=== PATIENT | male | born 1935 | race Caucasian/White ===

== ENCOUNTER → 2018-03-31 16:04 | Outpatient (CLI) | payer MEDICARE, SELFPAY ==
[2018-03-31 16:35] LABS: Appearance Urine UA CLEAR; Bilirubin Urine UA NEGATIVE (NEGATIVE); Color Urine UA YELLOW; Glucose Urine UA NEGATIVE (Normal); Ketones Urine UA NEGATIVE (NEGATIVE); Leukocyte Esterase Urine UA NEGATIVE (NEGATIVE); Nitrite Urine UA Negative (Negative); Occult Blood Urine UA NEGATIVE (Negative); Protein Urine UA NEGATIVE (Negative); Urobilinogen Urine UA 0.2 E.U./dL (0.2)
[2018-03-31 17:42] LABS: Add Manual Diff / Slide Review NO; Basophils Percent Auto 0.9 % (0-2); Hematocrit 40.9 % (41-53); Hemoglobin 14.3 g/dL (13.5-17.5); Lymphocytes Percent Auto 18.9 % (25-40); Mean Corpuscular Hemoglobin 32.4 PG (26-34); Mean Corpuscular Volume 92.6 fL (80-100); Monocytes Percent Auto 10.6 % (3-14); Neutrophils Absolute Auto 4000 /uL (3000-5900); Neutrophils Percent Auto 66.6 % (50-75); Platelet Count 234 X10^3/uL (150-400); Red Blood Cell Count 4.42 X10^6/uL (4.5-5.9); Red Cell Distribution Width 13.6 % (11.6-14.8)
[2018-03-31 18:37] LABS: Alanine Aminotransferase 27 IU/L (21-72); Albumin 3.8 g/dL (3.5-5.0); Albumin Globulin Ratio 1.3 (1.0-2.8); Alkaline Phosphatase 97 U/L (38-126); Aspartate Aminotransferase 26 IU/L (17-59); Bilirubin Total 0.7 mg/dL (0.2-1.3); Blood Urea Nitrogen 22 mg/dL (9-20); Calcium 9.3 mg/dL (8.4-10.2); Carbon Dioxide 29 mmol/L (22-32); Chloride 97 mmol/L (98-107); Estimated Glomerular Filt Rate > 60.0 mL/min (>60); Globulin 2.9 g/dL (1.7-4.1); Glucose 77 mg/dL (80-110); HEMOLYSIS < 15 (0-50); Potassium 4.1 mmol/L (3.4-5.1); Sodium 137 mmol/L (137-145); Total Protein 6.7 g/dL (6.3-8.2)
[2018-03-31 19:08] LABS: TSH w/ Reflex to FT4 1.71 uIU/mL (0.47-4.68)
== END ==
PROVIDERS: Family Provider Internal Medicine; PCP Internal Medicine; Visit Provider Internal Medicine
DX: I49.9 Cardiac arrhythmia, unspecified (principal); R35.8 Other polyuria; Z79.899 Other long term (current) drug therapy; I10 Essential (primary) hypertension
CPT/HCPCS: 36415; 80053; 81003; 83735; 84443; 85025

== ENCOUNTER → 2018-04-04 12:26 | Outpatient (CLI) | payer MEDICARE, SELFPAY ==
--- NOTE | 2018-04-17 15:48 | PM.CARDMON.1 ---
Project Structural Engineer Report Referral & Results Date Patient Seen: 04/04/18 Requesting provider: Ten Fleming Indication: Paroxysmal atrial fibrillation Duration of monitoring (days): 6 Diary information: No diary entries, 1 patient triggered event that was associated with sinus rhythm Data: Minimum heart rate identified was 57 beats per minute at 05:12 on 04/07/2018 Maximum heart rate was 169 beats per minute at 07:47 on 04/07/2018 this was associated with an 8 beat run of SVT Maximum sinus heart rate was 125 beats per minute at 07:32 on 04/08/2018 About 5.1% of patients identified beats were supraventricular ectopic in origin and less than 1% of identified beats were ventricular ectopic beats in origin Patient did have several runs of supraventricular tachycardia longest was 8 beats which was also the fastest heart rate Impression: No evidence of atrial fibrillation. Somewhat frequent PACs without other significant dysrhythmia
== END ==
PROVIDERS: Family Provider Internal Medicine; PCP Internal Medicine; Visit Provider Internal Medicine
DX: I49.9 Cardiac arrhythmia, unspecified (principal)
CPT/HCPCS: 0296T; 0298T

== ENCOUNTER 2018-04-30 08:31 | Emergency (ER) | payer MEDICARE, SELFPAY ==
[2018-04-30 08:37] VITALS: BP 142/81; PULSE 105; RESP 18; TEMP 36.3; O2SAT 99
--- NOTE | 2018-04-30 09:31 | PC.NURSE ---
pt reports, treated for 10 days antibiotic, last dose saturday, pt feeling fine for 3-4 days, this morning,noted left 4th digit with swelling and redness, denies other sxs at this time. pt able to ambulate with steady gait. left 4th digit with redness and swelling.
--- NOTE | 2018-04-30 09:49 | ED.SKABFB ---
HPI - Skin/Abscess/Foreign Bdy General Chief complaint: Skin/Abscess/Foreign Body Stated complaint: LEFT LEG/FOOT/ANKLE CELLULITIS Time Seen by Provider: 04/30/18 09:47 Source: patient Mode of arrival: ambulatory Limitations: no limitations History of Present Illness HPI narrative: The patient was recently seen in clinic with a left lower extremity cellulitis. He responded well to Bactrim DS. He has had significant resolution. The focus seems to be the left 4th toe, there was a large callus in place and he has tinea pedis. He has been soaking the foot in hot water with Epsom salt. A large portion of the callus Came off. He noted erythema and swelling to the left 4th toe again today, after what seemed total resolution. He had tachycardia and fever when he was 1st treated. He only notices left toe swelling without additional symptoms today. Related Data Home Medications Medication Instructions Recorded Confirmed ascorbic acid (vitamin C) 500 mg PO BID #0 03/21/17 04/17/18 cholecalciferol (vitamin D3) #0 03/21/17 04/17/18 multivitamin [Multiple Vitamins] 1 tab PO QDAY #0 03/21/17 04/17/18 naproxen sodium 220 mg PO BIDCC #0 06/27/17 04/17/18 aspirin 325 mg tablet 325 mg PO BID 03/31/18 04/17/18 vitamins A,C,R-upbd-mkneqk 7,160 2 tab PO BID 03/31/18 04/17/18 unit-113 mg-100 unit tablet Previous Rx's Medication Instructions Recorded oxycodone-acetaminophen 1 - 2 tab PO Q4HP PRN #20 tab 06/27/17 fluticasone [Flovent HFA] 2 puff INH BID #1 inh 12/03/17 lisinopril 40 mg PO BID #180 tab 12/03/17 hydrochlorothiazide 25 mg PO QDAY #90 tab 03/31/18 simvastatin [Zocor] 40 mg PO Q DAY #90 tab 03/31/18 clindamycin HCl [Cleocin HCl] 300 mg PO TID #30 cap 04/30/18 Allergies Allergy/AdvReac Type Severity Reaction Status Date / Time Horse/Equine Containing AdvReac Severe CONVULSION Verified 04/17/18 15:13 Products Review of Systems Constitutional Denies chills, Denies fever(s) and Denies lethargy Musculoskeletal Denies back pain, Denies atrophy, Denies deformity, Denies muscle weakness, Denies numbness and Denies tingling Integumentary/Breasts Reports erythema and Reports wounds Comments: Left toe ulcer with swelling Neurologic Denies numbness and Denies tingling [facility] Medical History Essential hypertension (Chronic 05/17/11) Mixed hyperlipidemia (Chronic 05/17/11) 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) Essential tremor (Chronic 12/28/14) Paroxysmal atrial fibrillation (Chronic 03/16/16) Chronic obstructive pulmonary disease (Chronic 01/27/18) Surgical History Status post cholecystectomy (Resolved 09/2015) Social History marital status: number of children: 3 household members: spouse lives independently: Yes caregiver/support person: No housing: house pets and animals: Yes education level: other (Graduate [employer] engineering.) 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) current occupational exposures/hazards: No magali/orthodox: Caodaism leisure activities: sports, exercise, music, games, hunting and fishing Smoking Status: Former smoker Tobacco: How many years used: 15 Smokeless tobacco user: other (Pipe, Cigars,Cigarettes on and off.) quit status: quit date established (1975) alcohol intake: current (6-8 oz of Aston) substance use type: does not use Exam Initial Vital Signs Initial Vital Signs: Vital Signs Temperature 97.4 F L 04/30/18 08:37 Pulse Rate 105 H 04/30/18 08:37 Respiratory Rate 18 04/30/18 08:37 Blood Pressure 142/81 H 04/30/18 08:37 Pulse Oximetry 99 04/30/18 08:37 Const General: cooperative, healthy appearing, well developed and well groomed Nutritional Appearance: well nourished Orientation: alert, awake, oriented x3 and not confused Skin General: no rashes or lesions noted ( Other than the left Lower extremity.) Neuro General: alert, oriented x3, no focal motor deficits and other ( No sensory deficits in the lower extremities.) Speech: speech normal Extrem General: other ( The patient has a 4 mm ulcer at the tip of the left 4th toe. There is a degree of callus formation around the ulcer. The left 4th toe is edematous, erythematous and tender. There is no purulent discharge from the ulcer. There is no erythema streaking up the dorsal foot or leg. ) Course Hospital Course: The patient will be started on Cleocin, with close follow up with his physician encouraged. Vital Signs - 8 hr 04/30/18 08:37 Temperature 97.4 F L Pulse Rate 105 H Respiratory Rate 18 Blood Pressure 142/81 H Pulse Oximetry 99 Discharge Plan Departure Patient Disposition: Home, Self-Care Clinical Impression: Cellulitis of fourth toe of left foot Instructions: Cellulitis Activity Restrictions/Additional Instructions: Take Cleocin 3 times daily as prescribed. Soak the foot in warm water with Epsom salts as you have been doing. Have your doctor recheck the wound later this week. Return here if he developed increased redness or pain in the left foot or leg. Prescriptions: New clindamycin HCl [Cleocin HCl] 300 mg capsule 300 mg PO TID Qty: 30 RF: 0 No Action multivitamin [Multiple Vitamins] 1 EACH tablet 1 tab PO QDAY Qty: 0 RF: 0 ascorbic acid (vitamin C) 500 MG tablet 500 mg PO BID Qty: 0 RF: 0 cholecalciferol (vitamin D3) 30 ML spray,suspension Qty: 0 RF: 0 naproxen sodium 220 MG tablet 220 mg PO BIDCC Qty: 0 RF: 0 oxycodone-acetaminophen 5 MG/325 MG tablet 1 - 2 tab PO Q4HP PRNQty: 20 RF: 0 fluticasone [Flovent HFA] 12 GM HFA aerosol inhaler 2 puff INH BID Qty: 1 RF: 6 lisinopril 40 MG tablet 40 mg PO BID Qty: 180 RF: 3 simvastatin [Zocor] 40 mg tablet 40 mg PO Q DAY Qty: 90 RF: 3 hydrochlorothiazide 25 mg tablet 25 mg PO QDAY Qty: 90 RF: 3 aspirin 325 mg tablet 325 mg PO BID RF: 0 vitamins A,C,Q-pgqw-dwkrcr [PreserVision AREDS] 7,160-113-100 gtnv-or-bkse tablet 2 tab PO BID RF: 0
[2018-04-30 10:02] VITALS: BP 164/78; PULSE 101; RESP 14; O2SAT 98
--- NOTE | 2018-04-30 10:06 | ED_ITS ---
HPI - Skin/Abscess/Foreign Bdy General Chief complaint: Skin/Abscess/Foreign Body Stated complaint: LEFT LEG/FOOT/ANKLE CELLULITIS Time Seen by Provider: 04/30/18 09:47 Source: patient Mode of arrival: ambulatory Limitations: no limitations History of Present Illness HPI narrative: The patient was recently seen in clinic with a left lower extremity cellulitis. He responded well to Bactrim DS. He has had significant resolution. The focus seems to be the left 4th toe, there was a large callus in place and he has tinea pedis. He has been soaking the foot in hot water with Epsom salt. A large portion of the callus Came off. He noted erythema and swelling to the left 4th toe again today, after what seemed total resolution. He had tachycardia and fever when he was 1st treated. He only notices left toe swelling without additional symptoms today. Related Data Home Medications Medication Instructions Recorded Confirmed ascorbic acid (vitamin C) 500 mg PO BID #0 03/21/17 04/17/18 cholecalciferol (vitamin D3) #0 03/21/17 04/17/18 multivitamin [Multiple Vitamins] 1 tab PO QDAY #0 03/21/17 04/17/18 naproxen sodium 220 mg PO BIDCC #0 06/27/17 04/17/18 aspirin 325 mg tablet 325 mg PO BID 03/31/18 04/17/18 vitamins A,C,M-vwlo-eahchs 7,160 2 tab PO BID 03/31/18 04/17/18 unit-113 mg-100 unit tablet Previous Rx's Medication Instructions Recorded oxycodone-acetaminophen 1 - 2 tab PO Q4HP PRN #20 tab 06/27/17 fluticasone [Flovent HFA] 2 puff INH BID #1 inh 12/03/17 lisinopril 40 mg PO BID #180 tab 12/03/17 hydrochlorothiazide 25 mg PO QDAY #90 tab 03/31/18 simvastatin [Zocor] 40 mg PO Q DAY #90 tab 03/31/18 clindamycin HCl [Cleocin HCl] 300 mg PO TID #30 cap 04/30/18 Allergies Allergy/AdvReac Type Severity Reaction Status Date / Time Horse/Equine Containing AdvReac Severe CONVULSION Verified 04/17/18 15:13 Products Review of Systems Constitutional Denies chills, Denies fever(s) and Denies lethargy Musculoskeletal Denies back pain, Denies atrophy, Denies deformity, Denies muscle weakness, Denies numbness and Denies tingling Integumentary/Breasts Reports erythema and Reports wounds Comments: Left toe ulcer with swelling Neurologic Denies numbness and Denies tingling [facility] Medical History Essential hypertension (Chronic 05/17/11) Mixed hyperlipidemia (Chronic 05/17/11) 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) Essential tremor (Chronic 12/28/14) Paroxysmal atrial fibrillation (Chronic 03/16/16) Chronic obstructive pulmonary disease (Chronic 01/27/18) Surgical History Status post cholecystectomy (Resolved 09/2015) Social History marital status: number of children: 3 household members: spouse lives independently: Yes caregiver/support person: No housing: house pets and animals: Yes education level: other (Graduate [employer] engineering.) 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) current occupational exposures/hazards: No magali/gnosticism: Judaism leisure activities: sports, exercise, music, games, hunting and fishing Smoking Status: Former smoker Tobacco: How many years used: 15 Smokeless tobacco user: other (Pipe, Cigars,Cigarettes on and off.) quit status: quit date established (1975) alcohol intake: current (6-8 oz of Aston) substance use type: does not use Exam Initial Vital Signs Initial Vital Signs: Vital Signs Temperature 97.4 F L 04/30/18 08:37 Pulse Rate 105 H 04/30/18 08:37 Respiratory Rate 18 04/30/18 08:37 Blood Pressure 142/81 H 04/30/18 08:37 Pulse Oximetry 99 04/30/18 08:37 Const General: cooperative, healthy appearing, well developed and well groomed Nutritional Appearance: well nourished Orientation: alert, awake, oriented x3 and not confused Skin General: no rashes or lesions noted ( Other than the left Lower extremity.) Neuro General: alert, oriented x3, no focal motor deficits and other ( No sensory deficits in the lower extremities.) Speech: speech normal Extrem General: other ( The patient has a 4 mm ulcer at the tip of the left 4th toe. There is a degree of callus formation around the ulcer. The left 4th toe is edematous, erythematous and tender. There is no purulent discharge from the ulcer. There is no erythema streaking up the dorsal foot or leg. ) Course Hospital Course: The patient will be started on Cleocin, with close follow up with his physician encouraged. Vital Signs - 8 hr 04/30/18 08:37 Temperature 97.4 F L Pulse Rate 105 H Respiratory Rate 18 Blood Pressure 142/81 H Pulse Oximetry 99 Discharge Plan Departure Patient Disposition: Home, Self-Care Clinical Impression: Cellulitis of fourth toe of left foot Instructions: Cellulitis Activity Restrictions/Additional Instructions: Take Cleocin 3 times daily as prescribed. Soak the foot in warm water with Epsom salts as you have been doing. Have your doctor recheck the wound later this week. Return here if he developed increased redness or pain in the left foot or leg. Prescriptions: New clindamycin HCl [Cleocin HCl] 300 mg capsule 300 mg PO TID Qty: 30 RF: 0 No Action multivitamin [Multiple Vitamins] 1 EACH tablet 1 tab PO QDAY Qty: 0 RF: 0 ascorbic acid (vitamin C) 500 MG tablet 500 mg PO BID Qty: 0 RF: 0 cholecalciferol (vitamin D3) 30 ML spray,suspension Qty: 0 RF: 0 naproxen sodium 220 MG tablet 220 mg PO BIDCC Qty: 0 RF: 0 oxycodone-acetaminophen 5 MG/325 MG tablet 1 - 2 tab PO Q4HP PRNQty: 20 RF: 0 fluticasone [Flovent HFA] 12 GM HFA aerosol inhaler 2 puff INH BID Qty: 1 RF: 6 lisinopril 40 MG tablet 40 mg PO BID Qty: 180 RF: 3 simvastatin [Zocor] 40 mg tablet 40 mg PO Q DAY Qty: 90 RF: 3 hydrochlorothiazide 25 mg tablet 25 mg PO QDAY Qty: 90 RF: 3 aspirin 325 mg tablet 325 mg PO BID RF: 0 vitamins A,C,W-iyro-ckowtw [PreserVision AREDS] 7,160-113-100 tdvl-hi-rtgn tablet 2 tab PO BID RF: 0
[2018-04-30] MEDS: CLINDAMYCIN 150 MG CAPSULE 300 MG PO (10:14)
== END 2018-04-30 10:19 | disposition home or self-care (01) ==
PROVIDERS: Emergency Provider Emergency Medicine; Family Provider Internal Medicine; PCP Internal Medicine
DX: L03.032 Cellulitis of left toe (principal)
CPT/HCPCS: 99282

== ENCOUNTER → 2018-06-03 13:21 | Outpatient (CLI) | payer MEDICARE, SELFPAY | PROVIDERS: Family Provider Internal Medicine; PCP Internal Medicine; Visit Provider Registered Nurse | DX: L97.529 Non-pressure chronic ulcer of other part of left foot with unspecified severity (principal) | CPT/HCPCS: 87070; 87075; 87077; 87186; 87205 ==

== ENCOUNTER 2018-06-05 09:31 | Emergency (ER) | payer MEDICARE, SELFPAY ==
[2018-06-05 09:39] VITALS: BP 125/76; PULSE 96; RESP 15; TEMP 36.9; O2SAT 100; BMI 27.9
[2018-06-05 10:55] VITALS: BP 104/66; PULSE 92; RESP 16; O2SAT 97
--- NOTE | 2018-06-05 10:56 | ED.LOWEXIN ---
HPI - Extremity Injury (Lower) General Chief Complaint: Extremity Injury, Lower Stated Complaint: RAPID SPREADING CELLULITIS Time Seen by Provider: 06/05/18 10:55 Source: patient and family Mode of arrival: ambulatory Limitations: no limitations History of Present Illness HPI Narrative: Patient states he has been on Bactrim for the last 3 days for a cellulitis is left lower extremity. Patient states that today he noticed ?spots? all over his body. states they were concerned that the cellulitis might be spreading. Patient denies fevers for the last 3 days. The day before the cellulitis broke out, however, the patient did have fever for 1 day. Patient states that he has felt more tired than usual, but otherwise has been without further complaints. MD complaint: other (Cellulitis, rash.) Onset (ago): day(s) (1) Associated symptoms: ambulatory Other symptoms: none Treatments prior to arrival: other (Antibiotics) Related Data Home Medications Medication Instructions Recorded Confirmed ascorbic acid (vitamin C) 500 mg PO BID #0 03/21/17 06/05/18 multivitamin [Multiple Vitamins] 1 tab PO QDAY #0 03/21/17 06/05/18 naproxen sodium 220 mg PO BIDCC #0 06/27/17 06/05/18 aspirin 325 mg tablet 325 mg PO DAILY 03/31/18 06/05/18 vitamins A,C,U-yfin-ldfnra 7,160 2 tab PO BID 03/31/18 06/05/18 unit-113 mg-100 unit tablet Vitamin D3 1 cap PO DAILY 06/05/18 06/05/18 Previous Rx's Medication Instructions Recorded oxycodone-acetaminophen 1 - 2 tab PO Q4HP PRN #20 tab 06/27/17 lisinopril 40 mg PO BID #180 tab 12/03/17 hydrochlorothiazide 25 mg PO QDAY #90 tab 06/02/18 simvastatin [Zocor] 40 mg PO Q DAY #90 tab 06/02/18 clindamycin HCl 300 mg PO QID 7 Days #28 cap 06/05/18 metoprolol tartrate 12.5 mg PO BID #14 tab 06/05/18 Allergies Allergy/AdvReac Type Severity Reaction Status Date / Time Sulfa (Sulfonamide Allergy Mild rash Verified 06/05/18 15:57 Antibiotics) Horse/Equine Containing AdvReac Severe CONVULSION Verified 06/05/18 15:57 Products Review of Systems Review of Systems All systems reviewed & are unremarkable except as noted in HPI and below Constitutional Denies chills, Denies fever(s), Denies lethargy and Denies weakness Eyes Denies change in vision, Denies eye discharge, Denies irritation and Denies loss of vision ENT Ears, Nose, Mouth, and Throat: Denies change in voice, Denies neck pain and Denies sore throat Cardiovascular Denies chest pain, Denies irregular heart rhythm, Denies lightheadedness, Denies palpitations, Denies dyspnea, Denies dyspnea on exertion and Denies orthopnea Respiratory Denies cough, Denies dyspnea, Denies dyspnea on exertion and Denies wheezing Gastrointestinal Gastrointestinal: Denies abdominal pain, Denies change in bowel habits, Denies diarrhea, Denies nausea and Denies vomiting Genitourinary Denies hematuria, Denies flank pain, Denies urinary incontinence and Denies urinary urgency Musculoskeletal Denies neck pain Integumentary/Breasts Denies pruritus, Reports erythema, Reports rash and Denies wounds Neurologic Denies confusion, Denies loss of vision and Denies weakness Psychiatric Denies anxiety, Denies confusion, Denies depression, Denies homicidal ideation and Denies suicidal ideation Endocrine Denies palpitations Hematologic/Lymphatic Denies easy bruising Allergic/Immunologic Denies wheezing PFSH Social History marital status: number of children: 3 household members: spouse lives independently: Yes caregiver/support person: No housing: house pets and animals: Yes education level: other (Graduate [employer] and aer[employer] engineering.) 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) current occupational exposures/hazards: No magali/islam: Mormonism leisure activities: sports, exercise, music, games, hunting and fishing Smoking Status: Former smoker Tobacco: How many years used: 15 Smokeless tobacco user: other (Pipe, Cigars,Cigarettes on and off.) quit status: quit date established (1975) alcohol intake: current (6-8 oz of Aston) substance use type: does not use Exam Initial Vital Signs Initial Vital Signs: Vital Signs Temperature 98.5 F 06/05/18 09:39 Pulse Rate 96 H 06/05/18 09:39 Respiratory Rate 15 06/05/18 09:39 Blood Pressure 125/76 H 06/05/18 09:39 Pulse Oximetry 100 06/05/18 09:39 Const General: cooperative and well developed Nutritional Appearance: well nourished Orientation: alert, awake, oriented x3 and not confused [facility] Head: normocephalic and atraumatic Ears: external ears normal and TM's normal bilaterally Nose: external nose normal and No nasal discharge Face and sinus: sinuses nontender, face symmetric, no sinus tenderness and No dry mucous membranes Mouth: oral mucosae normal and moist mucous membranes Teeth and gingiva: dentition normal Throat: tonsils normal and uvula midline Eyes General: appearance normal, both eyes and all related structures Eyelids: eyelids normal Conjunctivae: conjunctivae normal Sclera: sclerae normal Pupils: PERRL EOM: EOM intact bilaterally Neck Neck: normal visual inspection, trachea midline, No lymphadenopathy, No midline deformity and No JVD Lymphatic: No lymphedema Chest Chest: normal inspection of the chest Resp Effort & Inspection: normal respiratory effort, able to speak in complete sentences, no respiratory distress and no use of accessory muscles Auscultation: clear to auscultation bilaterally, no rales, no rhonchi and no wheezes Cardio Rhythm: abnormal rhythm (Patient has a normal rate, but it is irregular.) irregularly irregular Heart Sounds: no click, no gallops, no murmurs and no rubs Pulses: normal peripheral pulses GI Inspection: non-distended Palpation: soft, no hepatosplenomegaly, No guarding, No pulsatile mass and No tender Auscultation: normal bowel sounds Back/Spine/Pelvis Back: No CVA tenderness Cervical Spine: cervical ROM normal and No pain with cervical ROM Thoracic/Lumbar Spine: thoracic and lumbar spine normal to inspection Skin General: no rashes or lesions noted, No jaundice and No petechiae Other: Patient has solid erythema his left lower extremity, extending from the ankle to the mid anterior tibial area. The erythema is circumferential. He also has a full body rash consisting of 2 cm circular lesions without central clearing. No skin edema or elevation for fluctuance is noted with these lesions. Neuro General: alert, oriented x3, gait normal and no focal motor deficits Speech: speech normal Extrem General: full ROM, no clubbing, cyanosis or edema, no pedal edema and no calf tenderness Psych Appearance: well kempt Mental Status: mental status grossly normal Attitude: cooperative Thought Content: normal and suicidality Judgment: judgment good Course Hospital Course: I addressed the concern on the part of the patient and his that the rash represents a cellulitis spreading all over his body. We have discussed in detail and at length why I do not feel this presentation is consistent with spread of the patient's cellulitis. The patient is not displaying any signs of sepsis. He is very well-appearing. I do feel that the most likely explanation for the rash is a drug eruption, and as such, I have advised the patient to stop the Bactrim and start clindamycin which he has used with success in the past for cellulitis. Patient and were agreeable to this plan. Orders Ordered: Discontinued Medications Clindamycin HCl (Cleocin) 300 mg PO NOW ONE Stop: 06/05/18 11:22 Last Admin: 06/05/18 11:53 Dose: 300 mg Vital Signs - 8 hr 06/05/18 09:39 06/05/18 10:55 Temperature 98.5 F Pulse Rate 96 H 92 H Respiratory Rate 15 16 Blood Pressure 125/76 H Blood Pressure [Right Arm] 104/66 Pulse Oximetry 100 97 MDM - Extremity Injury (Lower) Medical Records Attestation: I reviewed the patient's medical records. Discharge Plan Departure Patient Disposition: Home, Self-Care Clinical Impression: Drug exanthem, Cellulitis Discharge Date/Time: 06/05/18 11:50 Interventions: ED Discharge Assessment Last Done: 06/05/18 11:50 Instructions: DI for Adverse Drug Reaction -- Allergic, DI for Adverse Drug Reaction -- Other Activity Restrictions/Additional Instructions: Your rash is not consistent with a spread of infection throughout your body. Your symptoms are more consistent with a reaction to the medication that you are on. As such, the best plan is to switch to a different antibiotic. You should stop taking the sulfa antibiotic and start taking the clindamycin, as will be prescribed. You may also take the Benadryl and prednisone, as we have discussed, for the next 3 days to help with the symptoms. Please do not take more than 60 mg of prednisone in 1 day. Please do not take the prednisone for more than 3 days. Prescriptions: New clindamycin HCl 300 mg capsule 300 mg PO QID 7 Days Qty: 28 RF: 0 No Action multivitamin [Multiple Vitamins] 1 EACH tablet 1 tab PO QDAY Qty: 0 RF: 0 ascorbic acid (vitamin C) 500 MG tablet 500 mg PO BID Qty: 0 RF: 0 naproxen sodium 220 MG tablet 220 mg PO BIDCC Qty: 0 RF: 0 oxycodone-acetaminophen 5 MG/325 MG tablet 1 - 2 tab PO Q4HP PRNQty: 20 RF: 0 lisinopril 40 MG tablet 40 mg PO BID Qty: 180 RF: 3 hydrochlorothiazide 25 mg tablet 25 mg PO QDAY Qty: 90 RF: 3 simvastatin [Zocor] 40 mg tablet 40 mg PO Q DAY Qty: 90 RF: 3 aspirin 325 mg tablet 325 mg PO DAILY RF: 0 vitamins A,C,Z-bicy-zxlpkr [PreserVision AREDS] 7,160-113-100 lzom-dv-gxug tablet 2 tab PO BID RF: 0 metoprolol tartrate 25 mg tablet 12.5 mg PO BID Qty: 14 RF: 0 Vitamin D3 1 cap PO DAILY RF: 0 Referrals: Ten Fleming MD [Primary Care Provider] - (Please call to make an appointment for early next week for re-evaluation.)
--- NOTE | 2018-06-05 11:21 | ED_ITS ---
HPI - Extremity Injury (Lower) General Chief Complaint: Extremity Injury, Lower Stated Complaint: RAPID SPREADING CELLULITIS Time Seen by Provider: 06/05/18 10:55 Source: patient and family Mode of arrival: ambulatory Limitations: no limitations History of Present Illness HPI Narrative: Patient states he has been on Bactrim for the last 3 days for a cellulitis is left lower extremity. Patient states that today he noticed ?spots ? all over his body. states they were concerned that the cellulitis might be spreading. Patient denies fevers for the last 3 days. The day before the cellulitis broke out, however, the patient did have fever for 1 day. Patient states that he has felt more tired than usual, but otherwise has been without further complaints. MD complaint: other (Cellulitis, rash.) Onset (ago): day(s) (1) Associated symptoms: ambulatory Other symptoms: none Treatments prior to arrival: other (Antibiotics) Related Data Home Medications Medication Instructions Recorded Confirmed ascorbic acid (vitamin C) 500 mg PO BID #0 03/21/17 06/05/18 multivitamin [Multiple Vitamins] 1 tab PO QDAY #0 03/21/17 06/05/18 naproxen sodium 220 mg PO BIDCC #0 06/27/17 06/05/18 aspirin 325 mg tablet 325 mg PO DAILY 03/31/18 06/05/18 vitamins A,C,S-oezb-ncirtk 7,160 2 tab PO BID 03/31/18 06/05/18 unit-113 mg-100 unit tablet Vitamin D3 1 cap PO DAILY 06/05/18 06/05/18 Previous Rx's Medication Instructions Recorded oxycodone-acetaminophen 1 - 2 tab PO Q4HP PRN #20 tab 06/27/17 lisinopril 40 mg PO BID #180 tab 12/03/17 hydrochlorothiazide 25 mg PO QDAY #90 tab 06/02/18 simvastatin [Zocor] 40 mg PO Q DAY #90 tab 06/02/18 clindamycin HCl 300 mg PO QID 7 Days #28 cap 06/05/18 metoprolol tartrate 12.5 mg PO BID #14 tab 06/05/18 Allergies Allergy/AdvReac Type Severity Reaction Status Date / Time Sulfa (Sulfonamide Allergy Mild rash Verified 06/05/18 15:57 Antibiotics) Horse/Equine Containing AdvReac Severe CONVULSION Verified 06/05/18 15:57 Products Review of Systems Review of Systems All systems reviewed & are unremarkable except as noted in HPI and below Constitutional Denies chills, Denies fever(s), Denies lethargy and Denies weakness Eyes Denies change in vision, Denies eye discharge, Denies irritation and Denies loss of vision ENT Ears, Nose, Mouth, and Throat: Denies change in voice, Denies neck pain and Denies sore throat Cardiovascular Denies chest pain, Denies irregular heart rhythm, Denies lightheadedness, Denies palpitations, Denies dyspnea, Denies dyspnea on exertion and Denies orthopnea Respiratory Denies cough, Denies dyspnea, Denies dyspnea on exertion and Denies wheezing Gastrointestinal Gastrointestinal: Denies abdominal pain, Denies change in bowel habits, Denies diarrhea, Denies nausea and Denies vomiting Genitourinary Denies hematuria, Denies flank pain, Denies urinary incontinence and Denies urinary urgency Musculoskeletal Denies neck pain Integumentary/Breasts Denies pruritus, Reports erythema, Reports rash and Denies wounds Neurologic Denies confusion, Denies loss of vision and Denies weakness Psychiatric Denies anxiety, Denies confusion, Denies depression, Denies homicidal ideation and Denies suicidal ideation Endocrine Denies palpitations Hematologic/Lymphatic Denies easy bruising Allergic/Immunologic Denies wheezing PFSH Social History marital status: number of children: 3 household members: spouse lives independently: Yes caregiver/support person: No housing: house pets and animals: Yes education level: other (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) current occupational exposures/hazards: No magali/rastafari: Jew leisure activities: sports, exercise, music, games, hunting and fishing Smoking Status: Former smoker Tobacco: How many years used: 15 Smokeless tobacco user: other (Pipe, Cigars,Cigarettes on and off.) quit status: quit date established (1975) alcohol intake: current (6-8 oz of Aston) substance use type: does not use Exam Initial Vital Signs Initial Vital Signs: Vital Signs Temperature 98.5 F 06/05/18 09:39 Pulse Rate 96 H 06/05/18 09:39 Respiratory Rate 15 06/05/18 09:39 Blood Pressure 125/76 H 06/05/18 09:39 Pulse Oximetry 100 06/05/18 09:39 Const General: cooperative and well developed Nutritional Appearance: well nourished Orientation: alert, awake, oriented x3 and not confused [facility] Head: normocephalic and atraumatic Ears: external ears normal and TM's normal bilaterally Nose: external nose normal and No nasal discharge Face and sinus: sinuses nontender, face symmetric, no sinus tenderness and No dry mucous membranes Mouth: oral mucosae normal and moist mucous membranes Teeth and gingiva: dentition normal Throat: tonsils normal and uvula midline Eyes General: appearance normal, both eyes and all related structures Eyelids: eyelids normal Conjunctivae: conjunctivae normal Sclera: sclerae normal Pupils: PERRL EOM: EOM intact bilaterally Neck Neck: normal visual inspection, trachea midline, No lymphadenopathy, No midline deformity and No JVD Lymphatic: No lymphedema Chest Chest: normal inspection of the chest Resp Effort & Inspection: normal respiratory effort, able to speak in complete sentences, no respiratory distress and no use of accessory muscles Auscultation: clear to auscultation bilaterally, no rales, no rhonchi and no wheezes Cardio Rhythm: abnormal rhythm (Patient has a normal rate, but it is irregular.) irregularly irregular Heart Sounds: no click, no gallops, no murmurs and no rubs Pulses: normal peripheral pulses GI Inspection: non-distended Palpation: soft, no hepatosplenomegaly, No guarding, No pulsatile mass and No tender Auscultation: normal bowel sounds Back/Spine/Pelvis Back: No CVA tenderness Cervical Spine: cervical ROM normal and No pain with cervical ROM Thoracic/Lumbar Spine: thoracic and lumbar spine normal to inspection Skin General: no rashes or lesions noted, No jaundice and No petechiae Other: Patient has solid erythema his left lower extremity, extending from the ankle to the mid anterior tibial area. The erythema is circumferential. He also has a full body rash consisting of 2 cm circular lesions without central clearing. No skin edema or elevation for fluctuance is noted with these lesions. Neuro General: alert, oriented x3, gait normal and no focal motor deficits Speech: speech normal Extrem General: full ROM, no clubbing, cyanosis or edema, no pedal edema and no calf tenderness Psych Appearance: well kempt Mental Status: mental status grossly normal Attitude: cooperative Thought Content: normal and suicidality Judgment: judgment good Course Hospital Course: I addressed the concern on the part of the patient and his that the rash represents a cellulitis spreading all over his body. We have discussed in detail and at length why I do not feel this presentation is consistent with spread of the patient's cellulitis. The patient is not displaying any signs of sepsis. He is very well-appearing. I do feel that the most likely explanation for the rash is a drug eruption, and as such, I have advised the patient to stop the Bactrim and start clindamycin which he has used with success in the past for cellulitis. Patient and were agreeable to this plan. Orders Ordered: Discontinued Medications Clindamycin HCl (Cleocin) 300 mg PO NOW ONE Stop: 06/05/18 11:22 Last Admin: 06/05/18 11:53 Dose: 300 mg Vital Signs - 8 hr 06/05/18 09:39 06/05/18 10:55 Temperature 98.5 F Pulse Rate 96 H 92 H Respiratory Rate 15 16 Blood Pressure 125/76 H Blood Pressure [Right Arm] 104/66 Pulse Oximetry 100 97 MDM - Extremity Injury (Lower) Medical Records Attestation: I reviewed the patient's medical records. Discharge Plan Departure Patient Disposition: Home, Self-Care Clinical Impression: Drug exanthem, Cellulitis Discharge Date/Time: 06/05/18 11:50 Interventions: ED Discharge Assessment Last Done: 06/05/18 11:50 Instructions: DI for Adverse Drug Reaction -- Allergic, DI for Adverse Drug Reaction -- Other Activity Restrictions/Additional Instructions: Your rash is not consistent with a spread of infection throughout your body. Your symptoms are more consistent with a reaction to the medication that you are on. As such, the best plan is to switch to a different antibiotic. You should stop taking the sulfa antibiotic and start taking the clindamycin, as will be prescribed. You may also take the Benadryl and prednisone, as we have discussed, for the next 3 days to help with the symptoms. Please do not take more than 60 mg of prednisone in 1 day. Please do not take the prednisone for more than 3 days. Prescriptions: New clindamycin HCl 300 mg capsule 300 mg PO QID 7 Days Qty: 28 RF: 0 No Action multivitamin [Multiple Vitamins] 1 EACH tablet 1 tab PO QDAY Qty: 0 RF: 0 ascorbic acid (vitamin C) 500 MG tablet 500 mg PO BID Qty: 0 RF: 0 naproxen sodium 220 MG tablet 220 mg PO BIDCC Qty: 0 RF: 0 oxycodone-acetaminophen 5 MG/325 MG tablet 1 - 2 tab PO Q4HP PRNQty: 20 RF: 0 lisinopril 40 MG tablet 40 mg PO BID Qty: 180 RF: 3 hydrochlorothiazide 25 mg tablet 25 mg PO QDAY Qty: 90 RF: 3 simvastatin [Zocor] 40 mg tablet 40 mg PO Q DAY Qty: 90 RF: 3 aspirin 325 mg tablet 325 mg PO DAILY RF: 0 vitamins A,C,L-cyni-mtnahb [PreserVision AREDS] 7,160-113-100 sigy-hj-alga tablet 2 tab PO BID RF: 0 metoprolol tartrate 25 mg tablet 12.5 mg PO BID Qty: 14 RF: 0 Vitamin D3 1 cap PO DAILY RF: 0 Referrals: Ten Fleming MD [Primary Care Provider] - (Please call to make an appointment for early next week for re-evaluation.)
[2018-06-05 11:45] VITALS: BP 120/77; PULSE 68; RESP 16; O2SAT 98
[2018-06-05] MEDS: CLINDAMYCIN 150 MG CAPSULE 300 MG PO (11:53)
== END 2018-06-05 11:50 | disposition home or self-care (01) ==
PROVIDERS: Emergency Provider Emergency Medicine; Family Provider Internal Medicine; PCP Internal Medicine
DX: L03.116 Cellulitis of left lower limb (principal)
CPT/HCPCS: 93005

== ENCOUNTER 2018-06-05 15:44 | Emergency (ER) | payer MEDICARE, SELFPAY ==
[2018-06-05 15:58] VITALS: BP 130/91; PULSE 98; RESP 15; TEMP 37.3; O2SAT 96; BMI 27.9
[2018-06-05 16:00] VITALS: BP 130/91; PULSE 109
[2018-06-05] MEDS: dilTIAZem 25 MG/5 ML SDV 10 MG IV (16:00)
--- NOTE | 2018-06-05 16:11 | ED.ARRPALP ---
HPI - Arrhythmia/Palpitations General Chief Complaint: Arrhythmia/Palpitations Stated Complaint: WEAK AND TIRED Time Seen by Provider: 06/05/18 16:02 Source: patient Mode of arrival: ambulatory Limitations: no limitations Related Data Home Medications Medication Instructions Recorded Confirmed ascorbic acid (vitamin C) 500 mg PO BID #0 03/21/17 06/05/18 multivitamin [Multiple Vitamins] 1 tab PO QDAY #0 03/21/17 06/05/18 naproxen sodium 220 mg PO BIDCC #0 06/27/17 06/05/18 aspirin 325 mg tablet 325 mg PO DAILY 03/31/18 06/05/18 vitamins A,C,X-vrat-dhsldk 7,160 2 tab PO BID 03/31/18 06/05/18 unit-113 mg-100 unit tablet Vitamin D3 1 cap PO DAILY 06/05/18 06/05/18 Previous Rx's Medication Instructions Recorded oxycodone-acetaminophen 1 - 2 tab PO Q4HP PRN #20 tab 06/27/17 lisinopril 40 mg PO BID #180 tab 12/03/17 hydrochlorothiazide 25 mg PO QDAY #90 tab 06/02/18 simvastatin [Zocor] 40 mg PO Q DAY #90 tab 06/02/18 clindamycin HCl 300 mg PO QID 7 Days #28 cap 06/05/18 Allergies Allergy/AdvReac Type Severity Reaction Status Date / Time Sulfa (Sulfonamide Allergy Mild rash Verified 06/05/18 15:57 Antibiotics) Horse/Equine Containing AdvReac Severe CONVULSION Verified 06/05/18 15:57 Products PFSH Social History marital status: number of children: 3 household members: spouse lives independently: Yes caregiver/support person: No housing: house pets and animals: Yes education level: other (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) current occupational exposures/hazards: No magali/baptist: Nondenominational leisure activities: sports, exercise, music, games, hunting and fishing Smoking Status: Former smoker Tobacco: How many years used: 15 Smokeless tobacco user: other (Pipe, Cigars,Cigarettes on and off.) quit status: quit date established (1975) alcohol intake: current (6-8 oz of Aston) substance use type: does not use Exam Initial Vital Signs Initial Vital Signs: Vital Signs Temperature 99.2 F 06/05/18 15:58 Pulse Rate 98 H 06/05/18 15:58 Respiratory Rate 15 06/05/18 15:58 Blood Pressure 130/91 H 06/05/18 15:58 Pulse Oximetry 96 06/05/18 15:58 Course Orders Ordered: Discontinued Medications Diltiazem HCl (Cardizem) 10 mg IV NOW ONE Stop: 06/05/18 16:03 Vital Signs - 8 hr 06/05/18 15:58 Temperature 99.2 F Pulse Rate 98 H Respiratory Rate 15 Blood Pressure 130/91 H Pulse Oximetry 96 Discharge Plan Departure Prescriptions: No Action multivitamin [Multiple Vitamins] 1 EACH tablet 1 tab PO QDAY Qty: 0 RF: 0 ascorbic acid (vitamin C) 500 MG tablet 500 mg PO BID Qty: 0 RF: 0 naproxen sodium 220 MG tablet 220 mg PO BIDCC Qty: 0 RF: 0 oxycodone-acetaminophen 5 MG/325 MG tablet 1 - 2 tab PO Q4HP PRNQty: 20 RF: 0 lisinopril 40 MG tablet 40 mg PO BID Qty: 180 RF: 3 hydrochlorothiazide 25 mg tablet 25 mg PO QDAY Qty: 90 RF: 3 simvastatin [Zocor] 40 mg tablet 40 mg PO Q DAY Qty: 90 RF: 3 aspirin 325 mg tablet 325 mg PO DAILY RF: 0 vitamins A,C,U-dwrk-adpetb [PreserVision AREDS] 7,160-113-100 vhko-ql-prjx tablet 2 tab PO BID RF: 0 Vitamin D3 1 cap PO DAILY RF: 0 clindamycin HCl 300 mg capsule 300 mg PO QID 7 Days Qty: 28 RF: 0
[2018-06-05 16:24] VITALS: BP 103/76; PULSE 95; RESP 15; O2SAT 97
[2018-06-05 16:48] VITALS: BP 121/84; PULSE 94; RESP 18; O2SAT 98
[2018-06-05 17:05] VITALS: BP 138/82; PULSE 92; RESP 19; O2SAT 95
[2018-06-05 17:45] VITALS: BP 139/92; PULSE 106; RESP 12; O2SAT 100
== END 2018-06-05 18:27 | disposition home or self-care (01) ==
PROVIDERS: Emergency Provider Emergency Medicine; Family Provider Internal Medicine; PCP Internal Medicine
DX: I48.0 Paroxysmal atrial fibrillation (principal)
CPT/HCPCS: 36591; 93005; 93010; 93041; 96374; 99282; 99283

== ENCOUNTER → 2018-06-13 14:01 | Outpatient (CLI) | payer MEDICARE, SELFPAY ==
--- NOTE | 2018-06-13 14:03 | DI.ECHO.S_ITS ---
[facility] +---------+ : : [address] : : : : [address] : : : : [place], : : : : [place] [id number] : : : : Phone: [phone] + [id number] Echocardiogram Report + + :Name: MELANY LEMOS Study Date: 06/13/2018 Height: 70 in : :[facility] Weight: 190 lb : : Gender: Male BSA: 2.0 m2 : :: 1935 Age: 82 yrs BP: 150/85 mmHg: :Reason For Study: Atrial fibrillation - paroxysmal : :Ordering Physician: Dr. Caal : :Bernadette Performed By: Lizbeth Page : + + Interpretation Summary There is borderline concentric left ventricular hypertrophy. The ejection fraction is estimated to be 60-65%. Both atria are mildly dilated. The aortic valve is moderately calcified. There is mild aortic stenosis. The ascending aorta is mildly enlarged. Procedure: A two-dimensional transthoracic echocardiogram with color flow and Doppler was performed. The study quality was technically adequate. Comparison is made with the echocardiogram of 10/02/2013. The patient was in atrial fibrillation with heart rates between 75-140 bpm during the exam. Left Ventricle: The left ventricular cavity is small. There is borderline concentric left ventricular hypertrophy. The ejection fraction is estimated to be 60-65%. Left ventricular wall motion is normal. Diastolic function could not be accurately assessed due to atrial fibrillation. Right Ventricle: The right ventricle is normal in size and function. Atria: Both atria are mildly dilated. There is no Doppler evidence for an interatrial shunt. Mitral Valve: There is a flat closure plane of the the mitral valve leaflets. There is trace mitral regurgitation. Aortic Valve: The aortic valve is trileaflet. The aortic valve is moderately calcified. Leaflet mobility is mildly reduced. The peak aortic velocity is 1.7 m/sec. The peak aortic velocity on the previous exam was 1.2 m/sec. The calculated aortic valve area is 1.5 cm2. The aortic valve mean gradient is 6.5 mmHg. There is mild aortic stenosis. Compared to the prior echo study, there has been an increase in the severity of aortic stenosis. No aortic regurgitation is present. Tricuspid Valve: The tricuspid valve is normal in structure and function. There is trace tricuspid regurgitation. Pulmonic Valve: The pulmonic valve is not well visualized. There is trace pulmonic regurgitation. Great Vessels: The aortic root is mildly dilated. The ascending aorta is mildly enlarged. The aortic arch could not be visualized. The pulmonary is not well visualized. The IVC is of normal diameter and collapses greater than 50% with a sniff. This suggests a low right atrial pressure of 3 mm Hg. Pericardium/ Pleura There is no pericardial effusion. There is no pleural effusion. MMode/2D Measurements & Calculations LVIDd: 3.5 cm LVOT diam: 2.1 cm LVIDs: 2.5 cm Ao root diam: 4.1 cm IVSd: 1.1 cm asc Aorta Diam: 3.5 cm LVPWd: 0.92 cm LV jennings. diameter/BSA (cm/m^2): 1.7 LV sys. diameter/BSA (cm/m^2): 1.2 FS: 29.0 % EPSS: 0.05 cm LA A2 area: 26.4 cm2 RA long axis: 6.1 cm LA A4 area: 21.6 cm2 RA area: 24.7 cm2 LA length (vol): 6.2 cm RA vol: 85.0 ml LA vol: 78.1 ml RA : 41.6 ml/m2 LA vol index: 38.2 ml/m2 RVD1 (basal): 3.9 cm TAPSE: 2.1 cm Doppler Measurements & Calculations Ao V2 max: 170.4 cm/sec LVOT Max Homar: 73.6 cm/sec Ao V2 mean: 122.6 cm/sec LV V1 max P.2 mmHg Ao V2 VTI: 29.9 cm LV V1 VTI: 12.6 cm Ao max P.6 mmHg Ao mean P.5 mmHg MARY(I,D): 1.5 cm2 MV E max homar: 96.0 cm/sec MARY(V,D): 1.5 cm2 Med Peak E' Homar: 7.4 cm/sec MARY indexed to BSA (cm^2/m^2): 0.71 E/E' med: 13.0 sev ratio: 0.42 Lat Peak E' Homar: 10.6 cm/sec E/E' lat: 9.0 E/e' average: 11.0 MV P1/2t: 58.7 msec TR max homar: 222.8 cm/sec MVA(P1/2t): 3.8 cm2 TR max P.9 mmHg PA V2 max: 74.0 cm/sec PA V2 mean: 46.9 cm/sec PA mean P.0 mmHg PA Accel Time: 0.09 sec Reading Physician:03:55 PM
== END ==
PROVIDERS: Family Provider Internal Medicine; PCP Internal Medicine; Visit Provider Internal Medicine
DX: I48.0 Paroxysmal atrial fibrillation (principal); I35.0 Nonrheumatic aortic (valve) stenosis
CPT/HCPCS: 93306

== ENCOUNTER 2018-08-24 08:33 | Emergency (ER) | payer MEDICARE, SELFPAY ==
[2018-08-24 08:48] VITALS: BP 210/103; PULSE 98; RESP 12; TEMP 36.8; O2SAT 98; BMI 27.8
--- NOTE | 2018-08-24 09:07 | ED_ITS ---
HPI - Skin/Abscess/Foreign Bdy General Chief complaint: Skin/Abscess/Foreign Body Stated complaint: INJURED RIGHT ELBOW/ FELL LAST WEEK Time Seen by Provider: 08/24/18 08:51 Source: patient Mode of arrival: ambulatory Limitations: no limitations History of Present Illness HPI narrative: This is an 82-year-old male who comes to the emergency department with complaint of infection over the right elbow. Patient states that on Saturday he slipped and fell onto his right elbow. He states that he had laceration to the elbow itself. States he has been washing it regularly, keeping it clean and dry but overnight there was new redness and swelling that began. Patient is able to fully move the elbow, he does not have any bony tenderness. He states the arm feels a little bit weaker. He is not having any numbness or tingling. Patient states that some he did notice a little bit of purulent drainage from the laceration early this morning. He denies any fevers. He felt chilled yesterday. Patient is requesting an antibiotic. He has had history of cellulitis on his foot and was on antibiotics for prolonged. Secondary to this. That has healed completely. He denies any head neck or back pain. He denies any other injuries. Related Data Home Medications Medication Instructions Recorded Confirmed ascorbic acid (vitamin C) 500 mg PO BID #0 03/21/17 08/07/18 multivitamin [Multiple Vitamins] 1 tab PO QDAY #0 03/21/17 08/07/18 naproxen sodium 220 mg PO BIDCC #0 06/27/17 08/07/18 vitamins A,C,Q-pzwa-usaajh 7,160 2 tab PO BID 03/31/18 08/07/18 unit-113 mg-100 unit tablet Vitamin D3 1 cap PO DAILY 06/05/18 08/07/18 Previous Rx's Medication Instructions Recorded oxycodone-acetaminophen 1 - 2 tab PO Q4HP PRN #20 tab 06/27/17 hydrochlorothiazide 25 mg PO QDAY #90 tab 06/02/18 simvastatin [Zocor] 40 mg PO Q DAY #90 tab 06/02/18 apixaban 5 mg tablet 5 mg PO Q12H #180 tab 06/10/18 fluticasone 50 mcg/actuation nasal 2 spray NASAL BEDTIME #16 gram 08/07/18 spray,suspension metoprolol succinate ER 25 mg 25 mg PO BID #180 tab 08/07/18 tablet,extended release 24 hr clindamycin HCl 300 mg PO QID #40 cap 08/24/18 Allergies Allergy/AdvReac Type Severity Reaction Status Date / Time Sulfa (Sulfonamide Allergy Mild rash Verified 08/07/18 10:12 Antibiotics) Horse/Equine Containing AdvReac Severe CONVULSION Verified 08/07/18 10:12 Products Review of Systems Review of Systems All systems reviewed & are unremarkable except as noted in HPI and below Constitutional Reports chills, Denies fever(s) and Denies malaise Musculoskeletal Reports as per HPI, Reports joint swelling, Denies limited range of motion, Reports muscle weakness, Denies numbness and Denies tingling Integumentary/Breasts Reports new lesions (Laceration right elbow), Reports rash, Reports skin swelling, Denies unusual bruising and Reports wounds Neurologic Denies numbness and Denies tingling PFSH Medical History Essential hypertension (Chronic 05/17/11) Mixed hyperlipidemia (Chronic 05/17/11) Alcohol abuse (Chronic) 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) Essential tremor (Chronic 12/28/14) Paroxysmal atrial fibrillation (Chronic 03/16/16) Chronic obstructive pulmonary disease (Chronic 01/27/18) Surgical History Status post cholecystectomy (Resolved 09/2015) Social History marital status: number of children: 3 household members: spouse lives independently: Yes caregiver/support person: No housing: house pets and animals: Yes education level: other (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 HEENT: Head normocephalic, atraumatic, EOMI, pupils reactive, face symmetric, moist mucous membranes NECK: Supple, full range of motion CARDIOVASCULAR: Regular rate and rhythm without murmurs, rubs or gallops. RESPIRATORY: Breath sounds equal bilaterally, no wheezes rales or rhonchi. ABDOMEN: Soft, nontender. Normoactive bowel sounds all 4 quadrants. No guarding or rebound, rigidity, no mass EXTREMITIES: Normal range of motion, no clubbing. Patient has a 1/2 cm irregular laceration over the elbow, appears to be into subcutaneous, there is a tiny amount of purulent drainage. The surrounding area is erythematous, there is slight warmth. There is no swelling appreciated of the bursa or distal end of the elbow but the entire area and running about 2 cm up the arm Um has swelling. Patient has no bony tenderness to palpation. He has full range of motion of the elbow without any pain. He has a 2+ radial pulse, he has equal weighing station operator bilaterally with 5/5 muscle strength in the upper extremities and push and pull. He has normal sensation throughout. Neurovascularly intact NEUROLOGICAL: Cranial nerves II through XII grossly intact. Moving all extremities SKIN: Warm, dry, no petechiae, see above Initial Vital Signs Initial Vital Signs: Vital Signs Temperature 98.2 F 08/24/18 08:48 Pulse Rate 98 H 08/24/18 08:48 Respiratory Rate 12 08/24/18 08:48 Blood Pressure 210/103 H 08/24/18 08:48 Pulse Oximetry 98 08/24/18 08:48 Course Orders Ordered: ED Orders 08/24/18 09:10 Basic Metabolic Panel Stat Complete Blood Count AUTO DIFF Stat Discontinued Medications Diphtheria/Tetanus/Acell Pertussis (Adacel) 0.5 ml IM .ONCE ONE Stop: 08/24/18 10:20 Last Admin: 08/24/18 10:30 Dose: 0.5 ml Clindamycin Phosphate (Cleocin) 600 mg in 50 mls @ 50 mls/hr IV NOW ONE Stop: 08/24/18 10:07 Last Infusion: 08/24/18 10:21 Dose: 0 mls/hr Admin: 08/24/18 09:23 Dose: 50 mls/hr Vital Signs - 8 hr 08/24/18 08:48 08/24/18 10:47 Temperature 98.2 F Pulse Rate 98 H 76 Respiratory Rate 12 12 Blood Pressure 210/103 H Blood Pressure [Left Arm] 175/99 H Pulse Oximetry 98 99 MDM - Skin/Abscess/Foreign Bdy Lab Data Attestation: I reviewed the patient's lab results. Result diagrams: 08/24/18 09:10 08/24/18 09:10 Lab Results 08/24/18 08/24/18 Range/Units 09:10 09:10 WBC 5.8 (4.5-11.0) X10^3/uL RBC 4.57 (4.5-5.9) X10^6/uL Hgb 14.4 (13.5-17.5) g/dL Hct 42.4 (41-53) % MCV 92.6 (80-100) fL MCH 31.6 (26-34) PG MCHC 34.1 (30-36) % RDW 13.0 (11.6-14.8) % Plt Count 245 (150-400) X10^3/uL Neut % (Auto) 61.9 (50-75) % Lymph % (Auto) 23.2 L (25-40) % Sterling % (Auto) 10.6 (3-14) % Eos % (Auto) 3.3 (2-4) % Baso % (Auto) 1.0 (0-2) % Neut # (Auto) 3600 (1924-0142) /uL Sodium 143 (137-145) mmol/L Potassium 4.1 (3.4-5.1) mmol/L Chloride 103 (98-107) mmol/L Carbon Dioxide 27 (22-32) mmol/L BUN 23 H (9-20) mg/dL Creatinine 1.10 (0.66-1.25) mg/dL Estimated GFR > 60.0 (>60) mL/min BUN/Creatinine Ratio 20.9 (6-22) Glucose 93 (80-110) mg/dL Calcium 9.2 (8.4-10.2) mg/dL MDM Narrative Medical decision making narrative: X-ray is deferred as patient has no bony tenderness and has full range of motion of the elbow. He does appear to have a cellulitis likely secondary to infection from his wound. Patient was initially reluctant but blood work and a dose of IV antibiotics were started. Plan to start oral antibiotics and have patient return for recheck in the next 24-48 hours either with ourselves or with primary care physician. Laceration is infected and inappropriate for wound closure. Patient had wound culture sent. Discharge Plan Departure Patient Disposition: Home Clinical Impression: Cellulitis of right elbow, Laceration of elbow, right Discharge Date/Time: 08/24/18 10:49 Interventions: ED Discharge Assessment Last Done: 08/24/18 10:48 Instructions: DI for Cellulitis -- Adult, DI for Open Laceration Activity Restrictions/Additional Instructions: Follow-up in next 24 hr for recheck. Follow-up with your primary care physician or return to the emergency department for re-evaluation. If you're having fevers greater than 100.4, rapidly increasing swelling, rapidly increasing pain, new numbness or weakness, chest pain, shortness of breath or other new or concerning symptoms returned to the emergency department. Start antibiotics this afternoon and take them until they are completely gone. Prescriptions: New clindamycin HCl 300 mg capsule 300 mg PO QID Qty: 40 RF: 0 No Action multivitamin [Multiple Vitamins] 1 EACH tablet 1 tab PO QDAY Qty: 0 RF: 0 ascorbic acid (vitamin C) 500 MG tablet 500 mg PO BID Qty: 0 RF: 0 naproxen sodium 220 MG tablet 220 mg PO BIDCC Qty: 0 RF: 0 oxycodone-acetaminophen 5 MG/325 MG tablet 1 - 2 tab PO Q4HP PRNQty: 20 RF: 0 hydrochlorothiazide 25 mg tablet 25 mg PO QDAY Qty: 90 RF: 3 simvastatin [Zocor] 40 mg tablet 40 mg PO Q DAY Qty: 90 RF: 3 apixaban [Eliquis] 5 mg tablet 5 mg PO Q12H Qty: 180 RF: 3 vitamins A,C,L-btib-xyvhbw [PreserVision AREDS] 7,160-113-100 mkez-iw-tvjd tablet 2 tab PO BID RF: 0 metoprolol succinate 25 mg tablet extended release 24 hr 25 mg PO BID Qty: 180 RF: 3 fluticasone 50 mcg/actuation spray,suspension 2 spray NASAL BEDTIME Qty: 16 RF: 0 Vitamin D3 1 cap PO DAILY RF: 0 Referrals: Ten Fleming MD [Primary Care Provider] -
[2018-08-24 09:20] LABS: Add Manual Diff / Slide Review NO; Eosinophils Percent Auto 3.3 % (2-4); Hematocrit 42.4 % (41-53); Hemoglobin 14.4 g/dL (13.5-17.5); Lymphocytes Percent Auto 23.2 % (25-40); Mean Corpuscular HGB Conc 34.1 % (30-36); Mean Corpuscular Hemoglobin 31.6 PG (26-34); Mean Corpuscular Volume 92.6 fL (80-100); Monocytes Percent Auto 10.6 % (3-14); Neutrophils Absolute Auto 3600 /uL (3000-5900); Neutrophils Percent Auto 61.9 % (50-75); Platelet Count 245 X10^3/uL (150-400); Red Blood Cell Count 4.57 X10^6/uL (4.5-5.9); White Blood Cell Count 5.8 X10^3/uL (4.5-11.0)
[2018-08-24] MEDS: CLINDAMYCIN 600 MG/50 ML PIGGYBACK 50 MG IV (09:23)
[2018-08-24 09:32] LABS: BUN Creatinine Ratio 20.9 (6-22); Blood Urea Nitrogen 23 mg/dL (9-20); Calcium 9.2 mg/dL (8.4-10.2); Carbon Dioxide 27 mmol/L (22-32); Chloride 103 mmol/L (98-107); Estimated Glomerular Filt Rate > 60.0 mL/min (>60); Glucose 93 mg/dL (80-110); HEMOLYSIS < 15 (0-50); Potassium 4.1 mmol/L (3.4-5.1); Sodium 143 mmol/L (137-145)
[2018-08-24] MEDS: TET,DIPH,PERTUSS(ACELL),VAC/PF 0.5 ML SYRINGE IM (10:30)
[2018-08-24 10:47] VITALS: BP 175/99; PULSE 76; RESP 12; O2SAT 99
== END 2018-08-24 10:49 | disposition home or self-care (01) ==
PROVIDERS: Emergency Provider Emergency Medicine; Family Provider Internal Medicine; PCP Internal Medicine
DX: S51.011A Laceration without foreign body of right elbow, initial encounter (principal); L03.113 Cellulitis of right upper limb; W01.0XXA Fall on same level from slipping, tripping and stumbling without subsequent striking against object, initial encounter
CPT/HCPCS: 36591; 80048; 85025; 87070; 87077; 87205; 90471; 96365; 99283; 99284; 90715

== ENCOUNTER → 2019-03-25 07:40 | Outpatient (CLI) | payer MEDICARE, SELFPAY ==
[2019-03-25 09:42] LABS: Add Manual Diff / Slide Review NO; Basophils Absolute Auto 100 /uL (0-100); Basophils Percent Auto 1.2 % (0-2); Eosinophils Absolute Auto 500 /uL (0-450); Eosinophils Percent Auto 6.5 % (2-4); Hematocrit 47.6 % (41-53); Hemoglobin 16.3 g/dL (13.5-17.5); Lymphocytes Absolute Auto 1400 /uL (1100-4500); Lymphocytes Percent Auto 19.4 % (25-40); Mean Corpuscular HGB Conc 34.2 % (30-36); Mean Corpuscular Hemoglobin 32.1 PG (26-34); Monocytes Absolute Auto 800 /uL (0-900); Monocytes Percent Auto 11.9 % (3-14); Neutrophils Absolute Auto 4300 /uL (1500-7000); Platelet Count 209 X10^3/uL (150-400); Red Blood Cell Count 5.06 X10^6/uL (4.5-5.9); Red Cell Distribution Width 12.8 % (11.6-14.8); White Blood Cell Count 7.1 X10^3/uL (4.5-11.0)
[2019-03-25 09:55] LABS: Alanine Aminotransferase 21 IU/L (21-72); Albumin 4.2 g/dL (3.5-5.0); Albumin Globulin Ratio 1.4 (1.0-2.8); Alkaline Phosphatase 78 U/L (38-126); Aspartate Aminotransferase 37 IU/L (17-59); BUN Creatinine Ratio 17.7 (6-22); Bilirubin Total 0.7 mg/dL (0.2-1.3); Blood Urea Nitrogen 23 mg/dL (9-20); C-Reactive Protein Quant 0.7 mg/dL (<1.0); Calcium 8.9 mg/dL (8.4-10.2); Carbon Dioxide 30 mmol/L (22-32); Chloride 102 mmol/L (98-107); Cholesterol 196 mg/dL (140-199); Estimated Glomerular Filt Rate 52.9 mL/min (>60); Globulin 2.9 g/dL (1.7-4.1); Glucose 79 mg/dL (80-110); HDL Cholesterol 45 mg/dL (40-60); HEMOLYSIS 18 (0-50); LDL Cholesterol Calculated 111 mg/dL (<100); Potassium 3.7 mmol/L (3.4-5.1); Sodium 140 mmol/L (137-145); Total Protein 7.1 g/dL (6.3-8.2); Triglycerides 201 mg/dL (35-150)
[2019-03-25 10:27] LABS: Erythrocyte Sedimentation Rate 2 MM/HR (0-15)
[2019-03-25 10:37] LABS: TSH w/ Reflex to FT4 1.75 uIU/mL (0.47-4.68)
== END ==
PROVIDERS: Family Provider Internal Medicine; PCP Internal Medicine; Visit Provider Internal Medicine
DX: E78.2 Mixed hyperlipidemia (principal); G25.0 Essential tremor; I10 Essential (primary) hypertension; I48.0 Paroxysmal atrial fibrillation; J44.9 Chronic obstructive pulmonary disease, unspecified
CPT/HCPCS: 36415; 80053; 80061; 84443; 85025; 85651; 86140

== ENCOUNTER → 2019-05-14 11:15 | Outpatient (CLI) | payer MEDICARE, SELFPAY ==
--- NOTE | 2019-05-14 12:11 | PM.TREADMILL ---
Cardiac Stress Test Report Referral & Results Date Patient Seen: 05/14/19 Requesting provider: Ten Fleming Indication: Atrial fibrillation, dyspnea with exertion Rest ECG: Atrial fibrillation with controlled ventricular response Procedure Note: Today following both written and verbal informed consent the patient was exercised according to a standard Bernardo protocol patient went for a total of 2 minutes 32 seconds achieving a maximum heart rate of 119 maximum systolic blood pressure of 210. This is approximately 4.6 METS. Exercise was terminated at this point because of 4+ dyspnea, 4+ fatigue, 1+ dizziness. Patient was also given Cardiolite through a previously started Hep-Lock IV by the diagnostic imaging staff approximately 1 minute prior to the cessation of exercise. Patient had a normal if not somewhat blunted heart rate response to exercise Patient had a hypertensive blood pressure response to exercise Oxygen saturation remained about 91% throughout. There are no ST-T segment changes identified Functional aerobic impairment estimated at 40% on the sedentary scale (off scale due to age) Rare PVCs identified No evidence of pure respiratory disease with exercise, patient was not really tachypneic or wheezing but more globally fatigued with complaints of dyspnea and dizziness Impression: No clear evidence of ischemia Limited exercise capacity as above and as expected No evidence of excessive ventricular response to exercise with the chronic atrial fibrillation as was suspected as a possible etiology for patient's symptoms Perfusion imaging will be reported separately Please note: Actual ECG tracings can be found in the PACS system.
--- NOTE | 2019-05-19 10:25 | DI.NM.S_ITS ---
DATE OF SERVICE: 05/14/19 STUDY TYPE: Two-day treadmill nuclear stress test. INDICATION FOR STUDY: Fatigue, paroxysmal atrial fibrillation. RADIOISOTOPES: Stress dose is 20.9 mCi Tc-99m and Stress dose is 25.9 mCi Tc- 99m. CLINICAL SYMPTOMS: The patient exercised only for 2 minutes and 32 seconds and developed significant shortness of breath and fatigue and some degree of lightheadedness. The patient's METs achieved was 4.6 with JENNY of +4% on sedentary scale and +55% on active scale. Target heartrate was achieved. Hypertension at rest (BP 160/90 mmHg) with hypertensive response to exercise (210/100 mmHg). ECG: Resting ECG shows sinus rhythm with frequent PACs. There were no ischemic changes with exercise. PACs noted throughout the study. PERFUSION IMAGES: No perfusion evidence of ischemia or infarction on stress supine, stress prone, and resting supine studies. GATED IMAGES: Normal left ventricular size, wall motion, and systolic function (post-stress EF 70%). TID ratio is 1.03, normal. Krae-yd-cejks ratio is normal at 0.33. CONCLUSIONS: Low-risk, normal treadmill nuclear stress test from an ischemia standpoint. Hypertension and borderline hypertensive response to exercise. Severely reduced exercise capacity. 1. No perfusion evidence of ischemia or infarction. 2. Normal left ventricular size, wall motion, and systolic function (post- stress EF 70%). 3. No ECG evidence of ischemia during the study. 4. No angina during the study. The patient did have significant dyspnea and fatigue and mild dizziness with exercise. 5. Severely reduced exercise tolerance (4.6 METs, JENNY +55% on active scale and JENNY +4% on sedentary scale). Target heartrate achieved. 6. Hypertension at rest (BP 160/90) and borderline hypertensive response to exercise (210/100 mmHg). 7. Frequent premature atrial contractions (PACs) during the entire study. 8. Compared to the nuclear stress test done on 11/26/2013, no significant change. Gaudencio Dennis - PB/fn/ts doc#: [id number]/job#: [id number] dd: 05/15/2019 14:51:00 dt: 05/16/2019 07:40:00 DICTATING MD/COPIES TO: Elmo Jacobsen MD COPIES MNE: ZULMA
== END ==
PROVIDERS: Family Provider Internal Medicine; PCP Internal Medicine; Visit Provider Internal Medicine
DX: I48.0 Paroxysmal atrial fibrillation (principal); I49.1 Atrial premature depolarization; I10 Essential (primary) hypertension; R53.83 Other fatigue; R06.00 Dyspnea, unspecified; R42 Dizziness and giddiness
CPT/HCPCS: 78452; 93016; 93017; 93018; A9502

== ENCOUNTER → 2019-08-22 13:24 | Outpatient (CLI) | payer MEDICARE, SELFPAY ==
--- NOTE | 2019-08-22 | DI.MRI.S_ITS ---
PROCEDURE: MR LUMBAR SPINE WO CON INDICATIONS: Low back pain TECHNIQUE: Noncontrast sagittal T1 spin echo and T2 fast echo, sagittal STIR, axial T1 and T2 fast spin echo through the lumbar spine. In cases with scoliosis, additional coronal T2 fast spin echo may be performed. COMPARISON: [facility], MR, L-SPINE WITHOUT CONTRAST, 05/08/2016, 12:53. [facility], CR, XR LUMBAR SPINE 2 OR 3 VIEWS, 10/14/2017, 13:31. FINDINGS: Image quality: Excellent. Alignment and Curvature: There is L2-L3 and L3-L4 retrolisthesis. Bone Marrow: Reactive endplate changes adjacent to the L2-L3, through L4 and L4-L5 discs. No acute vertebral body compression fractures. Spinal Cord: Conus medullaris terminates at the L1 level. Visualized cord demonstrates normal signal and size. Paraspinous Soft Tissues: No paravertebral masses. L1-L2: Loss of disc signal. Mild, diffuse disc bulge. Mild narrowing of the central canal. No neural foraminal narrowing. No neural compression. L2-L3: Near complete loss of the substance. Endplate disc osteophytosis. Mild bilateral facet hypertrophy. Moderate narrowing of the central canal. Moderate bilateral neural foraminal narrowing. No neural compression. L3-L4: Loss of disc signal and height. Moderate, diffuse disc bulge. Moderate facet and severe ligamentum flavum hypertrophy. Severe narrowing of the central canal with compression of the nerve roots of the cauda equina. Severe bilateral neural foraminal narrowing with compression of the exiting L3 nerve roots. L4-L5: Loss of disc signal. Moderate, diffuse disc bulge. Moderate facet and severe ligamentum flavum hypertrophy. Severe narrowing of the central canal with compression of the nerve roots of the cauda equina. Moderate bilateral neural foraminal narrowing. L5-S1: Loss of disc signal. Mild, diffuse disc bulge. Mild right and moderate left facet hypertrophy. No central stenosis. Mild bilateral neural foraminal narrowing. No neural compression. IMPRESSION: 1. Grade I L2 on L3 and L3-L4 degenerative spondylolisthesis. 2. Multilevel degenerative disc disease. 3. Multilevel facet arthropathy. 4. Severe L3-L4 and L4-L5 central canal narrowing. Moderate L2-L3 central canal narrowing. Mild L1-L2 Central canal narrowing. 5. Severe bilateral L3-L4 neural foraminal narrowing. Moderate bilateral L2-L3 and L4-L5 neural foraminal narrowing. Mild bilateral L5-S1 neural foraminal narrowing. Dictated by: Danika Kraft MD, PhD on 08/24/2019 at 13:58 Approved by: Danika Kraft MD, PhD on 08/24/2019 at 14:11
== END ==
PROVIDERS: Family Provider Internal Medicine; PCP Internal Medicine; Visit Provider Orthopaedic Surgery
DX: M54.5 Low back pain (principal); M43.16 Spondylolisthesis, lumbar region; M51.36 Other intervertebral disc degeneration, lumbar region; M47.816 Spondylosis without myelopathy or radiculopathy, lumbar region; M47.817 Spondylosis without myelopathy or radiculopathy, lumbosacral region; M48.061 Spinal stenosis, lumbar region without neurogenic claudication; M48.07 Spinal stenosis, lumbosacral region
CPT/HCPCS: 72148

== ENCOUNTER 2020-04-19 11:05 | Emergency (ER) | payer MEDICARE, SELFPAY ==
[2020-04-19 11:15] VITALS: BP 169/72; PULSE 88; RESP 18; TEMP 36.6; O2SAT 99
[2020-04-19 11:25] VITALS: BP 179/88; PULSE 95; TEMP 36.8; O2SAT 96
[2020-04-19 12:15] VITALS: BP 147/80; PULSE 84; RESP 18; O2SAT 96
--- NOTE | 2020-04-19 12:27 | DI.RAD.S_ITS ---
PROCEDURE: XR CHEST 1V INDICATIONS: chest pain TECHNIQUE: One view of the chest was acquired. COMPARISON: [facility], , CHEST 2 VIEW, 12/26/2017, 14:06. FINDINGS: Surgical changes and devices: None. Lungs and pleura: Lungs are clear. No pleural effusions or pneumothorax. Mediastinum: Mediastinal contours appear normal. Heart size is normal. There is mild aortic atherosclerosis. Bones and chest wall: No suspicious bony lesions. Degenerative changes of the spine and shoulders are not well-characterized, but appear similar to the prior study. Overlying soft tissues appear unremarkable. IMPRESSION: Stable chest. No acute cardiopulmonary process is evident. Dictated by: Last Sexton M.D. on 04/19/2020 at 12:10 Approved by: Last Sexton M.D. on 04/19/2020 at 12:10
--- NOTE | 2020-04-19 13:04 | ED_ITS ---
HPI - Extremity Problem <Joanna MuñozBARBP-BC - Last Filed: 04/19/20 16:47> General Chief complaint: Extremity Problem,Nontraumatic Stated complaint: cellulitis with injury on r leg Time Seen by Provider: 04/19/20 12:10 Source: patient Mode of arrival: Ambulatory Limitations: no limitations History of Present Illness HPI Narrative: The patient is an 84-year-old male former smoker with history of cellulitis who presents with a chief complaint of presents with a chief complaint of cellulitis of his right leg. He states he has been working outside a lot, had some wounds on his right pulido notice redness extending up and down from the wounds. He denies any fevers nausea vomiting diarrhea. He does state that he had some blurry vision bilateral eyes yesterday with concordant swelling of bilateral lower legs. He took double his dose of hydrochlorothiazide and felt improved. He states that he noticed a scratch last week, extending redness started over the past few days. He is on a blood thinner apixaban due to history of atrial fibrillation. Related Data Home Medications Medication Instructions Recorded Confirmed multivitamin [Multiple Vitamins] 1 tab PO QDAY #0 03/21/17 08/25/19 vitamins A,C,E-mzmc-vfjiza 7,160 2 tab PO BID 03/31/18 08/25/19 unit-113 mg-100 unit tablet Vitamin D3 1 cap PO DAILY 06/05/18 08/25/19 ascorbic acid (vitamin C) 500 mg 500 mg PO DAILY #0 tab 04/23/19 08/25/19 tablet naproxen sodium 220 mg tablet 220 mg PO BIDCC PRN #0 04/23/19 08/25/19 Previous Rx's Medication Instructions Recorded oxycodone-acetaminophen 1 - 2 tab PO Q4HP PRN #20 tab 06/27/17 apixaban 5 mg tablet 5 mg PO Q12H #180 tab 05/26/19 diltiazem HCl 240 mg capsule,24 240 mg PO DAILY #30 cap 05/26/19 hr,extended release hydrochlorothiazide 25 mg tablet 25 mg PO QDAY #90 tab 12/14/19 atorvastatin 20 mg tablet 20 mg PO DAILY #90 tab 02/24/20 clindamycin HCl 300 mg PO TID 7 Days #21 cap 04/19/20 Allergies Allergy/AdvReac Type Severity Reaction Status Date / Time Sulfa (Sulfonamide Allergy Mild rash Verified 08/25/19 10:48 Antibiotics) Horse/Equine Containing AdvReac Severe CONVULSION Verified 08/25/19 10:48 Products doxycycline AdvReac Unknown high blood Verified 08/25/19 10:48 pressure Review of Systems <UMU Tavares - Last Filed: 04/19/20 16:47> Review of Systems Narrative: GENERAL: Denies chills, fatigue, malaise, fever, sweats. HEENT: Denies sinus pain, ear pain, sore throat, difficulty swallowing, dizziness. RESPIRATORY: Denies dyspnea, cough, wheezing, hemoptysis, sputum. CARDIOVASCULAR: Denies chest pain, palpitations, orthopnea, edema, GASTROINTESTINAL: Denies nausea, vomiting, abdominal pain, diarrhea, constipation, melena. : Denies dysuria, frequency, incontinence, hematuria, urinary retention. MUSCULOSKELETAL: denies weakness, joint pain, or bony pain SKIN: See HPI NEUROLOGIC: See HPI PSYCHIATRIC: No concerning psychosocial issues. 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) Surgical History Status post cholecystectomy (Resolved 09/2015) Social History marital status: number of children: 3 household members: spouse lives independently: Yes caregiver/support person: No housing: house pets and animals: Yes education level: other occupational status: other current occupational exposures/hazards: No magali/catholic: Hoahaoism leisure activities: sports, exercise, music, games, hunting and fishing Smoking Status: Former smoker Tobacco: How many years used: 15 Smokeless tobacco user: other quit status: quit date established alcohol intake: current substance use type: does not use Smoking Status: Former smoker alcohol intake frequency: 0-2 drinks per day Substance Use Type: does not use Exam <UMU Tavares - Last Filed: 04/19/20 16:47> Narrative Exam Narrative: GENERAL: This is a well-nourished, well-developed patient, in no acute distress HEAD: Atraumatic. Normocephalic. No temporal or scalp tenderness. EYES: Pupils equal round and reactive. Extraocular motions intact. No scleral icterus. No injection or drainage. ENT: Nose without bleeding, purulent drainage or septal hematoma. Throat without erythema, tonsillar hypertrophy or exudate. Uvula midline. Airway patent. NECK: Trachea midline. No JVD or lymphadenopathy. Supple, nontender, no meningeal signs. CARDIOVASCULAR: Regular rate and rhythm RESPIRATORY: Clear to auscultation. Breath sounds equal bilaterally. No wheezes, rales, or rhonchi. No cough. No increased respiratory effort. No accessory muscle use. GASTROINTESTINAL: Abdomen soft, non-tender, nondistended. No hepato- splenomegaly, or palpable masses. No guarding. EXTREMITIES: 3 mm scratch noted on anterior aspect of right lower leg, 8 cm surrounding erythema and pain to palpation. Very slight edema noted right ankle. Positive pedal pulses bilaterally. BACK: Nontender without deformity or crepitance. No flank tenderness. NEURO: AOx3. SKIN: No rash or erythema. Initial Vital Signs Initial Vital Signs: Vital Signs Temperature 97.8 F 04/19/20 11:15 Pulse Rate 88 04/19/20 11:15 Respiratory Rate 18 04/19/20 11:15 Blood Pressure 169/72 H 04/19/20 11:15 Pulse Oximetry 99 04/19/20 11:15 <Justina Francis DO - Last Filed: 04/19/20 19:30> Initial Vital Signs Initial Vital Signs: Vital Signs Temperature 97.8 F 04/19/20 11:15 Pulse Rate 88 04/19/20 11:15 Respiratory Rate 18 04/19/20 11:15 Blood Pressure 169/72 H 04/19/20 11:15 Pulse Oximetry 99 04/19/20 11:15 Course <UMU Tavares - Last Filed: 04/19/20 16:47> Orders Ordered: ED Orders 04/19/20 12:27 XR chest 1V Stat EKG-12 Lead Stat 04/19/20 12:57 BNP [NT-proBNP (BNP-Adult 18+)] Stat Complete Blood Count AUTO DIFF Stat Comprehensive Metabolic Panel Stat Lipase Stat Partial Thromboplastin Time Stat Prothrombin Time INR Stat Troponin & CK Cardiac Panel Stat Vital Signs Vital signs: Vital Signs - 8 hr 04/19/20 12:15 04/19/20 13:13 04/19/20 13:53 Pulse Rate 84 80 Pulse Rate [Right Dorsalis Pedis] 62 Respiratory Rate 18 16 Blood Pressure [Left Arm] 147/80 H 198/98 H Pulse Oximetry 96 98 <Justina Francis DO - Last Filed: 04/19/20 19:30> Orders Ordered: ED Orders 04/19/20 12:27 XR chest 1V Stat EKG-12 Lead Stat 04/19/20 12:57 BNP [NT-proBNP (BNP-Adult 18+)] Stat Complete Blood Count AUTO DIFF Stat Comprehensive Metabolic Panel Stat Lipase Stat Partial Thromboplastin Time Stat Prothrombin Time INR Stat Troponin & CK Cardiac Panel Stat Vital Signs Vital signs: Vital Signs - 8 hr 04/19/20 12:15 04/19/20 13:13 04/19/20 13:53 Pulse Rate 84 80 Pulse Rate [Right Dorsalis Pedis] 62 Respiratory Rate 18 16 Blood Pressure [Left Arm] 147/80 H 198/98 H Pulse Oximetry 96 98 MDM - Extremity (Nontraumatic) <RAFAEL Tavares-BC - Last Filed: 04/19/20 16:47> Lab Data Result diagrams: 04/19/20 12:57 04/19/20 12:57 Labs: Lab Results 04/19/20 04/19/20 04/19/20 Range/Units 12:57 12:57 12:57 WBC 6.8 (4.5-11.0) X10^3/uL RBC 4.73 (4.5-5.9) X10^6/uL Hgb 15.3 (13.5-17.5) g/dL Hct 44.4 (41-53) % MCV 94.0 (80-100) fL MCH 32.3 (26-34) PG MCHC 34.4 (30-36) % RDW 13.2 (11.6-14.8) % Plt Count 203 (150-400) X10^3/uL Neut % (Auto) 72.2 (50-75) % Lymph % (Auto) 16.1 L (25-40) % Stanly % (Auto) 9.6 (3-14) % Eos % (Auto) 1.2 L (2-4) % Baso % (Auto) 0.9 (0-2) % Neut # (Auto) 4900 (3442-6439) /uL Lymph # (Auto) 1100 (2369-6049) /uL Stanly # (Auto) 700 (0-900) /uL Eos # (Auto) 100 (0-450) /uL Baso # (Auto) 100 (0-100) /uL PT 15.7 H (10.1-12.7) SECONDS INR 1.4 H (0.9-1.3) APTT 37 H (26.4-36.2) SECONDS Sodium 136 L (137-145) mmol/L Potassium 3.4 (3.4-5.1) mmol/L Chloride 102 (98-107) mmol/L Carbon Dioxide 28 (22-32) mmol/L BUN 20 (9-20) mg/dL Creatinine 1.28 H (0.66-1.25) mg/dL Estimated GFR 53.7 L (>60) mL/min BUN/Creatinine Ratio 15.6 (6-22) Glucose 121 H (80-110) mg/dL Calcium 9.4 (8.4-10.2) mg/dL Total Bilirubin 0.9 (0.2-1.3) mg/dL AST 37 (17-59) IU/L ALT 26 (<50) IU/L Alkaline Phosphatase 109 (38-126) U/L Total Creatine Kinase 157 (55-170) U/L CK-MB (CK-2) 3.15 H (<2.37) ng/mL CK-MB (CK-2) Rel Index 2.0 (1.5-5.0) % Troponin I < 0.012 (0.01-0.034) ng/mL NT-Pro-B Natriuret Pep 127 (<450) pg/mL Total Protein 6.7 (6.3-8.2) g/dL Albumin 4.0 (3.5-5.0) g/dL Globulin 2.7 (1.7-4.1) g/dL Albumin/Globulin Ratio 1.5 (1.0-2.8) Lipase 79 (23-300) U/L Imaging Data Chest x-ray: Radiologist's Impression: [address] [place] [id number] XRay Report Signed Patient: Gaudencio Dennis DMR#: [id number] : 6Acct:[id number] Age/Sex: 84 / MDate of Service: 04/19/20 Loc: ED Accession Number: [id number] Procedure: XR chest 1V Ordering Provider: Joanna Muñoz FOOD SAFETY MANAGER-BC PROCEDURE: XR CHEST 1V INDICATIONS: chest pain TECHNIQUE: One view of the chest was acquired. COMPARISON: [facility], CHEST 2 VIEW, 12/26/2017, 14:06. FINDINGS: Surgical changes and devices: None. Lungs and pleura: Lungs are clear. No pleural effusions or pneumothorax. Mediastinum: Mediastinal contours appear normal. Heart size is normal. There is mild aortic atherosclerosis. Bones and chest wall: No suspicious bony lesions. Degenerative changes of the spine and shoulders are not well-characterized, but appear similar to the prior study. Overlying soft tissues appear unremarkable. IMPRESSION: Stable chest. No acute cardiopulmonary process is evident. Dictated by: Last Sexton M.D. on 04/19/2020 at 12:10 Approved by: Last Sexton M.D. on 04/19/2020 at 12:10 ECG Data Attestation EKG: I personally reviewed and interpreted this ECG as follows: Interpretation: Sinus rhythm with first-degree AV block. Ventricular rate 83. P.r. interval 220. QRS 80. viewed by Dr Francis [facility] Narrative Medical decision making narrative: The patient is an 84-year-old male who presents with a chief complaint of cellulitis. He has a wound in the center of his pulido, extending redness. 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 Regarding several hours of subjective bilateral blurry vision combine with edema last night, we did EKG, chest x-ray, cardiac labs which all came back grossly negative. The patient requested to go home and I am okay with this. I discussed at length the importance of following up with primary care provider coming back to the emergency department for any acute concerns. We discussed signs of worsening such as fever, extending redness etcetera. Patient has no questions or concerns upon discharge and states understanding return precautions as well as follow-up care. <Justina Tito, DO - Last Filed: 04/19/20 19:30> Lab Data Labs: Lab Results 04/19/20 04/19/20 04/19/20 Range/Units 12:57 12:57 12:57 WBC 6.8 (4.5-11.0) X10^3/uL RBC 4.73 (4.5-5.9) X10^6/uL Hgb 15.3 (13.5-17.5) g/dL Hct 44.4 (41-53) % MCV 94.0 (80-100) fL MCH 32.3 (26-34) PG MCHC 34.4 (30-36) % RDW 13.2 (11.6-14.8) % Plt Count 203 (150-400) X10^3/uL Neut % (Auto) 72.2 (50-75) % Lymph % (Auto) 16.1 L (25-40) % Stanly % (Auto) 9.6 (3-14) % Eos % (Auto) 1.2 L (2-4) % Baso % (Auto) 0.9 (0-2) % Neut # (Auto) 4900 (7852-6604) /uL Lymph # (Auto) 1100 (7257-1348) /uL Stanly # (Auto) 700 (0-900) /uL Eos # (Auto) 100 (0-450) /uL Baso # (Auto) 100 (0-100) /uL PT 15.7 H (10.1-12.7) SECONDS INR 1.4 H (0.9-1.3) APTT 37 H (26.4-36.2) SECONDS Sodium 136 L (137-145) mmol/L Potassium 3.4 (3.4-5.1) mmol/L Chloride 102 (98-107) mmol/L Carbon Dioxide 28 (22-32) mmol/L BUN 20 (9-20) mg/dL Creatinine 1.28 H (0.66-1.25) mg/dL Estimated GFR 53.7 L (>60) mL/min BUN/Creatinine Ratio 15.6 (6-22) Glucose 121 H (80-110) mg/dL Calcium 9.4 (8.4-10.2) mg/dL Total Bilirubin 0.9 (0.2-1.3) mg/dL AST 37 (17-59) IU/L ALT 26 (<50) IU/L Alkaline Phosphatase 109 (38-126) U/L Total Creatine Kinase 157 (55-170) U/L CK-MB (CK-2) 3.15 H (<2.37) ng/mL CK-MB (CK-2) Rel Index 2.0 (1.5-5.0) % Troponin I < 0.012 (0.01-0.034) ng/mL NT-Pro-B Natriuret Pep 127 (<450) pg/mL Total Protein 6.7 (6.3-8.2) g/dL Albumin 4.0 (3.5-5.0) g/dL Globulin 2.7 (1.7-4.1) g/dL Albumin/Globulin Ratio 1.5 (1.0-2.8) Lipase 79 (23-300) U/L Discharge Plan Departure Patient Disposition: Home Clinical Impression: Cellulitis Qualifiers: Site of cellulitis: extremity Site of cellulitis of extremity: lower extremity Laterality: right Qualified Code(s): L03.115 - Cellulitis of right lower limb Discharge Date/Time: 04/19/20 14:12 Instructions: DI for Cellulitis -- Adult, DI for Wound Infection Activity Restrictions/Additional Instructions: Thank you for trusting us with your care today. I sent a prescription of an antibiotic to [facility]. Please take this with a yogurt or probiotic such as Align Please follow-up with primary care provider in the next few days. Please monitor for any fever, extending redness etcetera Please come back to the emergency department for any acute concerns such as concern of heart attack or stroke Prescriptions: New clindamycin HCl 300 mg capsule 300 mg PO TID 7 Days Qty: 21 RF: 0 No Action multivitamin [Multiple Vitamins] 1 EACH tablet 1 tab PO QDAY Qty: 0 RF: 0 oxycodone-acetaminophen 5 MG/325 MG tablet 1 - 2 tab PO Q4HP PRNQty: 20 RF: 0 ascorbic acid (vitamin C) 500 mg tablet 500 mg PO DAILY Qty: 0 RF: 0 naproxen sodium 220 mg tablet 220 mg PO BIDCC PRNQty: 0 RF: 0 Eliquis 5 mg tablet 5 mg PO Q12H Qty: 180 RF: 3 diltiazem HCl 240 mg capsule,extended release 24 hr 240 mg PO DAILY Qty: 30 RF: 3 hydrochlorothiazide 25 mg tablet 25 mg PO QDAY Qty: 90 RF: 3 atorvastatin 20 mg tablet 20 mg PO DAILY Qty: 90 RF: 3 vitamins A,C,P-azfd-yhwlnd [PreserVision AREDS] 7,160-113-100 gmlv-[id number] tablet 2 tab PO BID RF: 0 Vitamin D3 1 cap PO DAILY RF: 0 Referrals: Ten Fleming MD [Primary Care Provider] - <Justina Francis DO - Last Filed: 04/19/20 19:30> Cosign ED Attending Yessiacature Attestation: I was immediately available in the department for consultation. Documentation has been reviewed. I agree with assessment and plan.
[2020-04-19 13:10] LABS: Add Manual Diff / Slide Review NO; Basophils Absolute Auto 100 /uL (0-100); Basophils Percent Auto 0.9 % (0-2); Eosinophils Absolute Auto 100 /uL (0-450); Eosinophils Percent Auto 1.2 % (2-4); Hematocrit 44.4 % (41-53); Hemoglobin 15.3 g/dL (13.5-17.5); Lymphocytes Absolute Auto 1100 /uL (1100-4500); Lymphocytes Percent Auto 16.1 % (25-40); Mean Corpuscular HGB Conc 34.4 % (30-36); Mean Corpuscular Hemoglobin 32.3 PG (26-34); Monocytes Absolute Auto 700 /uL (0-900); Monocytes Percent Auto 9.6 % (3-14); Neutrophils Absolute Auto 4900 /uL (1500-7000); Neutrophils Percent Auto 72.2 % (50-75); Platelet Count 203 X10^3/uL (150-400); Red Blood Cell Count 4.73 X10^6/uL (4.5-5.9); Red Cell Distribution Width 13.2 % (11.6-14.8); White Blood Cell Count 6.8 X10^3/uL (4.5-11.0)
[2020-04-19 13:13] VITALS: PULSE 62
[2020-04-19 13:17] LABS: INR 1.4 (0.9-1.3); Prothrombin Time 15.7 SECONDS (10.1-12.7)
[2020-04-19 13:20] LABS: PTT Partial Thromboplastin Tim 37 SECONDS (26.4-36.2)
[2020-04-19 13:22] LABS: Alanine Aminotransferase 26 IU/L (<50); Albumin Globulin Ratio 1.5 (1.0-2.8); Alkaline Phosphatase 109 U/L (38-126); Aspartate Aminotransferase 37 IU/L (17-59); BUN Creatinine Ratio 15.6 (6-22); Bilirubin Total 0.9 mg/dL (0.2-1.3); Blood Urea Nitrogen 20 mg/dL (9-20); Calcium 9.4 mg/dL (8.4-10.2); Carbon Dioxide 28 mmol/L (22-32); Chloride 102 mmol/L (98-107); Creatine Kinase 157 U/L (55-170); Estimated Glomerular Filt Rate 53.7 mL/min (>60); Globulin 2.7 g/dL (1.7-4.1); Glucose 121 mg/dL (80-110); Lipase 79 U/L (23-300); Potassium 3.4 mmol/L (3.4-5.1); Sodium 136 mmol/L (137-145); Total Protein 6.7 g/dL (6.3-8.2)
[2020-04-19 13:34] LABS: NT-proBNP (BNP-Adult 18+) 127 pg/mL (<450); Troponin I < 0.012 ng/mL (0.01-0.034)
[2020-04-19 13:37] LABS: Creatine Kinase MB 3.15 ng/mL (<2.37); HEMOLYSIS 20 (0-50)
[2020-04-19 13:53] VITALS: BP 198/98; PULSE 80; RESP 16; O2SAT 98
== END 2020-04-19 14:12 | disposition home or self-care (01) ==
PROVIDERS: Emergency Provider Nurse Practitioner Family; Family Provider Internal Medicine; PCP Internal Medicine
DX: L03.115 Cellulitis of right lower limb (principal); R07.9 Chest pain, unspecified; I48.91 Unspecified atrial fibrillation; Z79.01 Long term (current) use of anticoagulants
CPT/HCPCS: 36415; 71045; 80053; 82550; 82553; 83690; 83880; 84484; 85025; 85610; 85730; 93005; 99284

== ENCOUNTER 2020-08-20 06:52 | Emergency (ER) | payer MEDICARE, SELFPAY ==
[2020-08-20 07:04] VITALS: BP 178/83; PULSE 95; RESP 20; TEMP 36.6; O2SAT 96; BMI 27.6
--- NOTE | 2020-08-20 07:06 | DI.RAD.S_ITS ---
PROCEDURE: XR RIBS RT MIN 3V W CXR 1V INDICATIONS: fall pain TECHNIQUE: 2 views of the right ribs were acquired, along with a single view chest. COMPARISON: [facility], CT, CHEST/ABDOMEN WITH CONTRAST, 09/26/2017, 11:27. [facility], CR, CHEST 2 VIEW, 12/26/2017, 14:06. [facility], CR, XR CHEST 1V, 04/19/2020, 12:45. FINDINGS: Surgical changes and devices: None. Bones and chest wall: No displaced right-sided rib fractures or dislocations. No suspicious bony lesions. Overlying soft tissues appear unremarkable. Lungs and pleura: No pleural effusions or pneumothorax. Airspace opacity in the right upper/right middle lobes. Mediastinum: Mediastinal contours appear normal. Heart size is within normal limits. IMPRESSION: 1. No displaced right-sided rib fractures identified. 2. Right upper/middle lobe opacity. Suspect pneumonia. Contusion, atelectasis, or aspiration could have a similar appearance. Dictated by: Owen Moncada M.D. on 08/20/2020 at 7:48 Approved by: Owen Moncada M.D. on 08/20/2020 at 7:52
--- NOTE | 2020-08-20 07:47 | ED_ITS ---
HPI - Back Pain/Injury General Chief Complaint: Back Pain/Injury Stated Complaint: Right side injury to ribs, fell Wed night Time Seen by Provider: 08/20/20 07:00 Source: patient Limitations: no limitations History of Present Illness HPI Narrative: Patient is an 84-year-old male presents with right-sided rib pain ongoing for the last 2 nights. He said he was getting up from his recliner he does not have his good balance as he used to he stumbled and fell against his pent[employer] desk hitting his ribs. It hurts every time he moves or breathes. He denies hitting his head or losing consciousness. He is on Eliquis for atrial fibrillation. He is noted to have periorbital contusion on the left when I asked him about that he said that happened number of days ago. In fact the dog was sitting on the sheets he was trying to pull the sheets up when the dog got up and he actually hit himself in the eye. Overall he says that is getting better. However his ribs are what hurt now. She took it old oxycodone which she said helped briefly but is still in quite a bit of pain. He is taking naproxen as well. Complaint: fall Onset (ago): day(s) Duration: constant Location: right upper back (Ribs) Severity: moderate Quality: sharp Radiation: none Related Data Home Medications Medication Instructions Recorded Confirmed multivitamin [Multiple Vitamins] 1 tab PO QDAY #0 03/21/17 08/16/20 vitamins A,C,V-rgps-fljovh 7,160 2 tab PO BID 03/31/18 08/16/20 unit-113 mg-100 unit tablet Vitamin D3 1 cap PO DAILY 06/05/18 08/16/20 ascorbic acid (vitamin C) 500 mg 500 mg PO DAILY #0 tab 04/23/19 08/16/20 tablet naproxen sodium 220 mg tablet 220 mg PO BIDCC PRN #0 04/23/19 08/16/20 Previous Rx's Medication Instructions Recorded hydrochlorothiazide 25 mg tablet 25 mg PO QDAY #90 tab 12/14/19 atorvastatin 20 mg tablet 20 mg PO DAILY #90 tab 02/24/20 diltiazem HCl 240 mg capsule,24 240 mg PO DAILY #90 cap 05/09/20 hr,extended release apixaban 5 mg tablet 5 mg PO Q12H #180 tab 06/08/20 hydrocodone-acetaminophen [[place]] 1 tab PO Q4-6H PRN #10 tab 08/20/20 Allergies Allergy/AdvReac Type Severity Reaction Status Date / Time Sulfa (Sulfonamide Allergy Mild rash Verified 08/16/20 11:24 Antibiotics) Horse/Equine Containing AdvReac Severe CONVULSION Verified 08/16/20 11:24 Products tamsulosin AdvReac Mild Lower Verified 08/16/20 11:24 extremity edema doxycycline AdvReac Unknown high blood Verified 08/16/20 11:24 pressure Review of Systems Review of Systems Narrative: GENERAL: Denies chills, fatigue, malaise, fever, sweats, travel HEENT: Denies sinus pain, ear pain, sore throat, difficulty swallowing, neck pain RESPIRATORY: Denies dyspnea, cough, wheezing, hemoptysis, sputum. CARDIOVASCULAR: Denies chest pain, palpitations, orthopnea, edema GASTROINTESTINAL: Denies nausea, vomiting, abdominal pain, diarrhea, constipation, melena. : Denies dysuria, frequency, incontinence, hematuria, urinary retention, flank pain. MUSCULOSKELETAL: See HPI SKIN: No rash, no erythema, no pruritus NEUROLOGIC: Denies weakness, dizziness, headache, numbness, change in speech, confusion PSYCHIATRIC: No concerning psychosocial issues. 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) Surgical History Status post cholecystectomy (Resolved 09/2015) Social History marital status: number of children: 3 household members: spouse lives independently: Yes caregiver/support person: No housing: house pets and animals: Yes education level: other occupational status: other current occupational exposures/hazards: No magali/pentecostal: [employer] leisure activities: sports, exercise, music, games, hunting and fishing Smoking Status: Former smoker Tobacco: How many years used: 15 Smokeless tobacco user: other quit status: quit date established alcohol intake: current substance use type: does not use Smoking Status: Former smoker alcohol intake frequency: 0-2 drinks per day Substance Use Type: does not use Exam Initial Vital Signs Initial Vital Signs: Vital Signs Temperature 98 F 08/20/20 07:04 Pulse Rate 95 H 08/20/20 07:04 Respiratory Rate 20 08/20/20 07:04 Blood Pressure 178/83 H 08/20/20 07:04 Pulse Oximetry 96 08/20/20 07:04 GENERAL: Alert well-appearing pleasant elderly male HEENT: Head atraumatic,EOMI, pupils reactive, face symmetric, moist mucous membranes CARDIOVASCULAR: Regular rate and rhythm without murmurs, rubs or gallops. RESPIRATORY: Breath sounds equal bilaterally, no wheezes rales or rhonchi. Tender right lateral ribs no paradoxical movement no sign of trauma EXTREMITIES: Normal range of motion, no clubbing or edema. Neurovascularly intact NEUROLOGICAL: Alert and oriented x4.Normal gait and speech. SKIN: Left periorbital contusion mostly inferior. No other contusions noted non on the thoracic area. Warm, dry, no laceration, no petechiae, no rashes or lesions. Course Orders Ordered: ED Orders 08/20/20 07:06 XR ribs RT min 3V w CXR1V Stat Discontinued Medications Hydrocodone Bitart/Acetaminophen ([place] 5/325) 1 tab PO NOW ONE Stop: 08/20/20 07:41 Last Admin: 08/20/20 07:49 Dose: 1 tab Documented by: MARTÍNEZ Vital Signs Vital signs: Vital Signs - 8 hr 08/20/20 07:04 08/20/20 08:34 08/20/20 08:43 Temperature 98 F Pulse Rate 95 H 92 H Respiratory Rate 20 18 Blood Pressure 178/83 H 139/71 Pulse Oximetry 96 98 99 MDM - Back Pain/Injury Imaging Data Chest x-ray: Radiologist's Impression: PROCEDURE: XR RIBS RT MIN 3V W CXR 1V INDICATIONS: fall pain TECHNIQUE: 2 views of the right ribs were acquired, along with a single view chest. COMPARISON: [facility], CT, CHEST/ABDOMEN WITH CONTRAST, 09/26/2017, 11:27. [facility], CR, CHEST 2 VIEW, 12/26/2017, 14:06. [facility], CR, XR CHEST 1V, 04/19/2020, 12:45. FINDINGS: Surgical changes and devices: None. Bones and chest wall: No displaced right-sided rib fractures or dislocations. No suspicious bony lesions. Overlying soft tissues appear unremarkable. Lungs and pleura: No pleural effusions or pneumothorax. Airspace opacity in the right upper/right middle lobes. Mediastinum: Mediastinal contours appear normal. Heart size is within normal limits. IMPRESSION: 1. No displaced right-sided rib fractures identified. 2. Right upper/middle lobe opacity. Suspect pneumonia. Contusion, atelectasis, or aspiration could have a similar appearance. Dictated by: Owen Moncada M.D. on 08/20/2020 at 7:48 MDM Narrative Medical decision making narrative: Patient has no productive cough or fever, unlikely to be pneumonia more likely contusion. He is taught how to use incentive spirometer to help prevent pneumonia. He is given pain control. Discharge Plan Departure Patient Disposition: Home Clinical Impression: Contusion of rib on right side Qualifiers: Encounter type: initial encounter Qualified Code(s): S20.211A - Contusion of right front wall of thorax, initial encounter Right pulmonary contusion Qualifiers: Encounter type: initial encounter Qualified Code(s): S27.321A - Contusion of lung, unilateral, initial encounter Discharge Date/Time: 08/20/20 08:43 Instructions: DI for Rib Contusion Activity Restrictions/Additional Instructions: *You have been diagnosed with rib contusion pulmonary contusion *What to do: At this time use incentive spirometer approximately 10 times an hour to help prevent pneumonia. Recommend using pillow or splinting ribs if possible to help with pain *Continue to take medications as directed [place] 1 tablet every 4 hours or 2 tablets every 6 hours if needed for severe pain Naproxen 500 mg every 12 hours if needed for [id number] pain for 1 week only. This can cause increased bleeding with Eliquis so please try to limit use *Follow up with your primary care provider in 2-3 days *Return to ER if you should have increased difficulty breathing, worsening pain or any new, worsening or concerning symptoms CONTROLLED SUBSTANCE DISCHARGE (Narcotoic/benzodiazepine/Flexeril/Phenergan) 1. You have been prescribed narcotic medications, it does have acetaminophen/Tylenol/paracetamol in it so do not take extra Tylenol or Tylenol containing products TRAMADOL DOES NOT CONTAIN TYLENOL 2. Please understand that we cannot provide further refills of narcotics, benzodiazepines or controlled substances through the ED and her pain management will need to be through your provider. 3. While on these medications you cannot drive or operate heavy machinery. 4. You cannot sign legal documents or perform any duties such as this. 5. As long as you're taking opiate pain medications he should also be taking a stool softener such as Colace, Dulcolax, MiraLAX or prune juice, to help avoid constipation. Prescriptions: New hydrocodone-acetaminophen [[place]] 5-325 mg tablet 1 tab PO Q4-6H PRN (Reason: pain) Qty: 10 RF: 0 No Action multivitamin [Multiple Vitamins] 1 EACH tablet 1 tab PO QDAY Qty: 0 RF: 0 ascorbic acid (vitamin C) 500 mg tablet 500 mg PO DAILY Qty: 0 RF: 0 naproxen sodium 220 mg tablet 220 mg PO BIDCC PRNQty: 0 RF: 0 hydrochlorothiazide 25 mg tablet 25 mg PO QDAY Qty: 90 RF: 3 atorvastatin 20 mg tablet 20 mg PO DAILY Qty: 90 RF: 3 diltiazem HCl 240 mg capsule,extended release 24 hr 240 mg PO DAILY Qty: 90 RF: 1 Eliquis 5 mg tablet 5 mg PO Q12H Qty: 180 RF: 3 vitamins A,C,C-bqpd-trvcoo [PreserVision AREDS] 7,160-113-100 umjw-ko-bbes tablet 2 tab PO BID RF: 0 Vitamin D3 1 cap PO DAILY RF: 0 Referrals: Ten Fleming MD [Primary Care Provider] -
[2020-08-20] MEDS: HYDROCODONE/ACET 5/325 TABLET 1 TAB PO (07:49)
[2020-08-20 08:34] VITALS: O2SAT 98
[2020-08-20 08:43] VITALS: BP 139/71; PULSE 92; RESP 18; O2SAT 99
== END 2020-08-20 08:43 | disposition home or self-care (01) ==
PROVIDERS: Emergency Provider Emergency Medicine; Family Provider Internal Medicine; PCP Internal Medicine
DX: S20.211A Contusion of right front wall of thorax, initial encounter (principal); S27.321A Contusion of lung, unilateral, initial encounter; W19.XXXA Unspecified fall, initial encounter
CPT/HCPCS: 71101; 99283

== ENCOUNTER → 2021-03-09 15:18 | Outpatient (CLI) | payer MEDICARE, SELFPAY ==
--- NOTE | 2021-03-09 | DI.MRI.S_ITS ---
PROCEDURE: MR LUMBAR SPINE WO CON INDICATIONS: Spinal stenosis, lumbar region with neurogenic cla TECHNIQUE: Noncontrast sagittal T1 spin echo and T2 fast echo, sagittal STIR, axial T1 and T2 fast spin echo through the lumbar spine. In cases with scoliosis, additional coronal T2 fast spin echo may be performed. COMPARISON: [facility], MR, MR LUMBAR SPINE WO CON, 08/22/2019, 13:30. FINDINGS: Image quality: Excellent. Alignment and Curvature: Unchanged grade 1 retrolisthesis of L2 on L3. There is also grade 1 retrolisthesis of L3 on L4. Bone Marrow: No acute fracture identified. Chronic osseous fusion of the L2 and L3 vertebral bodies. Spinal Cord: Conus medullaris terminates at the L1 level. Visualized cord demonstrates normal signal and size. Paraspinous Soft Tissues: No paravertebral masses. T12-L1: Normal appearance. L1-L2: Normal appearance. L2-L3: Mild canal narrowing. Partial effacement of both lateral recesses with bilaterally symmetric appearance. Mild to moderate bilateral foraminal narrowing, with no definite interval change since the prior study. L3-L4: Dorsal epidural lipomatosis is present. There is severe canal stenosis. Complete effacement of both lateral recesses however this is grossly unchanged since the prior study. Severe right foraminal stenosis with slight nerve root compression. Moderate to severe left foraminal stenosis. No interval change L4-L5: Severe canal stenosis and near complete effacement of both lateral recesses, with unchanged appearance since the prior study. Moderate left and [id number] right foraminal narrowing, no definite interval change L5-S1: No canal stenosis. Mild to moderate left foraminal narrowing. Moderate to severe right foraminal stenosis with slight nerve root compression although unchanged appearance. IMPRESSION: Overall, no definite interval change since 08/22/19. Severe canal stenosis at L3-L4 and L4-L5 as before. Diffuse bilateral foraminal stenoses as detailed above by spinal level without definite interval progression. Multilevel spondylolisthesis as above. Dictated by: Adelso Blancas M.D. on 03/09/2021 at 16:57 Approved by: Adelso Blancas M.D. on 03/09/2021 at 17:03
== END ==
PROVIDERS: Family Provider Internal Medicine; PCP Internal Medicine; Referring Provider Physical Medicine & Rehabilitation Pain Medicine; Visit Provider Physical Medicine & Rehabilitation Pain Medicine
DX: M48.062 Spinal stenosis, lumbar region with neurogenic claudication (principal); M43.16 Spondylolisthesis, lumbar region
CPT/HCPCS: 72148

== ENCOUNTER 2021-05-29 16:18 | Emergency (ER) | payer MEDICARE, SELFPAY ==
[2021-05-29] VITALS (35 sets, daily range): BP systolic 91–158; BP diastolic 50–105; PULSE 75–139; RESP 13–34; TEMP 37.7–38.7; O2SAT 87–99; BMI 27.9
--- NOTE | 2021-05-29 16:23 | DI.RAD.S_ITS ---
PROCEDURE: XR CHEST 1V INDICATIONS: suspected sepsis TECHNIQUE: One view of the chest was acquired. COMPARISON: [facility], PEE, XR CHEST 1V, 04/19/2020, 12:45. [facility], PEE, CHEST 2 VIEW, 12/26/2017, 14:06. FINDINGS: Surgical changes and devices: None. Lungs and pleura: Lungs are clear. No pleural effusions or pneumothorax. Mediastinum: Mediastinal contours appear normal. Heart size is normal. Bones and chest wall: No suspicious bony lesions. Overlying soft tissues appear unremarkable. IMPRESSION: No acute cardiopulmonary abnormality. Dictated by: Owen Moncada M.D. on 05/29/2021 at 16:50 Approved by: Owen Moncada M.D. on 05/29/2021 at 16:51
[2021-05-29 16:43] LABS: Add Manual Diff / Slide Review NO; Basophils Absolute Auto 100 /uL (0-100); Basophils Percent Auto 0.7 % (0-2); Eosinophils Absolute Auto 100 /uL (0-450); Hematocrit 36.5 % (41-53); Hemoglobin 12.2 g/dL (13.5-17.5); Lymphocytes Absolute Auto 800 /uL (1100-4500); Lymphocytes Percent Auto 9.4 % (25-40); Mean Corpuscular HGB Conc 33.4 % (30-36); Mean Corpuscular Hemoglobin 30.8 PG (26-34); Mean Corpuscular Volume 92.3 fL (80-100); Monocytes Absolute Auto 1000 /uL (0-900); Monocytes Percent Auto 11.2 % (3-14); Neutrophils Absolute Auto 6900 /uL (1500-7000); Neutrophils Percent Auto 77.7 % (50-75); Platelet Count 273 X10^3/uL (150-400); Red Blood Cell Count 3.95 X10^6/uL (4.5-5.9); Red Cell Distribution Width 14.2 % (11.6-14.8); White Blood Cell Count 8.8 X10^3/uL (4.5-11.0)
[2021-05-29] MEDS: SODIUM CHLORIDE 0.9% 1,000 ML 1000 ML IV (16:57)
[2021-05-29 17:00] LABS: Bacteria Urine None Seen; WBC Urine None Seen (0-5/HPF)
[2021-05-29 17:02] LABS: Appearance Urine UA CLEAR; Bilirubin Urine UA NEGATIVE (NEGATIVE); Color Urine UA YELLOW; Glucose Urine UA NEGATIVE (Negative); Ketones Urine UA NEGATIVE (NEGATIVE); Leukocyte Esterase Urine UA NEGATIVE (NEGATIVE); Nitrite Urine UA NEGATIVE (Negative); Occult Blood Urine UA 3+ (Negative); Protein Urine UA TRACE (Negative); Urobilinogen Urine UA 0.2 E.U./dL (0.2); pH Urine UA 5.5 (4.5-8.0)
--- NOTE | 2021-05-29 17:08 | PC.NURSE ---
c/o generalized weakness, unknown last void, feeling hot, chills and shaking at times. Pt last etoh (heavy drinker) was 24 hours ago. Pt is arousable to voice but appears confused to situation and w/ instructions though able to follow simple commands. Catheter placed w/ 1400 cc output of dark urine. 02 sat 84% on room air, placed on 2 L nc then increased to 4L NC.
[2021-05-29 17:27] LABS: Culture Indicated Urine Cult Not Indicated; RBC Urine 30-100/HPF (0-5/HPF)
[2021-05-29 17:41] LABS: Alanine Aminotransferase 65 IU/L (<50); Albumin 3.8 g/dL (3.5-5.0); Albumin Globulin Ratio 1.1 (1.0-2.8); Alkaline Phosphatase 256 U/L (38-126); Aspartate Aminotransferase 98 IU/L (17-59); BUN Creatinine Ratio 15.5 (6-22); Bilirubin Total 1.1 mg/dL (0.2-1.3); Blood Urea Nitrogen 31 mg/dL (9-20); Calcium 9.1 mg/dL (8.4-10.2); Carbon Dioxide 29 mmol/L (22-32); Chloride 91 mmol/L (98-107); Globulin 3.5 g/dL (1.7-4.1); Glucose 99 mg/dL (80-110); HEMOLYSIS < 15 (0-50); Lactate (Lactic Acid) 2.1 mmol/L (0.7-2.1); Lipase 36 U/L (23-300); Potassium 3.9 mmol/L (3.4-5.1); Sodium 129 mmol/L (137-145); Total Protein 7.3 g/dL (6.3-8.2)
[2021-05-29 17:55] LABS: COVID19 - ADMIT (NP swab/PCR) Negative (Negative)
[2021-05-29 17:55] LABS: NT-proBNP (BNP-Adult 18+) 228 pg/mL (<450); Troponin I < 0.012 ng/mL (0.01-0.034)
[2021-05-29 17:57] LABS: Procalcitonin 0.88 ng/mL (<0.5)
[2021-05-29] MEDS: SODIUM CHLORIDE 0.9% 1,000 ML 125 ML IV (17:59)
[2021-05-29] MEDS: CIPROFLOXACIN 400 MG/200 ML PIGGYBACK 200 MG IV (18:00)
[2021-05-29 18:12] LABS: Fractionated Inspired Oxygen 21; HCO3 ABG 27 mmol/L (22-26); Oxygen Saturation ABG 89 % (95-100); PCO2 ABG 39.1 mmHg (35-45); PO2 ABG 55 mmHg (80-100); TCO2 ABG 28 mmol/L (21-31); pH ABG 7.44 (7.35-7.45)
--- NOTE | 2021-05-29 18:13 | ED.FEVER ---
HPI - Fever General Chief Complaint: Fever Stated Complaint: Surgery , Pain, Shaking, Swollen Feet/Legs Time Seen by Provider: 05/29/21 17:13 Mode of arrival: Family Vehicle History of Present Illness HPI Narrative: 85-year-old male former smoker with history of AFib on apixaban, hyperlipidemia and hypertension presents with altered mental status, overall pain, shaking, shortness of breath, fever redness of his back, abdomen and left lower extremity. He had a surgery on his lumbar region at [facility] on . Given his mental status he is a poor historian and contributes little useful information. He has had nausea but denies any vomiting. He has had little to eat or drink. He denies any urinary complaints. He denies any new numbness, tingling or weakness of his lower extremities. He denies loss of control of bowel or bladder Related Data Home Medications Medication Instructions Recorded Confirmed multivitamin (Multiple Vitamins) 1 tab PO QDAY #0 03/21/17 04/20/21 vitamins A,C,T-pcat-uziokc 7,160 2 tab PO BID 03/31/18 04/20/21 unit-113 mg-100 unit tablet (PreserVision AREDS) Vitamin D3 1 cap PO DAILY 06/05/18 04/20/21 ascorbic acid (vitamin C) 500 mg 500 mg PO DAILY #0 tab 04/23/19 04/20/21 tablet naproxen sodium 220 mg tablet 220 mg PO BIDCC PRN #0 04/23/19 04/20/21 docusate sodium 100 mg capsule 100 mg PO BID 05/29/21 05/29/21 (Stool Softener) hydrocodone 5 mg-acetaminophen 325 1 tab PO Q4HR PRN 05/29/21 05/29/21 mg tablet hydroxyzine pamoate 25 mg capsule 25 mg PO TID PRN 05/29/21 05/29/21 Previous Rx's Medication Instructions Recorded apixaban 5 mg tablet (Eliquis) 5 mg PO Q12H #180 tab 06/08/20 diltiazem HCl 240 mg capsule,24 240 mg PO DAILY #90 cap 09/12/20 hr,extended release hydrochlorothiazide 25 mg tablet 25 mg PO QDAY #90 tab 09/12/20 atorvastatin 20 mg tablet 20 mg PO DAILY #90 tab 06/07/21 Allergies Allergy/AdvReac Type Severity Reaction Status Date / Time Sulfa (Sulfonamide Allergy Mild rash Verified 05/29/21 17:06 Antibiotics) Horse/Equine Containing AdvReac Severe CONVULSION Verified 05/29/21 17:06 Products tamsulosin AdvReac Mild Lower Verified 05/29/21 17:06 extremity edema doxycycline AdvReac Unknown high blood Verified 05/29/21 17:06 pressure Review of Systems Review of Systems Narrative: GENERAL: See HPI. HEENT: Denies sinus pain, ear pain, sore throat, difficulty swallowing, dizziness. RESPIRATORY: See HPI. CARDIOVASCULAR: Denies chest pain, palpitations, orthopnea, edema, GASTROINTESTINAL: Denies nausea, vomiting, abdominal pain, diarrhea, constipation, melena. : Denies dysuria, frequency, incontinence, hematuria, urinary retention. MUSCULOSKELETAL: See HPI SKIN: See HPI NEUROLOGIC: Denies weakness, headache, numbness, change in speech, confusion, seizures, incoordination. PSYCHIATRIC: No concerning psychosocial issues. 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) Surgical History History of radiofrequency ablation (RFA) procedure for cardiac arrhythmia (~2018) Status post cholecystectomy (09/2015) Social History marital status: number of children: 3 household members: spouse lives independently: Yes caregiver/support person: No housing: house pets and animals: Yes education level: other occupational status: other current occupational exposures/hazards: No magali/zoroastrianism: Jain leisure activities: sports, exercise, music, games, hunting and fishing Smoking Status: Former smoker Tobacco: How many years used: 15 Smokeless tobacco user: other quit status: quit date established alcohol intake: current substance use type: does not use Smoking Status: Former smoker alcohol intake frequency: 0-2 drinks per day Substance Use Type: does not use Exam Narrative Exam Narrative: GENERAL: [85] year old patient appears stated age. Shaking and chills, confused. GCS 14 HEAD: Atraumatic. Normocephalic. EYES: Pupils equal round and reactive. Extraocular motions intact. No scleral icterus. No injection or drainage. ENT: Nose without bleeding, purulent drainage. Throat without erythema, tonsillar hypertrophy or exudate. Airway patent. NECK: Trachea midline. Non tender CARDIOVASCULAR: Regular rate and rhythm without murmurs, gallops, or rubs. RESPIRATORY: Tachypnea, crackles in B/L bases GASTROINTESTINAL: Abdomen soft, non-tender, nondistended. EXTREMITIES: Left lower extremity 1+ pitting edema with erythema and warmth BACK: Lumbar incision clean, dry and intact with surrounding erythema, no drainage or dehiscence NEURO: AOx3. SKIN: On arrival patient is reported to have been mottled, erythema as reported Initial Vital Signs Initial Vital Signs: Vital Signs Temperature 100.8 F H 05/29/21 16:18 Pulse Rate 99 H 05/29/21 16:18 Respiratory Rate 24 05/29/21 16:18 Blood Pressure 158/88 H 05/29/21 16:18 Pulse Oximetry 93 05/29/21 16:18 Course Orders Ordered: ED Orders 05/29/21 16:23 XR chest 1V Stat RT Consult Eval and Treat Now 05/29/21 16:30 BNP [NT-proBNP (BNP-Adult 18+)] Stat Complete Blood Count AUTO DIFF Stat Comprehensive Metabolic Panel Stat Lactate (Lactic Acid) Stat Lipase Stat PTT [Partial Thromboplastin Time] Stat Procalcitonin Stat Prothrombin Time INR Stat Troponin I Stat 05/29/21 16:35 Blood Culture Stat 05/29/21 16:41 EKG-12 Lead Stat 05/29/21 16:50 COVID19 - ADMIT ([facility] swab/PCR) Stat Urinalysis and Microscopic Stat 05/29/21 18:00 ABG [Arterial Blood Gas] Stat 05/29/21 18:17 CT angio chest PE protocol Stat 05/29/21 18:19 CT abdomen pelvis w con Stat 05/29/21 21:28 XR chest 1V Stat 05/29/21 21:45 Partial Thromboplastin Time Stat 05/30/21 03:30 PTT [Partial Thromboplastin Time] Q6H 08/03/21 05:00 Hemoglobin and Hematocrit DAILY 05/30/21 09:30 PTT [Partial Thromboplastin Time] Q6H 05/30/21 15:30 PTT [Partial Thromboplastin Time] Q6H Sodium Chloride (Normal Saline 0.9%) 1,000 mls @ 125 mls/hr IV BOLUS ONE Stop: 05/30/21 01:45 Last Admin: 05/29/21 17:59 Dose: 125 mls/hr Documented by: GEO Heparin Sodium/Dextrose (Heparin Drip) 25,000 unit in 500 mls @ 20 mls/hr IV CONT SARAI; Protocol Last Admin: 05/29/21 22:46 Dose: 1,000 units/hr, 20 mls/hr Documented by: EMILIA Discontinued Medications Epinephrine HCl (Epinephrine 1 Mg/10 Ml Syringe) 1 mg IV NOW ONE Stop: 05/30/21 00:30 Last Admin: 05/30/21 00:44 Dose: 1 mg Documented by: EMILIA Heparin Sodium (Porcine) (Heparin 5,000 Unit/Ml Vial) 7,100 unit 80 unit/kg (7100 unit) IV NOW ONE Stop: 05/29/21 22:09 Last Admin: 05/29/21 22:47 Dose: 7,100 unit Documented by: EMILIA Sodium Chloride (Normal Saline 0.9%) 1,000 mls @ 1,000 mls/hr IV BOLUS ONE Stop: 05/29/21 17:22 Last Infusion: 05/29/21 17:59 Dose: 0 mls/hr Documented by: Admin: 05/29/21 16:57 Dose: 1,000 mls/hr Documented by: GEO Vancomycin HCl/Dextrose (Vancomycin) 2,000 mg in 400 mls @ 200 mls/hr IV NOW ONE Stop: 05/29/21 19:43 Last Infusion: 05/29/21 22:02 Dose: 0 mls/hr Documented by: Admin: 05/29/21 19:21 Dose: 200 mls/hr Documented by: GEO Ciprofloxacin (Cipro) 400 mg in 200 mls @ 200 mls/hr IV NOW ONE Stop: 05/29/21 18:43 Last Infusion: 05/29/21 19:21 Dose: 0 mls/hr Documented by: GEO Love: 05/29/21 18:00 Dose: 200 mls/hr Documented by: GEO Lactated Ringer's (Lactated Ringers) 2,653.53 mls @ 884.51 mls/hr 30 ml/kg infuse over 3 hr (2653.53 ml) IV NOW ONE Stop: 05/29/21 21:04 Last Infusion: 05/29/21 20:59 Dose: 0 mls/hr Documented by: Admin: 05/29/21 18:40 Dose: 884.51 mls/hr Documented by: GEO Acetaminophen (Ofirmev) 1,000 mg in 100 mls @ 400 mls/hr IV NOW ONE Stop: 05/29/21 21:28 Last Infusion: 05/29/21 22:29 Dose: 0 mls/hr Documented by: Admin: 05/29/21 21:39 Dose: 400 mls/hr Documented by: GEO Lorazepam (Lorazepam 2 Mg/Ml Inj) 0.5 mg IV NOW ONE Stop: 05/29/21 21:05 Last Admin: 05/29/21 21:15 Dose: 0.5 mg Documented by: GEO Reevaluation(s) Reevaluation #1: Patient becoming increasingly tachycardic, agitated and developing hypoxia, at times dropping into the 80s though he does not report any obvious difficulty in breathing and has unchanged lung sounds. Given the report of alcohol abuse and potential of early withdrawal type symptoms patient given Ativan 0.5 mg which rather impressively improves his agitation, ?rigors ?, and respiratory distress. He does have a bit of a drop in his blood pressure in the aftermath of Ativan and is largely in the upper 90s and low 100s. Patient's presentation is multifactorial and includes concern for postoperative infection given the erythema, warmth, fever, and pain of his back and leg. Imaging demonstrates no obvious infiltrate in the lung, only a small PE without evidence of heart strain. Imaging and physical exam was suggest against any deep space infection, abscess. Though his low-grade fever may be associated with the pulmonary embolism elements of his physical exam and the elevated procalcitonin with support the diagnosis of an infectious etiology. I have discussed the case with his surgeon (Dr. Castro) who will follow his course, also he states there is no contraindication to the use of heparin for his pulmonary embolism. We have contacted [facility] and no beds are available. We placed a call with the [facility] admission center and helped us find an available bed at [place]. I have spoken with Dr. Arriaza (hospitalist at [place]) and we've discussed the case at length. We did send records from [facility] along with ambulance crew. Patient has been contacted and is aware of and in agreement with the transfer. PE is small and subsegmental. There is no suggestion of strain by EKG, biochemically or on imaging. No indication for catheter directed lysis Vital Signs Vital signs: Vital Signs - 8 hr 05/29/21 16:57 05/29/21 17:00 05/29/21 17:14 Temperature 100.4 F H 100.2 F H Pulse Rate 94 H 94 H Respiratory Rate 14 14 Blood Pressure 151/77 H Pulse Oximetry 94 91 88 L 05/29/21 17:15 05/29/21 17:30 05/29/21 17:45 Temperature 100.0 F H 99.9 F H 100.0 F H Pulse Rate 96 H 139 H 104 H Respiratory Rate 15 23 16 Blood Pressure 154/74 H 133/73 Pulse Oximetry 93 99 93 05/29/21 18:00 05/29/21 18:16 05/29/21 18:30 Temperature 100.4 F H 100.6 F H Pulse Rate 101 H 99 H Respiratory Rate 19 21 Blood Pressure Pulse Oximetry 92 98 95 05/29/21 18:50 05/29/21 19:00 05/29/21 19:04 Temperature 100.9 F H 101.1 F H 101.1 F H Pulse Rate 104 H 101 H 99 H Respiratory Rate 26 H 13 16 Blood Pressure 147/72 H 128/60 Pulse Oximetry 99 94 94 05/29/21 19:15 05/29/21 19:16 05/29/21 19:30 Temperature 100.9 F H 100.9 F H 100.8 F H Pulse Rate 102 H 102 H 102 H Respiratory Rate 17 16 17 Blood Pressure 147/75 H 148/73 H Pulse Oximetry 98 97 95 05/29/21 19:45 05/29/21 20:00 08/02/21 20:15 Temperature 100.8 F H 100.8 F H 100.9 F H Pulse Rate 101 H 101 H 103 H Respiratory Rate 24 19 Blood Pressure 140/62 Pulse Oximetry 89 L 94 95 05/29/21 20:16 05/29/21 20:30 05/29/21 20:45 Temperature 100.9 F H 101.1 F H 101.3 F H Pulse Rate 106 H 107 H 104 H Respiratory Rate 26 H 34 H 19 Blood Pressure 127/105 H 133/76 Pulse Oximetry 95 87 L 87 L 05/29/21 21:00 05/29/21 21:15 05/29/21 21:25 Temperature 101.3 F H 101.7 F H Pulse Rate 109 H 103 H Respiratory Rate 26 H 34 H Blood Pressure 142/67 H 111/75 Pulse Oximetry 95 87 L 97 05/29/21 21:30 05/29/21 21:31 05/29/21 21:45 Temperature 101.7 F H 101.7 F H 101.7 F H Pulse Rate 95 H 93 H 93 H Respiratory Rate 22 18 19 Blood Pressure 107/79 Pulse Oximetry 97 97 99 05/29/21 21:46 05/29/21 21:47 05/29/21 22:00 Temperature 101.7 F H 101.7 F H Pulse Rate 93 H 93 H 85 Respiratory Rate 21 20 17 Blood Pressure 91/56 L 116/59 L 97/53 L Pulse Oximetry 99 99 98 05/29/21 22:15 05/29/21 22:30 05/29/21 22:45 Temperature 100.9 F H Pulse Rate 82 78 76 Respiratory Rate 18 18 19 Blood Pressure 98/54 L 93/50 L 94/50 L Pulse Oximetry 99 98 97 05/29/21 23:00 Temperature 100.4 F H Pulse Rate 75 Respiratory Rate 18 Blood Pressure 92/51 L Pulse Oximetry 98 MDM - Fever Lab Data Result diagrams: 05/29/21 16:30 05/29/21 16:30 Labs: Lab Results 05/29/21 05/29/21 05/29/21 Range/Units 16:30 16:30 16:30 WBC 8.8 (4.5-11.0) X10^3/uL RBC 3.95 L (4.5-5.9) X10^6/uL Hgb 12.2 L (13.5-17.5) g/dL Hct 36.5 L (41-53) % MCV 92.3 (80-100) fL MCH 30.8 (26-34) PG MCHC 33.4 (30-36) % RDW 14.2 (11.6-14.8) % Plt Count 273 (150-400) X10^3/uL Neut % (Auto) 77.7 H (50-75) % Lymph % (Auto) 9.4 L (25-40) % [place] % (Auto) 11.2 (3-14) % Eos % (Auto) 1.0 L (2-4) % Baso % (Auto) 0.7 (0-2) % Neut # (Auto) 6900 (3788-5268) /uL Lymph # (Auto) 800 L (2028-2817) /uL [place] # (Auto) 1000 H (0-900) /uL Eos # (Auto) 100 (0-450) /uL Baso # (Auto) 100 (0-100) /uL PT (10.1-12.7) SECONDS INR (0.9-1.3) APTT (26.4-36.2) SECONDS ABG pH (7.35-7.45) ABG pCO2 (35-45) mmHg ABG pO2 (80-100) mmHg ABG HCO3 (22-26) mmol/L ABG Total CO2 (21-31) mmol/L ABG O2 Saturation (95-100) % ABG Base Excess (-2-2) mmol/L FiO2 Sodium 129 L (137-145) mmol/L Potassium 3.9 (3.4-5.1) mmol/L Chloride 91 L (98-107) mmol/L Carbon Dioxide 29 (22-32) mmol/L BUN 31 H (9-20) mg/dL Creatinine 2.00 H (0.66-1.25) mg/dL Estimated GFR 32.0 L (>60) mL/min BUN/Creatinine Ratio 15.5 (6-22) Glucose 99 (80-110) mg/dL Lactate 2.1 (0.7-2.1) mmol/L Calcium 9.1 (8.4-10.2) mg/dL Total Bilirubin 1.1 (0.2-1.3) mg/dL AST 98 H (17-59) IU/L ALT 65 H (<50) IU/L Alkaline Phosphatase 256 H (38-126) U/L Troponin I (0.01-0.034) ng/mL NT-Pro-B Natriuret Pep (<450) pg/mL Total Protein 7.3 (6.3-8.2) g/dL Albumin 3.8 (3.5-5.0) g/dL Globulin 3.5 (1.7-4.1) g/dL Albumin/Globulin Ratio 1.1 (1.0-2.8) Lipase 36 (23-300) U/L Procalcitonin 0.88 H (<0.5) ng/mL Urine Color Urine Appearance Urine pH (4.5-8.0) Ur Specific St[place] (1.000-1.035) Urine Protein (Negative) Urine Glucose (UA) (Negative) g/dL Urine Ketones (NEGATIVE) Urine Occult Blood (Negative) Urine Nitrate (Negative) Urine Bilirubin (NEGATIVE) Urine Urobilinogen (0.2) E.U./dL Ur Leukocyte Esterase (NEGATIVE) Urine RBC (0-5/HPF) Urine WBC (0-5/HPF) Urine Bacteria (None) Ur Culture Indicated? SARS-CoV-2 (PCR) (Negative) 05/29/21 05/29/21 05/29/21 Range/Units 16:30 16:30 16:50 WBC (4.5-11.0) X10^3/uL RBC (4.5-5.9) X10^6/uL Hgb (13.5-17.5) g/dL Hct (41-53) % MCV (80-100) fL MCH (26-34) PG MCHC (30-36) % RDW (11.6-14.8) % Plt Count (150-400) X10^3/uL Neut % (Auto) (50-75) % Lymph % (Auto) (25-40) % [place] % (Auto) (3-14) % Eos % (Auto) (2-4) % Baso % (Auto) (0-2) % Neut # (Auto) (6392-9763) /uL Lymph # (Auto) (5274-4271) /uL [place] # (Auto) (0-900) /uL Eos # (Auto) (0-450) /uL Baso # (Auto) (0-100) /uL PT 13.2 H (10.1-12.7) SECONDS INR 1.2 (0.9-1.3) APTT 30 D (26.4-36.2) SECONDS ABG pH (7.35-7.45) ABG pCO2 (35-45) mmHg ABG pO2 (80-100) mmHg ABG HCO3 (22-26) mmol/L ABG Total CO2 (21-31) mmol/L ABG O2 Saturation (95-100) % ABG Base Excess (-2-2) mmol/L FiO2 Sodium (137-145) mmol/L Potassium (3.4-5.1) mmol/L Chloride (98-107) mmol/L Carbon Dioxide (22-32) mmol/L BUN (9-20) mg/dL Creatinine (0.66-1.25) mg/dL Estimated GFR (>60) mL/min BUN/Creatinine Ratio (6-22) Glucose (80-110) mg/dL Lactate (0.7-2.1) mmol/L Calcium (8.4-10.2) mg/dL Total Bilirubin (0.2-1.3) mg/dL AST (17-59) IU/L ALT (<50) IU/L Alkaline Phosphatase (38-126) U/L Troponin I < 0.012 (0.01-0.034) ng/mL NT-Pro-B Natriuret Pep 228 (<450) pg/mL Total Protein (6.3-8.2) g/dL Albumin (3.5-5.0) g/dL Globulin (1.7-4.1) g/dL Albumin/Globulin Ratio (1.0-2.8) Lipase (23-300) U/L Procalcitonin (<0.5) ng/mL Urine Color Yellow Urine Appearance Clear Urine pH 5.5 (4.5-8.0) Ur Specific [place] 1.010 (1.000-1.035) Urine Protein Trace H (Negative) Urine Glucose (UA) Negative (Negative) g/dL Urine Ketones Negative (NEGATIVE) Urine Occult Blood 3+ H (Negative) Urine Nitrate Negative (Negative) Urine Bilirubin Negative (NEGATIVE) Urine Urobilinogen 0.2 (0.2) E.U./dL Ur Leukocyte Esterase Negative (NEGATIVE) Urine RBC 30-100/hpf H (0-5/HPF) Urine WBC None seen (0-5/HPF) Urine Bacteria None seen (None) Ur Culture Indicated? Cult not indicated SARS-CoV-2 (PCR) (Negative) 05/29/21 05/29/21 05/29/21 Range/Units 16:50 18:00 19:15 WBC (4.5-11.0) X10^3/uL RBC (4.5-5.9) X10^6/uL Hgb (13.5-17.5) g/dL Hct (41-53) % MCV (80-100) fL MCH (26-34) PG MCHC (30-36) % RDW (11.6-14.8) % Plt Count (150-400) X10^3/uL Neut % (Auto) (50-75) % Lymph % (Auto) (25-40) % [place] % (Auto) (3-14) % Eos % (Auto) (2-4) % Baso % (Auto) (0-2) % Neut # (Auto) (3275-0178) /uL Lymph # (Auto) (0019-4023) /uL [place] # (Auto) (0-900) /uL Eos # (Auto) (0-450) /uL Baso # (Auto) (0-100) /uL PT (10.1-12.7) SECONDS INR (0.9-1.3) APTT (26.4-36.2) SECONDS ABG pH 7.44 (7.35-7.45) ABG pCO2 39.1 (35-45) mmHg ABG pO2 55 L (80-100) mmHg ABG HCO3 27 H (22-26) mmol/L ABG Total CO2 28 (21-31) mmol/L ABG O2 Saturation 89 L (95-100) % ABG Base Excess 2.0 (-2-2) mmol/L FiO2 21 Sodium (137-145) mmol/L Potassium (3.4-5.1) mmol/L Chloride (98-107) mmol/L Carbon Dioxide (22-32) mmol/L BUN (9-20) mg/dL Creatinine (0.66-1.25) mg/dL Estimated GFR (>60) mL/min BUN/Creatinine Ratio (6-22) Glucose (80-110) mg/dL Lactate 2.0 (0.7-2.1) mmol/L Calcium (8.4-10.2) mg/dL Total Bilirubin (0.2-1.3) mg/dL AST (17-59) IU/L ALT (<50) IU/L Alkaline Phosphatase (38-126) U/L Troponin I (0.01-0.034) ng/mL NT-Pro-B Natriuret Pep (<450) pg/mL Total Protein (6.3-8.2) g/dL Albumin (3.5-5.0) g/dL Globulin (1.7-4.1) g/dL Albumin/Globulin Ratio (1.0-2.8) Lipase (23-300) U/L Procalcitonin (<0.5) ng/mL Urine Color Urine Appearance Urine pH (4.5-8.0) Ur Specific [place] (1.000-1.035) Urine Protein (Negative) Urine Glucose (UA) (Negative) g/dL Urine Ketones (NEGATIVE) Urine Occult Blood (Negative) Urine Nitrate (Negative) Urine Bilirubin (NEGATIVE) Urine Urobilinogen (0.2) E.U./dL Ur Leukocyte Esterase (NEGATIVE) Urine RBC (0-5/HPF) Urine WBC (0-5/HPF) Urine Bacteria (None) Ur Culture Indicated? SARS-CoV-2 (PCR) Negative (Negative) 05/29/21 Range/Units 21:45 WBC (4.5-11.0) X10^3/uL RBC (4.5-5.9) X10^6/uL Hgb (13.5-17.5) g/dL Hct (41-53) % MCV (80-100) fL MCH (26-34) PG MCHC (30-36) % RDW (11.6-14.8) % Plt Count (150-400) X10^3/uL Neut % (Auto) (50-75) % Lymph % (Auto) (25-40) % [place] % (Auto) (3-14) % Eos % (Auto) (2-4) % Baso % (Auto) (0-2) % Neut # (Auto) (6634-2019) /uL Lymph # (Auto) (7811-3343) /uL [place] # (Auto) (0-900) /uL Eos # (Auto) (0-450) /uL Baso # (Auto) (0-100) /uL PT (10.1-12.7) SECONDS INR (0.9-1.3) APTT 30 (26.4-36.2) SECONDS ABG pH (7.35-7.45) ABG pCO2 (35-45) mmHg ABG pO2 (80-100) mmHg ABG HCO3 (22-26) mmol/L ABG Total CO2 (21-31) mmol/L ABG O2 Saturation (95-100) % ABG Base Excess (-2-2) mmol/L FiO2 Sodium (137-145) mmol/L Potassium (3.4-5.1) mmol/L Chloride (98-107) mmol/L Carbon Dioxide (22-32) mmol/L BUN (9-20) mg/dL Creatinine (0.66-1.25) mg/dL Estimated GFR (>60) mL/min BUN/Creatinine Ratio (6-22) Glucose (80-110) mg/dL Lactate (0.7-2.1) mmol/L Calcium (8.4-10.2) mg/dL Total Bilirubin (0.2-1.3) mg/dL AST (17-59) IU/L ALT (<50) IU/L Alkaline Phosphatase (38-126) U/L Troponin I (0.01-0.034) ng/mL NT-Pro-B Natriuret Pep (<450) pg/mL Total Protein (6.3-8.2) g/dL Albumin (3.5-5.0) g/dL Globulin (1.7-4.1) g/dL Albumin/Globulin Ratio (1.0-2.8) Lipase (23-300) U/L Procalcitonin (<0.5) ng/mL Urine Color Urine Appearance Urine pH (4.5-8.0) Ur Specific [place] (1.000-1.035) Urine Protein (Negative) Urine Glucose (UA) (Negative) g/dL Urine Ketones (NEGATIVE) Urine Occult Blood (Negative) Urine Nitrate (Negative) Urine Bilirubin (NEGATIVE) Urine Urobilinogen (0.2) E.U./dL Ur Leukocyte Esterase (NEGATIVE) Urine RBC (0-5/HPF) Urine WBC (0-5/HPF) Urine Bacteria (None) Ur Culture Indicated? SARS-CoV-2 (PCR) (Negative) Imaging Data Chest x-ray: Radiologist's Impression: Chart Viewer Diagnostics DATE TYPE STATUS REF RANGE/AUTHOR Hx 05/29/21 21:28 Oscar Barcenas 05/29/21 18:19 Aiken,Soy 05/29/21 18:17 Aiken,Soy 05/29/21 16:23 Call,Owen 03/09/21 00:00 Adelso Blancas 08/20/20 07:06 Call,Owen 04/19/20 12:27 CarlieChenteLast 08/22/19 00:00 Danika Kraft 05/15/19 14:51 Ann-MarieElmo 05/14/19 11:16 Ann-Marie,rigu 06/13/18 14:03 Og Chappell 12/13/16 08:58 12/13/16 08:58 12/13/16 08:58 12/13/16 08:58 12/13/16 08:58 03/16/16 10:32 85, M1 REG ER, Main ED R01 177.8cm 88.451kg BMI: 28.0kg/m? Fever Search Chart No Data to Display Total Incomplete rash CONVULSION Lower extremity edema high blood pressure ONSET 05/17/11 05/17/11 07/30/14 12/28/14 03/16/16 01/27/18 05/29/21 23:00 Gaudencio Dennis 85 M [address] [id number] ReportSigned Patient: Gaudencio Dennis DMR#: [id number]: 1935cct:[id number]/Sex: 85 / MDate of Service: 05/29/21Loc: EDAccession Number: [id number] Procedure: XR chest 1V Ordering Provider: Joanna Moralez D.O. PROCEDURE: XR CHEST 1V INDICATIONS: suspected sepsis TECHNIQUE: One view of the chest was acquired. COMPARISON: [facility], CR, XR CHEST 1V, 04/19/2020, 12:45. [facility], CR, CHEST 2 VIEW, 12/26/2017, 14:06. FINDINGS: Surgical changes and devices: None. Lungs and pleura: Lungs are clear. No pleural effusions or pneumothorax. Mediastinum: Mediastinal contours appear normal. Heart size is normal. Bones and chest wall: No suspicious bony lesions. Overlying soft tissues appear unremarkable. IMPRESSION: No acute cardiopulmonary abnormality. Dictated by: Owen Moncada M.D. on 05/29/2021 at 16:50 Approved by: Owen Moncada M.D. on 05/29/2021 at 16:[address] [id number] ReportSigned Patient: Gaudencio Dennis DMR#: [id number]: 6Acct:[id number]/Sex: 85 / MDate of Service: 05/29/21Loc: EDAccession Number: [id number] Procedure: XR chest 1V Ordering Provider: Herminio Henriquez D.O. PROCEDURE: XR CHEST 1V INDICATIONS: SOB TECHNIQUE: One view of the chest was acquired. COMPARISON: [facility], CR, XR CHEST 1V, 05/29/2021, 16:30. FINDINGS: Surgical changes and devices: None. Lungs and pleura: Lungs are clear. Bilateral peribronchovascular airspace opacities are increased compared to the prior study consistent with mild CHF. No pleural effusions or pneumothorax. Mediastinum: Mediastinal contours appear normal. Heart size is normal. Bones and chest wall: No suspicious bony lesions. Overlying soft tissues appear unremarkable. IMPRESSION: Pulmonary vascular congestion consistent with mild CHF. Dictated by: Oscar Barcenas M.D. on 05/29/2021 at 21:37 Approved by: Oscar Barcenas M.D. on 05/29/2021 at 21:38 CT scan - chest: Radiologist's Impression: Chart Viewer Diagnostics DATE TYPE STATUS REF RANGE/AUTHOR Hx 05/29/21 21:28 Oscar Barcenas 05/29/21 18:19 Aiken,Soy 05/29/21 18:17 Aiken,Soy 05/29/21 16:23 Owen Moncada 03/09/21 00:00 Adelso Blancas 08/20/20 07:06 Owen Moncada 04/19/20 12:27 Last Sexton 08/22/19 00:00 Danika Kraft 05/15/19 14:51 Elmo Jacobsen 05/14/19 11:16 Ann-Marie,Jonathonu 06/13/18 14:03 Og Chappell 12/13/16 08:58 12/13/16 08:58 12/13/16 08:58 12/13/16 08:58 12/13/16 08:58 03/16/16 10:32 85, REG ER, Main ED R01 177.8cm 88.451kg BMI: 28.0kg/m? Fever Search Chart No Data to Display Total Incomplete rash CONVULSION Lower extremity edema high blood pressure ONSET 05/17/11 05/17/11 07/30/14 12/28/14 03/16/16 01/27/18 05/29/21 23:00 Gaudencio Dennis 85 M [address] [id number] Scan ReportSigned Patient: Gaudencio Dennis DMR#: [id number]: [id number]:[id number]/Sex: 85 / MDate of Service: 05/29/21Loc: EDAccession Number: [id number] Procedure: CT angio chest PE protocol Ordering Provider: Herminio Henriquez D.O. PROCEDURE: CT ANGIO CHEST PE PROTOCOL INDICATIONS: recent surgery, hypoxia, septic, tachycardia TECHNIQUE: After the administration of intravenous contrast, 2 mm thick sections acquired from the pulmonary apices to the posterior costophrenic angles. 3-dimensional maximum intensity projection (MIP) coronal and sagittal reformats were then acquired through the thorax. For radiation dose reduction, the following was used: automated exposure control, adjustment of mA and/or kV according to patient size. COMPARISON: None. FINDINGS: Image quality: Study is limited by bolus timing. Evaluation of the distal pulmonary vasculature is limited. Pulmonary arteries: There is a focal filling defect in the subsegmental left upper lobe pulmonary artery in the lingular segment. Remainder of the visualized vasculature unremarkable. No evidence of right heart strain. Lungs and pleura: Lungs are clear. No pleural effusions or pneumothorax. Central and peripheral airways are patent. Mild emphysematous changes noted in both lung apex is. Bibasilar dependent atelectasis noted as well. Mediastinum: Heart size is enlarged, without pericardial effusion. No mediastinal or hilar adenopathy. Thoracic aorta is normal in caliber and enhancement. Esophagus is normal in caliber, without hiatal hernia. Bones and chest wall: No suspicious bony lesions. Ribs and thoracic spine appear intact throughout. Thyroid gland unremarkable. No axillary or supraclavicular adenopathy. Abdomen: Visualized upper abdominal solid organs appear normal in the early arterial phase of enhancement. IMPRESSION: 1. Small left upper lobe subsegmental pulmonary embolism. 2. Mild cardiomegaly without evidence of right heart strain. Next 3. Mild pulmonary emphysema. Note: Critical results were discussed with Dr. Henriquez at 06:11 PM [place] time on 05/29/21 Dictated by: Soy Aiken M.D. on 05/29/2021 at 18:04 Approved by: Soy Aiken M.D. on 05/29/2021 at 18:12 Chart Viewer Diagnostics DATE TYPE STATUS REF RANGE/AUTHOR Hx 05/29/21 21:28 Oscar Barcenas 05/29/21 18:19 Soy Aiken 05/29/21 18:17 Soy Aiken 05/29/21 16:23 CallOwen 03/09/21 00:00 Adelso Blancas 08/20/20 07:06 Call,Owen 04/19/20 12:27 Last Sexton 08/22/19 00:00 Danika Kraft 05/15/19 14:51 Ann-Marie,Elmo 05/14/19 11:16 Ann-Marie,rigu 06/13/18 14:03 Og Chappell 12/13/16 08:58 12/13/16 08:58 12/13/16 08:58 12/13/16 08:58 12/13/16 08:58 03/16/16 10:32 85, M1 REG ER, Main ED R01 177.8cm 88.451kg BMI: 28.0kg/m? Fever Search Chart No Data to Display Total Incomplete rash CONVULSION Lower extremity edema high blood pressure ONSET 05/17/11 05/17/11 07/30/14 12/28/14 03/16/16 01/27/18 05/29/21 23:00 Gaudencio Dennis 85 M [address] [id number] Scan ReportSigned Patient: Gaudencio Dennis DMR#: [id number]: 1935cct:[id number]/Sex: 85 / MDate of Service: 05/29/21Loc: EDAccession Number: [id number] Procedure: CT abdomen pelvis w con Ordering Provider: Herminio Henriquez D.O. PROCEDURE: CT ABDOMEN PELVIS W CON INDICATIONS: septic, mottled, hypoxic, altered TECHNIQUE: After the administration of IV contrast, axial sections were acquired from the lung bases to the pubic symphysis. Coronal and sagittal reformats were performed. For radiation dose reduction, the following was used: automated exposure control, adjustment of mA and/or kV according to patient size. COMPARISON: [facility], CT, ABDOMEN/PELVIS WITH CONTRAST, 10/03/2015, 15:43. FINDINGS: Lower thorax: The lung bases are clear. Heart size normal. No hiatal hernia. Liver: Normal in size and attenuation. No contour deformity present. Biliary system: Cholecystectomy. No intra or extrahepatic bile duct dilatation. Pancreas: Unremarkable without mass or inflammation evident. Spleen: Normal in size and density. Adrenals: Normal morphology and density. Reproductive system: Prostate is enlarged measuring 5.3 x 4.7 cm. Urinary system: Normal renal size and attenuation. No renal calculi, hydronephrosis, or solid mass present. There is a Coffman catheter in the bladder, however, the balloon is not inflated. Small amount of air in the bladder related to recent instrumentation. Gastrointestinal system: The bowel appears unremarkable with no evidence of bowel obstruction or inflammation. The stomach appears unremarkable. Appendix: No findings to suggest acute appendicitis. Peritoneal spaces: No mesenteric or retroperitoneal adenopathy. No free air. No free fluid. Vasculature: Aortic atherosclerotic vascular calcification noted without evidence of aneurysm. Musculoskeletal: Normal bone mineralization. Degenerative disc disease and arthropathy noted in lower lumbar spine. No acute fractures. There is L2-3 interbody fusion without instrumentation. L4-L5 right hemilaminectomy defects noted. Bilateral inguinal hernias noted, left greater than right contain fat without bowel involvement. IMPRESSION: 1. No acute CT abdomen and pelvis findings. 2. Straight cath in the bladder without balloon 3. Chronic findings include cholecystectomy, hypertrophic prostate, atherosclerotic aorta bilateral inguinal hernias containing fat, and degenerative lumbar spine Dictated by: Soy Aiken M.D. on 05/29/2021 at 18:29 Approved by: Soy Aiken M.D. on 05/29/2021 at 18:40 Critical Care Time Critical Care Time Critical Care Time: Yes Total Critical Care Time: 45 Attestation: The high probability of a clinically significant, sudden or life threatening deterioration of the [CV] system(s) required my full and direct attention, intervention and personal management. The aggregate critical care time was [45] minutes. This time is in addition to time spent performing reported procedures but includes the following: [x] Data Review and interpretation [x] Patient assessment and monitoring of vital signs [x] Documentation [x] Medication orders and management Discharge Plan Departure Patient Disposition: [facility] Clinical Impression: Pulmonary embolism, Cellulitis, Sepsis, Acute kidney injury Prescriptions: No Action multivitamin [Multiple Vitamins] 1 EACH tablet 1 tab PO QDAY Qty: 0 RF: 0 ascorbic acid (vitamin C) 500 mg tablet 500 mg PO DAILY Qty: 0 RF: 0 naproxen sodium 220 mg tablet 220 mg PO BIDCC PRNQty: 0 RF: 0 Eliquis 5 mg tablet 5 mg PO Q12H Qty: 180 RF: 3 hydrochlorothiazide 25 mg tablet 25 mg PO QDAY Qty: 90 RF: 3 diltiazem HCl 240 mg capsule,extended release 24 hr 240 mg PO DAILY Qty: 90 RF: 3 atorvastatin 20 mg tablet 20 mg PO DAILY Qty: 90 RF: 1 vitamins A,C,U-aqup-bbqjcc [PreserVision AREDS] 7,160-113-100 dwkx-so-eyfz tablet 2 tab PO BID RF: 0 Vitamin D3 1 cap PO DAILY RF: 0 hydrocodone-acetaminophen 5-325 mg tablet 1 tab PO Q4HR PRN (Reason: Pain (Scale Score 4-6)) RF: 0 docusate sodium [Stool Softener] 100 mg capsule 100 mg PO BID RF: 0 hydroxyzine pamoate 25 mg capsule 25 mg PO TID PRN (Reason: Itching &/or anxiety) RF: 0 Referrals: Ten Fleming MD [Primary Care Provider] -
--- NOTE | 2021-05-29 18:17 | DI.CT.S_ITS ---
PROCEDURE: CT ANGIO CHEST PE PROTOCOL INDICATIONS: recent surgery, hypoxia, septic, tachycardia TECHNIQUE: After the administration of intravenous contrast, 2 mm thick sections acquired from the pulmonary apices to the posterior costophrenic angles. 3-dimensional maximum intensity projection (MIP) coronal and sagittal reformats were then acquired through the thorax. For radiation dose reduction, the following was used: automated exposure control, adjustment of mA and/or kV according to patient size. COMPARISON: None. FINDINGS: Image quality: Study is limited by bolus timing. Evaluation of the distal pulmonary vasculature is limited. Pulmonary arteries: There is a focal filling defect in the subsegmental left upper lobe pulmonary artery in the lingular segment. Remainder of the visualized vasculature unremarkable. No evidence of right heart strain. Lungs and pleura: Lungs are clear. No pleural effusions or pneumothorax. Central and peripheral airways are patent. Mild emphysematous changes noted in both lung apex is. Bibasilar dependent atelectasis noted as well. Mediastinum: Heart size is enlarged, without pericardial effusion. No mediastinal or hilar adenopathy. Thoracic aorta is normal in caliber and enhancement. Esophagus is normal in caliber, without hiatal hernia. Bones and chest wall: No suspicious bony lesions. Ribs and thoracic spine appear intact throughout. Thyroid gland unremarkable. No axillary or supraclavicular adenopathy. Abdomen: Visualized upper abdominal solid organs appear normal in the early arterial phase of enhancement. IMPRESSION: 1. Small left upper lobe subsegmental pulmonary embolism. 2. Mild cardiomegaly without evidence of right heart strain. Next 3. Mild pulmonary emphysema. Note: Critical results were discussed with Dr. Henriquez at 06:11 PM [place] time on 05/29/21 Dictated by: Soy Aiken M.D. on 05/29/2021 at 18:04 Approved by: Soy Aiken M.D. on 05/29/2021 at 18:12
--- NOTE | 2021-05-29 18:19 | DI.CT.S_ITS ---
PROCEDURE: CT ABDOMEN PELVIS W CON INDICATIONS: septic, mottled, hypoxic, altered TECHNIQUE: After the administration of IV contrast, axial sections were acquired from the lung bases to the pubic symphysis. Coronal and sagittal reformats were performed. For radiation dose reduction, the following was used: automated exposure control, adjustment of mA and/or kV according to patient size. COMPARISON: [facility], CT, ABDOMEN/PELVIS WITH CONTRAST, 10/03/2015, 15:43. FINDINGS: Lower thorax: The lung bases are clear. Heart size normal. No hiatal hernia. Liver: Normal in size and attenuation. No contour deformity present. Biliary system: Cholecystectomy. No intra or extrahepatic bile duct dilatation. Pancreas: Unremarkable without mass or inflammation evident. Spleen: Normal in size and density. Adrenals: Normal morphology and density. Reproductive system: Prostate is enlarged measuring 5.3 x 4.7 cm. Urinary system: Normal renal size and attenuation. No renal calculi, hydronephrosis, or solid mass present. There is a Coffman catheter in the bladder, however, the balloon is not inflated. Small amount of air in the bladder related to recent instrumentation. Gastrointestinal system: The bowel appears unremarkable with no evidence of bowel obstruction or inflammation. The stomach appears unremarkable. Appendix: No findings to suggest acute appendicitis. Peritoneal spaces: No mesenteric or retroperitoneal adenopathy. No free air. No free fluid. Vasculature: Aortic atherosclerotic vascular calcification noted without evidence of aneurysm. Musculoskeletal: Normal bone mineralization. Degenerative disc disease and arthropathy noted in lower lumbar spine. No acute fractures. There is L2-3 interbody fusion without instrumentation. L4-L5 right hemilaminectomy defects noted. Bilateral inguinal hernias noted, left greater than right contain fat without bowel involvement. IMPRESSION: 1. No acute CT abdomen and pelvis findings. 2. Straight cath in the bladder without balloon 3. Chronic findings include cholecystectomy, hypertrophic prostate, atherosclerotic aorta bilateral inguinal hernias containing fat, and degenerative lumbar spine Dictated by: Soy Aiken M.D. on 05/29/2021 at 18:29 Approved by: Soy Aiken M.D. on 05/29/2021 at 18:40
[2021-05-29 18:36] LABS: Reflexed Lactate in 2 Hours Y
[2021-05-29] MEDS: LACTATED RINGERS 2,653.53 ML 884.51 ML IV (18:40)
[2021-05-29] MEDS: VANCOMYCIN 2,000 MG/400 ML PIGGYBACK 200 MG IV (19:21)
[2021-05-29 19:29] LABS: INR 1.2 (0.9-1.3); Prothrombin Time 13.2 SECONDS (10.1-12.7)
[2021-05-29 19:31] LABS: PTT Partial Thromboplastin Tim 30 SECONDS (26.4-36.2)
[2021-05-29] MEDS: LORazepam 2 MG/ML INJ 0.5 MG IV (21:15)
--- NOTE | 2021-05-29 21:28 | DI.RAD.S_ITS ---
PROCEDURE: XR CHEST 1V INDICATIONS: SOB TECHNIQUE: One view of the chest was acquired. COMPARISON: [facility], CR, XR CHEST 1V, 05/29/2021, 16:30. FINDINGS: Surgical changes and devices: None. Lungs and pleura: Lungs are clear. Bilateral peribronchovascular airspace opacities are increased compared to the prior study consistent with mild CHF. No pleural effusions or pneumothorax. Mediastinum: Mediastinal contours appear normal. Heart size is normal. Bones and chest wall: No suspicious bony lesions. Overlying soft tissues appear unremarkable. IMPRESSION: Pulmonary vascular congestion consistent with mild CHF. Dictated by: Oscar Barcenas M.D. on 05/29/2021 at 21:37 Approved by: Oscar Barcenas M.D. on 05/29/2021 at 21:38
[2021-05-29] MEDS: ACETAMINOPHEN IV 1,000 MG/100 ML VIAL 400 MG IV (21:39)
[2021-05-29 21:57] LABS: PTT Partial Thromboplastin Tim 30 SECONDS (26.4-36.2)
--- NOTE | 2021-05-29 22:39 | RT ---
At 2124, called down by RN to assess pt for HHFNC. Pt is spontaneously breathing, RR 20s. Pt is alert and responds to commands, however is shaky. RN placed pt on 15 LPM NRB and pt is tolerating. Tried pt on HFNC at 15 LPM and pt desat to 87%, switched pt back to [address] Henriquez aware.
[2021-05-29] MEDS: HEPARIN DRIP 25,000 UNIT/500 ML IV.SOLN 20 UNIT IV (22:46)
[2021-05-29] MEDS: HEPARIN 5,000 UNIT/ML VIAL 7100 UNIT IV (22:47)
--- NOTE | 2021-05-29 23:12 | PC.NURSE ---
Pt is resting comfortably at this time on 15L NRB with SpO2 98% and RR 19 after ativan. Heparin gtt initiated per order after clarifying dose with Dr Henriquez.
--- NOTE | 2021-05-29 23:53 | PC.NURSE ---
I phoned pt's , Tatyana, to update her to plan of care: Pt to transfer to [facility] in [place].
[2021-05-30] MEDS: EPINEPHrine 1 MG/10 ML SYRINGE IV (00:44)
== END 2021-05-30 01:10 | disposition short-term general hospital (02) ==
PROVIDERS: Emergency Medicine; Emergency Provider Emergency Medicine; Family Provider Internal Medicine; PCP Internal Medicine
DX: I26.99 Other pulmonary embolism without acute cor pulmonale (principal); L03.90 Cellulitis, unspecified; A41.9 Sepsis, unspecified organism; N17.9 Acute kidney failure, unspecified; R00.0 Tachycardia, unspecified; R06.02 Shortness of breath; R50.9 Fever, unspecified; Z20.822 Contact with and (suspected) exposure to COVID-19
CPT/HCPCS: 36415; 36600; 51702; 71045; 71275; 74177; 80053; 81001; 82805; 83605; 83690; 83880; 84145; 84484; 85025; 85610; 85730; 87040; 87635; 93005; 96361; 96365; 96366; 96367; 96375; 99285; 99291; 99292; C9803; J0131; J0171; J0744; J1644; J2060

== ENCOUNTER 2021-06-06 20:42 | Emergency (ER) | payer MEDICARE, SELFPAY ==
[2021-06-06 20:45] VITALS: BP 137/73; PULSE 85; RESP 20; TEMP 36.8; O2SAT 98; BMI 27.9
--- NOTE | 2021-06-06 21:15 | PC.NURSE ---
Patient switched from leg bag to night time bag, states he had clear yellow urine in cath at tip of penis but minimal to no output in bag. Denies sense of retention of abd pain. Patient states he hasn't had much fluids this afternoon.
--- NOTE | 2021-06-06 21:52 | ED.MALEGU ---
HPI - Male Genitourinary General Chief complaint: Urogenital-Male Stated complaint: problem with urinary cath Time Seen by Provider: 06/06/21 21:42 Source: patient Mode of arrival: Ambulatory Limitations: no limitations History of Present Illness HPI Narrative: 85-year-old male former smoker with history of AFib on apixaban, hyperlipidemia and hypertension with recent extended hospitalization due to wound infection, sepsis and acute kidney injury after a recent lumbar surgery presents with concern about the possibility of a malfunctioning Lao catheter. He states that everything has been working fine well until he switched from his leg bag to the overnight bag just prior to arrival and he states it is no longer draining. He denies any other symptoms such as dizziness, weakness or lightheadedness. He denies any abdominal pain, profound fatigue or lower extremity weakness. Related Data Home Medications Medication Instructions Recorded Confirmed vitamins A,C,R-mtic-mmcycw 7,160 2 tab PO BID 03/31/18 06/06/21 unit-113 mg-100 unit tablet (PreserVision AREDS) Vitamin D3 1 cap PO DAILY 06/05/18 06/06/21 ascorbic acid (vitamin C) 500 mg 500 mg PO DAILY #0 tab 04/23/19 06/06/21 tablet Previous Rx's Medication Instructions Recorded diltiazem HCl 240 mg capsule,24 240 mg PO DAILY #90 cap 09/12/20 hr,extended release hydrochlorothiazide 25 mg tablet 25 mg PO QDAY #90 tab 09/12/20 atorvastatin 20 mg tablet 20 mg PO DAILY #90 tab 04/03/21 apixaban 5 mg tablet (Eliquis) 5 mg PO Q12H #180 tab 06/05/21 Allergies Allergy/AdvReac Type Severity Reaction Status Date / Time Sulfa (Sulfonamide Allergy Mild rash Verified 06/06/21 20:45 Antibiotics) Horse/Equine Containing AdvReac Severe CONVULSION Verified 06/06/21 20:45 Products tamsulosin AdvReac Mild Lower Verified 06/06/21 20:45 extremity edema doxycycline AdvReac Unknown high blood Verified 06/06/21 20:45 pressure Review of Systems Review of Systems Narrative: GENERAL: Denies chills, fatigue, malaise, fever, sweats. HEENT: Denies sinus pain, ear pain, sore throat, difficulty swallowing, dizziness. RESPIRATORY: Denies dyspnea, cough, wheezing, hemoptysis, sputum. CARDIOVASCULAR: Denies chest pain, palpitations, orthopnea, edema, GASTROINTESTINAL: Denies nausea, vomiting, abdominal pain, diarrhea, constipation, melena. : See HPI MUSCULOSKELETAL: denies weakness, joint pain, or bony pain SKIN: Denies rash, skin lesions, or other NEUROLOGIC: Denies weakness, headache, numbness, change in speech, confusion, seizures, incoordination. PSYCHIATRIC: No concerning psychosocial issues. 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) Urinary retention Surgical History H/O laminectomy History of radiofrequency ablation (RFA) procedure for cardiac arrhythmia (~2018) Hx of appendectomy S/P hernia repair Status post cholecystectomy (09/2015) Family History Mother CAD (coronary artery disease) Father Hypertension Hearing impaired Social History marital status: number of children: 3 household members: spouse lives independently: Yes caregiver/support person: No housing: house pets and animals: Yes education level: other occupational status: other current occupational exposures/hazards: No 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 Extraoccular muscles are intact bilaterally. There is no subconjunctival hemorrhage or exudate. CHEST: Lungs are clear to auscultation bilaterally and free of wheezes, rales, or rhonchi. Heart rate is regular rhythm, there are no murmurs, clicks, rubs, or gallops. There is no chest wall tenderness. ABD: Abdomen is soft and nontender. There is no guarding or rebound. Bowel sounds are normal in all 4 quadrants. There is no mass or organomegaly. : No suprapubic tenderness or fullness, Lao catheter draining appropriately, no hematuria EXT: Full painless ROM of all extremities with no loss of sensation or strength. SKIN: Warm, pink, and dry. No erythema or rash Initial Vital Signs Initial Vital Signs: Vital Signs Temperature 98.3 F 06/06/21 20:45 Pulse Rate 85 06/06/21 20:45 Respiratory Rate 20 06/06/21 20:45 Blood Pressure 137/73 06/06/21 20:45 Pulse Oximetry 98 06/06/21 20:45 Course Vital Signs Vital signs: Vital Signs - 8 hr 06/06/21 20:45 Temperature 98.3 F Pulse Rate 85 Respiratory Rate 20 Blood Pressure 137/73 Pulse Oximetry 98 MDM - Male Genitourinary MDM Narrative Medical decision making narrative: Patient well-appearing with appropriately functioning Lao catheter in the absence of other symptoms. Reassurance given, return precautions given and questions answered to his apparent satisfaction Discharge Plan Departure Patient Disposition: Home Clinical Impression: Complication of Lao catheter Qualifiers: Encounter type: initial encounter Qualified Code(s): T83.9XXA - Unspecified complication of genitourinary prosthetic device, implant and graft, initial encounter Instructions: How to Care for Your Lao Catheter -- Male Activity Restrictions/Additional Instructions: *You have been diagnosed with [ lao catheter problem] *What to do: *Please continue to take your regular medications as directed. [ ] New medication prescriptions sent to your pharmacy: [ ] [ ] New medication written as a paper prescription [x ] No new medications given *Please follow up with your primary care provider in 2-3 days, call for an appointment. Let them know you were seen in the Emergency Department and that we ask that you be seen in follow up. We will electronically transmit a record of today's note if your PCP is in our system *If you do not have a primary care provider please contact the [facility] Resource line at [phone]. They will ask some questions about your medical history and help get you set up with a doctor in the community. *Return to Emergency Department if you should have any new, worsening or concerning symptoms, such as [fever greater than 101 F, shaking chills, worsening pain, persistent vomiting or other bothersome symptoms] Prescriptions: No Action ascorbic acid (vitamin C) 500 mg tablet 500 mg PO DAILY Qty: 0 RF: 0 hydrochlorothiazide 25 mg tablet 25 mg PO QDAY Qty: 90 RF: 3 diltiazem HCl 240 mg capsule,extended release 24 hr 240 mg PO DAILY Qty: 90 RF: 3 atorvastatin 20 mg tablet 20 mg PO DAILY Qty: 90 RF: 1 Eliquis 5 mg tablet 5 mg PO Q12H Qty: 180 RF: 3 vitamins A,C,Z-svus-dmyrhl [PreserVision AREDS] 7,160-113-100 rdpi-oy-sjsr tablet 2 tab PO BID RF: 0 Vitamin D3 1 cap PO DAILY RF: 0 Referrals: Ten Fleming MD [Primary Care Provider] -
== END 2021-06-06 22:10 | disposition home or self-care (01) ==
PROVIDERS: Emergency Provider Emergency Medicine; Family Provider Internal Medicine; PCP Internal Medicine
DX: T83.9XXA Unspecified complication of genitourinary prosthetic device, implant and graft, initial encounter (principal)
CPT/HCPCS: 51798; 99215; 99282; 99283

== ENCOUNTER → 2021-06-09 07:39 | Outpatient (CLI) | payer MEDICARE, SELFPAY ==
[2021-06-09 09:06] LABS: Appearance Urine UA SL CLOUDY; Bilirubin Urine UA NEGATIVE (NEGATIVE); Color Urine UA YELLOW; Glucose Urine UA NEGATIVE (Negative); Ketones Urine UA NEGATIVE (NEGATIVE); Leukocyte Esterase Urine UA TRACE (NEGATIVE); Nitrite Urine UA NEGATIVE (Negative); Occult Blood Urine UA 3+ (Negative); Protein Urine UA 2+ (Negative); Specific Gravity Urine UA 1.015 (1.000-1.035); Urobilinogen Urine UA 0.2 E.U./dL (0.2); pH Urine UA 5.5 (4.5-8.0)
[2021-06-09 09:17] LABS: Bacteria Urine Many (>30); RBC Urine 30-100/HPF (0-5/HPF); WBC Urine 1-5/HPF (0-5/HPF)
[2021-06-09 09:18] LABS: Culture Indicated Urine Specimen Cultured
== END ==
PROVIDERS: Family Provider Internal Medicine; PCP Internal Medicine; Referring Provider Urology; Visit Provider Urology
DX: R33.9 Retention of urine, unspecified (principal)
CPT/HCPCS: 81001; 87077; 87086; 87186

== ENCOUNTER 2021-06-22 21:34 | Emergency (ER) | payer MEDICARE, SELFPAY ==
[2021-06-22 21:48] VITALS: BP 184/85; PULSE 88; RESP 16; TEMP 36.8; O2SAT 97; BMI 27.9
--- NOTE | 2021-06-22 21:56 | PC.NURSE ---
Irrigated lao with 60 cc of normal saline. urine returned nevarez colored. no blood clots seen
[2021-06-22] MEDS: LIDOCAINE JELLY 2% 5 ML 5 APPLIC TOP (22:25)
--- NOTE | 2021-06-22 22:26 | ED_ITS ---
HPI - Male Genitourinary General Chief complaint: Urogenital-Male Stated complaint: cath plugged, extending bladder, urogen male Time Seen by Provider: 06/22/21 21:36 History of Present Illness HPI Narrative: 85-year-old male former smoker with history of AFib on apixaban, hyperlipidemia and hypertension with recent extended hospitalization due to wound infection, sepsis and acute kidney injury after a recent lumbar surgery presents with concern about the possibility of a malfunctioning Lao catheter. He had his Lao catheter removed earlier today, at the end of the visit stay at the urology office and there was some difficulty putting it in, it drained appropriately initially but over the course of the evening he developed increasing trouble and then it stops draining. He is on Eliquis for AFib and frequently bleeds when the catheters are manipulated. He denies any chest pain or shortness of breath. He denies fever or chills. He denies abdominal pain. Related Data Home Medications Medication Instructions Recorded Confirmed vitamins A,C,S-bmxo-qkbmsx 7,160 2 tab PO BID 03/31/18 06/21/21 unit-113 mg-100 unit tablet (PreserVision AREDS) Vitamin D3 1 cap PO DAILY 06/05/18 06/21/21 ascorbic acid (vitamin C) 500 mg 500 mg PO DAILY #0 tab 04/23/19 06/21/21 tablet gabapentin 600 mg tablet 600 mg PO DAILY 06/09/21 06/21/21 Previous Rx's Medication Instructions Recorded diltiazem HCl 240 mg capsule,24 240 mg PO DAILY #90 cap 09/12/20 hr,extended release hydrochlorothiazide 25 mg tablet 25 mg PO QDAY #90 tab 09/12/20 atorvastatin 20 mg tablet 20 mg PO DAILY #90 tab 04/03/21 apixaban 5 mg tablet (Eliquis) 5 mg PO Q12H #180 tab 06/05/21 ciprofloxacin HCl 500 mg tablet 500 mg PO BID #20 tab 06/13/21 (Cipro) Allergies Allergy/AdvReac Type Severity Reaction Status Date / Time Sulfa (Sulfonamide Allergy Mild rash Verified 06/21/21 13:55 Antibiotics) Horse/Equine Containing AdvReac Severe CONVULSION Verified 06/21/21 13:55 Products tamsulosin AdvReac Mild Lower Verified 06/21/21 13:55 extremity edema doxycycline AdvReac Unknown high blood Verified 06/21/21 13:55 pressure Review of Systems Review of Systems Narrative: GENERAL: Denies chills, fatigue, malaise, fever, sweats. HEENT: Denies sinus pain, ear pain, sore throat, difficulty swallowing, dizziness. RESPIRATORY: Denies dyspnea, cough, wheezing, hemoptysis, sputum. CARDIOVASCULAR: Denies chest pain, palpitations, orthopnea, edema, GASTROINTESTINAL: Denies nausea, vomiting, abdominal pain, diarrhea, constipation, melena. : See HPI MUSCULOSKELETAL: denies weakness, joint pain, or bony pain SKIN: Denies rash, skin lesions, or other NEUROLOGIC: Denies weakness, headache, numbness, change in speech, confusion, seizures, incoordination. PSYCHIATRIC: No concerning psychosocial issues. 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) Urinary retention Urinary tract infection associated with indwelling urethral catheter Surgical History H/O laminectomy History of radiofrequency ablation (RFA) procedure for cardiac arrhythmia (~2018) Hx of appendectomy S/P hernia repair Status post cholecystectomy (09/2015) Family History Mother CAD (coronary artery disease) Father Hypertension Hearing impaired Social History marital status: number of children: 3 household members: spouse lives independently: Yes caregiver/support person: No housing: house pets and animals: Yes education level: other occupational status: other current occupational exposures/hazards: No 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 EYES: Pupils are equal, round, and reactive to light and accommodation. Extraoccular muscles are intact bilaterally. There is no subconjunctival hemorrhage or exudate. CHEST: Lungs are clear to auscultation bilaterally and free of wheezes, rales, or rhonchi. Heart rate is regular rhythm, there are no murmurs, clicks, rubs, or gallops. There is no chest wall tenderness. ABD: Abdomen is soft and nontender. There is no guarding or rebound. Bowel sounds are normal in all 4 quadrants. There is no mass or organomegaly. : Lao flushed, with slow return of bloody urine EXT: Full painless ROM of all extremities with no loss of sensation or strength. SKIN: Warm, pink, and dry. No erythema or rash Initial Vital Signs Initial Vital Signs: Vital Signs Temperature 98.2 F 06/22/21 21:48 Pulse Rate 88 06/22/21 21:48 Respiratory Rate 16 06/22/21 21:48 Blood Pressure 184/85 H 06/22/21 21:48 Pulse Oximetry 97 06/22/21 21:48 Course Reevaluation(s) Reevaluation #1: lao replaced by nursing with a 3 way and irrigated with 3L, significant improvement, light pink now. Flowing well. Sent with irrigation kit. Return precautions discussed and questions answered to his apparent satisfaction Vital Signs Vital signs: Vital Signs - 8 hr 06/22/21 21:48 Temperature 98.2 F Pulse Rate 88 Respiratory Rate 16 Blood Pressure 184/85 H Pulse Oximetry 97 Discharge Plan Departure Patient Disposition: Home Clinical Impression: Problem with Lao catheter Qualifiers: Encounter type: initial encounter Qualified Code(s): T83.9XXA - Unspecified complication of genitourinary prosthetic device, implant and graft, initial encounter Instructions: How to Care for Your Lao Catheter -- Male Activity Restrictions/Additional Instructions: There is no evidence of an emergent or life threatening illness at this time, but follow up with your doctor in 1-2 days is recommended nonetheless to continue to rule out serious underlying causes of your symptoms. Please call the office for an appointment. Please return to the Emergency Department for any worsening or persistent symptoms. Please take medications as directed. Prescriptions: No Action ascorbic acid (vitamin C) 500 mg tablet 500 mg PO DAILY Qty: 0 RF: 0 hydrochlorothiazide 25 mg tablet 25 mg PO QDAY Qty: 90 RF: 3 diltiazem HCl 240 mg capsule,extended release 24 hr 240 mg PO DAILY Qty: 90 RF: 3 atorvastatin 20 mg tablet 20 mg PO DAILY Qty: 90 RF: 1 Eliquis 5 mg tablet 5 mg PO Q12H Qty: 180 RF: 3 ciprofloxacin HCl [Cipro] 500 mg tablet 500 mg PO BID Qty: 20 RF: 0 vitamins A,C,U-kgtf-jqmttt [PreserVision AREDS] 7,160-113-100 xgez-ur-toly tablet 2 tab PO BID RF: 0 gabapentin 600 mg tablet 600 mg PO DAILY RF: 0 Vitamin D3 1 cap PO DAILY RF: 0 Referrals: Ten Fleming MD [Primary Care Provider] -
[2021-06-22 22:30] VITALS: BP 147/85; PULSE 77; O2SAT 97
[2021-06-22 23:00] VITALS: BP 150/78; PULSE 80; O2SAT 96
[2021-06-22 23:30] VITALS: BP 162/82; PULSE 79; O2SAT 98
[2021-06-23] VITALS: BP 178/87; PULSE 84; O2SAT 98
== END 2021-06-23 00:17 | disposition home or self-care (01) ==
PROVIDERS: Emergency Provider Emergency Medicine; Family Provider Internal Medicine; PCP Internal Medicine
DX: T83.9XXA Unspecified complication of genitourinary prosthetic device, implant and graft, initial encounter (principal); Z79.01 Long term (current) use of anticoagulants
CPT/HCPCS: 99282

== ENCOUNTER 2021-06-23 20:22 | Emergency (ER) | payer MEDICARE, SELFPAY ==
[2021-06-23 20:36] VITALS: BP 186/103; PULSE 96; RESP 20; TEMP 36.6; O2SAT 98
[2021-06-23 21:30] LABS: Add Manual Diff / Slide Review NO; Basophils Absolute Auto 100 /uL (0-100); Eosinophils Absolute Auto 200 /uL (0-450); Eosinophils Percent Auto 3.1 % (2-4); Hematocrit 39.9 % (41-53); Hemoglobin 12.9 g/dL (13.5-17.5); Lymphocytes Absolute Auto 1400 /uL (1100-4500); Lymphocytes Percent Auto 19.1 % (25-40); Mean Corpuscular HGB Conc 32.3 % (30-36); Mean Corpuscular Hemoglobin 29.4 PG (26-34); Mean Corpuscular Volume 91.2 fL (80-100); Monocytes Absolute Auto 700 /uL (0-900); Monocytes Percent Auto 9.7 % (3-14); Neutrophils Absolute Auto 5100 /uL (1500-7000); Neutrophils Percent Auto 67.1 % (50-75); Platelet Count 211 X10^3/uL (150-400); Red Blood Cell Count 4.38 X10^6/uL (4.5-5.9); Red Cell Distribution Width 14.4 % (11.6-14.8); White Blood Cell Count 7.5 X10^3/uL (4.5-11.0)
[2021-06-23 21:36] LABS: INR 1.6 (0.9-1.3); Prothrombin Time 18.3 SECONDS (10.1-12.7)
[2021-06-23 21:39] LABS: BUN Creatinine Ratio 11.1 (6-22); Blood Urea Nitrogen 15 mg/dL (9-20); Carbon Dioxide 25 mmol/L (22-32); Chloride 103 mmol/L (98-107); Estimated Glomerular Filt Rate 50.4 mL/min (>60); Glucose 98 mg/dL (80-110); HEMOLYSIS < 15 (0-50); Potassium 3.3 mmol/L (3.4-5.1); Sodium 136 mmol/L (137-145)
--- NOTE | 2021-06-23 23:54 | ED_ITS ---
HPI - Male Genitourinary General Chief complaint: Urogenital-Male Stated complaint: BLOOD IN CATH PLUGGED Time Seen by Provider: 06/23/21 20:40 Mode of arrival: Ambulatory Limitations: no limitations History of Present Illness HPI Narrative: 85-year-old male former smoker with history of AFib on apixaban, hyperlipidemia and hypertension with recent extended hospitalization due to wound infection, sepsis and acute kidney injury after a recent lumbar surgery presents with concern about the possibility of a malfunctioning Coffman catheter. He has been here few times recently with chief complaint of a clogged Coffman but is yet to receive appropriate training for flushing at home. He is not dizzy nor weak or lightheaded Related Data Home Medications Medication Instructions Recorded Confirmed vitamins A,C,K-axep-nkutrj 7,160 2 tab PO BID 03/31/18 06/21/21 unit-113 mg-100 unit tablet (PreserVision AREDS) Vitamin D3 1 cap PO DAILY 06/05/18 06/21/21 ascorbic acid (vitamin C) 500 mg 500 mg PO DAILY #0 tab 04/23/19 06/21/21 tablet gabapentin 600 mg tablet 600 mg PO DAILY 06/09/21 06/21/21 Previous Rx's Medication Instructions Recorded diltiazem HCl 240 mg capsule,24 240 mg PO DAILY #90 cap 09/12/20 hr,extended release hydrochlorothiazide 25 mg tablet 25 mg PO QDAY #90 tab 09/12/20 atorvastatin 20 mg tablet 20 mg PO DAILY #90 tab 04/03/21 apixaban 5 mg tablet (Eliquis) 5 mg PO Q12H #180 tab 06/05/21 ciprofloxacin HCl 500 mg tablet 500 mg PO BID #20 tab 06/13/21 (Cipro) Allergies Allergy/AdvReac Type Severity Reaction Status Date / Time Sulfa (Sulfonamide Allergy Mild rash Verified 06/21/21 13:55 Antibiotics) Horse/Equine Containing AdvReac Severe CONVULSION Verified 06/21/21 13:55 Products tamsulosin AdvReac Mild Lower Verified 06/21/21 13:55 extremity edema doxycycline AdvReac Unknown high blood Verified 06/21/21 13:55 pressure Review of Systems Review of Systems Narrative: GENERAL: Denies chills, fatigue, malaise, fever, sweats. HEENT: Denies sinus pain, ear pain, sore throat, difficulty swallowing, dizziness. RESPIRATORY: Denies dyspnea, cough, wheezing, hemoptysis, sputum. CARDIOVASCULAR: Denies chest pain, palpitations, orthopnea, edema, GASTROINTESTINAL: Denies nausea, vomiting, abdominal pain, diarrhea, constipation, melena. : See HPI MUSCULOSKELETAL: denies weakness, joint pain, or bony pain SKIN: Denies rash, skin lesions, or other NEUROLOGIC: Denies weakness, headache, numbness, change in speech, confusion, seizures, incoordination. PSYCHIATRIC: No concerning psychosocial issues. 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) Urinary retention Urinary tract infection associated with indwelling urethral catheter Surgical History H/O laminectomy History of radiofrequency ablation (RFA) procedure for cardiac arrhythmia (~2018) Hx of appendectomy S/P hernia repair Status post cholecystectomy (09/2015) Family History Mother CAD (coronary artery disease) Father Hypertension Hearing impaired Social History marital status: number of children: 3 household members: spouse lives independently: Yes caregiver/support person: No housing: house pets and animals: Yes education level: other occupational status: other current occupational exposures/hazards: No 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 Extraoccular muscles are intact bilaterally. There is no subconjunctival hemorrhage or exudate. CHEST: Lungs are clear to auscultation bilaterally and free of wheezes, rales, or rhonchi. Heart rate is regular rhythm, there are no murmurs, clicks, rubs, or gallops. There is no chest wall tenderness. ABD: Abdomen is soft and nontender. There is no guarding or rebound. Bowel sounds are normal in all 4 quadrants. There is no mass or organomegaly. : Coffman in place, pinkish urine in bag EXT: Full painless ROM of all extremities with no loss of sensation or strength. SKIN: Warm, pink, and dry. No erythema or rash Initial Vital Signs Initial Vital Signs: Vital Signs Temperature 98 F 06/23/21 20:36 Pulse Rate 96 H 06/23/21 20:36 Respiratory Rate 20 06/23/21 20:36 Blood Pressure 186/103 H 06/23/21 20:36 Pulse Oximetry 98 06/23/21 20:36 Course Course Course Narrative: Nursing quick to flush Coffman, dislodging a clot this is f ollowed by irrigation to clear Orders Ordered: ED Orders 06/23/21 21:25 Basic Metabolic Panel Stat Complete Blood Count AUTO DIFF Stat Prothrombin Time INR Stat Type and Screen Stat Vital Signs Vital signs: Vital Signs - 8 hr 06/24/21 00:07 Pulse Rate 90 Respiratory Rate 250 H Blood Pressure 161/92 H Pulse Oximetry 99 MDM - Male Genitourinary Lab Data Result diagrams: 06/23/21 21:25 06/23/21 21:25 Labs: Lab Results 06/23/21 06/23/21 06/23/21 Range/Units 21:25 21:25 21:25 WBC 7.5 (4.5-11.0) X10^3/uL RBC 4.38 L (4.5-5.9) X10^6/uL Hgb 12.9 L (13.5-17.5) g/dL Hct 39.9 L (41-53) % MCV 91.2 (80-100) fL MCH 29.4 (26-34) PG MCHC 32.3 (30-36) % RDW 14.4 (11.6-14.8) % Plt Count 211 (150-400) X10^3/uL Neut % (Auto) 67.1 (50-75) % Lymph % (Auto) 19.1 L (25-40) % [place] % (Auto) 9.7 (3-14) % Eos % (Auto) 3.1 (2-4) % Baso % (Auto) 1.0 (0-2) % Neut # (Auto) 5100 (0107-7483) /uL Lymph # (Auto) 1400 (2289-9840) /uL [place] # (Auto) 700 (0-900) /uL Eos # (Auto) 200 (0-450) /uL Baso # (Auto) 100 (0-100) /uL PT 18.3 H (10.1-12.7) SECONDS INR 1.6 H (0.9-1.3) Sodium 136 L (137-145) mmol/L Potassium 3.3 L (3.4-5.1) mmol/L Chloride 103 (98-107) mmol/L Carbon Dioxide 25 (22-32) mmol/L BUN 15 (9-20) mg/dL Creatinine 1.35 H (0.66-1.25) mg/dL Estimated GFR 50.4 L (>60) mL/min BUN/Creatinine Ratio 11.1 (6-22) Glucose 98 (80-110) mg/dL Calcium 9.0 (8.4-10.2) mg/dL Blood Type Antibody Screen 06/23/21 Range/Units 21:25 WBC (4.5-11.0) X10^3/uL RBC (4.5-5.9) X10^6/uL Hgb (13.5-17.5) g/dL Hct (41-53) % MCV (80-100) fL MCH (26-34) PG MCHC (30-36) % RDW (11.6-14.8) % Plt Count (150-400) X10^3/uL Neut % (Auto) (50-75) % Lymph % (Auto) (25-40) % [place] % (Auto) (3-14) % Eos % (Auto) (2-4) % Baso % (Auto) (0-2) % Neut # (Auto) (3540-4143) /uL Lymph # (Auto) (0829-0048) /uL [place] # (Auto) (0-900) /uL Eos # (Auto) (0-450) /uL Baso # (Auto) (0-100) /uL PT (10.1-12.7) SECONDS INR (0.9-1.3) Sodium (137-145) mmol/L Potassium (3.4-5.1) mmol/L Chloride (98-107) mmol/L Carbon Dioxide (22-32) mmol/L BUN (9-20) mg/dL Creatinine (0.66-1.25) mg/dL Estimated GFR (>60) mL/min BUN/Creatinine Ratio (6-22) Glucose (80-110) mg/dL Calcium (8.4-10.2) mg/dL Blood Type O Negative Antibody Screen Negative MDM Narrative Medical decision making narrative: With Coffman catheter complication. He does easily flushed, a clot is removed and he is irrigated clear. He is given extensive return precautions, questions have been answered to his apparent satisfaction Discharge Plan Departure Patient Disposition: Home Clinical Impression: Complication, blocked Coffman catheter Qualifiers: Encounter type: initial encounter Qualified Code(s): T83.091A - Other mechanical complication of indwelling urethral catheter, initial encounter Instructions: How to Care for Your Coffman Catheter -- Male Activity Restrictions/Additional Instructions: *You have been diagnosed with [Coffman catheter problem due to blood clot] *What to do: *Please continue to take your regular medications as directed. [ ] New medication prescriptions sent to your pharmacy: [ ] [ ] New medication written as a paper prescription [ x] No new medications given *Please follow up with your primary care provider in 2-3 days, call for an appointment. Let them know you were seen in the Emergency Department and that we ask that you be seen in follow up. We will electronically transmit a record of today's note if your PCP is in our system *If you do not have a primary care provider please contact the [facility] Resource line at [phone]. They will ask some questions about your medical history and help get you set up with a doctor in the community. *Return to Emergency Department if you should have any new, worsening or concerning symptoms, such as [fever greater than 101 F, shaking chills, worsening pain, persistent vomiting or other bothersome symptoms] Prescriptions: No Action ascorbic acid (vitamin C) 500 mg tablet 500 mg PO DAILY Qty: 0 RF: 0 hydrochlorothiazide 25 mg tablet 25 mg PO QDAY Qty: 90 RF: 3 diltiazem HCl 240 mg capsule,extended release 24 hr 240 mg PO DAILY Qty: 90 RF: 3 atorvastatin 20 mg tablet 20 mg PO DAILY Qty: 90 RF: 1 Eliquis 5 mg tablet 5 mg PO Q12H Qty: 180 RF: 3 ciprofloxacin HCl [Cipro] 500 mg tablet 500 mg PO BID Qty: 20 RF: 0 vitamins A,C,A-plgy-fmkzoc [PreserVision AREDS] 7,160-113-100 nhpi-iv-ykit tablet 2 tab PO BID RF: 0 gabapentin 600 mg tablet 600 mg PO DAILY RF: 0 Vitamin D3 1 cap PO DAILY RF: 0 Referrals: Kimani Courtney MD [Physician] - Ten Fleming MD [Primary Care Provider] -
[2021-06-24 00:07] VITALS: BP 161/92; PULSE 90; RESP 250; O2SAT 99
== END 2021-06-24 00:09 | disposition home or self-care (01) ==
PROVIDERS: Emergency Provider Emergency Medicine; Family Provider Internal Medicine; PCP Internal Medicine
DX: T83.091A Other mechanical complication of indwelling urethral catheter, initial encounter (principal)
CPT/HCPCS: 36415; 51798; 80048; 85025; 85610; 86850; 86900; 86901; 99283

== ENCOUNTER → 2021-07-13 16:36 | Outpatient (CLI) | payer MEDICARE, SELFPAY ==
[2021-07-13 18:26] LABS: Alanine Aminotransferase 11 IU/L (<50); Albumin 4.2 g/dL (3.5-5.0); Albumin Globulin Ratio 1.4 (1.0-2.8); Alkaline Phosphatase 90 U/L (38-126); Aspartate Aminotransferase 21 IU/L (17-59); BUN Creatinine Ratio 12.7 (6-22); Bilirubin Total 0.4 mg/dL (0.2-1.3); Bilirubin Unconjugated 0.2 mg/dL (0.0-1.1); Blood Urea Nitrogen 16 mg/dL (9-20); Calcium 9.1 mg/dL (8.4-10.2); Carbon Dioxide 30 mmol/L (22-32); Chloride 106 mmol/L (98-107); Estimated Glomerular Filt Rate 54.5 mL/min (>60); Glucose 85 mg/dL (80-110); HEMOLYSIS < 15 (0-50); Potassium 3.8 mmol/L (3.4-5.1); Sodium 142 mmol/L (137-145); Total Protein 7.2 g/dL (6.3-8.2)
== END ==
PROVIDERS: Family Provider Internal Medicine; PCP Internal Medicine; Referring Provider Internal Medicine; Visit Provider Internal Medicine
DX: R74.01 Elevation of levels of liver transaminase levels (principal)
CPT/HCPCS: 36415; 80048; 80076

== ENCOUNTER → 2021-08-01 12:45 | Outpatient (CLI) | payer MEDICARE, SELFPAY | PROVIDERS: Family Provider Internal Medicine; PCP Internal Medicine; Referring Provider Urology; Visit Provider Urology | DX: R30.0 Dysuria (principal); N40.1 Benign prostatic hyperplasia with lower urinary tract symptoms; N13.8 Other obstructive and reflux uropathy; R33.9 Retention of urine, unspecified; R31.0 Gross hematuria; Z79.01 Long term (current) use of anticoagulants; Z68.27 Body mass index [BMI] 27.0-27.9, adult | CPT/HCPCS: 51798; 81002; 87077; 87086; 87186; 99213 ==

== ENCOUNTER → 2021-08-14 12:05 | Outpatient (CLI) | payer MEDICARE, SELFPAY ==
[2021-08-14 13:26] LABS: Appearance Urine UA CLEAR; Bilirubin Urine UA NEGATIVE (NEGATIVE); Color Urine UA YELLOW; Glucose Urine UA NEGATIVE (Negative); Ketones Urine UA NEGATIVE (NEGATIVE); Leukocyte Esterase Urine UA NEGATIVE (NEGATIVE); Nitrite Urine UA NEGATIVE (Negative); Occult Blood Urine UA NEGATIVE (Negative); Protein Urine UA NEGATIVE (Negative); Urobilinogen Urine UA 0.2 E.U./dL (0.2)
[2021-08-14 13:47] LABS: Bacteria Urine None Seen; Culture Indicated Urine Cult Not Indicated; RBC Urine None Seen (0-5/HPF); Urine Comments Microscopic Normal; WBC Urine None Seen (0-5/HPF)
== END ==
PROVIDERS: Family Provider Internal Medicine; PCP Internal Medicine; Referring Provider Urology; Visit Provider Urology
DX: N39.0 Urinary tract infection, site not specified (principal)
CPT/HCPCS: 81001

== ENCOUNTER 2022-02-05 11:52 | Emergency (ER) | payer MEDICARE, SELFPAY ==
[2022-02-05] VITALS (16 sets, daily range): BP systolic 160–207; BP diastolic 82–98; PULSE 67–81; RESP 11–25; TEMP 36.4; O2SAT 94–98; BMI 28.7
--- NOTE | 2022-02-05 12:13 | DI.CT.S_ITS ---
PROCEDURE: CT HEAD/BRAIN WO CON INDICATIONS: right visual field loss, resolved. TECHNIQUE: Noncontrast 4.5 mm thick angled axial sections acquired from the foramen magnum to the vertex, with coronal and sagittal reformats. For radiation dose reduction, the following was used: automated exposure control, adjustment of mA and/or kV according to patient size. COMPARISON: [facility], CT, HEAD WITHOUT CONTRAST, 12/13/2016, 9:00. FINDINGS: Image quality: Excellent. CSF spaces: Basal cisterns are patent. No extra-axial fluid collections. The ventricles are symmetric in size and shape. Brain: No intracranial bleeds or masses. There is cerebral volume loss for age, with resultant ventricular and sulcal prominence. There are periventricular and deep white matter chronic small vessel ischemic changes. There is intracranial internal carotid artery atherosclerosis. Skull and face: Calvarium and visualized facial bones appear intact, without suspicious lesions. Sinuses: Visualized sinuses and mastoids are clear. IMPRESSION: No evidence acute intracranial process. Dictated by: Mehdi Villalobos M.D. on 02/05/2022 at 12:42 Approved by: Mehdi Villalobos M.D. on 02/05/2022 at 12:42
[2022-02-05 13:12] LABS: Add Manual Diff / Slide Review NO; Basophils Absolute Auto 0 /uL (0-100); Basophils Percent Auto 0.6 % (0-2); Eosinophils Absolute Auto 200 /uL (0-450); Eosinophils Percent Auto 2.9 % (2-4); Hematocrit 39.6 % (41-53); Hemoglobin 12.7 g/dL (13.5-17.5); Lymphocytes Absolute Auto 1400 /uL (1100-4500); Lymphocytes Percent Auto 17.7 % (25-40); Mean Corpuscular Hemoglobin 24.6 PG (26-34); Mean Corpuscular Volume 76.7 fL (80-100); Monocytes Absolute Auto 500 /uL (0-900); Monocytes Percent Auto 6.4 % (3-14); Neutrophils Absolute Auto 5600 /uL (1500-7000); Neutrophils Percent Auto 72.4 % (50-75); Platelet Count 320 X10^3/uL (150-400); Red Blood Cell Count 5.16 X10^6/uL (4.5-5.9); Red Cell Distribution Width 17.7 % (11.6-14.8); White Blood Cell Count 7.7 X10^3/uL (4.5-11.0)
[2022-02-05 13:18] LABS: INR 1.6 (0.9-1.3); Prothrombin Time 17.4 SECONDS (10.1-12.7)
[2022-02-05 13:21] LABS: PTT Partial Thromboplastin Tim 38 SECONDS (26.4-36.2)
[2022-02-05 13:23] LABS: Alanine Aminotransferase 14 IU/L (<50); Albumin 4.2 g/dL (3.5-5.0); Albumin Globulin Ratio 1.4 (1.0-2.8); Alkaline Phosphatase 120 U/L (38-126); Aspartate Aminotransferase 21 IU/L (17-59); Bilirubin Total 0.4 mg/dL (0.2-1.3); Blood Urea Nitrogen 13 mg/dL (9-20); Calcium 8.4 mg/dL (8.4-10.2); Carbon Dioxide 25 mmol/L (22-32); Chloride 104 mmol/L (98-107); Estimated Glomerular Filt Rate 58.7 mL/min (>60); Globulin 3.1 g/dL (1.7-4.1); Glucose 95 mg/dL (80-110); HEMOLYSIS < 15 (0-50); Potassium 3.5 mmol/L (3.4-5.1); Sodium 139 mmol/L (137-145); Total Protein 7.3 g/dL (6.3-8.2)
--- NOTE | 2022-02-05 14:16 | DI.CT.S_ITS ---
PROCEDURE: CT ANGIO HEAD AND NECK INDICATIONS: vision field cut, known carotid stenosis TECHNIQUE: After the administration of intravenous contrast, 1 mm thick sections acquired from the aortic arch through the [place]. Post-contrast 4.5 mm thick sections then re-acquired from the foramen magnum to the vertex. 3-dimensional rhlttqm-fbcuqypgy-iicjhihiae (MIP) and/or volume rendering reformats were acquired of the central intracranial vasculature and neck separately. For radiation dose reduction, the following was used: automated exposure control, adjustment of mA and/or kV according to patient size. COMPARISON: None. FINDINGS: Image quality: Excellent. BRAIN: CSF spaces: Ventricles are normal in size and shape. Basal cisterns are patent. No extra-axial fluid collections. Brain: No midline shift. No intracranial bleeds or masses. Vega-white matter interface appears intact. Skull and face: Calvarium and facial bones appear intact, without suspicious lesions. Orbits appear normal. Sinuses: Sinuses and mastoids are clear. HEAD CT ANGIOGRAPHY: Anterior circulation: Intracranial internal carotid arteries are normal in size and flow. The flow within the paired anterior cerebral arteries is normal and symmetric. The flow within the middle cerebral arteries is normal and symmetric. The anterior communicating artery is seen. No aneurysms are seen. Posterior circulation: Visualized portions of the vertebral arteries demonstrate normal caliber, and join to form a normal appearing basilar artery. Flow within the posterior cerebral arteries is normal and symmetric. No aneurysms are seen. NECK CT ANGIOGRAPHY: Carotid system: The great vessels demonstrate a conventional anatomy as they arise from the aortic arch. There is mild non flow-limiting stenosis involving the origins of all 3 great vessels off the arch. The common carotid arteries otherwise demonstrate normal caliber and courses. There is a 95% greater stenosis of the proximal right internal carotid artery which contains mixed calcified and soft plaque. There is a severe proximal right external carotid artery stenosis. There is calcification at the left carotid bifurcation. There is mild proximal left internal carotid artery stenotic disease, not flow limiting. There is a severe proximal left external carotid artery stenosis. Posterior circulation: The origins of the vertebral arteries both appear widely patent. The more superior extracranial portions of both vertebral arteries also demonstrate normal courses and calibers. They join to form a normal appearing basilar artery. Soft tissues: Visualized neck soft tissues demonstrate no suspicious abnormalities. Bones: No suspicious bony lesions. Visualized cervical spine appears normally aligned. IMPRESSION: 1. 95% or greater origin stenosis of the proximal right internal carotid artery, a combination of calcified and soft plaque. 2. Mild, less than 50% stenosis of the proximal left internal carotid artery. 3. Severe bilateral proximal external carotid artery stenoses are incidentally noted. 4. Unremarkable CTA head with no stenosis, aneurysm, occlusion, or filling defect. 5. No evidence acute stroke, hemorrhage, or mass. Any quantitative measurements of stenosis were performed using NASCET criteria. Dictated by: Mehdi Villalobos M.D. on 02/05/2022 at 15:01 Approved by: Mehdi Villalobos M.D. on 02/05/2022 at 15:08
--- NOTE | 2022-02-05 14:29 | ED_ITS ---
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 He had been previously seen with CT angiogram noting 80% carotid stenosis and had been told that with any recurrence of visual change or other stroke-like symptoms to proceed immediately to the emergency department. He has been seen and evaluated [place] by the vascular surgeon Dr. Barnett and had been initially told that he is not a great candidate for carotid endarterectomy and recommendation was maximal medical therapy. Over the past few days he has had 3 episodes of sudden onset right eye visual field change. The episodes last 15-30 seconds and most recent was yesterday. He denies other symptoms such as dizziness or weakness nor lightheadedness. He has no trouble with speech or balance. He denies any upper extremity numbness, tingling or weakness nor any lower extremity complaints. He has had no recent trauma, denies neck pain and has had no fever On Anticoagulants: Yes (eliquis/asa) Related Data Home Medications Medication Instructions Recorded Confirmed vitamins A,C,C-hhvy-qfehlt 7,160 1 tab PO BID 03/31/18 02/05/22 unit-113 mg-100 unit tablet (PreserVision AREDS) ascorbic acid (vitamin C) 500 mg 1 g PO BEDTIME #0 tab 12/26/21 02/05/22 tablet aspirin 81 mg tablet,delayed 81 mg PO QAM 12/26/21 02/05/22 release (Adult Aspirin Regimen) atorvastatin 20 mg tablet 20 mg PO QAM 02/05/22 02/05/22 diltiazem HCl 240 mg capsule,24 240 mg PO QAM 02/05/22 02/05/22 hr,extended release finasteride 5 mg tablet 5 mg PO Q OTHER DAY 02/05/22 02/05/22 hydrochlorothiazide 25 mg tablet 25 mg PO QAM 02/05/22 02/05/22 Previous Rx's Medication Instructions Recorded apixaban 5 mg tablet (Eliquis) 5 mg PO Q12H #180 tab 06/05/21 Allergies Allergy/AdvReac Type Severity Reaction Status Date / Time Sulfa (Sulfonamide Allergy Mild rash Verified 02/05/22 16:45 Antibiotics) Horse/Equine Containing AdvReac Severe CONVULSION Verified 02/05/22 16:45 Products tamsulosin AdvReac Mild Lower Verified 02/05/22 16:45 extremity edema doxycycline AdvReac Unknown high blood Verified 02/05/22 16:45 pressure Review of Systems <Herminio Henriquez DO - Last Filed: 02/06/22 13:12> Review of Systems Narrative: GENERAL: Denies chills, fatigue, malaise, fever, sweats. HEENT: See HPI RESPIRATORY: Denies dyspnea, cough, wheezing, hemoptysis, sputum. CARDIOVASCULAR: Denies chest pain, palpitations, orthopnea, edema, GASTROINTESTINAL: Denies nausea, vomiting, abdominal pain, diarrhea, constipation, melena. : Denies dysuria, frequency, incontinence, hematuria, urinary retention. MUSCULOSKELETAL: denies weakness, joint pain, or bony pain SKIN: Denies rash, skin lesions, or other NEUROLOGIC: See HPI PSYCHIATRIC: No concerning psychosocial issues. 12 point review of systems is negative except for those stated above Hematologic/Lymphatic On Anticoagulants: Yes (eliquis/asa) Patient History <Herminio Henriquez DO - Last Filed: 02/06/22 13:12> Medical History Acute renal failure Alcohol abuse Alcohol dependence Alcohol use with withdrawal Alcoholic hepatitis BPH (benign prostatic hyperplasia) BPH w urinary obs/LUTS Chronic anticoagulation Chronic back pain Chronic obstructive pulmonary disease (01/27/18) Constipation Essential hypertension (05/17/11) Essential tremor (12/28/14) History of gross hematuria History of urinary retention History of urinary tract infection Hypoxia Mixed hyperlipidemia (05/17/11) Paroxysmal atrial fibrillation (03/16/16) Pedal edema 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) Pulmonary embolism (~05/2021) Urinary tract infection associated with indwelling urethral catheter Surgical History H/O laminectomy History of radiofrequency ablation (RFA) procedure for cardiac arrhythmia (~2019) Hx of appendectomy S/P hernia repair Status post cholecystectomy (09/2015) Family History Mother CAD (coronary artery disease) Father Hypertension Hearing impaired Social History marital status: number of children: 3 household members: spouse lives independently: Yes caregiver/support person: No housing: house pets and animals: Yes education level: other occupational status: other current occupational exposures/hazards: No 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 Well-developed patient, in mild distress. GCS 15 HEAD: Atraumatic. Normocephalic. EYES: Pupils equal round and reactive. Extraocular motions intact. No scleral icterus. No injection or drainage. ENT: Nose without bleeding, purulent drainage. Throat without erythema, tonsillar hypertrophy or exudate. Airway patent. NECK: Trachea midline. Non tender CARDIOVASCULAR: Regular rate and rhythm without murmurs, gallops, or rubs. RESPIRATORY: Clear to auscultation. Breath sounds equal bilaterally. No wheezes, rales, or rhonchi. GASTROINTESTINAL: Abdomen soft, non-tender, nondistended. EXTREMITIES: No edema or joint tenderness. BACK: Nontender without deformity or crepitance. No flank tenderness. NEURO: AOx3. SKIN: No rash or erythema of visible areas NIH Stroke Scale 1a. LOC: Patient is alert and keenly responsive (0) 1b. LOC Questions: Patient answers both LOC questions accurately (0) 1c. LOC Commands: Patient performs both tasks correctly (0) 2. Best Gaze: Normal (0) 3. Visual: No visual loss (0) 4. Facial palsy: Normal symmetrical movements (0) 5. Motor arm: No drift (0) 6. Motor leg: No drift (0) 7. Limb ataxia: Absent (0) 8. Sensory: Normal (0) 9. Best language: No aphasia; normal (0) 10. Dysarthria: Normal (0) 11. Extinction and inattention: No abnormality (0) NIHSS: 0 Initial Vital Signs Initial Vital Signs: Vital Signs Temperature 97.6 F 02/05/22 12:00 Pulse Rate 68 02/05/22 12:00 Respiratory Rate 15 02/05/22 12:00 Blood Pressure 183/88 H 02/05/22 12:00 Pulse Oximetry 97 02/05/22 12:00 Course <Herminio Henriquez, DO - Last Filed: 02/06/22 13:12> Orders Ordered: Discontinued Medications Ascorbic Acid (Ascorbic Acid 500 Mg Tablet) 1,000 mg PO BEDTIME [facility] Last Admin: 02/05/22 20:37 Dose: 1,000 mg Documented by: YOUNG Atorvastatin Calcium (Atorvastatin 20 Mg Tablet) 20 mg PO BEDTIME [facility] Last Admin: 02/05/22 20:37 Dose: 20 mg Documented by: YOUNG Diltiazem HCl (Diltiazem Cd 240 Mg Cap) 240 mg PO DAILY [facility] Last Admin: 02/06/22 08:05 Dose: 240 mg Documented by: CIRILO Finasteride (Finasteride 5 Mg Tablet) 5 mg PO Q48H [facility] Last Admin: 02/06/22 08:05 Dose: 5 mg Documented by: CIRILO Hydrochlorothiazide (Hydrochlorothiazide 25 Mg Tablet) 25 mg PO DAILY [facility] Last Admin: 02/06/22 08:05 Dose: 25 mg Documented by: CIRILO Multivitamins (Multivitamin 1 Tablet) 1 tab PO DAILY [facility] Last Admin: 02/06/22 08:05 Dose: 1 tab Documented by: CIRILO Consultations Consultation #1: upon receipt of CTA, call placed to Vascular at [place] ([facility]). After reviewing Mr. Dennis's presentation and CTA he recommends transfer to [facility] for carotid intervention, holding eliquis until further notice. He will put Mr. Dennis on surgical schedule for saturday. No anticoagulation for now. Consultation #2: Currently no beds in [place], they are reserving one for him tomorrow. Consultation #3: Oscar (hospitalist at [place]) happy to accept. Vital Signs Vital signs: Vital Signs - 8 hr 02/06/22 09:39 02/06/22 09:42 02/06/22 11:21 Temperature 97.9 F Pulse Rate 79 90 80 Respiratory Rate 18 Blood Pressure 166/89 H 166/89 H 140/74 Pulse Oximetry 97 97 98 MDM - Neuro Symptoms/Deficit <Herminio Henriquez DO - Last Filed: 02/06/22 13:12> Lab Data Result diagrams: 02/05/22 13:02 02/05/22 13:02 Labs: Lab Results 02/05/22 02/05/22 02/05/22 Range/Units 13:02 13:02 13:02 WBC 7.7 (4.5-11.0) X10^3/uL RBC 5.16 (4.5-5.9) X10^6/uL Hgb 12.7 L (13.5-17.5) g/dL Hct 39.6 L (41-53) % MCV 76.7 L (80-100) fL MCH 24.6 L (26-34) PG MCHC 32.0 (30-36) % RDW 17.7 H (11.6-14.8) % Plt Count 320 (150-400) X10^3/uL Neut % (Auto) 72.4 (50-75) % Lymph % (Auto) 17.7 L (25-40) % [place] % (Auto) 6.4 (3-14) % Eos % (Auto) 2.9 (2-4) % Baso % (Auto) 0.6 (0-2) % Neut # (Auto) 5600 (3443-5657) /uL Lymph # (Auto) 1400 (9683-7803) /uL [place] # (Auto) 500 (0-900) /uL Eos # (Auto) 200 (0-450) /uL Baso # (Auto) 0 (0-100) /uL PT 17.4 H (10.1-12.7) SECONDS INR 1.6 H (0.9-1.3) APTT 38 H D (26.4-36.2) SECONDS Sodium 139 (137-145) mmol/L Potassium 3.5 (3.4-5.1) mmol/L Chloride 104 (98-107) mmol/L Carbon Dioxide 25 (22-32) mmol/L BUN 13 (9-20) mg/dL Creatinine 1.18 (0.66-1.25) mg/dL Estimated GFR 58.7 L (>60) mL/min BUN/Creatinine Ratio 11.0 (6-22) Glucose 95 (80-110) mg/dL Calcium 8.4 (8.4-10.2) mg/dL Total Bilirubin 0.4 (0.2-1.3) mg/dL AST 21 (17-59) IU/L ALT 14 (<50) IU/L Alkaline Phosphatase 120 (38-126) U/L Total Protein 7.3 (6.3-8.2) g/dL Albumin 4.2 (3.5-5.0) g/dL Globulin 3.1 (1.7-4.1) g/dL Albumin/Globulin Ratio 1.4 (1.0-2.8) SARS-CoV-2 (PCR) (Negative) 02/06/22 Range/Units 04:30 WBC (4.5-11.0) X10^3/uL RBC (4.5-5.9) X10^6/uL Hgb (13.5-17.5) g/dL Hct (41-53) % MCV (80-100) fL MCH (26-34) PG MCHC (30-36) % RDW (11.6-14.8) % Plt Count (150-400) X10^3/uL Neut % (Auto) (50-75) % Lymph % (Auto) (25-40) % [place] % (Auto) (3-14) % Eos % (Auto) (2-4) % Baso % (Auto) (0-2) % Neut # (Auto) (0254-7251) /uL Lymph # (Auto) (2489-6478) /uL [place] # (Auto) (0-900) /uL Eos # (Auto) (0-450) /uL Baso # (Auto) (0-100) /uL PT (10.1-12.7) SECONDS INR (0.9-1.3) APTT (26.4-36.2) SECONDS Sodium (137-145) mmol/L Potassium (3.4-5.1) mmol/L Chloride (98-107) mmol/L Carbon Dioxide (22-32) mmol/L BUN (9-20) mg/dL Creatinine (0.66-1.25) mg/dL Estimated GFR (>60) mL/min BUN/Creatinine Ratio (6-22) Glucose (80-110) mg/dL Calcium (8.4-10.2) mg/dL Total Bilirubin (0.2-1.3) mg/dL AST (17-59) IU/L ALT (<50) IU/L Alkaline Phosphatase (38-126) U/L Total Protein (6.3-8.2) g/dL Albumin (3.5-5.0) g/dL Globulin (1.7-4.1) g/dL Albumin/Globulin Ratio (1.0-2.8) SARS-CoV-2 (PCR) Negative (Negative) Imaging Data CT scan - head: Radiologist's Impression: Chart Viewer Diagnostics Subcategory All Activity ??:?? All Time ??:?? All Subcategories Filter Laboratory Imaging Microbiology Pathology Blood Bank Tests Cardiovascular Other Specialty DATE TYPE STATUS REF RANGE/AUTHOR Hx Today 14:16 Head/Neck CTA Signed Mehdi Villalobos Today 12:[address] Signed Mehdi Villalobos 01/09/22 07:[address] Head & Neck 11/07/21 15:14 DI Result CC Carotid Duplex US 11/03/21 09:15 Outside Echo w/ doppler and color flow 09/29/21 14:16 Outside Echo [facility] 05/29/21 21:28 Chest X-Ray Signed Oscar Barcenas 05/29/21 18:19 Abdomen/Pelvis CT Signed Soy Aiken 05/29/21 18:17 Chest CTA Signed Soy Aiken 05/29/21 16:23 Chest X-Ray Signed Owen Moncada 03/09/21 00:00 Lumbar Spine MRI Signed Adelso Blancas 08/20/20 07:06 Ribs X-Ray Signed Owen Moncada 04/19/20 12:27 Chest X-Ray Signed Last Sexton 08/22/19 00:00 Lumbar Spine MRI Signed Danika Kraft 05/15/19 14:51 Radiology Report Cancelled Elmo Jacobsen 05/14/19 11:16 Myocardial Perfusion Scan Nuc Med Signed Elmo Jacobsen 06/13/18 14:03 Echocardiogram Ultrasound Signed Og Chappell 12/13/16 08:58 Radiology - Historical ? 12/13/16 08:58 Radiology - Historical ? 12/13/16 08:58 Radiology - Historical ? 12/13/16 08:58 Radiology - Historical ? 12/13/16 08:58 Radiology - Historical ? 03/16/16 10:32 Radiology - Historical ? Gaudencio Dennis ED 86, M?1935 MRN#? [id number] REG ER,?Main ED??3A?? 177.8cm 90.718kg BMI: 28.7kg/m? Neuro Symptoms/Deficit Acc#? [id number] Resus Status Not Ordered No Hx Avail Special Indicators No Data to Display Home Meds Not Confirmed Prescription Monitoring Program Total 0 MME/Day Incomplete MEDICATIONS (INSTRUCTIONS) LAST TAKEN Active ??apixaban 5 mg tablet ??5 [id number]#180 tab ??ascorbic acid (vitamin C) 500 mg tablet ??1 gPODAILY#0 tab ??aspirin 81 mg tablet,delayed release ??81 mgPODAILY ??atorvastatin 20 mg tablet ??20 mgPODAILY#90 tab ??diltiazem HCl 240 mg capsule,24 hr,extended release ??240 mgPODAILY#90 cap ??finasteride 5 mg tablet ??5 mgPODAILY#30 tab ??hydrochlorothiazide 25 mg tablet ??25 mgPOQDAY#90 tab ??vitamins A,C,A-lfrf-zlplzd 7,160 unit-113 mg-100 unit tablet ??2 tabPOBID Allergies Sulfa (Sulfonamide Antibiotics) rash Horse/Equine Containing Products CONVULSION tamsulosin Lower extremity edema doxycycline high blood pressure Problems ? ONSET History of gross hematuria History of urinary tract infection History of urinary retention Aortic valve stenosis, moderate Fatigue Pulmonary embolism ~05/2021 Chronic anticoagulation Urinary tract infection associated with indwelling urethral catheter Non-healing skin lesion Constipation Chronic back pain Pedal edema BPH w urinary obs/LUTS Essential hypertension 05/17/11 Mixed hyperlipidemia 05/17/11 Alcohol abuse Primary osteoarthritis involving multiple joints 07/30/14 Essential tremor 12/28/14 Paroxysmal atrial fibrillation 03/16/16 Chronic obstructive pulmonary disease 01/27/18 Vital Signs Today 15:17 BP 207/98?H Pulse 69? Resp 22? O2 Sat 98? Delivery Room Air? Diagnostics Reports Gaudencio Dennis??86??M??1935 ? Allergy/Adv: Sulfa (Sulfonamide Antibiotics), Horse/Equine Containing Products, tamsulosin, doxycycline (More??) Close Head/Neck CTA (Signed) Alexey Villalobosderic - 02/05/[address] (Signed) WilfredoMonticello - 02/05/22 DI Result CC 01/09/22 DI Result CC 11/07/21 Outside Echo 11/03/21 Outside Echo 09/29/21 Chest X-Ray (Signed) Oscar Barcenas - 05/29/21 Abdomen/Pelvis CT (Signed) Soy Aiken - 05/29/21 Chest CTA (Signed) Soy Aiken - 05/29/21 Chest X-Ray (Signed) Call,Owen - 05/29/21 Lumbar Spine MRI (Signed) Adelso Blancas - 03/09/21 Ribs X-Ray (Signed) Call,Owen - 08/20/20 Chest X-Ray (Signed) Last Sexton - 04/19/20 Lumbar Spine MRI (Signed) Danika Kraft - 08/22/19 Radiology Report (Cancelled) Ann-MarieShimalissettreese - 05/15/19 Myocardial Perfusion Scan Nuc Med (Signed) Elmo Jacobsen - 05/14/19 Echocardiogram Ultrasound (Signed) Og Chappell - 06/13/18 Radiology - Historical 12/13/16 Radiology - Historical 12/13/16 Radiology - Historical 12/13/16 Radiology - Historical 12/13/16 Radiology - Historical 12/13/16 Radiology - Historical 03/16/16 Launch?[place] [address] CT Scan Report Signed Patient: Gaudencio Dennis MR#: [id number] : 1935 Acct:[id number] Age/Sex: 86 / M Date of Service: 02/05/22 Loc: ED Accession Number: [id number] ?? Procedure: CT head/brain wo con Ordering Provider: Herminio Henriquez D.O. PROCEDURE:? CT HEAD/BRAIN WO CON ? INDICATIONS:? right visual field loss, resolved. ? TECHNIQUE:? Noncontrast 4.5 mm thick angled axial sections acquired from the foramen magnum to the vertex, with coronal and sagittal reformats.? For radiation dose reduction, the following was used:? automated exposure control, adjustment of mA and/or kV according to patient size.? ? COMPARISON:? [facility], CT, HEAD WITHOUT CONTRAST, 12/13/2016, 9:00. ? FINDINGS:? Image quality:? Excellent.? ? CSF spaces:? Basal cisterns are patent.? No extra-axial fluid collections.? The ventricles are symmetric in size and shape.? ? Brain:? No intracranial bleeds or masses.? There is cerebral volume loss for age, with resultant ventricular and sulcal prominence.? There are periventricular and deep white matter chronic small vessel ischemic changes.? There is intracranial internal carotid artery atherosclerosis.? ? Skull and face:? Calvarium and visualized facial bones appear intact, without suspicious lesions.? ? Sinuses:? Visualized sinuses and mastoids are clear.? ? IMPRESSION:? No evidence acute intracranial process. ? ? Dictated by: Mehdi Villalobos M.D. on 02/05/2022 at 12:42 ? ? Approved by: Mehdi Villalobos M.D. on 02/05/2022 at 12:42 ? CTA Head/Neck: Radiologist's Impression: Launch?[place] [address] CT Scan Report Signed Patient: Gaudencio Dennis MR#: [id number] : 1935 Acct:[id number] Age/Sex: 86 / M Date of Service: 02/05/22 Loc: ED Accession Number: [id number] ?? Procedure: CT angio head and neck Ordering Provider: Herminio Henriquez D.O. PROCEDURE:? CT ANGIO HEAD AND NECK ? INDICATIONS:? vision field cut, known carotid stenosis ? TECHNIQUE:? ? After the administration of intravenous contrast, 1 mm thick sections acquired from the aortic arch through the [place].? Post-contrast 4.5 mm thick sections then re-acquired from the foramen magnum to the vertex.? 3-dimensional odyqcwa-vqznebdal-vkhsuxxlho (MIP) and/or volume rendering reformats were acquired of the central intracranial vasculature and neck separately. For radiation dose reduction, the following was used:? automated exposure control, adjustment of mA and/or kV according to patient size.? ? COMPARISON:? None. ? FINDINGS:? Image quality:? Excellent.? ? BRAIN:? CSF spaces:? Ventricles are normal in size and shape.? Basal cisterns are patent.? No extra-axial fluid collections.? ? Brain:? No midline shift.? No intracranial bleeds or masses.? Vega-white matter interface appears intact.? ? Skull and face:? Calvarium and facial bones appear intact, without suspicious lesions.? Orbits appear normal.? ? Sinuses:? Sinuses and mastoids are clear.? ? HEAD CT ANGIOGRAPHY:? Anterior circulation:? Intracranial internal carotid arteries are normal in size and flow.? The flow within the paired anterior cerebral arteries is normal and symmetric.? The flow within the middle cerebral arteries is normal and symmetric.? The anterior communicating artery is seen.? No aneurysms are seen.? ? Posterior circulation:? Visualized portions of the vertebral arteries demonstrate normal caliber, and join to form a normal appearing basilar artery.? Flow within the posterior cerebral arteries is normal and symmetric.? No aneurysms are seen.? ? NECK CT ANGIOGRAPHY:? Carotid system:? The great vessels demonstrate a conventional anatomy as they arise from the aortic arch.? There is mild non flow-limiting stenosis involving the origins of all 3 great vessels off the arch.? The common carotid arteries otherwise demonstrate normal caliber and courses.? There is a 95% greater stenosis of the proximal right in ternal carotid artery which contains mixed calcified and soft plaque.? There is a severe proximal right external carotid artery stenosis.? There is calcification at the left carotid bifurcation.? There is mild proximal left internal carotid artery stenotic disease, not flow limiting.? There is a severe proximal left external carotid artery stenosis. ? Posterior circulation:? The origins of the vertebral arteries both appear widely patent.? The more superior extracranial portions of both vertebral arteries also demonstrate normal courses and calibers.? They join to form a normal appearing basilar artery.? ? Soft tissues:? Visualized neck soft tissues demonstrate no suspicious abnormalities.? ? Bones:? No suspicious bony lesions.? Visualized cervical spine appears normally aligned.? IMPRESSION:? ? 1. 95% or greater origin stenosis of the proximal right internal carotid artery, a combination of calcified and soft plaque. ? 2. Mild, less than 50% stenosis of the proximal left internal carotid artery. ? 3. Severe bilateral proximal external carotid artery stenoses are incidentally n oted. ? 4. Unremarkable CTA head with no stenosis, aneurysm, occlusion, or filling defect. ? 5. No evidence acute stroke, hemorrhage, or mass.? ? Any quantitative measurements of stenosis were performed using NASCET criteria.? ? ? Dictated by: Mehdi Villalobos M.D. on 02/05/2022 at 15:01 ? ? Approved by: Mehdi Villalobos M.D. on 02/05/2022 at 15:08 ? MDM Narrative Medical decision making narrative: Patient with known carotid stenosis presents with his after having 3 episodes of brief visual field cuts over the past week or so. His last was yesterday which again lasted about 30 seconds. These episodes are in the ab sence of other neurologic symptoms. He has no established relationship with vascular surgery in [place] (Dr. Barnett). Patient has been asymptomatic for the duration of his visit but given increasing symptoms and evolution of carotid stenosis Dr. Marbin bryan has put Mr. Oden he on his surgical schedule for Saturday and asked that we transport to [place] as soon as possible. Currently they are reserving a bed for him tomorrow but there is no likelihood of a bed tonight. 1900 - signed out to Dr. Manjarrez for management overnight. Critical Care Time <Herminio Henriquez DO - Last Filed: 02/06/22 13:12> Critical Care Time Critical Care Time: Yes Total Critical Care Time: 45 Attestation: The high probability of a clinically significant, sudden or life threatening deterioration of the [CV] system(s) required my full and direct attention, intervention and personal management. The aggregate critical care time was [45] minutes. This time is in addition to time spent performing reported procedures but includes the following: [x] Data Review and interpretation [x] Patient assessment and monitoring of vital signs [x] Documentation [x] Medication orders and management Discharge Plan Departure Patient Disposition: [facility] Clinical Impression: Brain TIA Prescriptions: No Action Eliquis 5 mg tablet 5 mg PO Q12H Qty: 180 3RF Label Comments: held r/t surgery. Due to restart 05/30/21 ascorbic acid (vitamin C) 500 mg tablet 1 g PO BEDTIME Qty: 0 0RF vitamins A,C,Q-qynd-weolft [PreserVision AREDS] 7,160-113-100 tila-wd-eekw tablet 1 tab PO BID 0RF atorvastatin 20 mg tablet 20 mg PO QAM 0RF diltiazem HCl 240 mg capsule,extended release 24 hr 240 mg PO QAM 0RF hydrochlorothiazide 25 mg tablet 25 mg PO QAM 0RF finasteride 5 mg tablet 5 mg PO Q OTHER DAY 0RF aspirin [Adult Aspirin Regimen] 81 mg tablet,delayed release (DR/EC) 81 mg PO QAM 0RF Referrals: Ten Fleming MD [Primary Care Provider] -
--- NOTE | 2022-02-05 15:23 | PC.NURSE ---
pt reports that he feels fine and no changes in vision at all. denies any neurological issues.
--- NOTE | 2022-02-05 19:17 | PC.NURSE ---
Sitting up in bed eating meal.
[2022-02-05] MEDS: ATORVASTATIN 20 MG TABLET PO (20:37)
[2022-02-05] MEDS: ASCORBIC ACID 500 MG TABLET 1000 MG PO (20:37)
[2022-02-06] VITALS (15 sets, daily range): BP systolic 122–194; BP diastolic 68–89; PULSE 69–90; RESP 14–24; TEMP 36.6; O2SAT 91–98
[2022-02-06 04:56] LABS: COVID19 -Nasal RAPID Negative (Negative)
[2022-02-06] MEDS: FINASTERIDE 5 MG TABLET PO (08:05)
[2022-02-06] MEDS: hydroCHLOROthiazide 25 MG TABLET PO (08:05)
[2022-02-06] MEDS: MULTIVITAMIN 1 TABLET 1 TAB PO (08:05)
[2022-02-06] MEDS: dilTIAZem CD 240 MG CAP PO (08:05)
--- NOTE | 2022-02-06 09:30 | PC.NURSE ---
pt continues to come out of room about every 30min to ask when he is leaving.
--- NOTE | 2022-02-06 09:33 | PC.NURSE ---
late note, 0715 pt ambulated to nursing desk asking about when he might leave, states i'm not used to sitting around, 0800 pt out to nursing station, steady gait. pt breakfast served. pt sitting in chair.
--- NOTE | 2022-02-06 13:38 | PC.NURSE ---
Pt accepted to [facility] / [place]. Dr. Moore accepting. [facility]/ Room 308 (3rd surgical) Amanda RN [phone] NWA ALS ETA 1335 EMTALA completed w/ verbalized understanding. All questions answered. Pt states he will update his . All belongings sent w/ pt.
== END 2022-02-06 13:45 | disposition short-term general hospital (02) ==
PROVIDERS: Emergency Provider Emergency Medicine; Family Provider Internal Medicine; PCP Internal Medicine; Referring Provider Surgery Vascular Surgery
DX: G45.9 Transient cerebral ischemic attack, unspecified (principal); Z79.01 Long term (current) use of anticoagulants; Z87.891 Personal history of nicotine dependence; Z20.822 Contact with and (suspected) exposure to COVID-19; Z86.79 Personal history of other diseases of the circulatory system; I10 Essential (primary) hypertension
CPT/HCPCS: 36415; 70450; 70496; 70498; 80053; 85025; 85610; 85730; 87635; 93005; 93010; 99285; 99291; C9803

== ENCOUNTER → 2022-03-13 10:22 | Outpatient (CLI) | payer MEDICARE, SELFPAY ==
[2022-03-13 12:28] LABS: Cholesterol 157 mg/dL (140-199); HDL Cholesterol 47 mg/dL (40-60); LDL Cholesterol Calculated 66 mg/dL (<100); Triglycerides 218 mg/dL (35-150)
== END ==
PROVIDERS: Family Provider Internal Medicine; PCP Internal Medicine; Referring Provider Internal Medicine Cardiovascular Disease; Visit Provider Internal Medicine Cardiovascular Disease
DX: E78.1 Pure hyperglyceridemia (principal); I48.0 Paroxysmal atrial fibrillation; I65.21 Occlusion and stenosis of right carotid artery
CPT/HCPCS: 36415; 80061

== ENCOUNTER → 2022-04-17 09:47 | Outpatient (CLI) | payer MEDICARE, SELFPAY ==
[2022-04-17 13:19] LABS: Vitamin B12 > 1000 pg/mL (239-931)
[2022-04-19 11:19] LABS: Methylmalonic Acid,Serum 402 nmol/L (0-378)
== END ==
PROVIDERS: Family Provider Internal Medicine; PCP Internal Medicine; Referring Provider Neuromusculoskeletal Medicine, Sports Medicine; Visit Provider Neuromusculoskeletal Medicine, Sports Medicine
DX: E53.8 Deficiency of other specified B group vitamins (principal); R41.3 Other amnesia
CPT/HCPCS: 36415; 82607; 83921

== ENCOUNTER → 2022-06-29 08:34 | Outpatient (CLI) | payer MEDICARE, SELFPAY ==
[2022-06-29 09:24] LABS: COVID19 -Nasal RAPID Negative (Negative)
== END ==
PROVIDERS: Family Provider Internal Medicine; PCP Internal Medicine; Referring Provider Internal Medicine; Visit Provider Internal Medicine
DX: Z20.822 Contact with and (suspected) exposure to COVID-19 (principal)
CPT/HCPCS: 87635; C9803

== ENCOUNTER → 2022-06-29 08:35 | Outpatient (CLI) | payer MEDICARE, SELFPAY ==
--- NOTE | 2022-07-04 09:18 | PM.PFT.1 ---
Pulmonary Function Test Referral & Results Date Patient Seen: 06/29/22 Requesting provider: Ten Fleming Results: The spirometry demonstrates an FVC of 3.02 L which is 79% of predicted. The FEV1 was measured at 2.09 L which is 79% of predicted. The FEV1/FVC ratio was 69 which is 98% of predicted. Following the administration of bronchodilator there was 39% improvement in FEF 25-75%. Lung volumes show an SVC of 2.98 L which is 69% of predicted. The diffusing capacity was measured at 13.64 which is 42% of predicted. No hemoglobin value was provided, so no correction for potential anemia could be made, if appropriate. The maximum voluntary ventilation was normal Interpretation: This study demonstrates possibly mild obstructive lung disease based on reduction FEV1. There is limited evidence of benefit in small airway flow following bronchodilator as above Lung volumes are reduced suggesting moderate restrictive lung disease is present and this probably does explain the abnormality in the FEV1 above Diffusing capacity is also moderately to severely affected suggesting significant disease at the capillary alveolar level as well Compared to PFTs performed in December 2017, current spirometry is essentially unchanged however diffusing capacity is approximately 1/2 of what it was previously Clinical correlation suggested
== END ==
PROVIDERS: Family Provider Internal Medicine; PCP Internal Medicine; Referring Provider Internal Medicine; Visit Provider Internal Medicine
DX: R06.09 Other forms of dyspnea (principal); Z87.891 Personal history of nicotine dependence; Z20.822 Contact with and (suspected) exposure to COVID-19; J98.8 Other specified respiratory disorders
CPT/HCPCS: 87635; 94060; 94726; 94729; C9803

== ENCOUNTER → 2022-07-11 13:12 | Outpatient (CLI) | payer MEDICARE, SELFPAY ==
--- NOTE | 2022-07-11 13:13 | DI.CT.S_ITS ---
PROCEDURE: CT CHEST HIGH RESOLUTION INDICATIONS: Interstitial Lung Disease TECHNIQUE: Noncontrast 1.0 and 5.0 mm thick contiguous axial sections from the pulmonary apex to the posterior costophrenic angles, with 7 mm thick coronal and sagittal MIP reformats. 1 mm thick dynamic expiratory images acquired through the upper, mid, and lower lungs. 1.0 mm thick axial sections acquired from the helen to the posterior costophrenic angles in the prone end-inspiration position. For radiation dose reduction, the following was used: automated exposure control, adjustment of mA and/or kV according to patient size. COMPARISON: CT, CHEST/ABDOMEN WITH CONTRAST, 09/26/2017, 11:27. CT, CT ANGIO CHEST PE PROTOCOL, 05/29/2021, 18:30. CR, XR CHEST 1V, 05/29/2021, 21:30. FINDINGS: Image quality: Excellent. Lungs: Central and peripheral airways are caliber. No bronchial wall thickening, endobronchial lesion, or bronchiectasis. Occasional thin-walled parenchymal cysts posteromedial left lower lobe and occasionally in the right lower lobe. Trace subpleural bibasilar reticulation and minor subpleural ground-glass opacity posteromedial right lower lobe. Very mild central ground-glass opacity seen in the right upper lobe and again seen is superior segment left lower lobe. 4 mm nodule posteromedial right lower lobe, 4/80, adjacent to the subpleural ground-glass opacity. No dense consolidations. Dynamic images are negative for significant air trapping. Pleura: No pleural effusions or pneumothorax. Mediastinum: Heart size is normal. Heavy coronary artery and aortic valvular calcification. Small anterior pericardial effusion or pericardial thickening. Thoracic aorta and central pulmonary arteries are normal in size. Mild aortic arch calcification. Esophagus is normal in caliber. Bones and chest wall: No compression fractures. Dense anterior osteophytosis throughout the thoracic spine with preservation of disc spaces. No rib fractures. Soft tissues are normal. Abdomen: Visualized upper abdominal solid organs and bowel loops appear normal. IMPRESSION: 1. There are small areas mild central and subpleural ground-glass opacities, trace bibasilar subpleural reticulation, occasional parenchymal cysts, and a single 4 mm nodule. Findings are nonspecific, statistically most likely due to infection or inflammation. There is no consistent pattern to suggest chronic interstitial pneumonitis at this point. 2. Heavy coronary artery and aortic valve calcification. 3. Dense vertebral body anterior osteophytosis, DISH or ankylosing spondylitis. Dictated by: Kalani Valdovinos M.D. on 07/12/2022 at 0:05 Approved by: Kalani Valdovinos M.D. on 07/12/2022 at 0:20
== END ==
PROVIDERS: Family Provider Internal Medicine; PCP Internal Medicine; Referring Provider Internal Medicine; Visit Provider Internal Medicine
DX: J84.9 Interstitial pulmonary disease, unspecified (principal); I70.0 Atherosclerosis of aorta; I25.10 Atherosclerotic heart disease of native coronary artery without angina pectoris
CPT/HCPCS: 71250

== ENCOUNTER 2022-09-11 13:35 | Emergency (ER) | payer MEDICARE, SELFPAY ==
[2022-09-11 13:48] VITALS: BP 120/58; PULSE 79; RESP 20; TEMP 36.9; O2SAT 96; BMI 27.9
--- NOTE | 2022-09-11 13:51 | DI.RAD.S_ITS ---
PROCEDURE: XR CHEST 2V INDICATIONS: shortness of breath TECHNIQUE: 2 views of the chest were acquired. COMPARISON: [facility], CR, XR CHEST 1V, 05/29/2021, 21:30. FINDINGS: Surgical changes and devices: None. Lungs and pleura: Right upper lobe infiltrate. Increased interstitial markings in both lungs with a central/perihilar distribution. Cephalization of pulmonary vessels. No pleural effusions or pneumothorax. Mediastinum: Mediastinal contours are normal. Heart size is mildly enlarged. Bones and chest wall: No suspicious bony abnormalities. Soft tissues appear unremarkable. IMPRESSION: Mild cardiomegaly with findings of mild to moderate interstitial edema. Superimposed right upper lobe airspace infiltrate may represent alveolar edema or infectious airspace disease. Correlate for leukocytosis, fever, or other evidence of infection. Dictated by: Baldomero Evans M.D. on 09/11/2022 at 15:09 Approved by: Baldomero Evans M.D. on 09/11/2022 at 15:10
[2022-09-11 14:26] LABS: Add Manual Diff / Slide Review NO; Basophils Absolute Auto 0 /uL (0-100); Basophils Percent Auto 0.2 % (0-2); Eosinophils Absolute Auto 0 /uL (0-450); Eosinophils Percent Auto 0.1 % (2-4); Hematocrit 36.4 % (41-53); Hemoglobin 11.3 g/dL (13.5-17.5); Lymphocytes Absolute Auto 600 /uL (1100-4500); Lymphocytes Percent Auto 4.2 % (25-40); Mean Corpuscular HGB Conc 30.9 % (30-36); Mean Corpuscular Hemoglobin 22.6 PG (26-34); Mean Corpuscular Volume 72.9 fL (80-100); Monocytes Absolute Auto 800 /uL (0-900); Monocytes Percent Auto 5.4 % (3-14); Neutrophils Absolute Auto 12700 /uL (1500-7000); Neutrophils Percent Auto 90.1 % (50-75); Platelet Count 272 X10^3/uL (150-400); Red Blood Cell Count 4.99 X10^6/uL (4.5-5.9); Red Cell Distribution Width 17.9 % (11.6-14.8); White Blood Cell Count 14.1 X10^3/uL (4.5-11.0)
[2022-09-11 14:35] LABS: INR 2.1 (0.9-1.3); Prothrombin Time 24.1 SECONDS (10.1-12.7)
[2022-09-11 14:38] LABS: Lactate (Lactic Acid) 2.9 mmol/L (0.7-2.1)
[2022-09-11 14:39] LABS: Alanine Aminotransferase 17 IU/L (<50); Albumin 3.9 g/dL (3.5-5.0); Albumin Globulin Ratio 1.4 (1.0-2.8); Alkaline Phosphatase 87 U/L (38-126); Aspartate Aminotransferase 24 IU/L (17-59); BUN Creatinine Ratio 13.7 (6-22); Bilirubin Total 0.7 mg/dL (0.2-1.3); Blood Urea Nitrogen 17 mg/dL (9-20); Calcium 7.9 mg/dL (8.4-10.2); Carbon Dioxide 24 mmol/L (22-32); Chloride 92 mmol/L (98-107); Estimated Glomerular Filt Rate 57 mL/min (>60); Globulin 2.8 g/dL (1.7-4.1); Glucose 122 mg/dL (80-110); HEMOLYSIS < 15 (0-50); Potassium 3.3 mmol/L (3.4-5.1); Sodium 129 mmol/L (137-145); Total Protein 6.7 g/dL (6.3-8.2)
[2022-09-11 14:48] LABS: NT-proBNP (BNP-Adult 18+) 444 pg/mL (<450)
[2022-09-11 16:20] LABS: Reflexed Lactate in 2 Hours Y
[2022-09-11 20:42] LABS: Influenza A - CEPHEID Flu A NEGATIVE (NEGATIVE); Influenza B - CEPHEID Flu B NEGATIVE (NEGATIVE); Respiratory Syncytial Virus Negative (Negative)
[2022-09-11 20:43] LABS: COVID-19 CEPHEID 4-PLEX PCR Negative (Negative)
--- NOTE | 2022-09-11 21:17 | ED_ITS ---
HPI - SOB/Dyspnea General Chief Complaint: Shortness of Breath/Dyspnea Stated Complaint: trouble breathing ,D, chills, fever Time Seen by Provider: 09/11/22 21:13 Source: patient Mode of arrival: Wheelchair Limitations: no limitations History of Present Illness HPI Narrative: Mr. Hollingsworth is an 87-year-old gentleman with some short-term memory loss who comes to the ED today with breathlessness. reports that he is had explosive diarrhea over the past 48 hours but that is quite a down now that she gave him some Imodium. She says that he was complaining of some abdominal pain but Mr. Dennis himself does not recall that. He also denies cough but his says that he has been coughing over the past couple of days. In the past year he has had back surgery and carotid surgery but the carotid surgery was over 6 months ago. Fever to 102 today. The patient really does not report any symptoms now other than the breathlessness with exertion. Past history remarkable for pulmonary embolism on anticoagulation. Hypertension, atrial fibrillation. Also remarkable for COPD. Related Data Home Medications Medication Instructions Recorded Confirmed vitamins A,C,X-hrsd-ljmmnm 2,148 1 tab PO BID 03/31/18 07/30/22 mcg-113 mg-45 mg-17.4 mg tablet (PreserVision AREDS) ascorbic acid (vitamin C) 500 mg 1 g PO BEDTIME #0 tabs 12/26/21 07/30/22 tablet aspirin 81 mg tablet,delayed 81 mg PO QAM 12/26/21 07/30/22 release (Adult Aspirin Regimen) atorvastatin 20 mg tablet 20 mg PO QAM 02/05/22 07/30/22 finasteride 5 mg tablet 5 mg PO Q OTHER DAY 02/05/22 07/30/22 potassium 99 mg tablet 99 mg PO DAILY 06/18/22 07/30/22 vitamin E (dl, acetate) 180 mg PO DAILY 06/18/22 07/30/22 fluticasone propionate 230 2 puff inhalation BID Improve 07/30/22 07/30/22 mcg-salmeterol 21 mcg/actuation breathing HFA inhaler (Advair HFA) Previous Rx's Medication Instructions Recorded Disabled Parking #1 ea 02/26/22 diltiazem HCl 240 mg capsule,24 240 mg PO QAM #90 caps 05/01/22 hr,extended release citalopram 20 mg tablet 20 mg PO DAILY #90 tabs 07/30/22 apixaban 5 mg tablet (Eliquis) 5 mg PO Q12H #180 tabs 08/13/22 hydrochlorothiazide 25 mg tablet 25 mg PO QAM #90 tabs 09/03/22 doxycycline hyclate 100 mg capsule 100 mg PO BID #20 caps 09/11/22 Allergies Allergy/AdvReac Type Severity Reaction Status Date / Time Sulfa (Sulfonamide Allergy Mild rash Verified 09/11/22 13:48 Antibiotics) Horse/Equine Containing AdvReac Severe CONVULSION Verified 09/11/22 13:48 Products tamsulosin AdvReac Mild Lower Verified 09/11/22 13:48 extremity edema doxycycline AdvReac Unknown high blood Verified 09/11/22 13:48 pressure Review of Systems Review of Systems Narrative: Complete review of systems is negative other than as noted above. 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) Pulmonary embolism (~05/2021) Urinary tract infection associated with indwelling urethral catheter Surgical History (Updated 02/26/22 @ 14:16 by Ten Fleming MD) H/O laminectomy History of radiofrequency ablation (RFA) procedure for cardiac arrhythmia (~2018) Hx of appendectomy S/P carotid endarterectomy (02/06/22) S/P hernia repair Status post cholecystectomy (09/2015) Family History Mother CAD (coronary artery disease) Father Hypertension Hearing impaired Social History marital status: number of children: 3 household members: spouse lives independently: Yes caregiver/support person: No housing: house pets and animals: Yes education level: other occupational status: other current occupational exposures/hazards: No 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 HEAD: Atraumatic. Normocephalic. EYES: Sclera are clear without icterus. Extraocular movements are full. ENT: No rhinorrhea. NECK: Supple. Full range of motion. CARDIOVASCULAR: Normal rate and rhythm without murmur gallop or rub. RESPIRATORY: Clear to auscultation. Breath sounds equal bilaterally. No wheezes, rales, or rhonchi. GASTROINTESTINAL: Abdomen soft, non-tender, nondistended. EXTREMITIES: No edema, full range of motion. No obvious trauma. BACK: Normal inspection, no CVA tenderness. NEURO: Nonfocal examination, normal speech SKIN: No rash or erythema of visible areas PSYCH: Normally oriented. Normal range of affect. Appropriate behavior Initial Vital Signs Initial Vital Signs: Vital Signs Temperature 98.4 F 09/11/22 13:48 Pulse Rate 79 09/11/22 13:48 Respiratory Rate 20 09/11/22 13:48 Blood Pressure 120/58 L 09/11/22 13:48 Pulse Oximetry 96 09/11/22 13:48 Oxygen Delivery Method 09/11/22 13:48 Course Orders Ordered: ED Orders 09/11/22 13:51 XR chest 2V Stat Measure peak expiratory flow ONCE RT Consult Eval and Treat Now 09/11/22 14:08 EKG-12 Lead Stat 09/11/22 14:13 Complete Blood Count AUTO DIFF Stat Comprehensive Metabolic Panel Stat Lactate (Lactic Acid) Stat NT-proBNP (BNP-Adult 18+) Stat Prothrombin Time INR Stat 09/11/22 20:02 Covid-19 + FLU A/B + RSV - PCR Stat Discontinued Medications Doxycycline Hyclate (Doxycycline Hyclate 100 Mg Tablet) 100 mg PO NOW ONE Stop: 09/11/22 21:30 Vital Signs Vital signs: Vital Signs - 8 hr 09/11/22 13:48 Temperature 98.4 F Pulse Rate 79 Respiratory Rate 20 Blood Pressure 120/58 L Pulse Oximetry 96 Oxygen Delivery Method Room Air MDM - SOB/Dyspnea Lab Data Result diagrams: 09/11/22 14:13 09/11/22 14:13 Labs: Lab Results 09/11/22 09/11/22 09/11/22 Range/Units 14:13 14:13 14:13 WBC 14.1 H (4.5-11.0) X10^3/uL RBC 4.99 (4.5-5.9) X10^6/uL Hgb 11.3 L (13.5-17.5) g/dL Hct 36.4 L (41-53) % MCV 72.9 L (80-100) fL MCH 22.6 L (26-34) PG MCHC 30.9 (30-36) % RDW 17.9 H (11.6-14.8) % Plt Count 272 (150-400) X10^3/uL Neut % (Auto) 90.1 H (50-75) % Lymph % (Auto) 4.2 L (25-40) % [place] % (Auto) 5.4 (3-14) % Eos % (Auto) 0.1 L (2-4) % Baso % (Auto) 0.2 (0-2) % Neut # (Auto) 03644 H (1302-2050) /uL Lymph # (Auto) 600 L (6558-6984) /uL [place] # (Auto) 800 (0-900) /uL Eos # (Auto) 0 (0-450) /uL Baso # (Auto) 0 (0-100) /uL PT 24.1 H (10.1-12.7) SECONDS INR 2.1 H (0.9-1.3) Sodium 129 L (137-145) mmol/L Potassium 3.3 L (3.4-5.1) mmol/L Chloride 92 L (98-107) mmol/L Carbon Dioxide 24 (22-32) mmol/L BUN 17 (9-20) mg/dL Creatinine 1.24 (0.66-1.25) mg/dL Estimated GFR 57 L (>60) mL/min BUN/Creatinine Ratio 13.7 (6-22) Glucose 122 H (80-110) mg/dL Lactate (0.7-2.1) mmol/L Calcium 7.9 L (8.4-10.2) mg/dL Total Bilirubin 0.7 (0.2-1.3) mg/dL AST 24 (17-59) IU/L ALT 17 (<50) IU/L Alkaline Phosphatase 87 (38-126) U/L NT-Pro-B Natriuret Pep 444 (<450) pg/mL Total Protein 6.7 (6.3-8.2) g/dL Albumin 3.9 (3.5-5.0) g/dL Globulin 2.8 (1.7-4.1) g/dL Albumin/Globulin Ratio 1.4 (1.0-2.8) SARS-CoV-2 (PCR) (Negative) Influenza A (RT-PCR) (NEGATIVE) Influenza B (RT-PCR) (NEGATIVE) RSV (PCR) (Negative) 09/11/22 09/11/22 09/11/22 Range/Units 14:13 18:15 20:02 WBC (4.5-11.0) X10^3/uL RBC (4.5-5.9) X10^6/uL Hgb (13.5-17.5) g/dL Hct (41-53) % MCV (80-100) fL MCH (26-34) PG MCHC (30-36) % RDW (11.6-14.8) % Plt Count (150-400) X10^3/uL Neut % (Auto) (50-75) % Lymph % (Auto) (25-40) % [place] % (Auto) (3-14) % Eos % (Auto) (2-4) % Baso % (Auto) (0-2) % Neut # (Auto) (2597-0351) /uL Lymph # (Auto) (8092-5529) /uL [place] # (Auto) (0-900) /uL Eos # (Auto) (0-450) /uL Baso # (Auto) (0-100) /uL PT (10.1-12.7) SECONDS INR (0.9-1.3) Sodium (137-145) mmol/L Potassium (3.4-5.1) mmol/L Chloride (98-107) mmol/L Carbon Dioxide (22-32) mmol/L BUN (9-20) mg/dL Creatinine (0.66-1.25) mg/dL Estimated GFR (>60) mL/min BUN/Creatinine Ratio (6-22) Glucose (80-110) mg/dL Lactate 2.9 H 2.0 (0.7-2.1) mmol/L Calcium (8.4-10.2) mg/dL Total Bilirubin (0.2-1.3) mg/dL AST (17-59) IU/L ALT (<50) IU/L Alkaline Phosphatase (38-126) U/L NT-Pro-B Natriuret Pep (<450) pg/mL Total Protein (6.3-8.2) g/dL Albumin (3.5-5.0) g/dL Globulin (1.7-4.1) g/dL Albumin/Globulin Ratio (1.0-2.8) SARS-CoV-2 (PCR) Negative (Negative) Influenza A (RT-PCR) Flu a negative (NEGATIVE) Influenza B (RT-PCR) Flu b negative (NEGATIVE) RSV (PCR) Negative (Negative) Imaging Data Chest x-ray: Radiologist's Impression: IMPRESSION: ? Mild cardiomegaly with findings of mild to moderate interstitial edema. ? Superimposed right upper lobe airspace infiltrate may represent alveolar edema or infectious airspace disease.? Correlate for leukocytosis, fever, or other evidence of infection.? ? Dictated by: Baldomero Evans M.D. on 09/11/2022 at 15:09 ? ? Approved by: Baldomero Evans M.D. on 09/11/2022 at 15:10? MDM Narrative Medical decision making narrative: Vital signs are reassuring. Lobar pneumonia is diagnosed. Doxycycline prescribed. Very comfortable at rest. Not vomiting diarrhea has quite a down. I think home management of pneumonia is appropriate. I considered hospitalization but do not think it is indicated even though this gentleman is quite old. Discharge Plan Departure Patient Disposition: Home Clinical Impression: Pneumonia Instructions: Pneumonia-Adult Activity Restrictions/Additional Instructions: You have pneumonia. No evidence of serious congestive heart failure or COPD exacerbation. I recommend doxycycline twice daily for 10 days. You should expect to feel quite a bit better over the next few days. Keep herself very well hydrated. Follow up at the clinic early next week for re-evaluation. Please return to the ER for worsening shortness of breath especially if you have shortness of breath at rest. Continue Imodium. Continue Tylenol or ibuprofen to help keep the fever down. Prescriptions: New doxycycline hyclate 100 mg capsule 100 mg PO BID Qty: 20 0RF No Action ascorbic acid (vitamin C) 500 mg tablet 1 g PO BEDTIME Qty: 0 diltiazem HCl 240 mg capsule,extended release 24 hr 240 mg PO QAM Qty: 90 1RF Eliquis 5 mg tablet 5 mg PO Q12H Qty: 180 3RF Label Comments: held r/t surgery. Due to restart 05/30/21 hydrochlorothiazide 25 mg tablet 25 mg PO QAM Qty: 90 3RF vitamins A,C,W-zwnd-wxoimz [PreserVision AREDS] 7,160-113-100 eswm-wr-rxcv tablet 1 tab PO BID (DME) Disabled Parking See Rx Instructions .ROUTE .MEDSUPPLY Qty: 1 0RF Rx Instructions: Patient qualifies for disabled parking as per the attached form. potassium 99 mg tablet 99 mg PO DAILY vitamin E (dl, acetate) 180 mg PO DAILY Advair HFA 230-21 mcg/actuation HFA aerosol inhaler 2 puff inhalation BID Label Comments: Lungs are basically okay so trying this to see if it helps breathing and perhaps stamina. citalopram 20 mg tablet 20 mg PO DAILY Qty: 90 3RF atorvastatin 20 mg tablet 20 mg PO QAM finasteride 5 mg tablet 5 mg PO Q OTHER DAY aspirin [Adult Aspirin Regimen] 81 mg tablet,delayed release (DR/EC) 81 mg PO QAM Referrals: Ten Fleming MD [Primary Care Provider] -
== END 2022-09-11 22:12 | disposition home or self-care (01) ==
PROVIDERS: Emergency Medicine; Emergency Provider Family Medicine Addiction Medicine; Family Provider Internal Medicine; PCP Internal Medicine
DX: J18.9 Pneumonia, unspecified organism (principal); R19.7 Diarrhea, unspecified; R50.9 Fever, unspecified; Z20.822 Contact with and (suspected) exposure to COVID-19
CPT/HCPCS: 0241U; 71046; 80053; 83605; 83880; 85025; 85610; 93005; 99281; 99284

== ENCOUNTER → 2022-10-24 08:47 | Outpatient (CLI) | payer MEDICARE, SELFPAY ==
[2022-10-24 10:39] LABS: COVID19 -Nasal RAPID Negative (Negative)
== END ==
PROVIDERS: Family Provider Internal Medicine; PCP Internal Medicine; Referring Provider Internal Medicine; Visit Provider Internal Medicine
DX: Z20.822 Contact with and (suspected) exposure to COVID-19 (principal)
CPT/HCPCS: 87635

== ENCOUNTER → 2022-10-24 08:49 | Outpatient (CLI) | payer MEDICARE, SELFPAY ==
[2022-09-28 08:53] LABS: COVID19 -Nasal RAPID Negative (Negative)
--- NOTE | 2022-10-26 07:50 | P.PFT.S_ITS ---
Pulmonary Function Test Referral & Results Date Patient Seen: 10/24/22 Requesting provider: Ten Fleming Results: The spirometry demonstrates an FVC of 3.14 L which is 83% of predicted. The FEV1 was measured at 2.29 L which is 87% of predicted. The FEV1/FVC ratio was 73 which is 103% of predicted. Following the administration of bronchodilator there was a 12% improvement in FEF 25-75%. Lung volumes show an SVC of 3.50 L which is 81% of predicted. The diffusing capacity was measured at 15.09 which is 46% of predicted. No hemoglobin value was provided, so no correction for potential anemia could be made, if appropriate. The maximum voluntary ventilation was normal Interpretation: This study demonstrates possibly very mild obstructive lung disease based on minimal reduction FEV1 although FEV1/FVC ratio is preserved and there really is no evidence of significant benefit following bronchodilator. Shape a flow volume loop however does support the possibility of obstructive lung disease being present There is a mild reduction in lung volumes suggesting the presence of very mild restrictive lung disease There is a more notable moderately severe reduction diffusing capacity duke ggesting significant disease at the capillary alveolar level. Compared to PFTs performed in June 2022, current study shows improvement in FEV1, and post bronchodilator improvement seen previously is not present on current study. Lung volumes are also improved. Diffusing capacity is essentially unchanged from previous Clinical correlation suggested
== END ==
PROVIDERS: Family Provider Internal Medicine; PCP Internal Medicine; Referring Provider Internal Medicine; Visit Provider Internal Medicine
DX: J84.89 Other specified interstitial pulmonary diseases (principal); Z20.822 Contact with and (suspected) exposure to COVID-19; Z87.891 Personal history of nicotine dependence; J98.8 Other specified respiratory disorders
CPT/HCPCS: 87635; 94060; 94726; 94729; C9803

== ENCOUNTER → 2023-02-21 08:23 | Outpatient (CLI) | payer MEDICARE, SELFPAY ==
--- NOTE | 2023-03-05 08:05 | PM.PFT.1 ---
Pulmonary Function Test Referral & Results Date Patient Seen: 02/21/23 Results: This is a 6 minute walk test/rest and exercise oximetry with O2 titration At rest patient's room air saturation was 97% wit pulse of 76 That 1 minute patient was at 100 ft with room air saturation 97% pulse 103 At 2 minutes patient was 180 ft with room air saturation 94% pulse of 106 At 3 minutes patient was 280 ft room air saturation 93% pulse of 99 At 4 minutes patient was at 360 ft room air saturation 94% with pulse of 113 At 5 minutes patient was 430 ft with room air saturation 94% pulse of 119 At 6 minutes patient was 510 ft room air saturation 94% with pulse at 118 3 minutes post exercise room air saturation 96% with pulse of 101
== END ==
PROVIDERS: Family Provider Internal Medicine; PCP Internal Medicine; Referring Provider Internal Medicine Pulmonary Disease; Visit Provider Internal Medicine Pulmonary Disease
DX: J84.89 Other specified interstitial pulmonary diseases (principal)
CPT/HCPCS: 94010; 94618

== ENCOUNTER → 2023-04-11 14:30 | Outpatient (CLI) | payer MEDICARE, SELFPAY ==
--- NOTE | 2023-04-17 10:26 | PM.PFT.1 ---
Pulmonary Function Test Referral & Results Date Patient Seen: 04/11/23 Results: The spirometry demonstrates an FVC of 2.87 L which is 76% of predicted. The FEV1 was measured at 1.98 L which is 76% of predicted. The FEV1/FVC ratio was 69 which is 98% of predicted. Following the administration of bronchodilator there was to 44% improvement in FEF 25-75%. Lung volumes show an SVC of 3.03 L which is 70% of predicted. The diffusing capacity was measured at 13.37 which is 41% of predicted. No hemoglobin value was provided, so no correction for potential anemia could be made, if appropriate. The maximum voluntary ventilation was minimally reduced Interpretation: This study demonstrates mild obstructive lung disease based on reduction FEV1 although FEV1/FVC ratio is relatively preserved. There is evidence of benefit in small airway flow after bronchodilator administration as above based on improvement in FEF 25-75% There is a [id number] reduction in lung volumes suggesting the presence of [id number] restrictive lung disease There is a moderate to moderately severe reduction diffusing capacity suggesting the presence of significant disease at the capillary alveolar level Compared to PFTs performed in September 2022, current study shows decline in FEV1 lung volumes and diffusing capacity. Clinical correlation suggested
== END ==
PROVIDERS: Family Provider Internal Medicine; PCP Internal Medicine; Referring Provider Internal Medicine Pulmonary Disease; Visit Provider Internal Medicine Pulmonary Disease
DX: J84.9 Interstitial pulmonary disease, unspecified (principal); J98.4 Other disorders of lung
CPT/HCPCS: 94060; 94726; 94729

== ENCOUNTER → 2023-06-28 09:41 | Outpatient (CLI) | payer MEDICARE, SELFPAY ==
[2023-06-28 11:19] LABS: Basophils Absolute Auto 100 /uL (0-100); Basophils Percent Auto 0.6 % (0-2); Eosinophils Absolute Auto 0 /uL (0-450); Eosinophils Percent Auto 0.3 % (2-4); Hematocrit 32.7 % (41-53); Hemoglobin 9.9 g/dL (13.5-17.5); Lymphocytes Absolute Auto 500 /uL (1100-4500); Lymphocytes Percent Auto 6.4 % (25-40); Mean Corpuscular HGB Conc 30.3 % (30-36); Mean Corpuscular Hemoglobin 20.4 PG (26-34); Mean Corpuscular Volume 67.3 fL (80-100); Monocytes Absolute Auto 600 /uL (0-900); Monocytes Percent Auto 6.9 % (3-14); Neutrophils Absolute Auto 7100 /uL (1500-7000); Neutrophils Percent Auto 85.8 % (50-75); Platelet Count 310 X10^3/uL (150-400); Red Blood Cell Count 4.85 X10^6/uL (4.5-5.9); Red Cell Distribution Width 19.6 % (11.6-14.8); White Blood Cell Count 8.3 X10^3/uL (4.5-11.0)
[2023-06-28 11:20] LABS: Add Manual Diff / Slide Review SLIDE REVIEW
[2023-06-28 11:35] LABS: Alanine Aminotransferase 13 IU/L (<50); Albumin 3.7 g/dL (3.5-5.0); Albumin Globulin Ratio 1.4 (1.0-2.8); Alkaline Phosphatase 76 U/L (38-126); Aspartate Aminotransferase 18 IU/L (17-59); BUN Creatinine Ratio 14.8 (6-22); Bilirubin Total 0.5 mg/dL (0.2-1.3); Blood Urea Nitrogen 18 mg/dL (9-20); Carbon Dioxide 28 mmol/L (22-32); Chloride 100 mmol/L (98-107); Estimated Glomerular Filt Rate 58 mL/min (>60); Globulin 2.7 g/dL (1.7-4.1); Glucose 86 mg/dL (80-110); HEMOLYSIS < 15 (0-50); Potassium 3.8 mmol/L (3.4-5.1); Sodium 135 mmol/L (137-145); Total Protein 6.4 g/dL (6.3-8.2)
[2023-06-28 11:47] LABS: Anisocytosis 2+; Hypochromasia 2+; Microcytosis 2+
[2023-06-28 11:48] LABS: Ovalocytes 1+
== END ==
PROVIDERS: Family Provider Internal Medicine; PCP Internal Medicine; Referring Provider Internal Medicine Cardiovascular Disease; Visit Provider Internal Medicine Cardiovascular Disease
DX: I48.0 Paroxysmal atrial fibrillation (principal); R06.09 Other forms of dyspnea; I35.0 Nonrheumatic aortic (valve) stenosis; I65.21 Occlusion and stenosis of right carotid artery
CPT/HCPCS: 36415; 80053; 84443; 85025

== ENCOUNTER → 2023-07-02 08:12 | Outpatient (CLI) | payer MEDICARE, SELFPAY ==
--- NOTE | 2023-07-02 | DI.US.S_ITS ---
PROCEDURE: US CAROTID DOPPLER BI INDICATIONS: Occlusion and stenosis of right carotid artery TECHNIQUE: Color and pulse Doppler interrogation was performed of both carotid systems, with image documentation and velocity measurements. COMPARISON: None. FINDINGS: Stenosis calculations are based on SRU (Society of Radiologists in Ultrasound) criteria. Right side: Brachial blood pressure: 131/70 mm Hg. Common carotid artery peak systolic velocity: 106 cm/sec. Internal carotid artery peak systolic velocity: 80 cm/sec. Internal carotid artery end diastolic velocity: 20 cm/sec. External carotid artery peak systolic velocity: 297 cm/sec. ICA/CCA peak systolic ratio: 0.76 . Vega scale imaging description: Atherosclerotic plaque Percent internal carotid artery stenosis: Less than 50 . Vertebral artery: Flow direction is antegrade. Left side: Brachial blood pressure: 131/76 mm Hg. Common carotid artery peak systolic velocity: 89 cm/sec. Internal carotid artery peak systolic velocity: 61 cm/sec. Internal carotid artery end diastolic velocity: 16 cm/sec. External carotid artery peak systolic velocity: 354 cm/sec. ICA/CCA peak systolic ratio: 0.69 . Vega scale imaging description: Atherosclerotic plaque Percent internal carotid artery stenosis: Less than 50 . Vertebral artery: Flow direction is antegrade. IMPRESSION: No evidence of hemodynamically significant stenosis, bilateral proximal ICA. Elevated peak velocities in both proximal ECA suggests stenosis Approved by: Soy Aiken M.D. on 07/02/2023 at 17:23
== END ==
PROVIDERS: Family Provider Internal Medicine; PCP Internal Medicine; Referring Provider Internal Medicine Cardiovascular Disease; Visit Provider Internal Medicine Cardiovascular Disease
DX: I48.0 Paroxysmal atrial fibrillation (principal); R06.09 Other forms of dyspnea; I35.0 Nonrheumatic aortic (valve) stenosis; I65.21 Occlusion and stenosis of right carotid artery
CPT/HCPCS: 93880

== ENCOUNTER 2023-07-07 05:20 | Emergency (ER) | payer MEDICARE, SELFPAY ==
--- NOTE | 2023-07-07 05:22 | DI.RAD.S_ITS ---
PROCEDURE: XR CHEST 1V INDICATIONS: Congestion, eval for pneumonia TECHNIQUE: One view of the chest was acquired. COMPARISON: [facility], CR, XR CHEST 2V, 09/11/2022, 13:54. FINDINGS: Surgical changes and devices: None. Lungs and pleura: Lungs are clear. No pleural effusions or pneumothorax. Mediastinum: Mediastinal contours appear normal. Heart size is normal. Bones and chest wall: No suspicious bony lesions. Overlying soft tissues appear unremarkable. IMPRESSION: No acute cardiopulmonary findings Note: This final report is concordant with the preliminary after-hours interpretation provided by [facility] Approved by: Soy Aiken M.D. on 07/07/2023 at 8:10
[2023-07-07 05:28] VITALS: PULSE 69; O2SAT 100
[2023-07-07 05:30] VITALS: PULSE 68; O2SAT 99
[2023-07-07 05:31] VITALS: BP 165/73; PULSE 82; RESP 20; TEMP 36.9; O2SAT 95; BMI 28.7
--- NOTE | 2023-07-07 05:37 | ED_ITS ---
HPI - General Adult General Chief complaint: Upper Respiratory Symptoms Stated complaint: chest congestion Time Seen by Provider: 07/07/23 05:22 Source: patient and family Mode of arrival: Ambulatory History of Present Illness HPI narrative: 87-year-old male on anticoagulation with a history of interstitial lung disease who is here for evaluation of several weeks of chest congestion. He did start to just have nasal congestion over the past day or so. No fevers. Nonproductive cough. No chest pain. He states that his has become concerned that the amount of time that he is had symptoms which is why he came into the emergency department this morning. Related Data Home Medications Medication Instructions Recorded Confirmed vitamins A,C,V-tgbn-jrrxyc 2,148 1 tab PO BID 03/31/18 05/30/23 mcg-113 mg-45 mg-17.4 mg tablet (PreserVision AREDS) ascorbic acid (vitamin C) 500 mg 1 g PO BEDTIME #0 tabs 12/26/21 05/30/23 tablet aspirin 81 mg tablet,delayed 81 mg PO QAM 12/26/21 05/30/23 release (Adult Aspirin Regimen) potassium 99 mg tablet 99 mg PO DAILY 06/18/22 05/30/23 vitamin E (dl, acetate) 180 mg PO DAILY 06/18/22 05/30/23 fluticasone propionate 230 2 puff inhalation BID Improve 07/30/22 05/30/23 mcg-salmeterol 21 mcg/actuation breathing HFA inhaler (Advair HFA) mecobalamin (vitamin B12) 1,000 1,000 mcg PO DAILY B12 levels were 05/30/23 05/30/23 mcg chewable tablet low in past Previous Rx's Medication Instructions Recorded Disabled Parking #1 ea 02/26/22 apixaban 5 mg tablet (Eliquis) 5 mg PO Q12H #180 tabs 08/13/22 hydrochlorothiazide 25 mg tablet 25 mg PO QAM #90 tabs 09/03/22 diltiazem HCl 240 mg 240 mg PO DAILY #90 caps 11/28/22 capsule,extended release 24 hr finasteride 5 mg tablet 5 mg PO DAILY #90 tabs 01/16/23 atorvastatin 20 mg tablet 20 mg PO QAM #90 tabs 01/29/23 citalopram 20 mg tablet 20 mg PO DAILY #90 tabs 04/29/23 Allergies Allergy/AdvReac Type Severity Reaction Status Date / Time Sulfa (Sulfonamide Allergy Mild rash Verified 05/30/23 14:48 Antibiotics) Horse/Equine Containing AdvReac Severe CONVULSION Verified 05/30/23 14:48 Products tamsulosin AdvReac Mild Lower Verified 05/30/23 14:48 extremity edema doxycycline AdvReac Unknown high blood Verified 05/30/23 14:48 pressure Review of Systems Constitutional Constitutional: Reports system reviewed and no additional complaints, except as documented ENT Ears, Nose, Mouth, and Throat: Reports system reviewed and no additional complaints, except as documented Cardiovascular Cardiovascular: Reports system reviewed and no additional complaints, except as documented Respiratory Respiratory: Reports system reviewed and no additional complaints, except as documented Integumentary/Breasts Skin/Breast: Reports system reviewed and no additional complaints, except as documented Hematologic/Lymphatic On Anticoagulants: Yes Patient History Medical History Acute renal failure Alcohol abuse Alcohol dependence Alcohol use with withdrawal Alcoholic hepatitis BPH (benign prostatic hyperplasia) BPH w urinary obs/LUTS Chronic anticoagulation Chronic back pain Chronic obstructive pulmonary disease (01/27/18) Constipation Essential hypertension (05/17/11) Essential tremor (12/28/14) History of gross hematuria History of urinary retention History of urinary tract infection Hypoxia Memory loss Mixed hyperlipidemia (05/17/11) Paroxysmal atrial fibrillation (03/16/16) 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) Pulmonary embolism (~05/2021) Urinary tract infection associated with indwelling urethral catheter Surgical History (Updated 02/26/22 @ 14:16 by Ten Fleming MD) H/O laminectomy History of radiofrequency ablation (RFA) procedure for cardiac arrhythmia (~2018) Hx of appendectomy S/P carotid endarterectomy (02/06/22) S/P hernia repair Status post cholecystectomy (09/2015) Family History Mother CAD (coronary artery disease) Father Hypertension Hearing impaired Social History marital status: number of children: 3 household members: spouse lives independently: Yes caregiver/support person: No housing: house pets and animals: Yes education level: other occupational status: other current occupational exposures/hazards: No 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: [employer] leisure activities: sports, exercise, music, games, hunting and fishing Smoking Status: Former smoker Tobacco: How many years used: 15 Smokeless tobacco user: other quit status: quit date established alcohol intake: current substance use type: does not use Smoking Status: Former smoker alcohol intake frequency: a few times a month Substance Use Type: does not use Exam Initial Vital Signs Initial Vital Signs: Vital Signs Temperature 98.5 F 07/07/23 05:31 Pulse Rate 82 07/07/23 05:31 Respiratory Rate 20 07/07/23 05:31 Blood Pressure 165/73 H 07/07/23 05:31 Pulse Oximetry 95 07/07/23 05:31 Oxygen Delivery Method Room Air 07/07/23 05:31 HENMT Head: normal to inspection and normocephalic Resp Effort & Inspection: normal respiratory effort, no respiratory distress and not tachypneic Auscultation: clear to auscultation bilaterally Cardio Rate: regular rate Rhythm: regular rhythm Heart Sounds: murmur GI Inspection: normal to inspection Skin General: no rashes or lesions noted Neuro General: patient alert, patient awake and moves all extremities Extrem General: No edema Course Orders Ordered: ED Orders 07/07/23 05:22 XR chest 1V Stat Vital Signs Vital signs: Vital Signs - 8 hr 07/07/23 05:31 Temperature 98.5 F Pulse Rate 82 Respiratory Rate 20 Blood Pressure 165/73 H Pulse Oximetry 95 Oxygen Delivery Method Room Air Medical Decision Making Imaging Data Chest x-ray: Radiologist's Impression: No acute findings [facility] Narrative Medical decision making narrative: Patient has had chest congestion for several weeks. Has a nonproductive cough. Recently had the start of sinus congestion. No fevers. Chest x-ray shows no signs of pneumonia. I have low suspicion for cardiac etiology. I did discuss wbhv-fsi-[id number] treatment options with the patient can try. Discussed return precautions and follow-up. They expressed understanding and agreement. Discharge Plan Departure Patient Disposition: Home Clinical Impression: Chest congestion Activity Restrictions/Additional Instructions: I do recommend that you continue to take all of your medications as directed. You can try a daily ijwt-ecp-nyusfes antihistamines such as Claritin/Susan/Zyrtec. These medications are as needed. The generic version to these medications is appropriate. You can also try other cough medicines such as guaifenesin or Mucinex. Once again these medications can be purchased fvkf-wat-dkfuyyn. I would not expect complete resolution of your symptoms with these medicines but we are looking more for an improvement. I recommend you contact your plating department helper for follow-up. Return to the emergency department for new symptoms. Prescriptions: No Action ascorbic acid (vitamin C) 500 mg tablet 1 g PO BEDTIME Qty: 0 Eliquis 5 mg tablet 5 mg PO Q12H Qty: 180 3RF Patient Comments: held r/t surgery. Due to restart 05/30/21 hydrochlorothiazide 25 mg tablet 25 mg PO QAM Qty: 90 3RF diltiazem HCl 240 mg capsule,extended release 24hr 240 mg PO DAILY Qty: 90 3RF citalopram 20 mg tablet 20 mg PO DAILY Qty: 90 3RF atorvastatin 20 mg tablet 20 mg PO QAM Qty: 90 3RF mecobalamin (vitamin B12) 1,000 mcg tablet,chewable 1,000 mcg PO DAILY vitamins A,C,X-lqgi-dnsemk [PreserVision AREDS] 7,160-113-100 rohd-db-ddmi tablet 1 tab PO BID (DME) Disabled Parking See Rx Instructions .ROUTE .MEDSUPPLY Qty: 1 0RF Rx Instructions: Patient qualifies for disabled parking as per the attached form. potassium 99 mg tablet 99 mg PO DAILY vitamin E (dl, acetate) 180 mg PO DAILY Advair HFA 230-21 mcg/actuation HFA aerosol inhaler 2 puff inhalation BID Patient Comments: Lungs are basically okay so trying this to see if it helps breathing and perhaps stamina. aspirin [Adult Aspirin Regimen] 81 mg tablet,delayed release (DR/EC) 81 mg PO QAM finasteride 5 mg tablet 5 mg PO DAILY Qty: 90 3RF Referrals: Ten Fleming MD [Primary Care Provider] - Stand Alone Forms: Patient Portal/API
[2023-07-07 06:00] VITALS: BP 165/73; PULSE 68; O2SAT 98
[2023-07-07 06:27] VITALS: TEMP 36.5
== END 2023-07-07 06:27 | disposition home or self-care (01) ==
PROVIDERS: Emergency Provider Emergency Medicine; Family Provider Internal Medicine; PCP Internal Medicine
DX: R09.89 Other specified symptoms and signs involving the circulatory and respiratory systems (principal); Z79.899 Other long term (current) drug therapy
CPT/HCPCS: 71045; 99281; 99283

== ENCOUNTER 2023-09-11 14:15 | Outpatient (RCR) | payer MEDICARE, SELFPAY | END 2023-09-11 16:15 | LOC: PUL 14:15 | PROVIDERS: Family Provider Internal Medicine; PCP Internal Medicine; Referring Provider Internal Medicine Pulmonary Disease; Visit Provider Internal Medicine Pulmonary Disease | DX: J44.9 Chronic obstructive pulmonary disease, unspecified (principal) | CPT/HCPCS: 94625; 94626 ==

== ENCOUNTER → 2023-09-30 14:18 | Outpatient (CLI) | payer MEDICARE, SELFPAY ==
[2023-09-30 15:20] LABS: Basophils Absolute Auto 100 /uL (0-100); Basophils Percent Auto 0.7 % (0-2); Eosinophils Absolute Auto 100 /uL (0-450); Hematocrit 30.9 % (41-53); Hemoglobin 9.3 g/dL (13.5-17.5); Lymphocytes Absolute Auto 1100 /uL (1100-4500); Lymphocytes Percent Auto 11.2 % (25-40); Mean Corpuscular Hemoglobin 19.3 PG (26-34); Mean Corpuscular Volume 64.3 fL (80-100); Monocytes Absolute Auto 900 /uL (0-900); Monocytes Percent Auto 8.9 % (3-14); Neutrophils Absolute Auto 7600 /uL (1500-7000); Neutrophils Percent Auto 78.2 % (50-75); Platelet Count 327 X10^3/uL (150-400); Red Cell Distribution Width 19.4 % (11.6-14.8); White Blood Cell Count 9.7 X10^3/uL (4.5-11.0)
[2023-09-30 15:22] LABS: Add Manual Diff / Slide Review SLIDE REVIEW
[2023-09-30 15:36] LABS: Microcytosis 2+
[2023-09-30 15:38] LABS: HEMOLYSIS < 15 (0-50); Iron 23 ug/dL (49-181)
[2023-09-30 15:45] LABS: Alanine Aminotransferase 17 IU/L (<50); Albumin 4.1 g/dL (3.5-5.0); Albumin Globulin Ratio 1.4 (1.0-2.8); Alkaline Phosphatase 87 U/L (38-126); Aspartate Aminotransferase 21 IU/L (17-59); BUN Creatinine Ratio 13.9 (6-22); Bilirubin Total 0.5 mg/dL (0.2-1.3); Blood Urea Nitrogen 16 mg/dL (9-20); Calcium 8.7 mg/dL (8.4-10.2); Carbon Dioxide 21 mmol/L (22-32); Chloride 105 mmol/L (98-107); Estimated Glomerular Filt Rate > 60 mL/min (>60); Globulin 2.9 g/dL (1.7-4.1); Glucose 74 mg/dL (80-110); HEMOLYSIS < 15 (0-50); Potassium 3.9 mmol/L (3.4-5.1); Sodium 137 mmol/L (137-145)
[2023-09-30 15:49] LABS: Percent Iron Saturation 6 % (20-50); Total Iron Binding Capacity 390 ug/dL (261-462); Transferrin 313 mg/dL (206-381)
== END ==
PROVIDERS: PCP Internal Medicine; Referring Provider Internal Medicine; Visit Provider Internal Medicine
DX: D64.9 Anemia, unspecified (principal); I35.0 Nonrheumatic aortic (valve) stenosis; I10 Essential (primary) hypertension; E78.2 Mixed hyperlipidemia
CPT/HCPCS: 36415; 80053; 83540; 83550; 85025

== ENCOUNTER → 2023-11-22 08:50 | Outpatient (CLI) | payer MEDICARE, SELFPAY ==
--- NOTE | 2023-11-23 04:00 | DI.NM.S_ITS ---
DATE OF SERVICE: 11/22/2023 PROCEDURE PERFORMED: Pharmacologic vasodilator stress and rest myocardial perfusion imaging with gating to assess ejection fraction and regional wall motion. ORDERING PROVIDER: Geovany Archer MD INDICATIONS: The patient is an 88-year-old male with moderate aortic stenosis, paroxysmal atrial fibrillation, and known intrinsic lung disease with recent fatigue and exertional dyspnea. CARDIAC STRESS: Per protocol, 0.4 mg of regadenoson was infused with a normal hemodynamic response. He had no chest discomfort but had mild dyspnea and lightheadedness that promptly resolved. His resting ECG shows sinus rhythm with frequent PACs. With stress, there were no significant ST-segment shifts or arrhythmias except frequent PACs. Per protocol, 26.8 millicuries of technetium-99m Myoview was injected and he was imaged 15 minutes later using a gated SPECT acquisition protocol. Earlier in the day while at rest, he had been injected with 11.0 millicuries of technetium-99m Myoview and was imaged 20 minutes later, again using a gated SPECT acquisition protocol. FINDINGS: 1. Raw data: There is fair myocardial tracer uptake. The lung/heart ratio is borderline elevated at 0.42 with a normal TID ratio of 1.00. 2. Quantitated gated SPECT: Post-stress ejection fraction is estimated at 72% without any focal wall motion abnormality. The resting ejection fraction is estimated at 71% with a normal resting end- diastolic volume of 108 mL. 3. Myocardial perfusion imaging: Post-stress supine images show a fairly normal myocardial perfusion pattern without any concerning perfusion defects. The patient was unable to lie prone. The resting images show a similar perfusion pattern without any obvious areas of significant improvement. IMPRESSION: 1. Normal myocardial perfusion study. 2. No evidence for any myocardial ischemia or previous myocardial infarction. 3. Normal left ventricular systolic function without any focal wall motion abnormality. The lung/heart ratio is borderline elevated at 0.42 but is nonspecific. 4. No angina or ECG evidence of ischemia with pharmacologic vasodilator stress. 5. Compared to the previous myocardial perfusion study of 05/14/2019, there has been no significant change. His previous ECG also showed frequent PACs and his ejection fraction was around 70% but the lung/ heart ratio was normal at 0.33 yet there were no concerning perfusion defects. Gaudencio Dennis - RS/ignacia/kt doc#: [id number]/job#: [id number] dd: 11/22/2023 16:49:00 dt: 11/23/2023 03:48:00 DICTATING MD/COPIES TO: Trent Cooper MD; Geovany Archer MD COPIES MNE: JOIE;
== END ==
LOC: NUCM 08:50
PROVIDERS: PCP Internal Medicine; Referring Provider Internal Medicine Cardiovascular Disease; Visit Provider Internal Medicine Cardiovascular Disease
DX: I48.0 Paroxysmal atrial fibrillation (principal); R06.09 Other forms of dyspnea; I65.21 Occlusion and stenosis of right carotid artery; J84.9 Interstitial pulmonary disease, unspecified; R53.83 Other fatigue
CPT/HCPCS: 78452; 93017; A9502; J2785

== ENCOUNTER → 2023-12-04 13:24 | Outpatient (CLI) | payer MEDICARE, SELFPAY ==
[2023-12-04 14:25] LABS: Alanine Aminotransferase 20 IU/L (<50); Albumin 3.9 g/dL (3.5-5.0); Albumin Globulin Ratio 1.4 (1.0-2.8); Alkaline Phosphatase 91 U/L (38-126); Aspartate Aminotransferase 23 IU/L (17-59); BUN Creatinine Ratio 10.9 (6-22); Bilirubin Total 0.4 mg/dL (0.2-1.3); Blood Urea Nitrogen 14 mg/dL (9-20); Calcium 8.7 mg/dL (8.4-10.2); Carbon Dioxide 27 mmol/L (22-32); Chloride 102 mmol/L (98-107); Estimated Glomerular Filt Rate 54 mL/min (>60); Globulin 2.8 g/dL (1.7-4.1); Glucose 83 mg/dL (80-110); HEMOLYSIS < 15 (0-50); Iron 117 ug/dL (49-181); Sodium 137 mmol/L (137-145); Total Protein 6.7 g/dL (6.3-8.2)
[2023-12-04 14:33] LABS: Add Manual Diff / Slide Review NO; Basophils Absolute Auto 100 /uL (0-100); Basophils Percent Auto 0.9 % (0-2); Eosinophils Absolute Auto 100 /uL (0-450); Eosinophils Percent Auto 1.8 % (2-4); Hematocrit 39.6 % (41-53); Hemoglobin 12.5 g/dL (13.5-17.5); Lymphocytes Absolute Auto 1000 /uL (1100-4500); Lymphocytes Percent Auto 12.3 % (25-40); Mean Corpuscular HGB Conc 31.6 % (30-36); Mean Corpuscular Hemoglobin 23.6 PG (26-34); Mean Corpuscular Volume 74.7 fL (80-100); Monocytes Absolute Auto 600 /uL (0-900); Monocytes Percent Auto 7.7 % (3-14); Neutrophils Absolute Auto 6400 /uL (1500-7000); Neutrophils Percent Auto 77.3 % (50-75); Platelet Count 285 X10^3/uL (150-400); Red Cell Distribution Width 24.8 % (11.6-14.8); White Blood Cell Count 8.4 X10^3/uL (4.5-11.0)
[2023-12-04 14:36] LABS: Percent Iron Saturation 34 % (20-50); Total Iron Binding Capacity 345 ug/dL (261-462); Transferrin 296 mg/dL (206-381)
[2023-12-04 15:01] LABS: Anisocytosis 3+
== END ==
PROVIDERS: PCP Internal Medicine; Referring Provider Internal Medicine; Visit Provider Internal Medicine
DX: I35.0 Nonrheumatic aortic (valve) stenosis (principal); D64.9 Anemia, unspecified; E61.1 Iron deficiency
CPT/HCPCS: 36415; 80053; 83540; 83550; 85025

== ENCOUNTER → 2024-03-30 14:16 | Outpatient (CLI) | payer MEDICARE, SELFPAY ==
[2024-03-30 16:00] LABS: Add Manual Diff / Slide Review NO; Basophils Absolute Auto 100 /uL (0-100); Basophils Percent Auto 0.7 % (0-2); Eosinophils Absolute Auto 100 /uL (0-450); Eosinophils Percent Auto 2.1 % (2-4); Hematocrit 47.8 % (41-53); Hemoglobin 15.9 g/dL (13.5-17.5); Lymphocytes Absolute Auto 800 /uL (1100-4500); Lymphocytes Percent Auto 11.9 % (25-40); Mean Corpuscular HGB Conc 33.4 % (30-36); Mean Corpuscular Volume 89.9 fL (80-100); Monocytes Absolute Auto 700 /uL (0-900); Monocytes Percent Auto 9.6 % (3-14); Neutrophils Absolute Auto 5100 /uL (1500-7000); Neutrophils Percent Auto 75.7 % (50-75); Platelet Count 215 X10^3/uL (150-400); Red Blood Cell Count 5.32 X10^6/uL (4.5-5.9); Red Cell Distribution Width 18.1 % (11.6-14.8); White Blood Cell Count 6.8 X10^3/uL (4.5-11.0)
[2024-03-30 16:37] LABS: HEMOLYSIS 20 (0-50); Iron 147 ug/dL (49-181)
[2024-03-30 16:39] LABS: Alanine Aminotransferase 19 IU/L (<50); Albumin 3.9 g/dL (3.5-5.0); Albumin Globulin Ratio 1.6 (1.0-2.8); Alkaline Phosphatase 96 U/L (38-126); Aspartate Aminotransferase 25 IU/L (17-59); BUN Creatinine Ratio 13.6 (6-22); Bilirubin Total 0.5 mg/dL (0.2-1.3); Blood Urea Nitrogen 18 mg/dL (9-20); Calcium 8.7 mg/dL (8.4-10.2); Carbon Dioxide 29 mmol/L (22-32); Chloride 105 mmol/L (98-107); Estimated Glomerular Filt Rate 52 mL/min (>60); Globulin 2.4 g/dL (1.7-4.1); Glucose 101 mg/dL (80-110); HEMOLYSIS 21 (0-50); Potassium 3.7 mmol/L (3.4-5.1); Sodium 139 mmol/L (137-145); Total Protein 6.3 g/dL (6.3-8.2)
[2024-03-30 16:51] LABS: Percent Iron Saturation 48 % (20-50); Total Iron Binding Capacity 309 ug/dL (261-462); Transferrin 242 mg/dL (206-381)
== END ==
PROVIDERS: PCP Internal Medicine; Referring Provider Internal Medicine; Visit Provider Internal Medicine
DX: I10 Essential (primary) hypertension (principal); E78.2 Mixed hyperlipidemia; F03.90 Unspecified dementia, unspecified severity, without behavioral disturbance, psychotic disturbance, mood disturbance, and anxiety; D50.9 Iron deficiency anemia, unspecified
CPT/HCPCS: 36415; 80053; 83540; 83550; 85025

== ENCOUNTER → 2024-06-06 11:55 | Outpatient (CLI) | payer MEDICARE, SELFPAY ==
--- NOTE | 2024-06-06 11:56 | DI.RAD.S_ITS ---
PROCEDURE: XR HAND LT MIN 3V INDICATIONS: Left hand lump TECHNIQUE: 3 views of the hand(s) acquired. COMPARISON: None. FINDINGS: Bones: No fractures or dislocations. Mineralization is diffusely decreased. Mild degenerative changes are seen throughout the MCP and IP joints. Carpal bones are normally aligned. No suspicious bony lesions. Soft tissues: No suspicious soft tissue calcification or mass. IMPRESSION: Now radiographically apparent soft tissue mass or underlying osseous abnormality. Dictated by: Shraddha Barrios M.D. on 06/06/2024 at 11:47 Approved by: Shraddha Barrios M.D. on 06/06/2024 at 11:48
== END ==
PROVIDERS: PCP Internal Medicine; Referring Provider Registered Nurse; Visit Provider Registered Nurse
DX: M79.642 Pain in left hand (principal)
CPT/HCPCS: 73130

== ENCOUNTER 2024-09-26 09:56 | Observation (INO) | payer MEDICARE, SELFPAY ==
[2024-09-26] VITALS (38 sets, daily range): BP systolic 145–185; BP diastolic 65–109; PULSE 34–118; RESP 16–35; TEMP 35.9–36.4; O2SAT 91–98; BMI 30.1
--- NOTE | 2024-09-26 10:05 | DI.RAD.S_ITS ---
PROCEDURE: XR CHEST 1V INDICATIONS: chest pain TECHNIQUE: One view of the chest was acquired. COMPARISON: [facility], CR, XR CHEST 2V, 09/11/2022, 13:54. [facility], CR, XR CHEST 1V, 07/07/2023, 5:26. FINDINGS: Surgical changes and devices: None. Lungs and pleura: An incomplete inspiratory result is noted, causing a crowded appearance to the lung markings. No focal infiltrates are seen. No pneumothorax or significant pleural effusions are seen. Mediastinum: Mediastinal contours appear normal. Heart size is normal. Bones and chest wall: No suspicious bony lesions. Age-appropriate bony degenerative changes are seen. Overlying soft tissues appear unremarkable. IMPRESSION: Low lung volumes, without an acute abnormality seen by plain film. Dictated by: Davian Diez M.D. on 09/26/2024 at 9:42 Approved by: Davian Diez M.D. on 09/26/2024 at 9:42
--- NOTE | 2024-09-26 10:08 | EKG_ITS ---
[address] [address] Test Date: 2024-09-26 Pat Name: Gaudencio Dennis Department: Room: Gender: Male Booking Officer: SUZY : [id number] Requested By: Order Number: [id number] Reading MD: Delmer Ayala Measurements Intervals [employer] Rate: 43 P: 99 CA: 256 QRS: -47 QRSD: 148 T: 47 QT: 582 QTc: 491 Interpretive Statements Marked sinus bradycardia with 1st degree AV block with premature supraventricular complexes Left axis deviation Left bundle branch block Electronically Signed On 09-26-2024 15:35:09 PST by Delmer Ayala
[2024-09-26 10:23] LABS: Add Manual Diff / Slide Review NO; Basophils Absolute Auto 100 /uL (0-100); Basophils Percent Auto 1.1 % (0-2); Eosinophils Absolute Auto 200 /uL (0-450); Eosinophils Percent Auto 1.7 % (2-4); Hematocrit 50.5 % (41-53); Hemoglobin 17.2 g/dL (13.5-17.5); Lymphocytes Absolute Auto 1400 /uL (1100-4500); Lymphocytes Percent Auto 15.7 % (25-40); Mean Corpuscular Volume 94.3 fL (80-100); Monocytes Absolute Auto 700 /uL (0-900); Monocytes Percent Auto 7.7 % (3-14); Neutrophils Absolute Auto 6800 /uL (1500-7000); Neutrophils Percent Auto 73.8 % (50-75); Platelet Count 227 X10^3/uL (150-400); Red Blood Cell Count 5.36 X10^6/uL (4.5-5.9); Red Cell Distribution Width 13.6 % (11.6-14.8); White Blood Cell Count 9.1 X10^3/uL (4.5-11.0)
[2024-09-26 10:28] LABS: INR 1.3 (0.9-1.3); Prothrombin Time 14.4 SECONDS (9.4-12.5)
[2024-09-26 10:32] LABS: Alanine Aminotransferase 22 IU/L (<50); Albumin 4.3 g/dL (3.5-5.0); Albumin Globulin Ratio 1.5 (1.0-2.8); Alkaline Phosphatase 91 U/L (38-126); Aspartate Aminotransferase 29 IU/L (17-59); Blood Urea Nitrogen 26 mg/dL (9-20); Calcium 8.8 mg/dL (8.4-10.2); Carbon Dioxide 28 mmol/L (22-32); Chloride 99 mmol/L (98-107); Creatine Kinase 100 U/L (55-170); Estimated Glomerular Filt Rate 41 mL/min (>60); Globulin 2.9 g/dL (1.7-4.1); Glucose 99 mg/dL (80-110); HEMOLYSIS 19 (0-50); Lipase 55 U/L (23-300); Magnesium 2.1 mg/dL (1.6-2.3); Potassium 3.5 mmol/L (3.4-5.1); Sodium 135 mmol/L (137-145); Total Protein 7.2 g/dL (6.3-8.2)
[2024-09-26 10:36] LABS: PTT Partial Thromboplastin Tim 41 SECONDS (25.1-36.5)
[2024-09-26] MEDS: ATROPINE 1 MG/10 ML SYRINGE IV (10:38)
[2024-09-26 10:44] LABS: NT-proBNP (BNP-Adult 18+) 936 pg/mL (<450); Troponin I 0.027 ng/mL (0.01-0.034)
--- NOTE | 2024-09-26 11:03 | ED_ITS ---
HPI - General Adult General Chief complaint: Dizziness Stated complaint: lw blood pressure//dizzy Time Seen by Provider: 09/26/24 10:11 Source: patient and family Mode of arrival: Ambulatory History of Present Illness HPI narrative: 89-year-old male with history of dementia, chronic Eliquis anticoagulation, lives at home with who is caregiver and historian now at bedside, noted by to have 3 days duration of increased shortness of breath, no chest pain, new inability to tolerate walking short distance flat surfaces due to shortness of breath. No fevers or chills, no cough noted. No change in lower extremity swelling. Low blood pressure readings on home blood pressure monitor, also she had decreased the dose of diltiazem from 240-180 mg with last dose yesterday. No diaphoresis. No nausea or vomiting. No headache. No focal weakness to face arm or leg. No other change in medications, no new medications. No painful urination known, no incontinence to urine or stool recent. No black or red stools or loose stools recent known. Related Data Home Medications Medication Instructions Recorded Confirmed vitamins A,C,I-wzdw-bccqnj 2,148 1 tab PO BID 03/31/18 09/26/24 mcg-113 mg-45 mg-17.4 mg tablet (PreserVision AREDS) ascorbic acid (vitamin C) 500 mg 1 g PO BEDTIME #0 tabs 12/26/21 09/26/24 tablet aspirin 81 mg tablet,delayed 81 mg PO QAM 12/26/21 09/26/24 release (Adult Aspirin Regimen) potassium 99 mg tablet 99 mg PO DAILY 06/18/22 09/26/24 vitamin E (dl, acetate) 180 mg PO DAILY 06/18/22 09/26/24 fluticasone propionate 230 2 puff inhalation BID Improve 07/30/22 09/26/24 mcg-salmeterol 21 mcg/actuation breathing HFA inhaler (Advair HFA) mecobalamin (vitamin B12) 1,000 1,000 mcg PO DAILY B12 levels were 05/30/23 09/26/24 mcg chewable tablet low in past loratadine 10 mg tablet (Claritin) 10 mg PO DAILY 03/30/24 09/26/24 iron,carbonyl 65 mg-vitamin C 125 1 tab PO DAILY Anemia 08/03/24 09/26/24 mg tablet,delayed release Previous Rx's Medication Instructions Recorded Disabled Parking #1 ea 02/26/22 atorvastatin 20 mg tablet 20 mg PO QAM #90 tabs 12/19/23 finasteride 5 mg tablet 5 mg PO DAILY #90 tabs 01/02/24 citalopram 20 mg tablet 20 mg PO DAILY #90 tabs 03/11/24 hydrochlorothiazide 25 mg tablet 25 mg PO QAM #90 tabs 04/27/24 citalopram 10 mg tablet 10 mg PO DAILY #90 tabs 06/11/24 apixaban 5 mg tablet (Eliquis) 5 mg PO Q12H #180 tabs 07/27/24 Allergies Allergy/AdvReac Type Severity Reaction Status Date / Time Sulfa (Sulfonamide Allergy Mild rash Verified 09/26/24 10:25 Antibiotics) Horse/Equine Containing AdvReac Severe CONVULSION Verified 09/26/24 10:25 Products tamsulosin AdvReac Mild Lower Verified 09/26/24 10:25 extremity edema doxycycline AdvReac Unknown high blood Verified 09/26/24 10:25 pressure Review of Systems Review of Systems Narrative: see HPI Patient History Medical History Late onset Alzheimer's dementia without behavioral disturbance History of gross hematuria History of urinary tract infection History of urinary retention B12 deficiency Major neurocognitive disorder Memory loss Pulmonary embolism (~05/2021) Chronic anticoagulation Urinary tract infection associated with indwelling urethral catheter Constipation Alcoholic hepatitis Alcohol dependence Alcohol use with withdrawal BPH (benign prostatic hyperplasia) Acute renal failure Hypoxia Chronic back pain BPH w urinary obs/LUTS Alcohol abuse Chronic obstructive pulmonary disease (01/27/18) Paroxysmal atrial fibrillation (03/16/16) Essential tremor (12/28/14) 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) Mixed hyperlipidemia (05/17/11) Essential hypertension (05/17/11) Surgical History S/P carotid endarterectomy (02/06/22) H/O laminectomy S/P hernia repair Hx of appendectomy History of radiofrequency ablation (RFA) procedure for cardiac arrhythmia (~2018) Status post cholecystectomy (09/2015) Family History Mother CAD (coronary artery disease) Father Hypertension Hearing impaired Social History marital status: number of children: 3 household members: spouse lives independently: Yes caregiver/support person: No housing: house pets and animals: Yes education level: other occupational status: other current occupational exposures/hazards: No 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 HEAD: Atraumatic. Normocephalic. EYES: Pupils equal round and reactive. Extraocular motions intact. No scleral icterus. No injection or drainage. ENT: Nose without bleeding, purulent drainage. Throat without erythema, tonsillar hypertrophy or exudate. Airway patent. NECK: Trachea midline. Non tender CARDIOVASCULAR: Slow rate regular rhythm, without murmurs, gallops, or rubs. RESPIRATORY: Clear to auscultation. Breath sounds equal bilaterally. No wheezes, rales, or rhonchi. GASTROINTESTINAL: Abdomen soft, non-tender, nondistended. EXTREMITIES: No edema or joint tenderness. BACK: Nontender without deformity or crepitance. No flank tenderness. NEURO: AOx3. Motor functions grossly nonfocal SKIN: No rash or erythema of visible areas Initial Vital Signs Initial Vital Signs: Vital Signs Pulse Rate 118 H 09/26/24 10:03 Pulse Oximetry 94 09/26/24 10:03 Oxygen Delivery Method Room Air 09/26/24 10:03 Course Orders Ordered: Acetaminophen (Acetaminophen 325 Mg Tablet) 650 mg PO Q6H PRN PRN Reason: Fever/Mild Pain (1-3) Al Hydrox/Mg Hydrox/Simethicone (Mag Hydrox/Alum/Simeth 30 Ml Udc) 30 ml PO Q6HR PRN PRN Reason: Dyspepsia Magnesium Hydroxide (Magnesium Hydroxide 30 Ml Udc) 30 ml PO DAILY PRN PRN Reason: Constipation Naloxone HCl (Naloxone 0.4 Mg/Ml Vial) 0.2 mg IV Q2MIN PRN PRN Reason: Opiate Reversal Ondansetron HCl (Ondansetron 4 Mg Odt) 4 mg PO Q8HR PRN PRN Reason: Nausea And Vomiting Discontinued Medications Aspirin (Aspirin 81 Mg Chew Tab) 324 mg PO NOW ONE Stop: 09/26/24 10:06 Last Admin: 09/26/24 10:58 Dose: Not Given Documented By: MLM Atropine Sulfate (Atropine 1 Mg/10 Ml Syringe) 1 mg IV NOW ONE Stop: 09/26/24 10:27 Last Admin: 09/26/24 10:38 Dose: 1 mg Documented By: MLM Vital Signs Vital signs: Vital Signs - 8 hr 09/26/24 10:03 09/26/24 10:05 09/26/24 10:05 Temperature Pulse Rate 118 H 44 L Respiratory Rate 20 Blood Pressure 176/75 H Pulse Oximetry 94 96 Oxygen Delivery Method Room Air 09/26/24 10:10 09/26/24 10:30 09/26/24 10:31 Temperature 97.6 F Pulse Rate 41 L 39 L 39 L Respiratory Rate 26 H 22 17 Blood Pressure 176/75 H Pulse Oximetry 94 97 96 Oxygen Delivery Method Room Air 09/26/24 10:31 09/26/24 10:40 09/26/24 10:40 Temperature Pulse Rate 39 L Respiratory Rate 24 Blood Pressure 145/65 H 171/76 H Pulse Oximetry 94 Oxygen Delivery Method 09/26/24 10:47 09/26/24 10:47 09/26/24 10:50 Temperature Pulse Rate 46 L 47 L Respiratory Rate 22 21 Blood Pressure 157/70 H Pulse Oximetry 95 95 Oxygen Delivery Method 09/26/24 10:50 09/26/24 11:00 09/26/24 11:00 Temperature Pulse Rate 45 L Respiratory Rate 19 Blood Pressure 166/74 H 162/72 H Pulse Oximetry 96 Oxygen Delivery Method 09/26/24 11:10 09/26/24 11:10 09/26/24 11:20 Temperature Pulse Rate 42 L 41 L Respiratory Rate 19 21 Blood Pressure 149/70 H Pulse Oximetry 93 95 Oxygen Delivery Method 09/26/24 11:20 09/26/24 11:30 09/26/24 11:30 Temperature Pulse Rate 41 L Respiratory Rate 19 Blood Pressure 158/74 H 173/79 H Pulse Oximetry 95 Oxygen Delivery Method 09/26/24 11:40 09/26/24 11:40 09/26/24 11:51 Temperature Pulse Rate 39 L Respiratory Rate 22 Blood Pressure 171/77 H 185/74 H Pulse Oximetry 91 Oxygen Delivery Method 09/26/24 11:51 09/26/24 12:00 09/26/24 12:00 Temperature Pulse Rate 41 L 39 L Respiratory Rate 22 24 Blood Pressure 169/78 H Pulse Oximetry 91 94 Oxygen Delivery Method 09/26/24 12:10 09/26/24 12:10 09/26/24 12:21 Temperature Pulse Rate 39 L Respiratory Rate 21 Blood Pressure 175/77 H 185/83 H Pulse Oximetry 97 Oxygen Delivery Method 09/26/24 12:21 09/26/24 12:30 09/26/24 12:31 Temperature Pulse Rate 38 L 36 L 37 L Respiratory Rate 18 17 21 Blood Pressure Pulse Oximetry 95 96 96 Oxygen Delivery Method 09/26/24 12:31 09/26/24 12:40 09/26/24 12:40 Temperature Pulse Rate 36 L Respiratory Rate 18 Blood Pressure 178/81 H 175/75 H Pulse Oximetry 94 Oxygen Delivery Method 09/26/24 12:50 09/26/24 12:50 09/26/24 13:00 Temperature Pulse Rate 41 L 37 L Respiratory Rate 18 19 Blood Pressure 171/78 H Pulse Oximetry 94 95 Oxygen Delivery Method 09/26/24 13:01 09/26/24 13:01 09/26/24 13:10 Temperature Pulse Rate 38 L Respiratory Rate 22 Blood Pressure 179/79 H 176/81 H Pulse Oximetry 94 Oxygen Delivery Method 09/26/24 13:10 Temperature Pulse Rate 38 L Respiratory Rate 20 Blood Pressure Pulse Oximetry 97 Oxygen Delivery Method Medical Decision Making Lab Data Lab results reviewed: Yes I reviewed the patient's lab results. Lab results narrative: White blood cell count 9100, hemoglobin 17.2, platelets adequate. Sodium slightly low 135, potassium 3.5 normal, serum CO2 28, BUN 26 with creatinine 1.62 elevated, glucose 99. Troponin 0.27 low measurable. BNP 936 mildly elevated. 09/26/24 10:15 09/27/24 04:51 Labs: Lab Results 09/26/24 09/26/24 Range/Units 10:15 12:30 WBC 9.1 (4.5-11.0) X10^3/uL RBC 5.36 (4.5-5.9) X10^6/uL Hgb 17.2 (13.5-17.5) g/dL Hct 50.5 (41-53) % MCV 94.3 (80-100) fL MCH 32.0 (26-34) PG MCHC 34.0 (30-36) % RDW 13.6 (11.6-14.8) % Plt Count 227 (150-400) X10^3/uL Neut % (Auto) 73.8 (50-75) % Lymph % (Auto) 15.7 L (25-40) % [place] % (Auto) 7.7 (3-14) % Eos % (Auto) 1.7 L (2-4) % Baso % (Auto) 1.1 (0-2) % Neut # (Auto) 6800 (6067-5172) /uL Lymph # (Auto) 1400 (9716-4241) /uL [place] # (Auto) 700 (0-900) /uL Eos # (Auto) 200 (0-450) /uL Baso # (Auto) 100 (0-100) /uL PT 14.4 H (9.4-12.5) SECONDS INR 1.3 (0.9-1.3) APTT 41 H (25.1-36.5) SECONDS Sodium 135 L (137-145) mmol/L Potassium 3.5 (3.4-5.1) mmol/L Chloride 99 (98-107) mmol/L Carbon Dioxide 28 (22-32) mmol/L BUN 26 H (9-20) mg/dL Creatinine 1.62 H (0.66-1.25) mg/dL Estimated GFR 41 L (>60) mL/min BUN/Creatinine Ratio 16.0 (6-22) Glucose 99 (80-110) mg/dL Calcium 8.8 (8.4-10.2) mg/dL Magnesium 2.1 (1.6-2.3) mg/dL Total Bilirubin 1.0 (0.2-1.3) mg/dL AST 29 (17-59) IU/L ALT 22 (<50) IU/L Alkaline Phosphatase 91 (38-126) U/L Total Creatine Kinase 100 (55-170) U/L Troponin I 0.027 0.023 (0.01-0.034) ng/mL NT-Pro-B Natriuret Pep 936 H (<450) pg/mL Total Protein 7.2 (6.3-8.2) g/dL Albumin 4.3 (3.5-5.0) g/dL Globulin 2.9 (1.7-4.1) g/dL Albumin/Globulin Ratio 1.5 (1.0-2.8) Lipase 55 (23-300) U/L ECG Data Attestation: I personally reviewed and interpreted this ECG as follows: Interpretation: Sinus bradycardia with rate of 43, left bundle branch block pattern noted. Marked first-degree AV block with WI 256, QRS 148, QTC 491. Change in rhythm and new left bundle branch since comparison study 08/2022. MDM Narrative Medical decision making narrative: 89-year-old male with history of dementia noted by caregiver at bedside to be having recent days of exertion on dyspnea, unable to tolerate usual household ADLs due to feeling short of breath with minimal exertion. Denies chest pain. Denies nausea or vomiting diaphoresis. Afebrile, sirs screen negative. Low blood pressure readings reported at home, not low on arrival here, however marked sinus bradycardia noted. Patient has been taking diltiazem extended release, last dose yesterday. No pacemaker history. Possible symptomatic bradycardia, IV atropine 1 mg trial. No significant change after atropine dose. Patient on calcium channel maulik hopefully this can be withheld and heart rate will improve, consider admission for monitoring off calcium channel maulik. Left bundle branch block on EKG new from 2 years ago, no chest pain, initial troponin low but measurable, we will repeat interval troponin. If not significantly changed consider calling PCP Bernadette/[place] regarding admission here on telemetry. and patient agreeable to this plan, await repeat troponin Initial troponin 0.027, repeat troponin 0.023, again low range and not increasing. No chest pain. We will consult PCP Dr Fleming/kai morales regarding admission to telemetry, likely holding his Diltiazem XL long acting calcium channel maulik, hoping that bradycardia will resolve. Might require cardiac pacemaker if symptomatic bradycardia persists. Patient/ amenable to this plan 1345, case discussed with Dr. Hinkle who is covering for PCP Dr. Fleming, accepts patient for admission to telemetry. Hold diltiazem. Discharge Plan Departure Patient Disposition: Admitted as Observation Clinical Impression: Sinus bradycardia, Exertional dyspnea, History of dementia Admit Date/Time: 09/26/24 13:53 Admit Provider: Trent Hinkle
[2024-09-26 13:05] LABS: Troponin I 0.023 ng/mL (0.01-0.034)
--- NOTE | 2024-09-26 17:04 | PC.NURSE ---
PATIENT CONFUSED,NOT SURE WHY IS HERE,CONCERNED THAT HIS DOES NOT KNOW HE IS HERE,BED ALARM ON,ASSISTED TO BATHROOM WHEN NEEDED.NO SKIN ISSUES FROM WHAT HE ALLOWS ME TO SEE,WILL NOT ALLOW ME TO CHECK HIS BOTTOM OR LEGS.TELE IN PLACE.CALL LIGHT IN HIS HAND.
--- NOTE | 2024-09-26 18:44 | PM.HP.1 ---
History of Present Illness History of Present Illness Date Patient Seen: 09/26/24 Time Patient Seen: 18:44 Date of Onset of Symptoms: 09/23/24 Chief complaint: low blood pressure//dizzy Narrative: Patient is a severely demented appy elderly male who presents for bradycardia and shortness of breath. Apparently his has been watching for 3 days and he has been increasingly short of breath. Happy without complaint. No chest pain no other complaints. Apparently he has been having lower blood pressures. And pulses into the 40s. Due to the fact he was having more and more trouble going across the room brought him in for evaluation. He otherwise has had no cough headaches visual symptoms numbness tingling abdominal pain change in urine or bowel function. Patient was noted to be in the 30s in the hospital here but with normal blood pressure. [facility] Medical History Late onset Alzheimer's dementia without behavioral disturbance History of gross hematuria History of urinary tract infection History of urinary retention B12 deficiency Major neurocognitive disorder Memory loss Pulmonary embolism (~05/2021) Chronic anticoagulation Urinary tract infection associated with indwelling urethral catheter Constipation Alcoholic hepatitis Alcohol dependence Alcohol use with withdrawal BPH (benign prostatic hyperplasia) Acute renal failure Hypoxia Chronic back pain BPH w urinary obs/LUTS Alcohol abuse Chronic obstructive pulmonary disease (01/27/18) Paroxysmal atrial fibrillation (03/16/16) Essential tremor (12/28/14) 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) Mixed hyperlipidemia (05/17/11) Essential hypertension (05/17/11) Surgical History S/P carotid endarterectomy (02/06/22) H/O laminectomy S/P hernia repair Hx of appendectomy History of radiofrequency ablation (RFA) procedure for cardiac arrhythmia (~2018) Status post cholecystectomy (09/2015) Family History Mother CAD (coronary artery disease) Father Hypertension Hearing impaired Social History marital status: number of children: 3 household members: spouse lives independently: Yes caregiver/support person: No housing: house pets and animals: Yes education level: other occupational status: other current occupational exposures/hazards: No 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 leisure activities: sports, exercise, music, games, hunting and fishing Smoking Status: Former smoker Tobacco: How many years used: 15 Smokeless tobacco user: other quit status: quit date established alcohol intake: current substance use type: does not use Meds Home Medications and Allergies Home Medications Medication Instructions Recorded Confirmed Type vitamins A,C,U-hrhy-ltzoxt 2,148 1 tab PO BID 03/31/18 09/26/24 History mcg-113 mg-45 mg-17.4 mg tablet (PreserVision AREDS) ascorbic acid (vitamin C) 500 mg 1 g PO BEDTIME #0 tabs 12/26/21 09/26/24 History tablet aspirin 81 mg tablet,delayed 81 mg PO QAM 12/26/21 09/26/24 History release (Adult Aspirin Regimen) Disabled Parking #1 ea 02/26/22 09/26/24 Rx potassium 99 mg tablet 99 mg PO DAILY 06/18/22 09/26/24 History vitamin E (dl, acetate) 180 mg PO DAILY 06/18/22 09/26/24 History fluticasone propionate 230 2 puff inhalation BID Improve 07/30/22 09/26/24 History mcg-salmeterol 21 mcg/actuation breathing HFA inhaler (Advair HFA) mecobalamin (vitamin B12) 1,000 1,000 mcg PO DAILY B12 levels were 05/30/23 09/26/24 History mcg chewable tablet low in past atorvastatin 20 mg tablet 20 mg PO QAM #90 tabs 12/19/23 09/26/24 Rx finasteride 5 mg tablet 5 mg PO DAILY #90 tabs 01/02/24 09/26/24 Rx citalopram 20 mg tablet 20 mg PO DAILY #90 tabs 03/11/24 09/26/24 Rx loratadine 10 mg tablet (Claritin) 10 mg PO DAILY 03/30/24 09/26/24 History diltiazem HCl 240 mg capsule,24 240 mg PO DAILY #90 caps 04/03/24 09/26/24 Rx hr,extended release hydrochlorothiazide 25 mg tablet 25 mg PO QAM #90 tabs 04/27/24 09/26/24 Rx citalopram 10 mg tablet 10 mg PO DAILY #90 tabs 06/11/24 09/26/24 Rx apixaban 5 mg tablet (Eliquis) 5 mg PO Q12H #180 tabs 07/27/24 09/26/24 Rx iron,carbonyl 65 mg-vitamin C 125 1 tab PO DAILY Anemia 08/03/24 09/26/24 History mg tablet,delayed release Allergies Allergy/AdvReac Type Severity Reaction Status Date / Time Sulfa (Sulfonamide Allergy Mild rash Verified 09/26/24 10:25 Antibiotics) Horse/Equine Containing AdvReac Severe CONVULSION Verified 09/26/24 10:25 Products tamsulosin AdvReac Mild Lower Verified 09/26/24 10:25 extremity edema doxycycline AdvReac Unknown high blood Verified 09/26/24 10:25 pressure Review of Systems Review of Systems Narrative: Review of systems negative except above Exam Vital Signs (past 8 hours): - 09/26/24 10:47 09/26/24 10:47 09/26/24 10:50 Pulse Rate 46 L 47 L Respiratory Rate 22 21 Blood Pressure 157/70 H Pulse Oximetry 95 95 09/26/24 10:50 09/26/24 11:00 09/26/24 11:00 Pulse Rate 45 L Respiratory Rate 19 Blood Pressure 166/74 H 162/72 H Pulse Oximetry 96 09/26/24 11:10 09/26/24 11:10 09/26/24 11:20 Pulse Rate 42 L 41 L Respiratory Rate 19 21 Blood Pressure 149/70 H Pulse Oximetry 93 95 09/26/24 11:20 09/26/24 11:30 09/26/24 11:30 Pulse Rate 41 L Respiratory Rate 19 Blood Pressure 158/74 H 173/79 H Pulse Oximetry 95 09/26/24 11:40 09/26/24 11:40 09/26/24 11:51 Pulse Rate 39 L Respiratory Rate 22 Blood Pressure 171/77 H 185/74 H Pulse Oximetry 91 09/26/24 11:51 09/26/24 12:00 09/26/24 12:00 Pulse Rate 41 L 39 L Respiratory Rate 22 24 Blood Pressure 169/78 H Pulse Oximetry 91 94 09/26/24 12:10 09/26/24 12:10 09/26/24 12:21 Pulse Rate 39 L Respiratory Rate 21 Blood Pressure 175/77 H 185/83 H Pulse Oximetry 97 09/26/24 12:21 09/26/24 12:30 09/26/24 12:31 Pulse Rate 38 L 36 L 37 L Respiratory Rate 18 17 21 Blood Pressure Pulse Oximetry 95 96 96 09/26/24 12:31 09/26/24 12:40 09/26/24 12:40 Pulse Rate 36 L Respiratory Rate 18 Blood Pressure 178/81 H 175/75 H Pulse Oximetry 94 09/26/24 12:50 09/26/24 12:50 09/26/24 13:00 Pulse Rate 41 L 37 L Respiratory Rate 18 19 Blood Pressure 171/78 H Pulse Oximetry 94 95 09/26/24 13:01 09/26/24 13:01 09/26/24 13:10 Pulse Rate 38 L Respiratory Rate 22 Blood Pressure 179/79 H 176/81 H Pulse Oximetry 94 09/26/24 13:10 09/26/24 13:20 09/26/24 13:20 Pulse Rate 38 L 38 L Respiratory Rate 20 22 Blood Pressure 158/71 H Pulse Oximetry 97 95 09/26/24 13:31 09/26/24 13:31 09/26/24 13:41 Pulse Rate 39 L 40 L Respiratory Rate 28 H 30 H Blood Pressure 170/70 H Pulse Oximetry 96 97 09/26/24 13:41 09/26/24 13:51 09/26/24 14:00 Pulse Rate 42 L Respiratory Rate 25 H Blood Pressure 178/83 H 170/109 H Pulse Oximetry 09/26/24 14:00 09/26/24 14:02 09/26/24 14:02 Pulse Rate 38 L 40 L Respiratory Rate 29 H 25 H Blood Pressure 184/79 H Pulse Oximetry 97 98 09/26/24 14:11 09/26/24 14:11 09/26/24 14:20 Pulse Rate 34 L 38 L Respiratory Rate 29 H 21 Blood Pressure 155/70 H Pulse Oximetry 98 98 09/26/24 14:20 09/26/24 14:30 09/26/24 14:31 Pulse Rate 36 L Respiratory Rate 35 H Blood Pressure 185/79 H 162/71 H Pulse Oximetry 96 09/26/24 14:41 Pulse Rate 38 L Respiratory Rate 24 Blood Pressure Pulse Oximetry 98 Oxygen Delivery Method Room Air Narrative Exam Narrative: Alert elderly male smiling interactive in no acute distress HEENT exam is unremarkable neck supple without adenopathy lungs are clear. Heart is normal normal rhythm with a 2 to 3/6 systolic murmur best heard at the left sternal border although radiating to the right and into the right neck. Bradycardic. No other changes. Obese. No hepatosplenomegaly extremities without cyanosis clubbing edema. Patient is not a oriented to person place or time. Objective Labs 09/26/24 10:15 09/26/24 10:15 Labs: Laboratory Results - last 24 hr 09/26/24 09/26/24 10:15 12:30 WBC 9.1 RBC 5.36 Hgb 17.2 Hct 50.5 MCV 94.3 MCH 32.0 MCHC 34.0 RDW 13.6 Plt Count 227 Neut % (Auto) 73.8 Lymph % (Auto) 15.7 L [place] % (Auto) 7.7 Eos % (Auto) 1.7 L Baso % (Auto) 1.1 Neut # (Auto) 6800 Lymph # (Auto) 1400 [place] # (Auto) 700 Eos # (Auto) 200 Baso # (Auto) 100 PT 14.4 H INR 1.3 APTT 41 H Sodium 135 L Potassium 3.5 Chloride 99 Carbon Dioxide 28 BUN 26 H Creatinine 1.62 H Estimated GFR 41 L BUN/Creatinine Ratio 16.0 Glucose 99 Calcium 8.8 Magnesium 2.1 Total Bilirubin 1.0 AST 29 ALT 22 Alkaline Phosphatase 91 Total Creatine Kinase 100 Troponin I 0.027 0.023 NT-Pro-B Natriuret Pep 936 H Total Protein 7.2 Albumin 4.3 Globulin 2.9 Albumin/Globulin Ratio 1.5 Lipase 55 Assessment & Plan Assessment & Plan narrative: Bradycardia. Patient with history of atrial fibrillation on Cardizem. Currently bradycardic. Over the last 3 days no evidence of ischemia or other changes. Patient comfortable right now. Maybe slightly increase in his pulse into the 40s although still sometimes in the 30s. Blood pressure is stable. Will hold Cardizem and follow. May take 48 hours. Will see how things go. If not improved by Saturday may need to consider pacer. Atrial fibrillation. Will continue anticoagulation and follow from there. BPH. Stable. Will follow. Hypertension. Currently not an issue but will follow. May need to use a known AV effective drug if comes up. But will see how it goes re-evaluate tomorrow. Code status discussed with currently full. DVT prophylaxis on Eliquis GI prophylaxis not needed Disposition. Hopefully pulse will come up blood pressure will be stable and we can discharge tomorrow but unclear at this time. May need 48 hours. Discussed with . Patient. Discussion with patient orders dictation 55 minutes. Time-Based Coding :: [TOTAL MINUTES] spent with patient and on the chart (including review of chart, obtaining history, exam, reviewing outside data, placing orders, documenting exam and treatment plan, and counseling patient) on [DATE]. Quality VTE Deep Vein Thrombosis/Pulmonary Embolism Present on Admission: No
[2024-09-27] VITALS: BP 155/72; PULSE 41; RESP 19; TEMP 36.4; O2SAT 94
[2024-09-27 04:50] VITALS: BP 193/70; PULSE 42; RESP 20; TEMP 36.3; O2SAT 94
[2024-09-27 05:50] LABS: Alanine Aminotransferase 19 IU/L (<50); Albumin 3.9 g/dL (3.5-5.0); Albumin Globulin Ratio 1.5 (1.0-2.8); Alkaline Phosphatase 87 U/L (38-126); Aspartate Aminotransferase 30 IU/L (17-59); Bilirubin Total 0.9 mg/dL (0.2-1.3); Blood Urea Nitrogen 23 mg/dL (9-20); Calcium 8.8 mg/dL (8.4-10.2); Carbon Dioxide 24 mmol/L (22-32); Chloride 102 mmol/L (98-107); Estimated Glomerular Filt Rate 50 mL/min (>60); Globulin 2.6 g/dL (1.7-4.1); Glucose 77 mg/dL (80-110); HEMOLYSIS 26 (0-50); Potassium 3.4 mmol/L (3.4-5.1); Sodium 133 mmol/L (137-145); Total Protein 6.5 g/dL (6.3-8.2)
[2024-09-27 07:40] VITALS: O2SAT 95
[2024-09-27 08:00] VITALS: BP 163/60; PULSE 40; RESP 18; TEMP 36.2; O2SAT 97
[2024-09-27 09:10] VITALS: BP 137/51; BP 147/56; PULSE 39; PULSE 44
--- NOTE | 2024-09-27 10:53 | P.DS_ITS ---
History of Present Illness History of Present Illness Date Patient Seen: 09/27/24 Time Patient Seen: 10:53 Date of Onset of Symptoms: 09/23/24 Chief complaint: low blood pressure//dizzy Narrative: Patient is a severely demented appy elderly male who presents for bradycardia and shortness of breath. Apparently his has been watching for 3 days and he has been increasingly short of breath. Happy without complaint. No chest pain no other complaints. Apparently he has been having lower blood pressures. And pulses into the 40s. Due to the fact he was having more and more trouble going across the room brought him in for evaluation. He otherwise has had no cough headaches visual symptoms numbness tingling abdominal pain change in urine or bowel function. Patient was noted to be in the 30s in the hospital here but with normal blood pressure. Discharge Providers Provider Date of admission: 09/26/24 13:53 Discharge Date: 09/27/24 Primary care physician: Ten Fleming MD Discharge provider: Trent Hinkle MD Summary Hospital Course Discharge Diagnosis: Bradycardia Atrial fibrillation Acute renal failure on chronic BPH Hypertension Hospital Course: Bradycardia. Patient was admitted with pulses in the 30s. With a 3 day history of worsening. Cardizem was discontinued blood pressure actually remained pretty stable over the course of the 1st 24 hours and actually improved. Pulses were increased into the 40s at least but not much higher and patient was not lightheaded dizzy or other change orthostatics were normal. And he was able to walk around the hospital without issues. Discussed with . Still is not at a point where we can say it is out of the [place] but will need to be just followed as an outpatient I think he can go home. Due to his dementia it has been a difficult stay. Would rather go home. I think he is stable and safe to do so. Will need to be followed up early next week if continues to improve will probably need another blood pressure medicine that is not a heavy toxic. He understands his understands questions answered Atrial fibrillation. Rate seems to be clearly stable given the fact that his pulse is in the 30s. He is actually not in AFib at this time. Continue Eliquis. Will have to see. Certainly danger as he goes into AFib and has fast heart rates but at this point not an issue. Will follow as an outpatient with Dr. Fleming. Acute on chronic renal failure. Actually improved after 24 hours of actually probably have an a blood pressure and pulse increased. Will continue to follow Dr. Fleming can follow as an outpatient. Certainly improved. Probably at baseline. BPH. Stable no issue. Hypertension. Actually blood pressure was mildly elevated in the 140s on discharge. May need to consider alternative blood pressure medicine I am not going to add anything given the fact that he was so dizzy. But will have seen early next week and they can decide on further treatment at that time. Certainly risk is small at that time Total time spent 40 minutes with the patient dictation questions and orders Exam Vital Signs (past 8 hours): - 09/27/24 04:50 09/27/24 08:00 Temperature 97.4 F L 97.1 F L Pulse Rate 42 L 40 L Respiratory Rate 20 18 Blood Pressure 193/70 H 163/60 H Pulse Oximetry 94 97 Oxygen Flow Rate 0 0 Oxygen Delivery Method Room Air Oxygen Flow Rate 0 Narrative Exam Narrative: Alert smiling elderly male sitting comfortably in chair. Lungs are clear heart is with unchanged murmur. Bradycardic. Abdomen is soft positive bowel sounds nontender extremities without cyanosis clubbing edema. Continues to be confused. Objective Labs 09/26/24 10:15 09/27/24 04:51 Labs: Laboratory Results - last 24 hr 09/26/24 09/27/24 12:30 04:51 Sodium 133 L Potassium 3.4 Chloride 102 Carbon Dioxide 24 BUN 23 H Creatinine 1.35 H Estimated GFR 50 L BUN/Creatinine Ratio 17.0 Glucose 77 L Calcium 8.8 Total Bilirubin 0.9 AST 30 ALT 19 Alkaline Phosphatase 87 Troponin I 0.023 Total Protein 6.5 Albumin 3.9 Globulin 2.6 Albumin/Globulin Ratio 1.5 [facility] Medical History Late onset Alzheimer's dementia without behavioral disturbance History of gross hematuria History of urinary tract infection History of urinary retention B12 deficiency Major neurocognitive disorder Memory loss Pulmonary embolism (~05/2021) Chronic anticoagulation Urinary tract infection associated with indwelling urethral catheter Constipation Alcoholic hepatitis Alcohol dependence Alcohol use with withdrawal BPH (benign prostatic hyperplasia) Acute renal failure Hypoxia Chronic back pain BPH w urinary obs/LUTS Alcohol abuse Chronic obstructive pulmonary disease (01/27/18) Paroxysmal atrial fibrillation (03/16/16) Essential tremor (12/28/14) 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) Mixed hyperlipidemia (05/17/11) Essential hypertension (05/17/11) Surgical History S/P carotid endarterectomy (02/06/22) H/O laminectomy S/P hernia repair Hx of appendectomy History of radiofrequency ablation (RFA) procedure for cardiac arrhythmia (~2018) Status post cholecystectomy (09/2015) Family History Mother CAD (coronary artery disease) Father Hypertension Hearing impaired Social History marital status: number of children: 3 household members: spouse lives independently: Yes caregiver/support person: No housing: house pets and animals: Yes education level: other occupational status: other current occupational exposures/hazards: No 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/yazidism: [employer] leisure activities: sports, exercise, music, games, hunting and fishing Smoking Status: Former smoker Tobacco: How many years used: 15 Smokeless tobacco user: other quit status: quit date established alcohol intake: current substance use type: does not use Discharge Assessment & Plan Assessment and Plan Assessment: Improved Plan of Treatment: Discharge home with close follow-up Discharge Plan Discharge Plan Patient Disposition: Home Discharge orders & Medications Prescriptions: Continued ascorbic acid (vitamin C) 500 mg tablet 1 g PO BEDTIME Qty: 0 atorvastatin 20 mg tablet 20 mg PO QAM Qty: 90 3RF citalopram 20 mg tablet 20 mg PO DAILY Qty: 90 3RF hydrochlorothiazide 25 mg tablet 25 mg PO QAM Qty: 90 3RF citalopram 10 mg tablet 10 mg PO DAILY Qty: 90 3RF Rx Instructions: take with 20mg tabs to equal 30mg daily total Eliquis 5 mg tablet 5 mg PO Q12H Qty: 180 3RF Patient Comments: held r/t surgery. Due to restart 05/30/21 mecobalamin (vitamin B12) 1,000 mcg tablet,chewable 1,000 mcg PO DAILY iron,carbonyl-vitamin C 65 mg iron- 125 mg tablet,delayed release (DR/EC) 1 tab PO DAILY vitamins A,C,M-hxar-dqdwir [PreserVision AREDS] [id number],160-113-100 bfcm-jy-jwmr tablet 1 tab PO BID (DME) Disabled Parking See Rx Instructions .ROUTE .MEDSUPPLY Qty: 1 0RF Rx Instructions: Patient qualifies for disabled parking as per the attached form. potassium 99 mg tablet 99 mg PO DAILY vitamin E (dl, acetate) 180 mg PO DAILY Advair HFA 230-21 mcg/actuation HFA aerosol inhaler 2 puff inhalation BID Patient Comments: Lungs are basically okay so trying this to see if it helps breathing and perhaps stamina. loratadine [Claritin] 10 mg tablet 10 mg PO DAILY aspirin [Adult Aspirin Regimen] 81 mg tablet,delayed release (DR/EC) 81 mg PO QAM finasteride 5 mg tablet 5 mg PO DAILY Qty: 90 3RF Discontinued diltiazem HCl 240 mg capsule,extended release 24 hr 240 mg PO DAILY Qty: 90 3RF Follow up/Referrals: Ten Fleming MD [Primary Care Provider] - 3-5 Days (Patient's to call on Saturday for appointment this week) Discharge Health Status Multidrug resistant organism: No MDRO Diet/Activity/Treatments Diet: Diet as Tolerated Activity: As tolerated Visit Report/Discharge Packet Stand Alone Forms: Patient Portal/API, Stroke Signs & Symptoms Discharge Data Primary Care Provider: Ten Fleming Attending Provider: Trent Hinkle Admit Date/Time: 09/26/24 13:53 Quality VTE Deep Vein Thrombosis/Pulmonary Embolism Present on Admission: No
[2024-09-27 12:00] VITALS: BP 173/53; PULSE 43; RESP 18; TEMP 36.3; O2SAT 97
--- NOTE | 2024-09-27 12:19 | PC.NURSE ---
Pt wearing his clothes, jacket, shoes;glasses around the pt's neck, and pt's cellphone in pt's hand when taken out to POV in wheelchair accompied by PACKAGE DYEING MACHINE OPERATOR and pt's at time of discharge. VSS. Afebrile. Pt was able to stand and pivot into from hospital chair into wheelchair, stand and pivot into POV from wheelchair without any asssistance from staff. Pt's discharge instructions including when to take meds next, to stop the diltiazem, what sign and symptoms to watch for and when to to call PCP office and when to call 911 or go to the closest ED pt's verbalized understanding and all questions answered. Recommended to the pt and pt's to take the pt's BP and heart rate at home 2-3 times a day, record all vitals and bring the record of vitals to the pt's follow up appt with PCP the pt's verbalized understanding. Informed the and pt to write down any symptoms the pt is having and to take vital signs--HR and BP if and when the pt is having any symptoms such as SOB, chest pain, dizziness, lightheadedness, pt's feeling different than normal-- verbalized understanding the importance of keeping a log book/record of the pt's vitals and if the pt's having symptoms. All questions answered at the time of D/C.
--- NOTE | 2024-09-27 12:58 | CM.DANOTE ---
DCP B Assessment note Pt is an 89yo M here with bradycardia and SOB. PMH of dementia. PCP Bernadette Cunningham Medicare and AARP GLASS NOVELTY MAKER reviewed EMR. 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 Per RN, pt oscillated between pleasantly confused and anxious about where was overnight. no ambulatory concerns. Per paul Hinkle today with close OP f/u recommended. Pt left prior to being seen by this GLASS NOVELTY MAKER. GLASS NOVELTY MAKER updated TCM team. P: pt to dc home with spouse support and close OP f/u recommended. CM team will continue to follow as needed NEGRITO Garcia Discharge Planning/Care Management CM Discharge Assessment Start: 09/27/24 12:53 Freq: Status: Active Protocol: Document 09/27/24 12:53 (Rec: 09/27/24 12:54 [id number]) Discharge Planning Assessment Assigned Hog Slaughterer NEGRITO Gee DPOA/Assigned Designee Name Tatyana, spouse Contact Information [phone] Advance Directives? No History Provided By Patient,Family Member,Medical Record Prior Living Arrangements House Household Members spouse Type of transporation used prior to Relies on Others admit Independent with ADL's No Is patient alert and oriented? No: dementia Needs Assistance With Bathing,Grooming,Meal Prep, Managing Medications,Home Chores / Shopping Discharge Plan Home Transportation Arrangement spouse Referrals Initiated None needed Whiteboard Updated in Patient Room with No name and ext. # of Hog Slaughterer Review Status In Process Please Provide Date Initial DC 09/27/24 Assessment Was Performed Next Review Type Continued Stay Review
== END 2024-09-27 12:20 | disposition home or self-care (01) ==
LOC: ED 13:50 → AC 13:55
PROVIDERS: Admitting Provider Family Medicine; Emergency Provider Emergency Medicine; PCP Internal Medicine; Visit Provider Family Medicine
DX: R42 Dizziness and giddiness (principal); Z79.01 Long term (current) use of anticoagulants; F03.90 Unspecified dementia, unspecified severity, without behavioral disturbance, psychotic disturbance, mood disturbance, and anxiety; R00.1 Bradycardia, unspecified; I10 Essential (primary) hypertension; I48.91 Unspecified atrial fibrillation; I12.9 Hypertensive chronic kidney disease with stage 1 through stage 4 chronic kidney disease, or unspecified chronic kidney disease; N18.9 Chronic kidney disease, unspecified; N40.0 Benign prostatic hyperplasia without lower urinary tract symptoms
CPT/HCPCS: 36415; 71045; 80053; 82550; 83690; 83735; 83880; 84484; 85025; 85610; 85730; 93005; 96374; 99284; G0378; J0461

== ENCOUNTER 2025-02-21 03:11 | Inpatient (IN) | payer MEDICARE, SELFPAY ==
[2024-09-26 15:01] VITALS: BMI 30.1
[2025-02-21] VITALS (25 sets, daily range): BP systolic 128–160; BP diastolic 66–97; PULSE 78–99; RESP 16–43; TEMP 36.1–36.7; O2SAT 91–94; BMI 45.4
--- NOTE | 2025-02-21 03:27 | EKG_ITS ---
[address] [address] Test Date: 2025-02-21 Pat Name: Gaudencio Dennis Department: [facility] Room: Gender: Male Scrapper: : 1935 Requested By: Order Number: [id number] Reading MD: Delmer Ayala Measurements Intervals [place] Rate: 92 P: MS: QRS: -67 QRSD: 142 T: 53 QT: 422 QTc: 521 Interpretive Statements atrial fibrillation Left axis deviation Left bundle branch block Electronically Signed On 02-24-2025 17:37:31 PDT by Delmer Ayala
--- NOTE | 2025-02-21 03:40 | ED_ITS ---
HPI - General Adult General Chief complaint: Shortness of Breath/Dyspnea Stated complaint: 3 days of unable to walk far, SOB Time Seen by Provider: 02/21/25 03:38 History of Present Illness HPI narrative: 89-year-old male with history of dementia, lives at home with his , history of pacemaker placement September 2024, history of interstitial lung disease, history of atrial fibrillation on apixaban chronic anticoagulation, not usually on home oxygen, with 2 days duration of cough and increasing shortness of breath. Feels more shortness of breath, affecting his ability to walk, cannot walk now few stps without feeling shortness of breath. PCP Fleming Related Data Home Medications Medication Instructions Recorded Confirmed vitamins A,C,A-wtul-buerrx 2,148 1 tab PO BID 03/31/18 02/21/25 mcg-113 mg-45 mg-17.4 mg tablet (PreserVision AREDS) ascorbic acid (vitamin C) 500 mg 2 g PO BEDTIME #0 tabs 12/26/21 02/21/25 tablet aspirin 81 mg tablet,delayed 81 mg PO QAM 12/26/21 02/21/25 release (Adult Aspirin Regimen) potassium 99 mg tablet 99 mg PO DAILY 06/18/22 02/21/25 vitamin E (dl, acetate) 180 mg PO DAILY 06/18/22 02/21/25 fluticasone propionate 230 2 puff inhalation BID Improve 07/30/22 02/21/25 mcg-salmeterol 21 mcg/actuation breathing HFA inhaler (Advair HFA) mecobalamin (vitamin B12) 1,000 1,000 mcg PO DAILY B12 levels were 05/30/23 02/21/25 mcg chewable tablet low in past loratadine 10 mg tablet (Claritin) 10 mg PO DAILY 03/30/24 02/21/25 iron,carbonyl 65 mg-vitamin C 125 1 tab PO DAILY Anemia 08/03/24 02/21/25 mg tablet,delayed release guaifenesin 1,200 mg tablet, 1,200 mg PO BID 09/28/24 02/21/25 extended release 12 hr (Mucinex) cholecalciferol (vitamin D3) 50 50 mcg PO DAILY 02/21/25 02/21/25 mcg (2,000 unit) capsule (Vitamin D3) diltiazem HCl 240 mg 240 mg PO QAM 02/21/25 02/21/25 capsule,extended release 24 hr omega 1-jxu-whm-fish oil 900 2,410 cap PO DAILY 02/21/25 02/21/25 mg-1,400 mg capsule,delayed release Previous Rx's Medication Instructions Recorded Disabled Parking #1 ea 02/26/22 hydrochlorothiazide 25 mg tablet 25 mg PO QAM #90 tabs 04/27/24 apixaban 5 mg tablet (Eliquis) 5 mg PO Q12H #180 tabs 07/27/24 finasteride 5 mg tablet 5 mg PO .4x weekly #90 tabs 09/28/24 atorvastatin 20 mg tablet 20 mg PO QAM #90 tabs 10/29/24 citalopram 10 mg tablet 10 mg PO DAILY #90 tabs 11/02/24 citalopram 20 mg tablet 20 mg PO DAILY #90 tabs 11/02/24 finasteride 5 mg tablet 5 mg PO DAILY #90 tabs 01/06/25 Allergies Allergy/AdvReac Type Severity Reaction Status Date / Time Sulfa (Sulfonamide Allergy Mild rash Verified 01/06/25 15:13 Antibiotics) Horse/Equine Containing AdvReac Severe CONVULSION Verified 01/06/25 15:13 Products tamsulosin AdvReac Mild Lower Verified 01/06/25 15:13 extremity edema doxycycline AdvReac Unknown high blood Verified 01/06/25 15:13 pressure Patient History Medical History (Updated 02/21/25 @ 16:22 by Ken Brooks MD) History of gross hematuria History of urinary retention Pacemaker Late onset Alzheimer's dementia without behavioral disturbance History of urinary tract infection B12 deficiency Major neurocognitive disorder Memory loss Pulmonary embolism (~05/2021) Chronic anticoagulation Urinary tract infection associated with indwelling urethral catheter Constipation Alcoholic hepatitis Alcohol dependence Alcohol use with withdrawal BPH (benign prostatic hyperplasia) Acute renal failure Hypoxia Chronic back pain BPH w urinary obs/LUTS Alcohol abuse Chronic obstructive pulmonary disease (01/27/18) Paroxysmal atrial fibrillation (03/16/16) Essential tremor (12/28/14) 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) Mixed hyperlipidemia (05/17/11) Essential hypertension (05/17/11) Surgical History (Updated 10/09/24 @ 11:01 by Ten Fleming MD) Status post cardiac pacemaker procedure S/P carotid endarterectomy (02/06/22) H/O laminectomy S/P hernia repair Hx of appendectomy History of radiofrequency ablation (RFA) procedure for cardiac arrhythmia (~2019) Status post cholecystectomy (09/2015) Family History Mother CAD (coronary artery disease) Father Hypertension Hearing impaired Social History marital status: number of children: 3 household members: spouse lives independently: Yes caregiver/support person: No housing: house pets and animals: Yes education level: other occupational status: other current occupational exposures/hazards: No 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 HEAD: Atraumatic. Normocephalic. EYES: Pupils equal round and reactive. Extraocular motions intact. No scleral icterus. No injection or drainage. ENT: Nose without bleeding, purulent drainage. Throat without erythema, tonsillar hypertrophy or exudate. Airway patent. NECK: Trachea midline. Non tender CARDIOVASCULAR: Regular rate and rhythm without murmurs, gallops, or rubs. RESPIRATORY: Bibasilar crackles without obvious heezing, speak in just short of full sentences. No intercostal or suprasternal retractions obvious. No wheeze obvious. GASTROINTESTINAL: Abdomen soft, non-tender, nondistended. EXTREMITIES: No edema or joint tenderness. BACK: Nontender without deformity or crepitance. No flank tenderness. NEURO: AOx3. Motor functions grossly nonfocal SKIN: No rash or erythema of visible areas Initial Vital Signs Initial Vital Signs: Vital Signs Blood Pressure 144/83 H 02/21/25 03:20 Course Orders Ordered: Acetaminophen (Acetaminophen 325 Mg Tablet) 650 mg PO Q6H PRN PRN Reason: Fever/Mild Pain (1-3) Albuterol (Albuterol 2.5 Mg/3 Ml Neb (Adult)) 2.5 mg INH Q4HRWA SARAI Last Admin: 02/21/25 15:56 Dose: Not Given Documented By: Admin: 02/21/25 10:22 Dose: 2.5 mg Documented By: SAT Albuterol (Albuterol 2.5 Mg/3 Ml Neb (Adult)) 2.5 mg INH Q2H PRN PRN Reason: Shortness Of Breath Apixaban (Apixaban 5 Mg Tablet) 2.5 mg PO Q12H SARAI Last Admin: 02/21/25 09:20 Dose: 2.5 mg Documented By: BS Atorvastatin Calcium (Atorvastatin 20 Mg Tablet) 20 mg PO DAILY [facility] Last Admin: 02/21/25 08:28 Dose: 20 mg Documented By: RB Budesonide (Budesonide 0.5 Mg/2 Ml Neb) 0.5 mg INH RTBID SARAI Citalopram Hydrobromide (Citalopram 10 Mg Tablet) 20 mg PO DAILY [facility] Last Admin: 02/21/25 09:19 Dose: 20 mg Documented By: BS Cyanocobalamin (Cyanocobalamin (Vitamin B-12) 500 Mcg Tablet) 1,000 mcg PO DAILY [facility] Last Admin: 02/21/25 09:19 Dose: 1,000 mcg Documented By: BS Finasteride (Finasteride 5 Mg Tablet) 5 mg PO DAILY [facility] Last Admin: 02/21/25 09:19 Dose: 5 mg Documented By: BS Guaifenesin (Guaifenesin Er 600 Mg Tab) 1,200 mg PO BID PRN PRN Reason: Cough Hydrochlorothiazide (Hydrochlorothiazide 25 Mg Tablet) 25 mg PO DAILY [facility] Last Admin: 02/21/25 09:19 Dose: 25 mg Documented By: BS Sodium Chloride (Normal Saline 0.9%) 1,000 mls @ 45 mls/hr IV CONT SARAI Last Admin: 02/21/25 08:27 Dose: 45 mls/hr Documented By: RB Ceftriaxone Sodium 1,000 mg/ (Sodium Chloride) 100 mls @ 200 mls/hr IV Q24H SARAI Azithromycin 500 mg/ Dextrose 250 mls @ 250 mls/hr IV Q24H [facility] Loratadine (Loratadine 10 Mg Tablet) 10 mg PO DAILY [facility] Last Admin: 02/21/25 09:19 Dose: 10 mg Documented By: BS Methylprednisolone (Methylprednisolone 40 Mg/Ml Vial) 60 mg IV DAILY [facility] Last Admin: 02/21/25 08:27 Dose: 60 mg Documented By: RB Naloxone HCl (Naloxone 0.4 Mg/Ml Vial) 0.2 mg IV Q2MIN PRN PRN Reason: Opiate Reversal Sennosides (Sennosides 8.6 Mg Tablet) 17.2 mg PO BEDTIME SARAI Discontinued Medications Albuterol (Albuterol 2.5 Mg/3 Ml Neb (Adult)) 2.5 mg INH NOW ONE Stop: 02/21/25 07:41 Last Admin: 02/21/25 08:40 Dose: Not Given Documented By: JACK Albuterol/Ipratropium (Albuterol/Ipratropium 3 Ml Ampul) 3 ml INH NOW ONE Stop: 02/21/25 04:06 Last Admin: 02/21/25 04:24 Dose: 3 ml Documented By: Azithromycin (Azithromycin 250 Mg Tablet) 500 mg PO NOW ONE Stop: 02/21/25 04:08 Last Admin: 02/21/25 04:52 Dose: 500 mg Documented By: MR(2) Ceftriaxone Sodium 1,000 mg/ (Sodium Chloride) 100 mls @ 200 mls/hr IV NOW ONE Stop: 02/21/25 04:07 Last Infusion: 02/21/25 05:27 Dose: Infused Documented By: Admin: 02/21/25 04:50 Dose: 200 mls/hr Documented By: MR(2) Methylprednisolone (Methylprednisolone 125 Mg/2 Ml Vial) 125 mg IV NOW ONE Stop: 02/21/25 04:09 Last Admin: 02/21/25 04:53 Dose: 125 mg Documented By: MR(2) Vital Signs Vital signs: Vital Signs - 8 hr 02/21/25 03:35 02/21/25 03:46 Temperature 98.0 F Pulse Rate 83 Respiratory Rate 26 H Blood Pressure 154/86 H Pulse Oximetry 93 94 Oxygen Delivery Method Nasal Cannula Nasal Cannula Oxygen Flow Rate 4.5 2 Medical Decision Making Lab Data Lab results reviewed: Yes I reviewed the patient's lab results. Lab results narrative: White blood cell count 13,200, hemoglobin 16.7, platelets adequate. Glucose 108. BUN 22 with creatinine 1.53. Sodium 133, potassium 4.1, serum CO2 26. T bili 2.3, other liver functions unremarkable. Lactate 1.9 not elevated. 02/21/25 03:32 02/21/25 03:32 Labs: Lab Results 02/21/25 Range/Units 03:32 WBC 13.2 H (4.5-11.0) X10^3/uL RBC 5.24 (4.5-5.9) X10^6/uL Hgb 16.7 (13.5-17.5) g/dL Hct 49.7 (41-53) % MCV 95.0 (80-100) fL MCH 31.8 (26-34) PG MCHC 33.5 (30-36) % RDW 14.5 (11.6-14.8) % Plt Count 212 (150-400) X10^3/uL Neut % (Auto) 84.1 H (50-75) % Lymph % (Auto) 5.7 L (25-40) % [place] % (Auto) 9.8 (3-14) % Eos % (Auto) 0.1 L (2-4) % Baso % (Auto) 0.3 (0-2) % Neut # (Auto) 04205 H (9667-1459) /uL Lymph # (Auto) 700 L (7420-5728) /uL [place] # (Auto) 1300 H (0-900) /uL Eos # (Auto) 0 (0-450) /uL Baso # (Auto) 0 (0-100) /uL PT 17.9 H (9.4-12.5) SECONDS INR 1.6 H (0.9-1.3) Sodium 133 L (137-145) mmol/L Potassium 4.1 (3.4-5.1) mmol/L Chloride 100 (98-107) mmol/L Carbon Dioxide 26 (22-32) mmol/L BUN 22 H (9-20) mg/dL Creatinine 1.53 H (0.66-1.25) mg/dL Estimated GFR 43 L (>60) mL/min BUN/Creatinine Ratio 14.4 (6-22) Glucose 108 H (70-99) mg/dL Lactate 1.9 (0.7-2.1) mmol/L Calcium 8.8 (8.4-10.2) mg/dL Total Bilirubin 2.3 H (0.2-1.3) mg/dL AST 25 (17-59) IU/L ALT 22 (<50) IU/L Alkaline Phosphatase 92 (38-126) U/L Troponin I 0.019 (0.01-0.034) ng/mL NT-Pro-B Natriuret Pep 3750 H (<450) pg/mL Total Protein 6.7 (6.3-8.2) g/dL Albumin 3.9 (3.5-5.0) g/dL Globulin 2.8 (1.7-4.1) g/dL Albumin/Globulin Ratio 1.4 (1.0-2.8) ECG Data Interpretation: Atrial fibrillation with left bundle branch noted, ventricular response rate 92. Prior left bundle branch block also noted in context of bradycardic rhythm on 09/26/2024 prior to his pacemaker placement. Pacemaker spikes this EKG not obvious. QRS 142, QTC 521. MDM Narrative Medical decision making narrative: 89-year-old male with history of interstitial lung disease, pacemaker, Eliquis anticoagulation for atrial fibrillation, aortic valve moderate stenosis, COPD, not usually on oxygen, with recent productive cough and increasing shortness of breath. Bibasilar slight crackles. Nasal cannula in place 2-lpm, after 83% room air sat noted. EKG, chest x-ray, labs pending. EKG shows left bundle branch block pattern, atrial fibrillation, could not see any pacer spikes obvious. Prior left bundle branch law close all noted 09/26/2024 comparison study. Chest x-ray. Impressions: ?Multifocal pulmonary infiltrates within the right lung. Follow up chest x-ray after appropriate treatment to document resolution..? See radiology report Blood cultures requested, COVID/flu/RSV swab still pending, IV ceftriaxone, oral azithromycin. History of doxycycline allergy noted. Patient has been on prednisone in the past per , will add IV Solu-Medrol, will try nebulized Atrovent if he has any reversibility. Consider admission. PCP Bernadette noted, we will contact cross cover provider for admission. 0430, case discussed with cross cover provider Dr. Watters who accepts patient for admission Critical Care Time Critical Care Time Critical Care Time: Yes Total Critical Care Time: 35 Attestation: The high probability of a clinically significant, sudden or life threatening deterioration of the [cardiopulmonary] system(s) required my full and direct attention, intervention and personal management. The aggregate critical care time was [35] minutes. This time is in addition to time spent performing reported procedures but includes the following: [x] Data Review and interpretation [x] Patient assessment and monitoring of vital signs [x] Documentation [x] Medication orders and management Discharge Plan Departure Patient Disposition: Admitted As Inpatient Clinical Impression: Pneumonia, Acute respiratory failure with hypoxia Admit Date/Time: 02/21/25 05:05 Admit Provider: Baldomero Watters
--- NOTE | 2025-02-21 03:43 | DI.RAD.S_ITS ---
PROCEDURE: XR CHEST 1V INDICATIONS: Shortness of breath TECHNIQUE: One view of the chest was acquired. COMPARISON: [facility], CR, XR CHEST 1V, 09/26/2024, 10:23. [facility], CR, XR CHEST 1V, 07/07/2023, 5:26. FINDINGS: Surgical changes and devices: Left chest wall pacemaker. Lungs and pleura: Multifocal infiltrates within the right lung field. No pleural effusions or pneumothorax. Mediastinum: Mediastinal contours appear normal. Heart size is normal. Bones and chest wall: No suspicious bony lesions. Overlying soft tissues appear unremarkable. IMPRESSION: Multifocal pulmonary infiltrates within the right lung field. Recommend follow-up chest radiograph after appropriate treatment to document resolution. Findings are concordant with preliminary interpretation provided by [facility]. Dictated by: Fuad Andres M.D. on 02/21/2025 at 7:02 Approved by: Fuad Andres M.D. on 02/21/2025 at 7:03
--- NOTE | 2025-02-21 03:50 | PC.NURSE ---
Imaging at bedside
[2025-02-21 03:52] LABS: Add Manual Diff / Slide Review NO; Basophils Absolute Auto 0 /uL (0-100); Basophils Percent Auto 0.3 % (0-2); Eosinophils Absolute Auto 0 /uL (0-450); Eosinophils Percent Auto 0.1 % (2-4); Hematocrit 49.7 % (41-53); Hemoglobin 16.7 g/dL (13.5-17.5); Lymphocytes Absolute Auto 700 /uL (1100-4500); Lymphocytes Percent Auto 5.7 % (25-40); Mean Corpuscular HGB Conc 33.5 % (30-36); Mean Corpuscular Hemoglobin 31.8 PG (26-34); Monocytes Absolute Auto 1300 /uL (0-900); Monocytes Percent Auto 9.8 % (3-14); Neutrophils Absolute Auto 11100 /uL (1500-7000); Neutrophils Percent Auto 84.1 % (50-75); Platelet Count 212 X10^3/uL (150-400); Red Blood Cell Count 5.24 X10^6/uL (4.5-5.9); Red Cell Distribution Width 14.5 % (11.6-14.8); White Blood Cell Count 13.2 X10^3/uL (4.5-11.0)
[2025-02-21 03:55] LABS: INR 1.6 (0.9-1.3); Prothrombin Time 17.9 SECONDS (9.4-12.5)
[2025-02-21 03:58] LABS: Alanine Aminotransferase 22 IU/L (<50); Albumin 3.9 g/dL (3.5-5.0); Albumin Globulin Ratio 1.4 (1.0-2.8); Alkaline Phosphatase 92 U/L (38-126); Aspartate Aminotransferase 25 IU/L (17-59); BUN Creatinine Ratio 14.4 (6-22); Bilirubin Total 2.3 mg/dL (0.2-1.3); Blood Urea Nitrogen 22 mg/dL (9-20); Calcium 8.8 mg/dL (8.4-10.2); Carbon Dioxide 26 mmol/L (22-32); Chloride 100 mmol/L (98-107); Estimated Glomerular Filt Rate 43 mL/min (>60); Globulin 2.8 g/dL (1.7-4.1); Glucose 108 mg/dL (70-99); HEMOLYSIS < 15 (0-50); Potassium 4.1 mmol/L (3.4-5.1); Sodium 133 mmol/L (137-145); Total Protein 6.7 g/dL (6.3-8.2)
[2025-02-21 03:59] LABS: Lactate (Lactic Acid) 1.9 mmol/L (0.7-2.1)
[2025-02-21 04:10] LABS: NT-proBNP (BNP-Adult 18+) 3750 pg/mL (<450); Troponin I 0.019 ng/mL (0.01-0.034)
[2025-02-21] MEDS: ALBUTEROL/IPRATROPIUM 3 ML AMPUL INH (04:24)
[2025-02-21] MEDS: cefTRIAXone 1,000 MG in SODIUM CHLORIDE 0.9% 100 ML 200 MG IV (04:50)
[2025-02-21] MEDS: AZITHROMYCIN 250 MG TABLET 500 MG PO (04:52)
[2025-02-21] MEDS: methylPREDNISolone 125 MG/2 ML VIAL IV (04:53)
--- NOTE | 2025-02-21 06:15 | PC.NURSE ---
Pt assisted to restroom via wheel chair. assisted pt in restroom.
--- NOTE | 2025-02-21 07:01 | P.HP_ITS ---
History of Present Illness History of Present Illness Date Patient Seen: 02/21/25 Time Patient Seen: 07:01 Chief complaint: 3 days of unable to walk far, SOB Narrative: 89-year-old male with dementia due to Alzheimer's disease complete heart block status post pacemaker in September aortic stenosis moderate status post ablation paroxysmal atrial fibrillation on anticoagulation pulmonary emboli interstitial lung disease severe obstructive sleep apnea CKD 3 urinary obstruction with BPH. Patient with dementia not a good historian. He is quite forgetful and acid couple of questions during the exam he is very happy and jovial. His provides most of the history. She says she is a chemical production engineer and likes to dogs she has 5 dogs at home. Brought to the hospital by his for increasing shortness of breath cough congestion and weakness. Symptoms have progressed. No associated chest pain urinary bowel incontinence. He ambulates well. Said they bit in the emergency department all morning waiting for a bed upstairs. [facility] Medical History (Updated 02/22/25 @ 07:47 by Ten Fleming MD) Interstitial lung disease History of gross hematuria History of urinary retention Pacemaker Late onset Alzheimer's dementia without behavioral disturbance History of urinary tract infection B12 deficiency Major neurocognitive disorder Memory loss Pulmonary embolism (~05/2021) Chronic anticoagulation Urinary tract infection associated with indwelling urethral catheter Constipation Alcoholic hepatitis Alcohol dependence Alcohol use with withdrawal BPH (benign prostatic hyperplasia) Acute renal failure Hypoxia Chronic back pain BPH w urinary obs/LUTS Alcohol abuse Chronic obstructive pulmonary disease (01/27/18) Paroxysmal atrial fibrillation (03/16/16) Essential tremor (12/28/14) 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) Mixed hyperlipidemia (05/17/11) Essential hypertension (05/17/11) Surgical History (Updated 10/09/24 @ 11:01 by Ten Fleming MD) Status post cardiac pacemaker procedure S/P carotid endarterectomy (02/06/22) H/O laminectomy S/P hernia repair Hx of appendectomy History of radiofrequency ablation (RFA) procedure for cardiac arrhythmia (~2018) Status post cholecystectomy (09/2015) Family History Mother CAD (coronary artery disease) Father Hypertension Hearing impaired Social History marital status: number of children: 3 household members: spouse lives independently: Yes caregiver/support person: No housing: house pets and animals: Yes education level: other occupational status: other current occupational exposures/hazards: No 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: [employer] leisure activities: sports, exercise, music, games, hunting and fishing Smoking Status: Former smoker Tobacco: How many years used: 15 Smokeless tobacco user: other quit status: quit date established alcohol intake: current substance use type: does not use Meds Home Medications and Allergies Home Medications Medication Instructions Recorded Confirmed Type vitamins A,C,N-yypv-qcirgf 2,148 1 tab PO BID 03/31/18 02/21/25 History mcg-113 mg-45 mg-17.4 mg tablet (PreserVision AREDS) ascorbic acid (vitamin C) 500 mg 2 g PO BEDTIME #0 tabs 12/26/21 02/21/25 History tablet aspirin 81 mg tablet,delayed 81 mg PO QAM 12/26/21 02/21/25 History release (Adult Aspirin Regimen) Disabled Parking #1 ea 02/26/22 02/21/25 Rx potassium 99 mg tablet 99 mg PO DAILY 06/18/22 02/21/25 History vitamin E (dl, acetate) 180 mg PO DAILY 06/18/22 02/21/25 History fluticasone propionate 230 2 puff inhalation BID Improve 07/30/22 02/21/25 History mcg-salmeterol 21 mcg/actuation breathing HFA inhaler (Advair HFA) mecobalamin (vitamin B12) 1,000 1,000 mcg PO DAILY B12 levels were 05/30/23 02/21/25 History mcg chewable tablet low in past loratadine 10 mg tablet (Claritin) 10 mg PO DAILY 03/30/24 02/21/25 History hydrochlorothiazide 25 mg tablet 25 mg PO QAM #90 tabs 04/27/24 02/21/25 Rx apixaban 5 mg tablet (Eliquis) 5 mg PO Q12H #180 tabs 07/27/24 02/21/25 Rx iron,carbonyl 65 mg-vitamin C 125 1 tab PO DAILY Anemia 08/03/24 02/21/25 History mg tablet,delayed release finasteride 5 mg tablet 5 mg PO .4x weekly #90 tabs 09/28/24 02/21/25 Rx guaifenesin 1,200 mg tablet, 1,200 mg PO BID 09/28/24 02/21/25 History extended release 12 hr (Mucinex) atorvastatin 20 mg tablet 20 mg PO QAM #90 tabs 10/29/24 02/21/25 Rx citalopram 10 mg tablet 10 mg PO DAILY #90 tabs 11/02/24 02/21/25 Rx citalopram 20 mg tablet 20 mg PO DAILY #90 tabs 11/02/24 02/21/25 Rx finasteride 5 mg tablet 5 mg PO DAILY #90 tabs 01/06/25 02/21/25 Rx cholecalciferol (vitamin D3) 50 50 mcg PO DAILY 02/21/25 02/21/25 History mcg (2,000 unit) capsule (Vitamin D3) diltiazem HCl 240 mg 240 mg PO QAM 02/21/25 02/21/25 History capsule,extended release 24 hr omega 6-xrh-oyk-fish oil 900 2,410 cap PO DAILY 02/21/25 02/21/25 History mg-1,400 mg capsule,delayed release Allergies Allergy/AdvReac Type Severity Reaction Status Date / Time Sulfa (Sulfonamide Allergy Mild rash Verified 01/06/25 15:13 Antibiotics) Horse/Equine Containing AdvReac Severe CONVULSION Verified 01/06/25 15:13 Products tamsulosin AdvReac Mild Lower Verified 01/06/25 15:13 extremity edema doxycycline AdvReac Unknown high blood Verified 01/06/25 15:13 pressure Exam Vital Signs (past 8 hours): - 02/21/25 03:20 02/21/25 03:30 02/21/25 03:30 Temperature Pulse Rate 86 Respiratory Rate 43 H Blood Pressure 144/83 H 154/86 H Pulse Oximetry 93 Oxygen Delivery Method Nasal Cannula Oxygen Flow Rate 2 02/21/25 03:35 02/21/25 03:46 02/21/25 04:00 Temperature 98.0 F Pulse Rate 83 Respiratory Rate 26 H Blood Pressure 154/86 H 138/66 Pulse Oximetry 93 94 Oxygen Delivery Method Nasal Cannula Nasal Cannula Oxygen Flow Rate 4.5 2 02/21/25 04:00 02/21/25 04:30 02/21/25 04:30 Temperature Pulse Rate 83 91 H Respiratory Rate 35 H 23 Blood Pressure 129/89 Pulse Oximetry 93 91 Oxygen Delivery Method Nasal Cannula Nasal Cannula Oxygen Flow Rate 2 2 02/21/25 05:00 02/21/25 05:00 02/21/25 05:30 Temperature Pulse Rate 95 H 98 H Respiratory Rate 32 H 28 H Blood Pressure 132/97 H Pulse Oximetry 92 93 Oxygen Delivery Method Nasal Cannula Nasal Cannula Oxygen Flow Rate 2 2 02/21/25 05:31 02/21/25 05:31 02/21/25 06:02 Temperature Pulse Rate 99 H 98 H Respiratory Rate 31 H Blood Pressure 160/89 H Pulse Oximetry 92 Oxygen Delivery Method Nasal Cannula Oxygen Flow Rate 2 02/21/25 06:04 02/21/25 06:04 02/21/25 06:30 Temperature Pulse Rate 91 H 98 H Respiratory Rate 22 29 H Blood Pressure 128/69 Pulse Oximetry 92 92 Oxygen Delivery Method Nasal Cannula Nasal Cannula Oxygen Flow Rate 2 2 Oxygen Delivery Method Nasal Cannula Oxygen Flow Rate 2 Objective Labs 02/22/25 05:00 02/22/25 05:00 Labs: Laboratory Results - last 24 hr 02/21/25 03:32 WBC 13.2 H RBC 5.24 Hgb 16.7 Hct 49.7 MCV 95.0 MCH 31.8 MCHC 33.5 RDW 14.5 Plt Count 212 Neut % (Auto) 84.1 H Lymph % (Auto) 5.7 L [place] % (Auto) 9.8 Eos % (Auto) 0.1 L Baso % (Auto) 0.3 Neut # (Auto) 80111 H Lymph # (Auto) 700 L [place] # (Auto) 1300 H Eos # (Auto) 0 Baso # (Auto) 0 PT 17.9 H INR 1.6 H Sodium 133 L Potassium 4.1 Chloride 100 Carbon Dioxide 26 BUN 22 H Creatinine 1.53 H Estimated GFR 43 L BUN/Creatinine Ratio 14.4 Glucose 108 H Lactate 1.9 Calcium 8.8 Total Bilirubin 2.3 H AST 25 ALT 22 Alkaline Phosphatase 92 Troponin I 0.019 NT-Pro-B Natriuret Pep 3750 H Total Protein 6.7 Albumin 3.9 Globulin 2.8 Albumin/Globulin Ratio 1.4 Assessment & Plan Assessment and plan (1) Interstitial lung disease: Status: Chronic (2) Acute respiratory failure with hypoxia: Status: Acute Plan Pneumonia x-ray shows infiltrate on the right lower middle lung area multifocal. Background of interstitial lung disease patient has elevated white blood cell count no signs of fever. Vital signs are stable without significant tachycardia. No signs of lactic acidosis. Patient will be started on ceftriaxone and azithromycin for community-acquired pneumonia to cover g positives g negatives and atypicals. Continue oxygen as needed. Monitor white blood cell count. Mucinex for congestion and cough Acute respiratory failure. Patient with respiratory failure requiring oxygenation. He is not typically requiring oxygen this will be stopped started while he is here in the hospital and we will monitor saturations to keep above 90%. Interstitial lung disease history of use of inhalers. His Advair inhaler will be continued we will continue with albuterol as needed. He will be placed on steroids to stay if he responds to this as this may be an exacerbation of his chronic lung disease. Moderate aortic stenosis recent echocardiogram shows no change History of atrial fibrillation on chronic anticoagulation patient has a pacemaker implanted EKG shown this morning shows no atrial fibrillation History of pulmonary emboli on chronic anticoagulation continue with anticoagulation Complete heart block status post pacemaker implantation heart rate looks good Alzheimer's dementia patient with moderate to severe dementia without significant mood disorders. Morbid obesity BMI of 45.5 which certainly complicates his care from the standpoint of mobility. Severe obstructive sleep apnea treatment will be provided. Chronic kidney disease stage IIIB monitor BUN creatinine and electrolytes and fluid and hydration status BPH with urinary obstruction current medication will be continued Code status full code. Disposition and plan patient meets inpatient criteria will be hospitalized greater than 2 midnights. Due to the severity of pneumonia IV antibiotics IV steroids as well as his age obesity and dementia. Time-Based Coding :: [TOTAL MINUTES] spent with patient and on the chart (including review of chart, obtaining history, exam, reviewing outside data, placing orders, documenting exam and treatment plan, and counseling patient) on [DATE]. PROFEE Chief Security And Safety Officer Document charge(s): No Charge Codes Initial inpatient/observation care: 74481
[2025-02-21 07:24] LABS: Influenza A - CEPHEID Flu A NEGATIVE (NEGATIVE); Influenza B - CEPHEID Flu B NEGATIVE (NEGATIVE); Respiratory Syncytial Virus Negative (Negative)
[2025-02-21 07:32] LABS: COVID-19 CEPHEID 4-PLEX PCR Negative (Negative)
[2025-02-21] MEDS: SODIUM CHLORIDE 0.9% 1,000 ML 45 ML IV (08:27)
[2025-02-21] MEDS: ATORVASTATIN 20 MG TABLET PO (08:28)
[2025-02-21] MEDS: CITALOPRAM 10 MG TABLET 20 MG PO (09:19)
[2025-02-21] MEDS: hydroCHLOROthiazide 25 MG TABLET PO (09:19)
[2025-02-21] MEDS: CYANOCOBALAMIN (VITAMIN B-12) 500 MCG TABLET 1000 MCG PO (09:19)
[2025-02-21] MEDS: FINASTERIDE 5 MG TABLET PO (09:19)
[2025-02-21] MEDS: LORATADINE 10 MG TABLET PO (09:19)
[2025-02-21] MEDS: APIXABAN 5 MG TABLET 2.5 MG PO ×2 (09:20→18:28)
[2025-02-21] MEDS: ALBUTEROL 2.5 MG/3 ML NEB (ADULT) INH ×2 (10:22→17:29)
--- NOTE | 2025-02-21 14:04 | PC.NURSE ---
Pt to room 214 via stretcher from ER. Transferred to bed with SBA. O2 93% on 2L via NC. Denies pain or nausea-states he feels short of breath when he is up moving around. Has a very poor memory and immediately forgets why he is here or how he got here. Bed alarm is on for safety. Pt oriented to room, call light, bed controls, and tv controls. Pt denies needs at this time but agrees to call for assistance as needed (however sets off alarm frequently because he cannot remember to call).
--- NOTE | 2025-02-21 15:25 | CM.DANOTE ---
Initial DCP Assessment Note Pt is a 89 yo male, resident of [place], admitted [place] for management of PNA, patient with advanced dementia. PCP: Ten Fleming Payer: KEE/ADRIANNE Reviewed chart, pt discussed in multidisciplinary rounds this morning. Patient lives at home w/sp who cares for patient director multimedia. Patient needs assist with most ADLs related to his cognitive deficit. Spouse Tatyana at home resting at time of this note. Further assessment of need should be with spouse as patient's medical plan of care unfolds. Therapy evals may be helpful closer to patient's DC. Plan: Discharge home w/sp is anticipated. r/o need for HH. Transport via spouse. CM team will plan to follow clinical course closely. NEGRITO Maki Discharge Planning/Care Management Discharge Assessment Start: 02/21/25 15:23 Freq: Status: Active Protocol: Document 02/21/25 15:23 DONELL (Rec: 02/21/25 15:25 DONELL Desktop) Discharge Planning Assessment Assigned Planning Engineer NEGRITO Lloyd DPOA/Assigned Designee Name Tatyana Dennis, spouse Contact Information [phone] Advance Directives? No History Provided By Family Member,Medical Record Has Patient been admitted in last 30 No days? Prior Living Arrangements House Household Members spouse Type of transporation used prior to Relies on Others admit Independent with ADL's No Is patient alert and oriented? No Needs Assistance With Bathing,Grooming,Meal Prep, Toileting,Managing Medications ,Home Chores / Shopping Barriers to Discharge No Discharge Plan Home Transportation Arrangement spouse Referrals Initiated None needed Additional Comment Follow for needs
[2025-02-22] VITALS (9 sets, daily range): BP systolic 145–169; BP diastolic 83–88; PULSE 71–107; RESP 18–20; TEMP 36.1; O2SAT 92–95
[2025-02-22] MEDS: cefTRIAXone 1,000 MG in SODIUM CHLORIDE 0.9% 100 ML 200 MG IV (03:44)
[2025-02-22 05:24] LABS: Add Manual Diff / Slide Review NO; Basophils Absolute Auto 0 /uL (0-100); Basophils Percent Auto 0.1 % (0-2); Eosinophils Absolute Auto 0 /uL (0-450); Hematocrit 47.2 % (41-53); Hemoglobin 15.8 g/dL (13.5-17.5); Lymphocytes Absolute Auto 500 /uL (1100-4500); Lymphocytes Percent Auto 2.9 % (25-40); Mean Corpuscular HGB Conc 33.4 % (30-36); Mean Corpuscular Hemoglobin 31.9 PG (26-34); Mean Corpuscular Volume 95.5 fL (80-100); Monocytes Absolute Auto 800 /uL (0-900); Monocytes Percent Auto 4.9 % (3-14); Neutrophils Absolute Auto 15500 /uL (1500-7000); Neutrophils Percent Auto 92.1 % (50-75); Platelet Count 202 X10^3/uL (150-400); Red Blood Cell Count 4.95 X10^6/uL (4.5-5.9); Red Cell Distribution Width 14.3 % (11.6-14.8); White Blood Cell Count 16.8 X10^3/uL (4.5-11.0)
[2025-02-22] MEDS: AZITHROMYCIN 500 MG in DEXTROSE 5% IN WATER 250 ML 250 MG IV (05:33)
[2025-02-22 05:39] LABS: INR 1.3 (0.9-1.3); Prothrombin Time 14.6 SECONDS (9.4-12.5)
[2025-02-22 05:44] LABS: Alanine Aminotransferase 18 IU/L (<50); Albumin 3.5 g/dL (3.5-5.0); Albumin Globulin Ratio 1.3 (1.0-2.8); Alkaline Phosphatase 75 U/L (38-126); Aspartate Aminotransferase 23 IU/L (17-59); BUN Creatinine Ratio 27.7 (6-22); Bilirubin Total 0.6 mg/dL (0.2-1.3); Blood Urea Nitrogen 39 mg/dL (9-20); Calcium 8.7 mg/dL (8.4-10.2); Carbon Dioxide 23 mmol/L (22-32); Chloride 106 mmol/L (98-107); Estimated Glomerular Filt Rate 48 mL/min (>60); Globulin 2.7 g/dL (1.7-4.1); Glucose 132 mg/dL (70-99); HEMOLYSIS < 15 (0-50); Sodium 136 mmol/L (137-145); Total Protein 6.2 g/dL (6.3-8.2)
[2025-02-22] MEDS: APIXABAN 5 MG TABLET 2.5 MG PO ×2 (06:57→19:50)
--- NOTE | 2025-02-22 07:44 | P.PN_ITS ---
Subjective Subjective Date Patient Seen: 02/22/25 Time Patient Seen: 07:44 Interval history: Patient well known to me, admitted yesterday after presenting with shortness of breath and found to have acute respiratory failure with hypoxia as well as pneumonia based on imaging. Slight elevation in white blood cell count also noted. This morning white count is up higher but he was also been placed on corticosteroids, which is a likely culprit for his leukocytosis Patient with persistent oxygen requirement at 2-2.5 liters/minute continuous Vital signs otherwise have been stable Patient without any real complaints this morning. Easily seems to understand why he is here although I am sure he will not remember that very long Exam Vital Signs (past 8 hours): - 02/22/25 01:00 02/22/25 05:43 Pulse Oximetry 94 94 Oxygen Delivery Method Nasal Cannula Nasal Cannula Oxygen Flow Rate 2.5 2.5 Fraction of Inspired Oxygen 30 SaO2/FiO2 Ratio 313 Oxygen Delivery Method Nasal Cannula Oxygen Flow Rate 2.5 Objective Labs 02/22/25 05:00 02/22/25 05:00 Labs: Laboratory Results - last 24 hr 02/22/25 05:00 WBC 16.8 H RBC 4.95 Hgb 15.8 Hct 47.2 MCV 95.5 MCH 31.9 MCHC 33.4 RDW 14.3 Plt Count 202 Neut % (Auto) 92.1 H Lymph % (Auto) 2.9 L [place] % (Auto) 4.9 Eos % (Auto) 0.0 L Baso % (Auto) 0.1 Neut # (Auto) 69730 H Lymph # (Auto) 500 L [place] # (Auto) 800 Eos # (Auto) 0 Baso # (Auto) 0 PT 14.6 H INR 1.3 Sodium 136 L Potassium 4.0 Chloride 106 Carbon Dioxide 23 BUN 39 H Creatinine 1.41 H Estimated GFR 48 L BUN/Creatinine Ratio 27.7 H Glucose 132 H Calcium 8.7 Total Bilirubin 0.6 AST 23 ALT 18 Alkaline Phosphatase 75 Total Protein 6.2 L Albumin 3.5 Globulin 2.7 Albumin/Globulin Ratio 1.3 [facility] Medical History (Updated 02/22/25 @ 07:47 by Ten Fleming MD) Interstitial lung disease Pacemaker Late onset Alzheimer's dementia without behavioral disturbance B12 deficiency Major neurocognitive disorder Memory loss History of gross hematuria History of urinary tract infection History of urinary retention Pulmonary embolism (~05/2021) Chronic anticoagulation Urinary tract infection associated with indwelling urethral catheter Constipation Alcoholic hepatitis Alcohol dependence Alcohol use with withdrawal BPH (benign prostatic hyperplasia) Acute renal failure Hypoxia Chronic back pain BPH w urinary obs/LUTS Alcohol abuse Chronic obstructive pulmonary disease (01/27/18) Paroxysmal atrial fibrillation (03/16/16) Essential tremor (12/28/14) 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) Mixed hyperlipidemia (05/17/11) Essential hypertension (05/17/11) Surgical History (Updated 10/09/24 @ 11:01 by Ten Fleming MD) Status post cardiac pacemaker procedure S/P carotid endarterectomy (02/06/22) H/O laminectomy S/P hernia repair Hx of appendectomy History of radiofrequency ablation (RFA) procedure for cardiac arrhythmia (~2018) Status post cholecystectomy (09/2015) Family History Mother CAD (coronary artery disease) Father Hypertension Hearing impaired Social History marital status: number of children: 3 household members: spouse lives independently: Yes caregiver/support person: No housing: house pets and animals: Yes education level: other occupational status: other current occupational exposures/hazards: No 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 Acute respiratory failure with hypoxia-continued treatment of his pneumonia and oxygen replacement therapy. Patient may require oxygen upon discharge home given his underlying lung disease 2. Community-acquired pneumonia-continue with azithromycin. No organism identified which he was not unusual. White count probably not useful marker given his corticosteroid therapy 3. Pulmonary-patient carries a diagnose both of COPD as well as probable mild interstitial lung disease. Has been seen previously by Pulmonary Medicine although not since 2022. Has been placed on IV corticosteroids as well as his usual inhalers in the setting of this pneumonia. Continue with current therapies. May indeed require some oxygen at home as I suspect he will be slow to improve in that regard given his underlying lung disease 4. Alzheimer's dementia-not an active issue at this time. Patient is so far easily redirected but continue to monitor for behavioral issues 5. Cardiac-patient both with paroxysmal atrial fibrillation as well as valvular heart disease including aortic valve stenosis. He was chronically anticoagulated. No change in plan or medications at this time. Pacemaker in place and functioning normally. 6. Disposition-patient likely to go home when ready for discharge may or may not require oxygen therapy. Probably another 24-72 hours in the hospital Time-Based Coding :: [TOTAL MINUTES] spent with patient and on the chart (including review of chart, obtaining history, exam, reviewing outside data, placing orders, documenting exam and treatment plan, and counseling patient) on [DATE]. PROFEE Battery Repairer Document charge(s): Yes Charge Codes Subsequent inpatient/observation care: [id number]
[2025-02-22] MEDS: FINASTERIDE 5 MG TABLET PO (08:08)
[2025-02-22] MEDS: ATORVASTATIN 20 MG TABLET PO (08:08)
[2025-02-22] MEDS: CYANOCOBALAMIN (VITAMIN B-12) 500 MCG TABLET 1000 MCG PO (08:08)
[2025-02-22] MEDS: CITALOPRAM 10 MG TABLET 20 MG PO (08:08)
[2025-02-22] MEDS: hydroCHLOROthiazide 25 MG TABLET PO (08:08)
[2025-02-22] MEDS: LORATADINE 10 MG TABLET PO (08:08)
[2025-02-22] MEDS: SODIUM CHLORIDE 0.9% 1,000 ML 45 ML IV (08:09)
[2025-02-22] MEDS: ALBUTEROL 2.5 MG/3 ML NEB (ADULT) INH ×3 (13:50→19:55)
[2025-02-22] MEDS: SENNOSIDES 8.6 MG TABLET 17.2 MG PO (19:50)
[2025-02-22] MEDS: BUDESONIDE 0.5 MG/2 ML NEB INH (19:56)
[2025-02-23] VITALS (12 sets, daily range): BP systolic 142–157; BP diastolic 89–94; PULSE 88–110; RESP 15–20; TEMP 36–36.1; O2SAT 92–97
[2025-02-23] MEDS: cefTRIAXone 1,000 MG in SODIUM CHLORIDE 0.9% 100 ML 200 MG IV (04:15)
[2025-02-23] MEDS: AZITHROMYCIN 500 MG in DEXTROSE 5% IN WATER 250 ML 250 MG IV (05:29)
[2025-02-23] MEDS: BUDESONIDE 0.5 MG/2 ML NEB INH (07:00)
[2025-02-23] MEDS: ALBUTEROL 2.5 MG/3 ML NEB (ADULT) INH ×2 (07:00→17:02)
--- NOTE | 2025-02-23 07:49 | PM.PN.IH.1 ---
Subjective Subjective Date Patient Seen: 02/23/25 Time Patient Seen: 07:50 Interval history: Essentially an unremarkable day yesterday Patient's overall oxygen requirement somewhat diminished come although not really weaning actively Exam Vital Signs (past 8 hours): - 02/23/25 01:41 02/23/25 05:00 02/23/25 07:06 Pulse Rate 88 Respiratory Rate 20 Pulse Oximetry 92 96 96 Oxygen Delivery Method Nasal Cannula Nasal Cannula Nasal Cannula Oxygen Flow Rate 2 2 2 Fraction of Inspired Oxygen 28 Fraction of Inspired Oxygen 28 SaO2/FiO2 Ratio 342 Oxygen Delivery Method Nasal Cannula Oxygen Flow Rate 2 Objective Labs 02/22/25 05:00 02/22/25 05:00 [facility] Medical History (Updated 02/22/25 @ 07:47 by Ten Fleming MD) Interstitial lung disease Pacemaker Late onset Alzheimer's dementia without behavioral disturbance B12 deficiency Major neurocognitive disorder Memory loss History of gross hematuria History of urinary tract infection History of urinary retention Pulmonary embolism (~05/2021) Chronic anticoagulation Urinary tract infection associated with indwelling urethral catheter Constipation Alcoholic hepatitis Alcohol dependence Alcohol use with withdrawal BPH (benign prostatic hyperplasia) Acute renal failure Hypoxia Chronic back pain BPH w urinary obs/LUTS Alcohol abuse Chronic obstructive pulmonary disease (01/27/18) Paroxysmal atrial fibrillation (03/16/16) Essential tremor (12/28/14) 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) Mixed hyperlipidemia (05/17/11) Essential hypertension (05/17/11) Surgical History (Updated 10/09/24 @ 11:01 by Ten Fleming MD) Status post cardiac pacemaker procedure S/P carotid endarterectomy (02/06/22) H/O laminectomy S/P hernia repair Hx of appendectomy History of radiofrequency ablation (RFA) procedure for cardiac arrhythmia (~2018) Status post cholecystectomy (09/2015) Family History Mother CAD (coronary artery disease) Father Hypertension Hearing impaired Social History marital status: number of children: 3 household members: spouse lives independently: Yes caregiver/support person: No housing: house pets and animals: Yes education level: other occupational status: other current occupational exposures/hazards: No 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 Acute respiratory failure with hypoxia-continued treatment of his pneumonia and oxygen replacement therapy. Patient may require oxygen upon discharge home given his underlying lung disease. Will try to be aggressive with weaning of oxygen today 2. Community-acquired pneumonia-continue with azithromycin. 3. Pulmonary-patient carries a diagnose both of COPD as well as probable mild interstitial lung disease. Has been seen previously by Pulmonary Medicine although not since 2022. Has been placed on IV corticosteroids as well as his usual inhalers in the setting of this pneumonia. Continue with current therapies. May indeed require some oxygen at home as I suspect he will be slow to improve in that regard given his underlying lung disease 4. Alzheimer's dementia-not an active issue at this time. Patient is so far easily redirected but continue to monitor for behavioral issues 5. Cardiac-patient both with paroxysmal atrial fibrillation as well as valvular heart disease including aortic valve stenosis. He was chronically anticoagulated. No change in plan or medications at this time. Pacemaker in place and functioning normally. 6. Disposition-patient likely to go home when ready for discharge may or may not require oxygen therapy. Probably another 24-48 hours in the hospital Time-Based Coding :: [TOTAL MINUTES] spent with patient and on the chart (including review of chart, obtaining history, exam, reviewing outside data, placing orders, documenting exam and treatment plan, and counseling patient) on [DATE]. PROFEE Crisis Therapist Document charge(s): Yes Charge Codes Subsequent inpatient/observation care: [id number]
[2025-02-23] MEDS: CITALOPRAM 10 MG TABLET 20 MG PO (09:44)
[2025-02-23] MEDS: ATORVASTATIN 20 MG TABLET PO (09:44)
[2025-02-23] MEDS: FINASTERIDE 5 MG TABLET PO (09:44)
[2025-02-23] MEDS: hydroCHLOROthiazide 25 MG TABLET PO (09:45)
[2025-02-23] MEDS: LORATADINE 10 MG TABLET PO (09:45)
[2025-02-23] MEDS: dilTIAZem CD 120 MG CAP 240 MG PO (10:31)
[2025-02-23] MEDS: APIXABAN 5 MG TABLET 2.5 MG PO (10:32)
[2025-02-23] MEDS: CYANOCOBALAMIN (VITAMIN B-12) 500 MCG TABLET 1000 MCG PO (10:32)
--- NOTE | 2025-02-23 12:37 | CM.DPC ---
DCP Cont. Reviewed EMR and team rounds for status updates. Pt has been weaned off of O2, anticipating home d/c on 02/24. May need home O2 eval prior to d/c, depending on if she stays off successfully. Monitoring.
[2025-02-23] MEDS: APIXABAN 5 MG TABLET PO (21:20)
[2025-02-23] MEDS: SENNOSIDES 8.6 MG TABLET 17.2 MG PO (21:20)
[2025-02-23] MEDS: SODIUM CHLORIDE 0.9% FLUSH 10 ML IV (21:37)
[2025-02-24 01:00] VITALS: O2SAT 92
[2025-02-24] MEDS: ALBUTEROL 2.5 MG/3 ML NEB (ADULT) INH ×2 (01:37→07:54)
[2025-02-24] MEDS: SODIUM CHLORIDE 0.9% FLUSH 10 ML IV (03:37)
[2025-02-24] MEDS: cefTRIAXone 1,000 MG in SODIUM CHLORIDE 0.9% 100 ML 200 MG IV (03:45)
[2025-02-24 05:00] VITALS: O2SAT 91
[2025-02-24] MEDS: AZITHROMYCIN 500 MG in DEXTROSE 5% IN WATER 250 ML 250 MG IV (05:30)
[2025-02-24] MEDS: BUDESONIDE 0.5 MG/2 ML NEB INH (07:54)
[2025-02-24 07:59] VITALS: PULSE 83; RESP 18; O2SAT 95
--- NOTE | 2025-02-24 08:34 | PM.DS.IH.1 ---
History of Present Illness History of Present Illness Date Patient Seen: 02/24/25 Time Patient Seen: 08:35 Chief complaint: 3 days of unable to walk far, SOB Narrative: 89-year-old male with dementia due to Alzheimer's disease complete heart block status post pacemaker in September aortic stenosis moderate status post ablation paroxysmal atrial fibrillation on anticoagulation pulmonary emboli interstitial lung disease severe obstructive sleep apnea CKD 3 urinary obstruction with BPH. Patient with dementia not a good historian. He is quite forgetful and acid couple of questions during the exam he is very happy and jovial. His provides most of the history. She says she is a chemical packager and likes to dogs she has 5 dogs at home. Brought to the hospital by his for increasing shortness of breath cough congestion and weakness. Symptoms have progressed. No associated chest pain urinary bowel incontinence. He ambulates well. Said they bit in the emergency department all morning waiting for a bed upstairs. {from Dr. Watters's H&P 02/21/25} Discharge Providers Provider Date of admission: 02/21/25 05:05 Discharge Date: 02/24/25 Primary care physician: Ten Fleming MD Discharge provider: Ten Fleming MD Summary Hospital Course Discharge Diagnosis: 1. Acute hypoxic respiratory failure 2. Acute community-acquired pneumonia 3. Alzheimer's type dementia 4. Paroxysmal atrial fibrillation 5. Essential hypertension 6. Mixed hyperlipidemia 7. COPD 8. Interstitial lung disease Hospital Course: As above patient was admitted diagnose with pneumonia and hypoxic respiratory failure. He was placed on oxygen as well as broad-spectrum IV antibiotics. Over the first 48 hours patient improved significantly he was able to come off the oxygen 24 hours prior to discharge. He was initially started on IV Solu-Medrol but this was subsequently switched to oral prednisone By the morning of discharge patient was up around walking in his room independently without need for oxygen and he had been off oxygen for approximately 24 hours. Oxygen saturation off oxygen remained about 91% Patient without any other complaints although his dementia of course limits his ability to remember etcetera Vital signs are okay. He had minimally tachycardic that is somewhat hypertensive off his diltiazem which he was initially held but improved when restarted Status at Discharge Cognitive/behavioral status at discharge: at baseline, confused Functional status at discharge: independent ambulation Overall status at discharge: patient is progressing back to baseline Time Spent with Patient Time spent: Less than 30 minutes Exam Vital Signs (past 8 hours): - 02/24/25 01:00 02/24/25 05:00 02/24/25 07:59 Pulse Rate 83 Respiratory Rate 18 Pulse Oximetry 92 91 95 Oxygen Delivery Method Room Air Room Air Room Air Fraction of Inspired Oxygen 21 Fraction of Inspired Oxygen 21 SaO2/FiO2 Ratio 452 Oxygen Delivery Method Room Air Oxygen Flow Rate 0 Objective Labs 02/22/25 05:00 02/22/25 05:00 [facility] Medical History Interstitial lung disease Pacemaker Late onset Alzheimer's dementia without behavioral disturbance B12 deficiency Major neurocognitive disorder Memory loss History of gross hematuria History of urinary tract infection History of urinary retention Pulmonary embolism (~05/2021) Chronic anticoagulation Urinary tract infection associated with indwelling urethral catheter Constipation Alcoholic hepatitis Alcohol dependence Alcohol use with withdrawal BPH (benign prostatic hyperplasia) Acute renal failure Hypoxia Chronic back pain BPH w urinary obs/LUTS Alcohol abuse Chronic obstructive pulmonary disease (01/27/18) Paroxysmal atrial fibrillation (03/16/16) Essential tremor (12/28/14) 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) Mixed hyperlipidemia (05/17/11) Essential hypertension (05/17/11) Surgical History Status post cardiac pacemaker procedure S/P carotid endarterectomy (02/06/22) H/O laminectomy S/P hernia repair Hx of appendectomy History of radiofrequency ablation (RFA) procedure for cardiac arrhythmia (~2018) Status post cholecystectomy (09/2015) Family History Mother CAD (coronary artery disease) Father Hypertension Hearing impaired Social History marital status: number of children: 3 household members: spouse lives independently: Yes caregiver/support person: No housing: house pets and animals: Yes education level: other occupational status: other current occupational exposures/hazards: No 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 Fleming, PCP, in 7-10 days Discharge Plan Discharge Plan Patient Disposition: Home Discharge orders & Medications Prescriptions: New prednisone 20 mg Tablet 40 mg PO DAILY 4 Days Qty: 8 0RF azithromycin 250 mg tablet 250 mg PO DAILY 3 Days Qty: 3 0RF Continued ascorbic acid (vitamin C) 500 mg tablet 2 g PO BEDTIME Qty: 0 hydrochlorothiazide 25 mg tablet 25 mg PO QAM Qty: 90 3RF Hold Instructions: holding on her own Eliquis 5 mg tablet 5 mg PO Q12H Qty: 180 3RF Patient Comments: held r/t surgery. Due to restart 05/30/21 finasteride 5 mg tablet 5 mg PO .4x weekly Qty: 90 3RF guaifenesin [Mucinex] 1,200 mg tablet extended release 12hr 1,200 mg PO BID atorvastatin 20 mg tablet 20 mg PO QAM Qty: 90 3RF citalopram 10 mg tablet 10 mg PO DAILY Qty: 90 3RF Rx Instructions: take with 20mg tabs to equal 30mg daily total citalopram 20 mg tablet 20 mg PO DAILY Qty: 90 3RF mecobalamin (vitamin B12) 1,000 mcg tablet,chewable 1,000 mcg PO DAILY iron,carbonyl-vitamin C 65 mg iron- 125 mg tablet,delayed release (DR/EC) 1 tab PO DAILY vitamins A,C,E-poug-estyfu [PreserVision AREDS] 7,160-113-100 vbhg-zh-bhph tablet 1 tab PO BID (DME) Disabled Parking See Rx Instructions .ROUTE .MEDSUPPLY Qty: 1 0RF Rx Instructions: Patient qualifies for disabled parking as per the attached form. potassium 99 mg tablet 99 mg PO DAILY vitamin E (dl, acetate) 180 mg PO DAILY Advair HFA 230-21 mcg/actuation HFA aerosol inhaler 2 puff inhalation BID Patient Comments: Lungs are basically okay so trying this to see if it helps breathing and perhaps stamina. loratadine [Claritin] 10 mg tablet 10 mg PO DAILY diltiazem HCl 240 mg Capsule,Extended Release 24hr 240 mg PO QAM cholecalciferol (vitamin D3) [Vitamin D3] 50 mcg (2,000 unit) Capsule 50 mcg PO DAILY omega 0-wyz-blm-fish oil 900-1,400 mg Capsule,Delayed Release(Dr/Ec) 2,410 cap PO DAILY finasteride 5 mg tablet 5 mg PO DAILY Qty: 90 3RF aspirin [Adult Aspirin Regimen] 81 mg tablet,delayed release (DR/EC) 81 mg PO QAM Follow up/Referrals: Ten Fleming MD [Primary Care Provider] - 2 Weeks Discharge Health Status Multidrug resistant organism: No MDRO Diet/Activity/Treatments Diet: Diet as Tolerated Skin/Wound/Dressing Care Report to your healthcare provider any signs of infection, such as:: chills, fever Visit Report/Discharge Packet Stand Alone Forms: Patient Portal/API Discharge Data Primary Care Provider: Ten Fleming PROFEE Charge Codes Discharge inpatient/observation: 12088
[2025-02-24 09:00] VITALS: O2SAT 93
[2025-02-24 09:12] VITALS: BP 156/79; PULSE 66; RESP 14; TEMP 36.3; O2SAT 93
[2025-02-24] MEDS: predniSONE 20 MG TABLET 40 MG PO (09:15)
[2025-02-24] MEDS: ATORVASTATIN 20 MG TABLET PO (09:15)
[2025-02-24] MEDS: hydroCHLOROthiazide 25 MG TABLET PO (09:16)
[2025-02-24] MEDS: LORATADINE 10 MG TABLET PO (09:16)
[2025-02-24] MEDS: APIXABAN 5 MG TABLET PO (09:16)
[2025-02-24] MEDS: CYANOCOBALAMIN (VITAMIN B-12) 500 MCG TABLET 1000 MCG PO (09:17)
[2025-02-24] MEDS: CITALOPRAM 10 MG TABLET 30 MG PO (09:17)
[2025-02-24] MEDS: dilTIAZem CD 120 MG CAP 240 MG PO (09:18)
[2025-02-24] MEDS: FINASTERIDE 5 MG TABLET PO (09:18)
--- NOTE | 2025-02-24 10:16 | CM.DPC ---
DCP Cont. Reviewed EMR and team rounds for status updates. Pt has been medically cleared for home d/c, family will be transporting him home. No further CM d/c needs identified at this time.
== END 2025-02-24 10:55 | disposition home or self-care (01) | DRG 193 ==
LOC: ED 03:38 → AC 05:06
PROVIDERS: Admitting Provider Family Medicine; Emergency Provider Emergency Medicine; PCP Internal Medicine; Referring Provider Emergency Medicine; Visit Provider Internal Medicine
DX: J18.9 Pneumonia, unspecified organism (principal); J96.01 Acute respiratory failure with hypoxia; I44.2 Atrioventricular block, complete; N13.8 Other obstructive and reflux uropathy; F02.B3 Dementia in other diseases classified elsewhere, moderate, with mood disturbance; Z68.42 Body mass index [BMI] 45.0-49.9, adult; G30.9 Alzheimer's disease, unspecified; I48.0 Paroxysmal atrial fibrillation; E78.2 Mixed hyperlipidemia; J44.9 Chronic obstructive pulmonary disease, unspecified; Z95.0 Presence of cardiac pacemaker; Z86.711 Personal history of pulmonary embolism; Z87.440 Personal history of urinary (tract) infections; M15.9 Polyosteoarthritis, unspecified; Z82.49 Family history of ischemic heart disease and other diseases of the circulatory system; E66.01 Morbid (severe) obesity due to excess calories; G47.33 Obstructive sleep apnea (adult) (pediatric); N18.32 Chronic kidney disease, stage 3b; I35.0 Nonrheumatic aortic (valve) stenosis; I12.9 Hypertensive chronic kidney disease with stage 1 through stage 4 chronic kidney disease, or unspecified chronic kidney disease; Z87.891 Personal history of nicotine dependence; N40.1 Benign prostatic hyperplasia with lower urinary tract symptoms; Z79.82 Long term (current) use of aspirin; Z79.51 Long term (current) use of inhaled steroids; Z79.01 Long term (current) use of anticoagulants; Z88.1 Allergy status to other antibiotic agents; Z88.2 Allergy status to sulfonamides; Z88.8 Allergy status to other drugs, medicaments and biological substances
CPT/HCPCS: 0241U; 36415; 71045; 80053; 83605; 83880; 84484; 85025; 85610; 87040; 93005; 94640; 94760; 96365; 96375; 99285; 99291; J0696; J2919; J7613

== ENCOUNTER → 2025-03-29 07:32 | Outpatient (CLI) | payer MEDICARE, SELFPAY ==
[2025-02-21 09:47] VITALS: BMI 45.4
== END ==
PROVIDERS: PCP Internal Medicine; Referring Provider Registered Nurse; Visit Provider Registered Nurse
DX: E55.9 Vitamin D deficiency, unspecified (principal)
CPT/HCPCS: 36415; 82306

== ENCOUNTER → 2025-04-28 08:57 | Outpatient (CLI) | payer MEDICARE, SELFPAY ==
[2025-02-21 09:47] VITALS: BMI 45.4
[2025-04-28 10:29] LABS: Blood Urea Nitrogen 16 mg/dL (9-20); Calcium 9.0 mg/dL (8.4-10.2); Carbon Dioxide 25 mmol/L (22-32); Chloride 106 mmol/L (98-107); Estimated Glomerular Filt Rate 47 mL/min (>60); Glucose 95 mg/dL (70-99); HEMOLYSIS < 15 (0-50); Magnesium 2.0 mg/dL (1.6-2.3); Potassium 3.8 mmol/L (3.4-5.1); Sodium 139 mmol/L (137-145)
== END ==
PROVIDERS: PCP Internal Medicine; Referring Provider Internal Medicine Cardiovascular Disease; Visit Provider Internal Medicine Cardiovascular Disease
DX: I48.0 Paroxysmal atrial fibrillation (principal); I35.0 Nonrheumatic aortic (valve) stenosis; R06.09 Other forms of dyspnea; R60.0 Localized edema
CPT/HCPCS: 36415; 80048; 83735

== ENCOUNTER → 2025-08-09 08:30 | Outpatient (CLI) | payer MEDICARE, SELFPAY ==
[2025-02-21 09:47] VITALS: BMI 45.4
[2025-08-09 10:00] LABS: Blood Urea Nitrogen 19 mg/dL (9-20); Calcium 9.2 mg/dL (8.4-10.2); Carbon Dioxide 22 mmol/L (22-32); Chloride 107 mmol/L (98-107); Estimated Glomerular Filt Rate 50 mL/min (>60); Glucose 106 mg/dL (70-99); HEMOLYSIS < 15 (0-50); Sodium 139 mmol/L (137-145)
[2025-08-09 10:01] LABS: Potassium 4.6 mmol/L (3.4-5.1)
== END ==
PROVIDERS: PCP Internal Medicine; Referring Provider Internal Medicine Cardiovascular Disease; Visit Provider Internal Medicine Cardiovascular Disease
DX: I35.0 Nonrheumatic aortic (valve) stenosis (principal); I48.0 Paroxysmal atrial fibrillation; J84.9 Interstitial pulmonary disease, unspecified; Z95.0 Presence of cardiac pacemaker
CPT/HCPCS: 36415; 80048

== ENCOUNTER → 2025-09-24 08:15 | Outpatient (CLI) | payer MEDICARE, SELFPAY ==
[2025-02-21 09:47] VITALS: BMI 45.4
[2025-09-24 09:21] LABS: Blood Urea Nitrogen 27 mg/dL (9-20); Calcium 9.0 mg/dL (8.4-10.2); Carbon Dioxide 27 mmol/L (22-32); Chloride 106 mmol/L (98-107); Estimated Glomerular Filt Rate 46 mL/min (>60); Glucose 67 mg/dL (70-99); HEMOLYSIS < 15 (0-50); Potassium 3.9 mmol/L (3.4-5.1); Sodium 141 mmol/L (137-145)
== END ==
PROVIDERS: PCP Thoracic Surgery (Cardiothoracic Vascular Surgery); Referring Provider Internal Medicine Cardiovascular Disease; Visit Provider Internal Medicine Cardiovascular Disease
DX: Z13.228 Encounter for screening for other metabolic disorders (principal)
CPT/HCPCS: 36415; 80048

== ENCOUNTER 2025-10-07 14:03 | Emergency (ER) | payer MEDICARE, SELFPAY ==
[2025-02-21 09:47] VITALS: BMI 45.4
[2025-10-07] VITALS (31 sets, daily range): BP systolic 133–174; BP diastolic 62–96; PULSE 71–101; RESP 13–27; TEMP 35.9; O2SAT 93–98; BMI 26.8
--- NOTE | 2025-10-07 14:22 | DI.CT.S_ITS ---
PROCEDURE: CT HEAD/BRAIN WO CON INDICATIONS: fall on thinners unwitnessed, dementia, multiple falls TECHNIQUE: Noncontrast 4.5 mm thick angled axial sections acquired from the foramen magnum to the vertex, with coronal and sagittal reformats. For radiation dose reduction, the following was used: automated exposure control, adjustment of mA and/or kV according to patient size. COMPARISON: [facility], CT, CT CERVICAL SPINE WO CON, 10/07/2025, 14:24. [facility], CT, CT HEAD/BRAIN WO CON, 02/05/2022, 12:32. FINDINGS: Image quality: Diagnostic. CSF spaces: Basal cisterns are patent. No extra-axial fluid collections. The ventricles are symmetric in size and shape. Brain: No intracranial bleeds or mass effect. There is cerebral volume loss, with resultant ventricular and sulcal prominence. There are periventricular and deep white matter chronic small vessel ischemic changes. There is intracranial internal carotid artery atherosclerosis. Skull and face: Calvarium and visualized facial bones appear intact, without suspicious lesions. Note made of fractures of the anterior arch and bilateral lamina of C1. Sinuses: Visualized sinuses and mastoids are clear. IMPRESSION: No acute intracranial pathology. Fractures of the anterior arch in bilateral lamina of C1. Please refer to a separate report. Findings have been discussed with Dr. Moralez. Dictated by: Mehdi Villalobos M.D. on 10/07/2025 at 14:50 Approved by: Mehdi Villalobos M.D. on 10/07/2025 at 14:52
--- NOTE | 2025-10-07 14:22 | DI.CT.S_ITS ---
PROCEDURE: CT CERVICAL SPINE WO CON INDICATIONS: fall on thinners unwitnessed, dementia, multiple falls TECHNIQUE: Noncontrast 3 mm thick sections acquired from the skull base to the T4 level. Sagittal and coronal reformats were then constructed. For radiation dose reduction, the following was used: automated exposure control, adjustment of mA and/or kV according to patient size. COMPARISON: [facility], CT, C-SPINE WITHOUT CONTRAST, 12/13/2016, 9:00. FINDINGS: Image quality: Excellent. Bones: There is an anterior paramidline C1 arch fracture, which is mildly displaced, as well as bilateral C1 lamina fractures. There is lateral displacement of the right lateral mass of C1. No other acute cervical fractures or dislocations. Severe cervical spondylitic change. Diffuse osteopenia. Visualized superior ribs are intact. Soft tissues: Prevertebral soft tissues are normal in thickness. No paravertebral hematomas. No apical pneumothoraces. Large bilateral pleural effusions, right greater than left. Pulmonary edema. IMPRESSION: Multiple C1 fractures involving the anterior arch and bilateral lamina with displacement and lateral displacement of the right C1 lateral mass relative to C2. Severe congestive heart failure. Comment: Findings were discussed with Dr. Moralez on 10/07/2025 at 1446 hours Dictated by: Mehdi Villalobos M.D. on 10/07/2025 at 14:44 Approved by: Mehdi Villalobos M.D. on 10/07/2025 at 14:49
--- NOTE | 2025-10-07 14:40 | EKG_ITS ---
[place] [address] [place] [id number] Test Date: 2025-10-07 Pat Name: Gaudencio Dennis Department: 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
[2025-10-07 14:53] LABS: Add Manual Diff / Slide Review NO; Hematocrit 44.1 % (41-53); Hemoglobin 14.3 g/dL (13.5-17.5); Lymphocytes Absolute Auto 800 /uL (1100-4500); Mean Corpuscular HGB Conc 32.3 % (30-36); Mean Corpuscular Hemoglobin 29.7 PG (26-34); Mean Corpuscular Volume 91.8 fL (80-100); Platelet Count 309 X10^3/uL (150-400)
--- NOTE | 2025-10-07 14:55 | DI.RAD.S_ITS ---
PROCEDURE: XR CHEST 1V INDICATIONS: fall TECHNIQUE: One view of the chest was acquired. COMPARISON: [facility], CR, XR CHEST 1V, 02/21/2025, 3:41. [facility], CR, XR CHEST 1V, 09/26/2024, 10:23. FINDINGS: Surgical changes and devices: None. Lungs and pleura: Retrocardiac opacity with silhouetting of the left hemidiaphragm. Small right pleural effusion. Hazy interstitial prominence bilaterally. Mediastinum: Cardiac silhouette is enlarged. Bones and chest wall: No suspicious bony lesions. Overlying soft tissues appear unremarkable. IMPRESSION: 1. Left basilar consolidation may be secondary to edema, contusion, aspiration, or pneumonia. No pneumothorax. 2. Small right pleural effusion. 3. Bilateral interstitial prominence and hazy opacities of is suspicious for mild edema. 4. Cardiomegaly. Approved by: Darin Parsons M.D. on 10/07/2025 at 15:57
--- NOTE | 2025-10-07 14:56 | ED.FALL ---
HPI - Fall <Joanna Moralez, - Last Filed: 10/08/25 08:14> General Chief Complaint: Fall Stated Complaint: Fell , hurt head and neck on blood thinners Time Seen by Provider: 10/07/25 14:23 Source: family Mode of arrival: Wheelchair History of Present Illness HPI Narrative: 89-year-old male history of dementia, AFib on apixaban, metoprolol, CHF with an EF of 30%, pacemaker, history of interstitial lung disease who presents with fall. Patient does have dementia does not recall exactly what happened states he did fall. His heard him fall she states she found him in the kitchen looks like he had fallen forward hit the top of his head on a cabinet on the edge. He is complaining of little bit of neck pain in his upper neck. He denies any back pain otherwise. No chest pain or shortness of breath. They do not believe that he had any loss of consciousness but did not witnessed the actual fall but she notes she was in the other room and saw him shortly after. She states he seems to be at his baseline mentation. Denies any abdominal back or flank pain. No new numbness, tingling or weakness. Patient was able to ambulate and ambulated here at home and here when he came to triage. No loss of bowel or bladder control. Patient has been taking his daily medications. He has had a prior pacemaker. states he has a known reaction a horse serum or equine products she notes he has allergies listed on his EMR but he is unaware of any of his allergies. No tobacco, alcohol or recreational drugs. He is accompanied by his whom he lives with. He is normally ambulatory at baseline. Related Data Home Medications ?Medication ?Instructions ?Recorded ?Confirmed ascorbic acid (vitamin C) 500 mg 2 g PO BEDTIME #0 tabs 12/26/21 09/13/25 tablet aspirin 81 mg tablet,delayed 81 mg PO QAM 12/26/21 09/13/25 release (Adult Aspirin Regimen) vitamin E (dl, acetate) 180 mg PO DAILY 06/18/22 09/13/25 mecobalamin (vitamin B12) 1,000 1,000 mcg PO DAILY B12 levels were 05/30/23 09/13/25 mcg chewable tablet low in past loratadine 10 mg tablet (Claritin) 10 mg PO DAILY 03/30/24 09/13/25 iron,carbonyl 65 mg-vitamin C 125 1 tab PO DAILY Anemia 08/03/24 09/13/25 mg tablet,delayed release guaifenesin 1,200 mg tablet, 1,200 mg PO BID 09/28/24 09/13/25 extended release 12 hr (Mucinex) omega 5-fqm-one-fish oil 900 2,410 cap PO DAILY 02/21/25 09/13/25 mg-1,400 mg capsule,delayed release ergocalciferol (vitamin D2) 1,250 1,250 mcg PO QWEEK 06/08/25 09/13/25 mcg (50,000 unit) capsule (Vitamin D2) budesonide-formoterol HFA 160 inhalation 09/13/25 09/13/25 mcg-4.5 mcg/actuation aerosol inhaler (Symbicort) ipratropium 0.5 mg-albuterol 3 mg 3 ml inhalation Q6H PRN 09/13/25 09/13/25 (2.5 mg base)/3 mL nebulization soln spironolactone 25 mg tablet 25 mg PO DAILY 09/13/25 09/13/25 torsemide 20 mg tablet 20 mg PO DAILY 09/13/25 09/13/25 Previous Rx's ?Medication ?Instructions ?Recorded Disabled Parking #1 ea 02/26/22 finasteride 5 mg tablet 5 mg PO DAILY #90 tabs 01/06/25 apixaban 5 mg tablet (Eliquis) 5 mg PO Q12H #180 tabs 06/03/25 citalopram 10 mg tablet 10 mg PO DAILY #90 tabs 07/26/25 citalopram 20 mg tablet 20 mg PO DAILY #90 tabs 07/26/25 lisinopril 5 mg tablet 5 mg PO DAILY #30 tabs 08/18/25 metoprolol succinate 50 mg 50 mg PO BID #60 tabs 08/18/25 tablet,extended release 24 hr atorvastatin 20 mg tablet 20 mg PO QPM #90 tabs 09/07/25 Allergies Allergy/AdvReac Type Severity Reaction Status Date / Time Sulfa (Sulfonamide Allergy Mild rash Verified 10/07/25 14:15 Antibiotics) Horse/Equine Containing AdvReac Severe CONVULSION Verified 10/07/25 14:15 Products tamsulosin AdvReac Mild Lower Verified 10/07/25 14:15 extremity edema doxycycline AdvReac Unknown high blood Verified 10/07/25 14:15 pressure Review of Systems <Joanna Moralez DO - Last Filed: 10/08/25 08:14> Review of Systems ROS Unobtainable: All systems reviewed & are unremarkable except as noted in HPI and below Patient History <Joanna Moralez DO - Last Filed: 10/08/25 08:14> Medical History Aortic stenosis Cardiomyopathy Interstitial lung disease History of gross hematuria History of urinary retention Pacemaker Late onset Alzheimer's dementia without behavioral disturbance History of urinary tract infection B12 deficiency Major neurocognitive disorder Memory loss Pulmonary embolism (~05/2021) Chronic anticoagulation Urinary tract infection associated with indwelling urethral catheter Constipation Alcoholic hepatitis Alcohol dependence Alcohol use with withdrawal BPH (benign prostatic hyperplasia) Acute renal failure Hypoxia Chronic back pain BPH w urinary obs/LUTS Alcohol abuse Paroxysmal atrial fibrillation (03/16/16) Essential tremor (12/28/14) 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) Mixed hyperlipidemia (05/17/11) Essential hypertension (05/17/11) Surgical History Status post cardiac pacemaker procedure S/P carotid endarterectomy (02/06/22) H/O laminectomy S/P hernia repair Hx of appendectomy History of radiofrequency ablation (RFA) procedure for cardiac arrhythmia (~2018) Status post cholecystectomy (09/2015) Family History Mother CAD (coronary artery disease) Father Hypertension Hearing impaired Social History marital status: number of children: 3 household members: spouse lives independently: Yes caregiver/support person: No housing: house pets and animals: Yes education level: other occupational status: other current occupational exposures/hazards: No 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 Patient appears in mild distress. HEAD: Patient has laceration with hematoma over the top of his scalp, no raccoon/Jacobo sign. NECK: Nontender, painless range of motion, trachea midline Positive Nexus criteria, positive for line tenderness, no distracting injury, altered mental status (dementia at baseline per ), no neuro deficit, recent EtOH. EYES: PERRLA, EOMI ENT: External inspection normal, trachea is midline, TM's are normal no hemotypanum, Nares are clear, no septal hematoma, no dental or oral injury, airway is normal and with normal occlusion, No bony tenderness RESP: Chest is nontender and has symmetric movement, no ecchymosis, breath sounds are normal no crackles, wheezes or rales CVS: Heart sounds are normal, no murmur noted, No JVD. ABG/GI: Nontender, soft, normal bowel sounds, no distention, no organomegaly, pelvic rock is negative NEURO: Oriented AOx3, neuro is grossly intact, sensation and motor is normal all 4 extremities moving, cranial nerves II through XII are intact, GCS is 14 PSYCH: Normal mood and affect SKIN: Intact, warm and dry, no crepitus and without decubitus BACK: No CVA tenderness, no vertebral tenderness, no step-off's, no crepitus EXT: Atraumatic, hips are nontender, no pedal edema, normal color and temperature, normal range of motion of extremities with normal tendon exam, 2+ pulses in all four extremities Initial Vital Signs Initial Vital Signs: Vital Signs Temperature 96.7 F L 10/07/25 14:12 Pulse Rate 77 10/07/25 14:12 Respiratory Rate 18 10/07/25 14:12 Blood Pressure 144/82 H 10/07/25 14:12 Pulse Oximetry 98 10/07/25 14:12 Oxygen Delivery Method Room Air 10/07/25 14:12 <Ken Brooks MD - Last Filed: 10/08/25 04:00> Initial Vital Signs Initial Vital Signs: Vital Signs Temperature 96.7 F L 10/07/25 14:12 Pulse Rate 77 10/07/25 14:12 Respiratory Rate 18 10/07/25 14:12 Blood Pressure 144/82 H 10/07/25 14:12 Pulse Oximetry 98 10/07/25 14:12 Oxygen Delivery Method Room Air 10/07/25 14:12 Scores <Joanna Sarah Moralez DO - Last Filed: 10/08/25 08:14> [place] CT Head Rule Age <16 years old: No Patient on blood thinners: Yes Seizure after injury: No Exclusion: Patient meets exclusion criteria Age greater or equal to 65 years: Yes GCS Stepan coma scale eye opening: Spontaneous Stepan coma scale verbal response: Orientated Stepan coma scale motor response: Obey commands [place] coma scale total score: 15 Nexus Score for C-Spine Focal Neurologic deficit present: No Midline spinal tenderness present: No Altered level of conciousness present: Yes Intoxication present: No Distracting Injury Present: No Nexus Criteria for C-spine: 1 <Ken Brooks MD - Last Filed: 10/08/25 04:00> [place] CT Head Rule Exclusion: Patient meets exclusion criteria GCS Stepan coma scale total score: 15 Nexus Score for C-Spine Nexus Criteria for C-spine: 1 Course <Joanna Moralez DO - Last Filed: 10/08/25 08:14> Orders Ordered: Discontinued Medications Diphtheria/Tetanus/Acell Pertussis (Tet,Diph,Pertuss(Acell),Vac/Pf 0.5 Ml Syringe) 0.5 ml IM .ONCE ONE Stop: 10/07/25 19:37 Last Admin: 10/07/25 20:11 Dose: 0.5 ml Documented By: BZ Acetaminophen (Ofirmev) 1,000 mg in 100 mls @ 400 mls/hr IV NOW ONE Stop: 10/07/25 19:49 Last Infusion: 10/07/25 20:37 Dose: Infused Documented By: Admin: 10/07/25 20:09 Dose: 400 mls/hr Documented By: BZ Lidocaine HCl (Lidocaine 2% (Glydo) 6 Ml Gel) 6 ml TOP NOW ONE Stop: 10/07/25 15:55 Last Admin: 10/07/25 15:56 Dose: 6 ml Documented By: BZ Vital Signs Vital signs: Vital Signs - 8 hr 10/07/25 20:00 10/07/25 20:00 10/07/25 20:15 Pulse Rate 83 85 Respiratory Rate 22 24 Blood Pressure 138/84 Pulse Oximetry 95 93 10/07/25 20:15 10/07/25 20:30 10/07/25 20:30 Pulse Rate 86 Respiratory Rate 18 Blood Pressure 140/96 H 142/89 H Pulse Oximetry 95 10/07/25 20:46 10/07/25 20:46 10/07/25 21:00 Pulse Rate 84 87 Respiratory Rate 23 18 Blood Pressure 163/75 H Pulse Oximetry 94 94 10/07/25 21:00 Pulse Rate Respiratory Rate Blood Pressure 153/77 H Pulse Oximetry <Ken Brooks MD - Last Filed: 10/08/25 04:00> Orders Ordered: Discontinued Medications Diphtheria/Tetanus/Acell Pertussis (Tet,Diph,Pertuss(Acell),Vac/Pf 0.5 Ml Syringe) 0.5 ml IM .ONCE ONE Stop: 10/07/25 19:37 Last Admin: 10/07/25 20:11 Dose: 0.5 ml Documented By: BZ Acetaminophen (Ofirmev) 1,000 mg in 100 mls @ 400 mls/hr IV NOW ONE Stop: 10/07/25 19:49 Last Infusion: 10/07/25 20:37 Dose: Infused Documented By: Admin: 10/07/25 20:09 Dose: 400 mls/hr Documented By: BZ Lidocaine HCl (Lidocaine 2% (Glydo) 6 Ml Gel) 6 ml TOP NOW ONE Stop: 10/07/25 15:55 Last Admin: 10/07/25 15:56 Dose: 6 ml Documented By: MICHELLE Vital Signs Vital signs: Vital Signs - 8 hr 10/07/25 20:00 10/07/25 20:00 10/07/25 20:15 Pulse Rate 83 85 Respiratory Rate 22 24 Blood Pressure 138/84 Pulse Oximetry 95 93 10/07/25 20:15 10/07/25 20:30 10/07/25 20:30 Pulse Rate 86 Respiratory Rate 18 Blood Pressure 140/96 H 142/89 H Pulse Oximetry 95 10/07/25 20:46 10/07/25 20:46 10/07/25 21:00 Pulse Rate 84 87 Respiratory Rate 23 18 Blood Pressure 163/75 H Pulse Oximetry 94 94 10/07/25 21:00 Pulse Rate Respiratory Rate Blood Pressure 153/77 H Pulse Oximetry MDM - Fall <Joanna Moralez, DO - Last Filed: 10/08/25 08:14> Lab Data 10/07/25 14:45 10/07/25 14:45 Labs: Lab Results 10/07/25 10/07/25 10/07/25 Range/Units 14:45 15:41 16:17 WBC 11.3 H (4.5-11.0) X10^3/uL RBC 4.81 (4.5-5.9) X10^6/uL Hgb 14.3 (13.5-17.5) g/dL Hct 44.1 (41-53) % MCV 91.8 (80-100) fL MCH 29.7 (26-34) PG MCHC 32.3 (30-36) % RDW 15.4 H (11.6-14.8) % Plt Count 309 (150-400) X10^3/uL Neut % (Auto) 83.3 H (50-75) % Lymph % (Auto) 7.2 L (25-40) % Wayne % (Auto) 7.1 (3-14) % Eos % (Auto) 1.3 L (2-4) % Baso % (Auto) 1.1 (0-2) % Neut # (Auto) 9500 H (0343-5257) /uL Lymph # (Auto) 800 L (7579-5751) /uL Wayne # (Auto) 800 (0-900) /uL Eos # (Auto) 100 (0-450) /uL Baso # (Auto) 100 (0-100) /uL PT 21.0 H (9.4-12.5) SECONDS INR 1.9 H (0.9-1.3) APTT 33 (25.1-36.5) SECONDS Sodium 138 (137-145) mmol/L Potassium 5.2 H (3.4-5.1) mmol/L Chloride 105 (98-107) mmol/L Carbon Dioxide 27 (22-32) mmol/L BUN 25 H (9-20) mg/dL Creatinine 1.32 H (0.66-1.25) mg/dL Estimated GFR 52 L (>60) mL/min BUN/Creatinine Ratio 18.9 (6-22) Glucose 95 (70-99) mg/dL Calcium 9.1 (8.4-10.2) mg/dL Total Bilirubin 0.8 (0.2-1.3) mg/dL AST 27 (17-59) IU/L ALT 16 (<50) IU/L Alkaline Phosphatase 77 (38-126) U/L Troponin I < 0.012 (0.01-0.034) ng/mL NT-Pro-B Natriuret Pep 6260 H (<450) pg/mL Total Protein 6.9 (6.3-8.2) g/dL Albumin 3.9 (3.5-5.0) g/dL Globulin 3.0 (1.7-4.1) g/dL Albumin/Globulin Ratio 1.3 (1.0-2.8) Lipase 52 (23-300) U/L Urine RBC None seen (0-5/HPF) Urine WBC None seen (0-5/HPF) Ur Squamous Epith Cells 0-1 /hpf (0-5/HPF) Urine Bacteria None seen (None) Ur Culture Indicated? Cult not indicated Vol Urine Centrifuged 10ml (spun) U Opiates 300ng/mL cut Negative (Negative) Ur Oxycodone Screen Positive H (Negative) Urine Methadone Screen Negative (Negative) Ur Barbiturates Screen Negative (Negative) U Tricyclic Antidepress Negative (Negative) Ur Phencyclidine Scrn Negative (Negative) Ur Amphetamines Screen Negative (Negative) U Methamphetamines Scrn Negative (Negative) Ur MDMA Scrn (Ecstasy) Negative (Negative) U Benzodiazepines Scrn Negative (Negative) Urine Cocaine Screen Negative (Negative) U Marijuana (THC) Screen Negative (Negative) Urine pH Normal (Normal) Urine Specific [place] Normal (Normal) Ethyl Alcohol < 10 (<10) mg/dL Ur Creatinine Normal (Normal) MDM Narrative Medical decision making narrative: Head CT shows no acute intracranial pathology noted fractures anterior arch bilateral lamina of C1. Please see separate report. Multiple C1 fractures involving anterior arch and bilateral lamina with displacement lateral displacement of right C1 lateral mass relative C2. Severe congestive heart failure noted. Results called to myself by Dr. Villalobos. Cervical spine x-ray open mouth and lateral isn't well patient unsteady no other fracture dislocation degenerative disc disease throughout cervical spine. Labs show white count 11.3 hemoglobin of 14.3 platelets of 309, INR is 1.9, PTT is 33. Chemistries EKG shows AFib frequent ventricular paced complexes elect to FX deviation left bundle-branch block rate of 77 QRS of 154, QTC of 511. 89-year-old male with suspected mechanical fall with scalp laceration reported neck pain is anticoagulated was called as a modified trauma. Patient had C-collar placed in triage. Imaging does show C1 fractures concerning for instability plan for transfer to [facility]. Patient is currently neurologically intact. He has baseline dementia states he seems to be in his usual. Patient and are agreeable for transfer and interventions as required. Call to [facility] for transfer for C1 cervical fracture. Spoke with [facility] coordinator at [phone]. They will call back with neurosurgery/spinal. [phone], Spoke with Dr. Ozuna, spinal surgery she reviewed patient's images she asks for cervical x-rays with an open mouth and lateral view she will review these and decide if patient needs transfer for operative treatment versus nonoperative. Cervical spine xrays performed, recontacted [facility] to follow up imaging @ [phone]. Images being uploaded. Then will page out spinal. Patient is back in the department. Aware of current plan with cervical xray and potential for conservative management versus surgical management. Patient signed out to Dr. Brooks while awaiting call back from spinal surgery [facility] called back. Patient imaging was reviewed. Patient had continue with C-collar hard collar for the next 2 weeks. Patient to follow up with [facility] in that time frame. They will reach out to patient in 1-2 business days to set up follow up. <Ken Brooks MD - Last Filed: 10/08/25 04:00> Lab Data Labs: Lab Results 10/07/25 10/07/25 10/07/25 Range/Units 14:45 15:41 16:17 WBC 11.3 H (4.5-11.0) X10^3/uL RBC 4.81 (4.5-5.9) X10^6/uL Hgb 14.3 (13.5-17.5) g/dL Hct 44.1 (41-53) % MCV 91.8 (80-100) fL MCH 29.7 (26-34) PG MCHC 32.3 (30-36) % RDW 15.4 H (11.6-14.8) % Plt Count 309 (150-400) X10^3/uL Neut % (Auto) 83.3 H (50-75) % Lymph % (Auto) 7.2 L (25-40) % Wayne % (Auto) 7.1 (3-14) % Eos % (Auto) 1.3 L (2-4) % Baso % (Auto) 1.1 (0-2) % Neut # (Auto) 9500 H (5464-1041) /uL Lymph # (Auto) 800 L (7302-2420) /uL Wayne # (Auto) 800 (0-900) /uL Eos # (Auto) 100 (0-450) /uL Baso # (Auto) 100 (0-100) /uL PT 21.0 H (9.4-12.5) SECONDS INR 1.9 H (0.9-1.3) APTT 33 (25.1-36.5) SECONDS Sodium 138 (137-145) mmol/L Potassium 5.2 H (3.4-5.1) mmol/L Chloride 105 (98-107) mmol/L Carbon Dioxide 27 (22-32) mmol/L BUN 25 H (9-20) mg/dL Creatinine 1.32 H (0.66-1.25) mg/dL Estimated GFR 52 L (>60) mL/min BUN/Creatinine Ratio 18.9 (6-22) Glucose 95 (70-99) mg/dL Calcium 9.1 (8.4-10.2) mg/dL Total Bilirubin 0.8 (0.2-1.3) mg/dL AST 27 (17-59) IU/L ALT 16 (<50) IU/L Alkaline Phosphatase 77 (38-126) U/L Troponin I < 0.012 (0.01-0.034) ng/mL NT-Pro-B Natriuret Pep 6260 H (<450) pg/mL Total Protein 6.9 (6.3-8.2) g/dL Albumin 3.9 (3.5-5.0) g/dL Globulin 3.0 (1.7-4.1) g/dL Albumin/Globulin Ratio 1.3 (1.0-2.8) Lipase 52 (23-300) U/L Urine RBC None seen (0-5/HPF) Urine WBC None seen (0-5/HPF) Ur Squamous Epith Cells 0-1 /hpf (0-5/HPF) Urine Bacteria None seen (None) Ur Culture Indicated? Cult not indicated Vol Urine Centrifuged 10ml (spun) U Opiates 300ng/mL cut Negative (Negative) Ur Oxycodone Screen Positive H (Negative) Urine Methadone Screen Negative (Negative) Ur Barbiturates Screen Negative (Negative) U Tricyclic Antidepress Negative (Negative) Ur Phencyclidine Scrn Negative (Negative) Ur Amphetamines Screen Negative (Negative) U Methamphetamines Scrn Negative (Negative) Ur MDMA Scrn (Ecstasy) Negative (Negative) U Benzodiazepines Scrn Negative (Negative) Urine Cocaine Screen Negative (Negative) U Marijuana (THC) Screen Negative (Negative) Urine pH Normal (Normal) Urine Specific [place] Normal (Normal) Ethyl Alcohol < 10 (<10) mg/dL Ur Creatinine Normal (Normal) MDM Narrative Medical decision making narrative: Head CT shows no acute intracranial pathology noted fractures anterior arch bilateral lamina of C1. Please see separate report. Multiple C1 fractures involving anterior arch and bilateral lamina with displacement lateral displacement of right C1 lateral mass relative C2. Severe congestive heart failure noted. Results called to myself by Dr. Villalobos. Cervical spine x-ray open mouth and lateral isn't well patient unsteady no other fracture dislocation degenerative disc disease throughout cervical spine. Labs show white count 11.3 hemoglobin of 14.3 platelets of 309, INR is 1.9, PTT is 33. Chemistries EKG shows AFib frequent ventricular paced complexes elect to FX deviation left bundle-branch block rate of 77 QRS of 154, QTC of 511. 89-year-old male with suspected mechanical fall with scalp laceration reported neck pain is anticoagulated was called as a modified trauma. Patient had C-collar placed in triage. Imaging does show C1 fractures concerning for instability plan for transfer to [facility]. Patient is currently neurologically intact. He has baseline dementia states he seems to be in his usual. Patient and are agreeable for transfer and interventions as required. Call to [facility] for transfer for C1 cervical fracture. Spoke with [facility] coordinator at [phone]. They will call back with neurosurgery/spinal. 173, Spoke with Dr. Ozuna, spinal surgery she reviewed patient's images she asks for cervical x-rays with an open mouth and lateral view she will review these and decide if patient needs transfer for operative treatment versus nonoperative. Cervical spine xrays performed, recontacted [facility] to follow up imaging @ [phone]. Images being uploaded. Then will page out spinal. Patient is back in the department. Aware of current plan with cervical xray and potential for conservative management versus surgical management. [facility] called back. Patient imaging was reviewed. Patient had continue with C-collar hard collar for the next 2 weeks. Patient to follow up with [facility] in that time frame. They will reach out to patient in 1-2 business days to set up follow up. Discharge Plan Departure Patient Disposition: Home Clinical Impression: C1 cervical fracture, Laceration of scalp, Scalp hematoma, Fall Instructions: DI for Cervical Neck Fracture Activity Restrictions/Additional Instructions: You have a C1 cervical fracture, your images were reviewed with a spinal surgery at [facility] they recommend continuing with a hard collar for the next 2 weeks and they we would like you to follow up with their [facility]. They should reach out to you in 1-2 business days to set up a follow up appointment. You can continue your home medications as prescribed. You can take acetaminophen up to 1000mg every 6 hours. If you have any new or severe headaches, worsening pain, any new numbness, tingling or weakness, new difficulty with ambulation, any loss of bowel or bladder control, difficulty with breathing return to the emergency department. Prescriptions: No Action ascorbic acid (vitamin C) 500 mg tablet 2 g PO BEDTIME Qty: 0 guaifenesin [Mucinex] 1,200 mg tablet extended release 12hr 1,200 mg PO BID Eliquis 5 mg tablet 5 mg PO Q12H Qty: 180 3RF Patient Comments: held r/t surgery. Due to restart 05/30/21 citalopram 10 mg tablet 10 mg PO DAILY Qty: 90 3RF Rx Instructions: take with 20mg tabs to equal 30mg daily total citalopram 20 mg tablet 20 mg PO DAILY Qty: 90 3RF lisinopril 5 mg tablet 5 mg PO DAILY Qty: 30 1RF metoprolol succinate 50 mg tablet extended release 24 hr 50 mg PO BID Qty: 60 3RF atorvastatin 20 mg tablet 20 mg PO QPM Qty: 90 3RF mecobalamin (vitamin B12) 1,000 mcg tablet,chewable 1,000 mcg PO DAILY iron,carbonyl-vitamin C 65 mg iron- 125 mg tablet,delayed release (DR/EC) 1 tab PO DAILY ergocalciferol (vitamin D2) [Vitamin D2] 1,250 mcg (50,000 unit) capsule 1,250 mcg PO QWEEK Patient Comments: Takes vitamin d2 once a week (DME) Disabled Parking See Rx Instructions .ROUTE .MEDSUPPLY Qty: 1 0RF Rx Instructions: Patient qualifies for disabled parking as per the attached form. vitamin E (dl, acetate) 180 mg PO DAILY loratadine [Claritin] 10 mg tablet 10 mg PO DAILY torsemide 20 mg tablet 20 mg PO DAILY ipratropium-albuterol 0.5 mg-3 mg(2.5 mg base)/3 mL solution for nebulization 3 ml inhalation Q6H PRN spironolactone 25 mg tablet 25 mg PO DAILY budesonide-formoterol [Symbicort] 160-4.5 mcg/actuation HFA aerosol inhaler inhalation omega 9-[id number]-txd-fish oil 900-1,400 mg Capsule,Delayed Release(Dr/Ec) 2,410 cap PO DAILY finasteride 5 mg tablet 5 mg PO DAILY Qty: 90 3RF aspirin [Adult Aspirin Regimen] 81 mg tablet,delayed release (DR/EC) 81 mg PO QAM Referrals: Ten Fleming MD [Primary Care Provider, Internal Medicine] Stand Alone Forms: Patient Portal/API
[2025-10-07 15:01] LABS: INR 1.9 (0.9-1.3); Prothrombin Time 21.0 SECONDS (9.4-12.5)
[2025-10-07 15:03] LABS: PTT Partial Thromboplastin Tim 33 SECONDS (25.1-36.5)
[2025-10-07 15:08] LABS: Alanine Aminotransferase 16 IU/L (<50); Albumin 3.9 g/dL (3.5-5.0); Albumin Globulin Ratio 1.3 (1.0-2.8); Alkaline Phosphatase 77 U/L (38-126); Blood Urea Nitrogen 25 mg/dL (9-20); Calcium 9.1 mg/dL (8.4-10.2); Carbon Dioxide 27 mmol/L (22-32); Chloride 105 mmol/L (98-107); Estimated Glomerular Filt Rate 52 mL/min (>60); Globulin 3.0 g/dL (1.7-4.1); Glucose 95 mg/dL (70-99); Lipase 52 U/L (23-300); Potassium 5.2 mmol/L (3.4-5.1); Sodium 138 mmol/L (137-145); Total Protein 6.9 g/dL (6.3-8.2)
[2025-10-07 15:24] LABS: HEMOLYSIS 69 (0-50)
[2025-10-07] MEDS: LIDOCAINE 2% (GLYDO) 6 ML GEL TOP (15:56)
[2025-10-07 16:36] LABS: Ethanol (ETOH) < 10 mg/dL (<10)
[2025-10-07 16:45] LABS: UR Morphine/Opiate cutoff 300 Negative (Negative); Ur Specific Gravity Normal (Normal); Urine MDMA Negative (Negative); Urine Methamphetamines Negative (Negative); Urine Tetrahydrocannabinol Negative (Negative); Urine Tricyclic Antidepressant Negative (Negative)
[2025-10-07 16:49] LABS: NT-proBNP (BNP-Adult 18+) 6260 pg/mL (<450); Troponin I < 0.012 ng/mL (0.01-0.034)
[2025-10-07 16:51] LABS: Culture Indicated Urine Cult Not Indicated
--- NOTE | 2025-10-07 17:36 | DI.RAD.S_ITS ---
PROCEDURE: XR CERVICAL SPINE 2V OR 3V INDICATIONS: open mouth and lateral TECHNIQUE: 3 view(s) of the cervical spine were acquired. COMPARISON: [facility], CT, CT CERVICAL SPINE WO CON, 10/07/2025, 14:24. FINDINGS: Bones: Patient has no anterior arch of C1 fracture is not well seen on this study. No other fracture or dislocation is seen. Degenerative endplate changes, loss of disc height and bilateral facet hypertrophic changes are noted throughout cervical spine. The lateral masses of C1 appear intact on the odontoid view. No suspicious bony lesions. Soft tissues: No prevertebral soft tissue swelling. IMPRESSION: Patient's known C1 fracture is not well appreciated on this study. No other fracture or dislocation. Degenerative disc disease throughout cervical spine. Dictated by: Alphonso Ramírez M.D. on 10/07/2025 at 18:16 Approved by: Alphonso Ramírez M.D. on 10/07/2025 at 18:18
--- NOTE | 2025-10-07 17:40 | PC.NURSE ---
Patient moving legs and arms and asking whats going on. Patient wants to get up and move. RN [place] gives education on importance on staying in bed and limiting movement, especially in regards to head and neck. Rigid C-collar remains in place. Volunteer [place] sitting with patient 1:1 at this time to remind patient of precautions. Provider Kirt made aware, provider also ok to elevate HOB 30 degrees. Patient can have ice chips.
[2025-10-07] MEDS: ACETAMINOPHEN IV 1,000 MG/100 ML VIAL 400 MG IV (20:09)
[2025-10-07] MEDS: TET,DIPH,PERTUSS(ACELL),VAC/PF 0.5 ML SYRINGE IM (20:11)
== END 2025-10-07 21:32 | disposition home or self-care (01) ==
PROVIDERS: Emergency Medicine; Emergency Provider Emergency Medicine; PCP Internal Medicine
DX: S12.090A Other displaced fracture of first cervical vertebra, initial encounter for closed fracture (principal); S01.01XA Laceration without foreign body of scalp, initial encounter; I48.91 Unspecified atrial fibrillation; W18.30XA Fall on same level, unspecified, initial encounter; Z79.01 Long term (current) use of anticoagulants; Z95.0 Presence of cardiac pacemaker; Z23 Encounter for immunization
CPT/HCPCS: 36415; 70450; 71045; 72040; 72125; 80053; 80305; 80320; 81015; 83690; 83880; 84484; 85025; 85610; 85730; 90471; 93005; 96365; 99284; 90715; J0131